=== PATIENT | male | born 1940 | race Caucasian/White ===

== ENCOUNTER 2016-08-16 05:39 | Inpatient (IN) | payer OTHER ==
[2016-07-31 08:28] VITALS: BMI 31.0
--- NOTE | 2016-07-31 09:12 | PAT Medication Instructions ---
Service Date Jul 31, 2016. Current Home Medication List Albuterol Hfa (Ventolin Hfa), 2-4 PUFFS INH Q6H Amoxicillin (Amoxil), 2,000 MG PO DIRECTED Aspirin (Aspirin Ec), 81 MG PO QPM Cholecalciferol (Vitamin D 1000 Unit), 1,000 INTER.UNIT PO BID Colchicine (Colchicine), 0.6 MG PO PRN Cyanocobalamin (Vitamin B12 500MCG), 500 MCG PO QAM Dutasteride (Avodart), 0.5 MG PO QAM Iron-Vitamin C (Vitron-C), 1 TAB PO BID Metoprolol Succ (Toprol Xl) (Toprol-Xl), 12.5 MG PO QAM Pantoprazole (Protonix), 40 MG PO QAM Tadalafil (Cialis), 20 MG PO UD Tamsulosin Hcl (Flomax), 0.4 MG PO BID Medication Instructions For Your Scheduled Surgery Amoxicillin (Amoxil), 2,000 MG PO DIRECTED (only takes prior to dental procedures) Colchicine (Colchicine), 0.6 MG PO PRN (not taking currently) - Hold the following medications 24 hours prior to surgery: Tadalafil (Cialis), 20 MG PO UD - Hold the following medications the morning of surgery: Iron-Vitamin C (Vitron-C), 1 TAB PO BID Cyanocobalamin (Vitamin B12 500MCG), 500 MCG PO QAM Cholecalciferol (Vitamin D 1000 Unit), 1,000 INTER.UNIT PO BID - Take the following medications the morning of surgery with a sip of water: Tamsulosin Hcl (Flomax), 0.4 MG PO BID Pantoprazole (Protonix), 40 MG PO QAM Metoprolol Succ (Toprol Xl) (Toprol-Xl), 12.5 MG PO QAM Dutasteride (Avodart), 0.5 MG PO QAM Albuterol Hfa (Ventolin Hfa), 2-4 PUFFS INH Q6H (bring with you to hospital on day of surgery) - Take the following medications as scheduled the night before surgery: Tamsulosin Hcl (Flomax), 0.4 MG PO BID Cholecalciferol (Vitamin D 1000 Unit), 1,000 INTER.UNIT PO BID Aspirin (Aspirin Ec), 81 MG PO QPM Albuterol Hfa (Ventolin Hfa), 2-4 PUFFS INH Q6H If you have any questions please call us at [phone] or [phone] ( [place]) or [phone]
[2016-07-31 09:38] LABS: BASO % 0.5 %; BASO ABS # 0.04 K/uL (0-0.2); COMPLETE YES; EOS % 2.6 %; IG% 0.5 %; LYMPH % 21.6 %; LYMPH ABS # 1.63 K/uL (1.2-3.4); MEAN CELL VOLUME 87.4 fL (80-100); MEAN CORPUSCULAR HEMOGLOBIN 29.3 pg (25-34); MEAN CORPUSCULAR HGB CONC 33.5 g/dl (32-36); MEAN PLATELET VOLUME 8.9 fL (7.4-10.4); MONO % 8.3 %; NEUT % 66.5 %; PLATELET COUNT 178 K/uL (130-400); RED BLOOD COUNT 4.92 M/uL (4.7-6.1); WHITE BLOOD COUNT 7.56 K/uL (4.8-10.8)
[2016-07-31 09:43] LABS: URINE APPEARANCE CLEAR (CLEAR); URINE BILIRUBIN NEG (NEG); URINE COLOR YELLOW; URINE NITRITE NEG (NEG); URINE SPECIFIC GRAVITY 1.024 (1.000-1.030); UROBILINOGEN NEG (NEG)
--- NOTE | 2016-07-31 09:52 | DIAGNOSTIC IMAGING REPORT ---
CHEST PREADMISSION(PA/LAT) CLINICAL HISTORY: PAT preoperative evaluation COMPARISON STUDY: 11/10/2013 FINDINGS: Fixed lateral hernia. Lungs are clear. Diaphragms are smooth. IMPRESSION: No acute process. Electronically signed by: Danial Noble M.D. 07/31/2016 9:51 AM Dictated Date/Time: 07/31/2016 9:49 AM
[2016-07-31 09:55] LABS: MANUAL MICROSCOPIC REQUIRED? NO; REVIEW REQ? NO
[2016-07-31 10:06] LABS: BUN/CREATININE RATIO 18.9 (10-20); CALCIUM 8.7 mg/dl (8.5-10.1); POTASSIUM 4.2 mmol/L (3.5-5.1)
--- NOTE | 2016-08-15 12:46 | HISTORY & PHYSICAL EXAMINATION ---
DATE OF ADMISSION: 08/16/2016 HISTORY OF PRESENT ILLNESS: The patient presents to our office with a complaint of balance discrepancy as well as upper extremity numbness and paresthesias. He also admits to bilateral leg pain. He reports buckling of his left leg. He denies bowel or bladder changes. PAST MEDICAL HISTORY: Significant for arthritis, BPH. PAST SURGICAL HISTORY: Significant for hip replacement bilaterally and hernia repair. ALLERGIES: None listed. MEDICATIONS: Include: 1. Celebrex 200 mg twice a day. 2. Simvastatin 20 mg a day. 3. Flomax 0.4 mg daily. SOCIAL HISTORY: He is , has 4 children. Denies alcohol. Denies tobacco use. FAMILY HISTORY: Significant for cancer, cardiovascular disease and arthritis. REVIEW OF SYSTEMS: Significant for hearing loss, ringing in ears, muscle weakness. PHYSICAL EXAMINATION: VITAL SIGNS: 6 feet 2 inches, 220 pounds. HEENT: Speech appropriate. CARDIOPULMONARY: No gross abnormalities. ABDOMEN: Soft, nondistended. GENITOURINARY: Deferred. NEUROLOGIC: Cranial nerves II-XII grossly intact. MUSCULOSKELETAL: He ambulates with an independent steady gait. Strength is intact bilaterally. ASSESSMENT: Severe spinal stenosis at C3-C4 with intrinsic cord changes, bilateral neural foraminal stenosis C3-C4. PLAN: At this point in time, we have reviewed surgical intervention which would require anterior cervical discectomy and fusion at C3-4. Risks, benefits, pros, cons, and alternatives were outlined in detail. The patient would like to proceed with the above-mentioned surgical planning.
[~2016-08-16] VITALS: Ht 188 cm; Wt 111.4 kg
[2016-08-16] VITALS (15 sets, daily range): BP systolic 131–171; BP diastolic 74–98; PULSE 52–88; TEMP 34.7–36.5; O2SAT 94–98; Ht 188 cm; Wt 111.4 kg
[~2016-08-16 05:39] MED LIST: AMOX500C3 PO; ASPI81TA28 PO; CHOL100027 PO; COLC0.6T54 PO; CYAN500T13 PO; DUTA0.5C PO; FERRTAB18 PO; METO25TA3 PO; PANT40TA PO; TADA10TA PO; TAMS0.4C38 PO; VNTHFA/IN INH
[2016-08-16] MEDS ORDERED: LACTATED RINGER'S 1000ML 1,000 ML IV SCH (06:00)
[2016-08-16] MEDS ORDERED: CEFAZOLIN 2000 MG/60 ML D5W IV SCH (06:00)
[2016-08-16] MEDS ORDERED: FENTANYL CITRATE INJ 50 MCG/1 ML 2 ML VIAL ONE ×3 (06:33→09:05)
[2016-08-16] MEDS ORDERED: MIDAZOLAM HCL 1 MG/ML 2ML VIAL ONE (06:33)
[2016-08-16] MEDS ORDERED: SODIUM CHLORIDE 0.9% PF 50 ML VIAL ONE (07:10)
[2016-08-16] MEDS ORDERED: BACITRACIN 50000 UNIT VIAL ONE (07:10)
--- NOTE | 2016-08-16 07:34 | History & Physical Bridge Note ---
H&P Re-Evaluation Bridge Note: I have examined the patient, reviewed the History & Physical and in the interval since the performance of the History & Physical I have noted the following changes of clinical significance: No changes noted
[2016-08-16] MEDS ORDERED: HYDROmorphone INJ 2 MG/ML SYR/VIAL ONE ×2 (08:06→09:10)
[2016-08-16] MEDS ORDERED: MEPERIDINE HCL 25 MG/ML CARP IV PRN (08:45)
[2016-08-16] MEDS ORDERED: ATROPINE SULFATE 0.1 MG/ML 5ML SYR IV PRN (08:45)
[2016-08-16] MEDS ORDERED: LABETALOL HCL IV 5 MG/ML 20ML IV PRN (08:45)
[2016-08-16] MEDS ORDERED: HYDROmorphone INJ 1 MG/ML SYR IV PRN ×2 (08:45→09:45)
[2016-08-16] MEDS ORDERED: EpHEDrine SULFATE INJ 50 MG/ML AMP IV PRN (08:45)
[2016-08-16] MEDS ORDERED: ONDANSETRON INJ 2 MG/ML 2 ML VIAL IV PRN ×2 (08:45→09:15)
[2016-08-16] MEDS ORDERED: FLOSEAL HEMOSTATIC MATRIX 5ML TOP ONE (09:10)
--- NOTE | 2016-08-16 09:11 | [facility] Post Operative Brief Note ---
Immediate Operative Summary Operative Date Aug 16, 2016. Pre-Operative Diagnosis Severe Spinal Stenosis C3-C4, Intrinsic Cord Change, Bilateral Neural Foraminal Stenosis C3-C4 Post-Operative Diagnosis Severe Spinal Stenosis C3-C4, Intrinsic Cord Change, Bilateral Neural Foraminal Stenosis C3-C4 Procedure(s) Performed C3-C4 Anterior Cervical Discectomy and Fusion; Removal of Intervertebral Disc/Decompression; Placement of Prosthetic Spacer; Anterior Plate and Screw Fixation Surgeon Dr. Ortiz Artist Agent Surgeon(s) none Estimated Blood Loss 20 cc Findings stenosis Specimens none per surgeon
[2016-08-16] MEDS ORDERED: MAGNESIUM HYDROXIDE SUSP 30 ML UDC PO PRN (09:15)
[2016-08-16] MEDS ORDERED: DO NOT ADMINISTER FLU VACCINE PRN ×3 (09:15)
[2016-08-16] MEDS ORDERED: HYDROmorphone INJ 0.5 MG/0.5 ML SYR IV PRN (09:15)
[2016-08-16] MEDS ORDERED: RACEPINEPHRINE 2.25% NEBU SOLN 0.5 ML VIAL INH PRN (09:15)
[2016-08-16] MEDS ORDERED: ACETAMINOPHEN IV 100 ML IV PRN (09:15)
[2016-08-16] MEDS ORDERED: DO NOT ADMINISTER PNEUMOCOCCAL VACCINE PRN ×2 (09:15)
[2016-08-16] MEDS ORDERED: NALOXONE HCL 0.4 MG/1 ML VIAL/CARP IV PRN (09:15)
[2016-08-16] MEDS ORDERED: LORAZEPAM 0.5 MG TAB PO PRN (09:15)
[2016-08-16] MEDS ORDERED: DiphenhydrAMINE HCL 50 MG/ML VIAL IV PRN (09:15)
[2016-08-16] MEDS ORDERED: DEXAMETHASONE INJ 8 MG in SYRINGE 0 ML IV PRN (09:15)
[2016-08-16] MEDS ORDERED: LORAZEPAM INJ 0.5 MG in SYRINGE 0.75 ML IV PRN (09:15)
[2016-08-16] MEDS ORDERED: LIDOCAINE HCL 2% 2 ML VIAL (20MG/ML) ONE (09:27)
[2016-08-16] MEDS ORDERED: NEOSTIGMINE METHYLSULFATE 1 MG/ML 10ML VIAL ONE (09:27)
[2016-08-16] MEDS ORDERED: EpHEDrine SULFATE 50MG/5ML SYR ONE (09:27)
[2016-08-16] MEDS ORDERED: ROCURONIUM BROMIDE 10 MG/ML 5 ML VIAL ONE (09:27)
[2016-08-16] MEDS ORDERED: GLYCOPYRROLATE INJ 0.2 MG/ML VIAL ONE (09:27)
[2016-08-16] MEDS ORDERED: PROPOFOL IV EMULSION 10 MG/ML 20 ML VIAL IV ONE (09:27)
[2016-08-16] MEDS ORDERED: ONDANSETRON INJ 2 MG/ML 2 ML VIAL ONE (09:27)
[2016-08-16] MEDS ORDERED: DEXAMETHASONE SOD INJ 4 MG/ML VIAL ONE (09:27)
[2016-08-16] MEDS ORDERED: PHENYLEPHRINE 100MCG/ML 5ML SYR ONE (09:27)
--- NOTE | 2016-08-16 09:32 | OPERATIVE REPORT ---
DATE OF OPERATION: 08/16/2016 PREOPERATIVE DIAGNOSIS: Cervical spinal stenosis with myeloradiculopathy. POSTOPERATIVE DIAGNOSIS: Same. PROCEDURE PERFORMED: 1. Anterior cervical discectomy, bilateral foraminotomy C3-C4. 2. Anterior cervical arthrodesis C3-C4. 3. Placement of cortical autograft 8 mm in height filled with DBM, C3-C4. 4. Application of Jimenez plate and screws across C3-C4. SURGEON: Dr. Darin Ortiz. ANESTHESIA: General. DISPOSITION: The patient awakened and taken to PACU in stable condition. HISTORY OF PATIENT'S PROBLEMS: This is a 76-year-old male who presents with above-mentioned diagnosis. After failing an extensive course of nonoperative care, elected to undergo the above-mentioned procedure. Risks, benefits, pros, cons, and alternatives were outlined in detail preoperatively. DESCRIPTION OF PROCEDURE: The patient was met with preoperatively, the case discussed and all questions were addressed. At that point, the patient was taken back to operative suite, and after undergoing successful general intubation via department of anesthesia, was placed in a supine position with the head in Islas pm head cook. All bony prominences were well padded and the eyes were inspected to ensure there was no external pressure placed upon them. At this point, the anterior cervical spine was prepped and draped in normal sterile fashion. With the assistance of fluoroscopy, we identified the C3-C4 disc space and transverse incision was placed along the right anterior aspect of the cervical spine overlying this region. Sharp dissection with the assistance of bipolar electrocautery performed down to and exposing the anterior cervical spine from C3-C4. A self-retaining retractor was placed. We verified our position with fluoroscopy. A complete discectomy was then performed out to the uncovertebral joints bilaterally. Nikolski distracting pins were utilized to assist us in our visualization. We did remove all posterior annular fibers, longitudinal ligament and all spurs. The endplates were then burred to subcortical bleeding bone and 8 mm cortical autograft filled with DBM tapped in position. Distracting apparatus was removed. All anterior osteophytes burred to a smooth cortical surface and Jimenez plate and screws applied with the assistance of fluoroscopy. The incision was then copiously irrigated, explored to ensure there was no damage to surrounding structures or remaining bleeding, and a 10 round MELITA drain inserted, then closed with 2-0 Vicryl in the fascia, 4-0 Monocryl for final skin closure. Steri-Strips and sterile dressing placed. The patient was awakened and taken to PACU in stable condition. I attest to the content of the Intraoperative Record and any orders documented therein. Any exceptio ns are noted below.
[2016-08-16] MEDS: FENTANYL CITRATE INJ 50 MCG/1 ML 2 ML VIAL IV PRN ×3 (09:53→10:08)
--- NOTE | 2016-08-16 09:56 | DIAGNOSTIC IMAGING REPORT ---
INTRAOPERATIVE RADIOGRAPHS CLINICAL HISTORY: C3-C4 spinal fusion. Fluoroscopy time: 7 seconds. FINDINGS: 2 spot fluoroscopic views of the cervical spine are presented. There is evidence of discectomy at C3-C4 with anterior fusion at this level. The orthopedic hardware appears intact. An endotracheal tube is noted. IMPRESSION: Intraoperative images from anterior fusion at C3-C4 as above. Electronically signed by: Dutch Avila M.D. 08/16/2016 9:55 AM Dictated Date/Time: 08/16/2016 9:54 AM
--- NOTE | 2016-08-16 10:24 | Anesthesiology Progress Note ---
Anesthesia Post Op Note Date & Time Aug 16, 2016 at 10:24 Vital Signs Pain Intensity: 4 Vital Signs Past 12 Hours Date Time Temp Pulse Resp B/P Pulse Ox O2 Delivery O2 Flow Rate FiO2 08/16/16 10:15 71 16 134/82 97 Nasal Cannula 5 08/16/16 10:05 78 16 147/79 99 Nasal Cannula 5 08/16/16 09:55 79 16 163/94 94 Mask 10 08/16/16 09:45 79 14 143/86 97 Mask 10 08/16/16 09:35 68 14 154/83 98 Mask 10 08/16/16 09:25 36.0 74 14 148/86 99 Mask 10 08/16/16 06:07 36.5 67 18 152/74 97 Room Air Notes Mental Status: alert / awake / arousable, participated in evaluation Pt Amnestic to Procedure: Yes Nausea / Vomiting: adequately controlled Pain: adequately controlled Airway Patency, RR, SpO2: stable & adequate BP & HR: stable & adequate Hydration State: stable & adequate Anesthetic Complications: no major complications apparent
[2016-08-16] MEDS: SODIUM CHLORIDE 0.9% 1000ML 1,000 ML IV SCH ×2 (11:29→22:18)
[2016-08-16] MEDS ORDERED: SCOPOLAMINE 1.5 MG TDSY TD SCH (12:00)
[2016-08-16] MEDS: ALBUTEROL HFA 8 GM INHALER INH SCH ×3 (12:14→23:26)
[2016-08-16] MEDS: HYDROCODONE/ACETAMOPHEN 5/325MG TAB PO PRN (14:37)
[2016-08-16] MEDS: CHECK SCOPOLAMINE PATCH PLACEMENT SCH ×2 (15:28→23:27)
[2016-08-16] MEDS: DEXAMETHASONE INJ 6 MG in SYRINGE 0 ML IV SCH ×2 (15:28→23:27)
[2016-08-16] MEDS: AVODART-ORDER AWAITING ACTION SCH ×2 (15:29→23:28)
[2016-08-16] MEDS: CEFAZOLIN IV 2,000 MG in DEXTROSE 5% 50ML 50 ML IV SCH ×2 (15:35→23:27)
[2016-08-16] MEDS: DOCUSATE SODIUM 100 MG CAP PO SCH (20:36)
[2016-08-16] MEDS: TAMSULOSIN HCL 0.4 MG CAP PO SCH (20:36)
[2016-08-16] MEDS ORDERED: COUGH DROP (SUGAR FREE) LOZ 24 LOZ/1 BOX ONE (22:11)
[2016-08-16] MEDS ORDERED: NURSING VERBAL MED ORDER ONE (22:15)
[2016-08-16] MEDS ORDERED: COUGH DROP (SUGAR FREE) LOZ 24 LOZ/1 BOX PO PRN (22:30)
[2016-08-17] VITALS (9 sets, daily range): BP systolic 138–164; BP diastolic 70–86; PULSE 59–79; TEMP 36.3–36.8; O2SAT 93–98
[2016-08-17] MEDS: HYDROCODONE/ACETAMOPHEN 5/325MG TAB PO PRN (01:47)
[2016-08-17] MEDS: ALBUTEROL HFA 8 GM INHALER INH SCH (05:48)
[2016-08-17] MEDS ORDERED: HYDR-5688 PO (07:37)
--- NOTE | 2016-08-17 07:37 | Discharge Instructions ---
Discharge Instructions Date of Service Aug 17, 2016. Admission Reason for Admission: Cervical Spinal Stenosis Discharge Discharge Diagnosis / Problem: stenosis Discharge Goals Goal(s): Improve function Activity Recommendations Activity Limitations: per Instructions/Follow-up section . Instructions / Follow-Up Instructions / Follow-Up ACTIVITY RECOMMENDATIONS: SELF CARE INSTRUCTIONS AFTER CERVICAL FUSIONS 1. No smoking. Smoking drastically decreases the chance of a solid fusion. 2. No bending, lifting more than 5 pounds, or twisting (roll like a log when turning in bed). 3. You may shower 3 days after surgery. Thoroughly dry wound. Do not soak in the tub. 4. Cervical collar: Must be worn at all times including sleeping. You may remove the brace only to bath, eat and if you are sitting in a recliner. 5. Please walk as much as you can for exercise. Gradually increase the distance that you walk as your endurance increases. SPECIAL CARE INSTRUCTIONS: VERY IMPORTANT TO READ AND REVIEW A. Do not take any anti-inflammatory medications (i.e. Indocin, Advil, Aspirin, Naprosyn, Aleve, Motrin, etc.) as these may inhibit the chance of a solid fusion. Tylenol is okay to take. B. Your surgical incision has been closed with a cosmetic suture under the skin that will dissolve in about 6 weeks. In 14 days, you can use a pair of clean scissors and cut the suture that is left outside of the skin at the ends of your incision. C. Complications are uncommon, but please contact us if you have any signs or symptoms of: 1. wound infection (fever higher than 102.5 degrees F, redness, separation of wound, drainage, or increasing pain from the incision) 2. blood clots in legs (pain, swelling, redness and warmth in legs) 3. urinary tract infection (fever higher than 102.5 degrees, burning upon urination or increased frequency of urination) 4. nerve problems (inability to walk on your toes or heels, numbness, loss of bowel or bladder control) 5. any other symptoms that concern you. D. Please call the office at if you have any concerns or questions about your operation or recovery. MANAGING PAIN AFTER SPINAL SURGERY 1. Narcotic medication is intended for short-term use and will be provided for surgical pain. Surgical pain usually lasts for a period of 4-6 weeks. Narcotic medication includes Percocet, Vicodin, Darvocet, Tylenol #3 or Lortab. 2. Longer-term pain is more appropriately treated with non-narcotic medication such as Tylenol ES. 3. Muscle spasm is not appropriately treated with narcotics. Muscle relaxers such as Soma, Flexeril or Skelaxin can be used along with Tylenol ES. 4. Remember that we all live with some "aches and pains". This is not unusual or uncommon after an injury or as we get older. 5. We will provide appropriate medication within the normal guidelines of their prescribed use. We will also be very cautious and aware of potential abuse and extended duration of patients' medication needs. 6. Please allow 2-3 days to process refills. Prescriptions will not be mailed but must be picked up at the office. FOLLOW UP VISIT: Keep your scheduled follow-up appointment. Any questions, please call the office at . Current Hospital Diet Patient's current hospital diet: Clear Liquid Diet Discharge Diet Recommended Diet: Regular Diet Procedures Procedures Performed: C3-C4 Anterior Cervical Discectomy and Fusion; Removal of Intervertebral Disc/Decompression; Placement of Prosthetic Spacer; Anterior Plate and Screw Fixation Pending Studies Studies pending at discharge: no Medical Emergencies . Who to Call and When: Medical Emergencies: If at any time you feel your situation is an emergency, please call 911 immediately. . Non-Emergent Contact Non-Emergency issues call your: Primary Care Provider . "Provider Documentation" section prepared by Darin Ortiz. VTE Core Measure Inpt VTE Proph given/why not?: Maxwell Hay, SCD's
[2016-08-17] MEDS: AVODART-ORDER AWAITING ACTION SCH (08:00)
[2016-08-17] MEDS: CEFAZOLIN IV 2,000 MG in DEXTROSE 5% 50ML 50 ML IV SCH (08:11)
[2016-08-17] MEDS: DEXAMETHASONE INJ 6 MG in SYRINGE 0 ML IV SCH (08:11)
[2016-08-17] MEDS: CHECK SCOPOLAMINE PATCH PLACEMENT SCH (08:12)
[2016-08-17] MEDS ORDERED: METOPROLOL SUCC 25MG EXT REL TAB PO SCH (09:00)
[2016-08-17] MEDS ORDERED: PANTOprazole SOD 40 MG TAB PO SCH (09:00)
[2016-08-17] MEDS: DOCUSATE SODIUM 100 MG CAP PO SCH (10:09)
[2016-08-17] MEDS: TAMSULOSIN HCL 0.4 MG CAP PO SCH (10:09)
[2016-08-17] MEDS: SODIUM CHLORIDE 0.9% 1000ML 1,000 ML IV SCH (10:11)
--- NOTE | 2016-08-17 10:41 | Anesthesiology Progress Note ---
Anesthesia Post Op Note Date & Time Aug 17, 2016 at 10:40 Vital Signs Pain Intensity: 2.0 Vital Signs Past 12 Hours Date Time Temp Pulse Resp B/P Pulse Ox O2 Delivery O2 Flow Rate FiO2 08/17/16 10:26 36.8 79 16 98 Room Air 08/17/16 09:00 98 Nasal Cannula 2.0 08/17/16 08:00 Nasal Cannula 2.0 08/17/16 08:00 36.8 79 16 164/78 98 Humidified Oxygen 2.0 08/17/16 07:52 71 16 98 Nasal Cannula 3.0 08/17/16 05:45 36.5 68 16 138/81 95 Nasal Cannula 3.0 Humidified Air 08/17/16 04:06 65 16 96 Nasal Cannula 3.0 08/17/16 04:00 36.8 67 14 138/75 95 Nasal Cannula 3.0 Humidified Air 08/17/16 01:41 36.5 67 14 142/86 93 Nasal Cannula 3.0 Humidified Air 08/16/16 23:35 36.5 80 16 136/74 96 Nasal Cannula 2.0 Humidified Air 08/16/16 23:19 68 16 98 Nasal Cannula 3.0 08/16/16 23:15 Nasal Cannula 3.0 Humidified Air Notes Mental Status: alert / awake / arousable, participated in evaluation Pt Amnestic to Procedure: Yes Nausea / Vomiting: adequately controlled Pain: adequately controlled Airway Patency, RR, SpO2: stable & adequate BP & HR: stable & adequate Hydration State: stable & adequate Anesthetic Complications: no major complications apparent
--- NOTE | 2016-08-17 13:24 | DISCHARGE SUMMARY ---
PRINCIPLE DIAGNOSIS: Cervical stenosis. HOSPITAL COURSE FOLLOWS: On August 16, the patient underwent anterior cervical discectomy and fusion, tolerated this well and taken to the orthopedic floor postoperatively. Postop day #1, he swallowing has markedly improved. MELITA drain decreased appropriately. Arm symptoms doing well. Subsequently discharged home. Discharge orders and instructions found on the chart for further review.
[2016-08-18] MEDS ORDERED: BISACODYL 5 MG TABEC PO PRN (06:00)
[2016-08-18] MEDS ORDERED: BISACODYL 10 MG SUPP PR PRN (06:00)
[2016-08-18] MEDS ORDERED: POLYETHYLENE (MIRALAX) 17 GM PACK PO SCH (09:00)
[2016-11-01] MEDS ORDERED: PSYL58.636 (13:38)
== END 2016-08-17 13:36 | disposition home or self-care (01) | DRG 473 ==
LOC: ENRESERVDT → ENRESERVTM → C.ACU 05:39 → C.3E 07:20
PROVIDERS: ADMIT Orthopaedic Surgery Orthopaedic Surgery of the Spine; ATTEND Orthopaedic Surgery Orthopaedic Surgery of the Spine
PROC: 0RG1070 Fusion of Cervical Vertebral Joint with Autologous Tissue Substitute, Anterior Approach, Anterior Column, Open Approach (ICD-10-PCS; principal; 2016-08-16 07:45)
PROC: 0RT30ZZ Resection of Cervical Vertebral Disc, Open Approach (ICD-10-PCS; principal; 2016-08-16 07:45)
DX: M48.02 Spinal stenosis, cervical region (principal); M54.12 Radiculopathy, cervical region; M19.90 Unspecified osteoarthritis, unspecified site; N40.0 Benign prostatic hyperplasia without lower urinary tract symptoms; Z96.643 Presence of artificial hip joint, bilateral; Z79.82 Long term (current) use of aspirin; Z79.899 Other long term (current) drug therapy; Z82.61 Family history of arthritis; Z82.49 Family history of ischemic heart disease and other diseases of the circulatory system

== ENCOUNTER 2016-08-20 11:05 | Observation (INO) | payer OTHER ==
[~2016-08-20] VITALS: Ht 188 cm; Wt 113.2 kg
[~2016-08-20 11:05] MED LIST changes: +HYDR-5688 PO
[2016-08-20 11:09] VITALS: Ht 188 cm; Wt 113.2 kg
[2016-08-20] MEDS ORDERED: OPTIRAY 320 IV PRN (11:45)
--- NOTE | 2016-08-20 12:05 | EMERGENCY ROOM VISIT NOTE ---
ED Visit Note First contact with patient: 11:22 I have seen and examined this patient with Karri Mendoza and generally agree with the treatment plan as discussed. Problem List Medical Problems: (1) Arthritis Status: Chronic (2) Hernia Status: Chronic (3) Iron deficiency anemia Status: Chronic Surgical Problems: (1) History of total hip replacement Status: Chronic Current/Historical Medications Scheduled Albuterol Hfa (Ventolin Hfa), 2-4 PUFFS INH Q6H Amoxicillin (Amoxil), 2,000 MG PO DIRECTED Aspirin (Aspirin Ec), 81 MG PO QPM Cholecalciferol (Vitamin D 1000 Unit), 1,000 INTER.UNIT PO BID Colchicine (Colchicine), 0.6 MG PO PRN Cyanocobalamin (Vitamin B12 500MCG), 500 MCG PO QAM Dutasteride (Avodart), 0.5 MG PO QAM Iron-Vitamin C (Vitron-C), 1 TAB PO BID Metoprolol Succ (Toprol Xl) (Toprol-Xl), 12.5 MG PO QAM Pantoprazole (Protonix), 40 MG PO QAM Tadalafil (Cialis), 20 MG PO UD Tamsulosin Hcl (Flomax), 0.4 MG PO BID Scheduled PRN Hydrocodone/Acetaminophen 5MG/325MG ([place] 5MG/325MG), 1-2 TAB PO Q4H PRN for moderate-severe pain Allergies Coded Allergies: No Known Allergies (Verified , 08/20/16) Vital Signs Date Time Temp Pulse Resp B/P Pulse Ox O2 Delivery O2 Flow Rate FiO2 08/20/16 11:09 99 Room Air 08/20/16 11:09 36.6 99 18 185/116 99 Room Air Laboratory Results Test 08/20/16 11:45 Departure Information Referrals Star Cabrera M.D. (PCP) Patient Instructions My [facility]
[2016-08-20 12:07] LABS: BASO % 0.7 %; BASO ABS # 0.03 K/uL (0-0.2); COMPLETE YES; EOS % 4.5 %; HEMATOCRIT 41.8 % (42-52); IG% 0.2 %; LYMPH % 22.9 %; LYMPH ABS # 0.97 K/uL (1.2-3.4); MEAN CELL VOLUME 89.3 fL (80-100); MEAN CORPUSCULAR HEMOGLOBIN 29.7 pg (25-34); MEAN CORPUSCULAR HGB CONC 33.3 g/dl (32-36); MEAN PLATELET VOLUME 8.8 fL (7.4-10.4); MONO % 9.7 %; PLATELET COUNT 208 K/uL (130-400); RED BLOOD COUNT 4.68 M/uL (4.7-6.1); WHITE BLOOD COUNT 4.24 K/uL (4.8-10.8)
[2016-08-20 12:27] LABS: BUN/CREATININE RATIO 16.3 (10-20); CALCIUM 8.9 mg/dl (8.5-10.1); CREATININE 0.95 mg/dl (0.60-1.40); POTASSIUM 3.9 mmol/L (3.5-5.1)
[2016-08-20] MEDS ORDERED: LORAZEPAM 2 MG/ML 1 ML VIAL IV ONE (13:45)
--- NOTE | 2016-08-20 14:43 | DIAGNOSTIC IMAGING REPORT ---
CT OF THE NECK WITH CONTRAST CT DOSE: 544.82 mGy.cm CLINICAL HISTORY: Swallowing difficulty status post cervical fusion on 08/16/16. TECHNIQUE: Axial images of the neck were obtained following intravenous injection of 92 cc of Optiray 320 IV. COMPARISON STUDY: MRI of the cervical spine December 28, 2015. FINDINGS: Visualized portions of the intracranial contents are unremarkable. A small amount of fluid is noted within the bilateral mastoid air cells. Major vasculature of the neck is patent. There are post surgical findings consistent a C3-C4 fusion via a right anterior approach. There is a small amount of low-attenuation fluid within the operative bed. There is no large hematoma. Exam is optimized by streak artifact from the hardware. The airway and esophagus are suboptimally assessed on this exam. There is mild fluid and infiltration adjacent to the cervical esophagus as expected in the early postoperative setting. There is suspected mild airway narrowing although this could be artifactual. Sensitivity for detection of mucosal lesions is diminished on the exam. A few small thyroid nodules measure up to 9 mm. Lung apices are clear. IMPRESSION: Postsurgical findings consistent with a C3-C4 fusion via a right anterior approach. Small amount of low-attenuation fluid within the operative bed is nonspecific but likely within normal limits in the early postoperative period. No large hematoma. Mild infiltration and fluid adjacent to the cervical esophagus which is not unexpected in the early postoperative setting. Suboptimal evaluation of the airway. Apparent mild airway narrowing could be artifactual and could be correlated with respiratory symptoms. Electronically signed by: Fortunato Gallo M.D. 08/20/2016 2:42 PM Dictated Date/Time: 08/20/2016 2:31 PM
[2016-08-20] MEDS ORDERED: NURSING VERBAL MED ORDER SCH (15:30)
[2016-08-20] MEDS ORDERED: IV FLUIDS COMPLETED PRN (16:15)
[2016-08-20 16:22] VITALS: BP 193/100; PULSE 77; TEMP 36.5; O2SAT 98
[2016-08-20] MEDS ORDERED: HYDROmorphone INJ 1 MG/ML SYR IV PRN (17:30)
[2016-08-20] MEDS ORDERED: ONDANSETRON INJ 2 MG/ML 2 ML VIAL IV PRN (17:30)
[2016-08-20] MEDS ORDERED: ACETAMINOPHEN 1000 MG/100 ML IV IV PRN (17:30)
[2016-08-20 17:31] VITALS: BP 169/101; PULSE 75; O2SAT 96
[2016-08-20] MEDS: SODIUM CHLORIDE 0.9% 1000ML 1,000 ML IV SCH (17:34)
[2016-08-20] MEDS: DEXAMETHASONE INJ 10 MG in SYRINGE 0 ML IV SCH (18:13)
[2016-08-20 19:33] VITALS: BP 175/94; PULSE 64; TEMP 36.8; O2SAT 93
--- NOTE | 2016-08-20 20:43 | EMERGENCY ROOM VISIT NOTE ---
History First contact with patient: : Chief Complaint: THROAT PAIN/INJURY Stated Complaint: SURGERY 08/16,CANNOT SWALLOW WATER/FOOD History of Present Illness The patient is a 76 year old white male who presents to the Emergency Room with complaints of inability to swallow. Patient states he had an ACDF on Sunday by Dr. Ortiz. He has been having difficulty swallowing since immediately after the procedure. He reportedly had a MELITA drain in place but there was minimal output. The drain was pulled. He has had continued difficulty swallowing liquids and solids. He is able to swallow most of his saliva but occasionally has to spit it out. He notes this is more frequent when trying to sleep. He has difficulty with swallowing water. No fevers or chills. His daughter accompanies him today. No increase in pain. He states the choking sensation with reclining and this does cause him to become anxious. [facility], and states he was instructed to come to the ED for further evaluation. Pain is 8/10. Review of Systems REVIEW OF SYSTEM: HEENT: No dizziness, visual problems, hearing loss, or tinnitus. There is difficulty swallowing. LYMPH: No adenopathy. PULMONARY: No cough, shortness of breath, sputum production or hemoptysis. CARDIOVASCULAR: No chest pain, palpitations, shortness of breath or peripheral edema. GASTROINTESTINAL: No diarrhea, constipation, nausea, vomiting, or abdominal pain. GENITOURINARY: No dysuria, frequency, urgency or nocturia. NEUROLOGIC: No weakness, muscle tenderness, epilepsy or history of neurological problems. MUSCULOSKELETAL: No history of joint tenderness/swelling. Positive history of arthritis and arthralgias. SKIN: No rashes or lesions. PSYCHIATRIC: No history of depression or mental illness. ENDOCRINE: No history of diabetes, thyroid disorders, or abnormal hair growth. Past Medical/Surgical History Medical Problems: (1) Arthritis (2) Cervical stenosis of spinal canal (3) Hernia (4) Iron deficiency anemia Surgical Problems: (1) History of total hip replacement GERD. ACDF 08/16/2016 Family History Cancer Heart disease Hypertension Social History Smoking Status: Never Smoker Smokeless Tobacco Use: No Alcohol Use: occasionally Drug Use: none Marital Status: Housing Status: lives with family Occupation Status: retired Current/Historical Medications Scheduled Albuterol Hfa (Ventolin Hfa), 2-4 PUFFS INH Q6H Amoxicillin (Amoxil), 2,000 MG PO DIRECTED Aspirin (Aspirin Ec), 81 MG PO QPM Cholecalciferol (Vitamin D 1000 Unit), 1,000 INTER.UNIT PO BID Colchicine (Colchicine), 0.6 MG PO PRN Cyanocobalamin (Vitamin B12 500MCG), 500 MCG PO QAM Dutasteride (Avodart), 0.5 MG PO QAM Iron-Vitamin C (Vitron-C), 1 TAB PO BID Metoprolol Succ (Toprol Xl) (Toprol-Xl), 12.5 MG PO QAM Pantoprazole (Protonix), 40 MG PO QAM Tadalafil (Cialis), 20 MG PO UD Tamsulosin Hcl (Flomax), 0.4 MG PO BID Scheduled PRN Hydrocodone/Acetaminophen 5MG/325MG ([place] 5MG/325MG), 1-2 TAB PO Q4H PRN for moderate-severe pain Allergies Coded Allergies: No Known Allergies (Verified , 08/20/16) Physical Exam Vital Signs Date Time Temp Pulse Resp B/P Pulse Ox O2 Delivery O2 Flow Rate FiO2 08/20/16 15:10 68 20 160/94 95 Room Air 08/20/16 13:10 80 20 164/109 94 Room Air 08/20/16 11:09 99 Room Air 08/20/16 11:09 36.6 99 18 185/116 99 Room Air Physical Exam Gen.: Well-developed, well-nourished, elderly white male, in no obvious discomfort. No acute distress. Mildly anxious. Skin:Warm and dry with good turgor. No rashes or lesions. No ecchymosis or erythema. The patient is not diaphoretic. No abrasions. He does have a bandage present on the anterior neck. HEENT: Normocephalic atraumatic. Eyes PERRLA, EOMI. No conjunctiva or scleral injection. Ears TMs intact bilaterally with good light reflexes. No erythema or bulging. No hemotympanum. Canals are patent. Nares patent bilaterally without turbinate enlargement. No significant drainage. No epistaxis. Oropharynx without erythema or exudate. Uvula midline, oral mucosa moist. No lesions present. He is swallowing his own saliva currently. No trismus. Neck: He is currently in a Experifun type brace. No pain with palpation around the neck. No appreciable swelling. Heart: Heart RRR. No MGR. Peripheral pulses are 2+. Lungs: Lungs are clear to auscultation. No crackles rhonchi or wheezing. Good air movement. The patient is able to take a deep breath. Musculoskeletal: Gross motor function of the upper and lower extremities is intact and unremarkable. Medical Decision & Procedures ER Provider Diagnostic Interpretation: CT scan imaging of the soft tissue of the neck with IV contrast was obtained today. This was read by radiology as: Postsurgical findings consistent with a C3-C4 fusion via a right anterior approach. Small amount of low-attenuation fluid within the operative bed is nonspecific but likely within normal limits in the early postoperative period. No large hematoma. Mild infiltration and fluid adjacent to the cervical esophagus which is not unexpected in the early postoperative setting. Suboptimal evaluation of the airway. Apparent mild airway narrowing could be artifactual and could be correlated with respiratory symptoms. Laboratory Results 08/20/16 11:45 Red Blood Count 4.68, Mean Corpuscular Volume 89.3, Mean Corpuscular Hemoglobin 29.7, Mean Corpuscular Hemoglobin Concent 33.3, Mean Platelet Volume 8.8, Neutrophils (%) (Auto) 62.0, Lymphocytes (%) (Auto) 22.9, Monocytes (%) (Auto) 9.7, Eosinophils (%) (Auto) 4.5, Basophils (%) (Auto) 0.7, Neutrophils # (Auto) 2.63, Lymphocytes # (Auto) 0.97, Monocytes # (Auto) 0.41, Eosinophils # (Auto) 0.19, Basophils # (Auto) 0.03 08/20/16 11:45 Test 08/20/16 11:45 White Blood Count 4.24 K/uL (4.8-10.8) Red Blood Count 4.68 M/uL (4.7-6.1) Hemoglobin 13.9 g/dL (14.0-18.0) Hematocrit 41.8 % (42-52) Mean Corpuscular Volume 89.3 fL (80-100) Mean Corpuscular Hemoglobin 29.7 pg (25-34) Mean Corpuscular Hemoglobin Concent 33.3 g/dl (32-36) Platelet Count 208 K/uL (130-400) Mean Platelet Volume 8.8 fL (7.4-10.4) Neutrophils (%) (Auto) 62.0 % Lymphocytes (%) (Auto) 22.9 % Monocytes (%) (Auto) 9.7 % Eosinophils (%) (Auto) 4.5 % Basophils (%) (Auto) 0.7 % Neutrophils # (Auto) 2.63 K/uL (1.4-6.5) Lymphocytes # (Auto) 0.97 K/uL (1.2-3.4) Monocytes # (Auto) 0.41 K/uL (0.11-0.59) Eosinophils # (Auto) 0.19 K/uL (0-0.5) Basophils # (Auto) 0.03 K/uL (0-0.2) RDW Standard Deviation 54.9 fL (36.4-46.3) RDW Coefficient of Variation 16.6 % (11.5-14.5) Immature Granulocyte % (Auto) 0.2 % Immature Granulocyte # (Auto) 0.01 K/uL (0.00-0.02) Anion Gap 5.0 mmol/L (3-11) Est Creatinine Clear Calc Drug Dose 91.3 ml/min Estimated GFR () 91.0 Estimated GFR (Non- 78.5 BUN/Creatinine Ratio 16.3 (10-20) Calcium Level 8.9 mg/dl (8.5-10.1) CBC and PRP were obtained today. Mild anemia. Otherwise unremarkable. Medications Administered Medications (Trade) Dose Ordered Sig/[place] Route Start Time Stop Time Status Last Admin Dose Admin Lorazepam (Ativan Inj) 0.5 mg NOW ONCE IV 08/20/16 13:45 08/20/16 13:46 DC 08/20/16 14:08 0.5 MG Ativan 0.5 mg IV ED Course Patient and his daughter were educated regarding today's findings. Conservative care measures were discussed. IV was established. Labs were obtained. CT scan imaging of the soft tissue of his neck with IV contrast was ordered. Patient was unable to tolerate lying flat CT scan. He was brought back to the department given Ativan 0.5 mg IV. Anxiety improved and he was able to complete the CT scan imaging. He remained stable while in the ED. I did observe spitting his saliva. CT imaging showed narrowing of his airway and that 2 separate spots significant narrowing. I did speak with Dr. Ortiz from [facility]. He recommended observation of the patient overnight. He did provide orders. Please see his dictation for final management. Patient was seen in conjunction with Dr. Lugo, who also evaluated the patient and concurred with today's diagnosis and treatment plan. Medical Decision Possibility of hematoma, esophageal edema, abscess, and postsurgical edema were considered, among others. Impression Primary Impression: Postoperative edema Additional Impression: Swallowing difficulty Departure Information Referrals Star Cabrera M.D. (PCP) Patient Instructions My [facility] Problem Qualifiers Additional Impression: Swallowing difficulty Dysphagia type: pharyngoesophageal phase Qualified Codes: R13.14 - Dysphagia , pharyngoesophageal phase
[2016-08-20] MEDS: LORAZEPAM INJ 1 MG in SYRINGE 0.5 ML IV PRN (22:46)
[2016-08-20 22:58] VITALS: BP 181/98; PULSE 74; TEMP 36.9; O2SAT 95
[2016-08-20 23:05] VITALS: BP 150/89; PULSE 70
[2016-08-21] MEDS: DEXAMETHASONE INJ 10 MG in SYRINGE 0 ML IV SCH ×3 (02:00→18:18)
[2016-08-21] MEDS: SODIUM CHLORIDE 0.9% 1000ML 1,000 ML IV SCH ×3 (03:06→23:31)
[2016-08-21 03:08] VITALS: BP 151/90; PULSE 77; TEMP 36.4; O2SAT 94
[2016-08-21 07:15] VITALS: BP 165/106; PULSE 80; TEMP 36.6; O2SAT 93
[2016-08-21 08:13] VITALS: BP 164/101; PULSE 77
[2016-08-21] MEDS: PANTOprazole SOD 40 MG TAB PO SCH (08:15)
[2016-08-21] MEDS: TAMSULOSIN HCL 0.4 MG CAP PO SCH ×2 (08:15→21:41)
[2016-08-21] MEDS: METOPROLOL SUCC 25MG EXT REL TAB PO SCH (08:15)
[2016-08-21 14:00] VITALS: BP 163/98; PULSE 98
[2016-08-21 15:40] VITALS: BP 162/105; PULSE 88; TEMP 36.4; O2SAT 92
--- NOTE | 2016-08-21 15:56 | HISTORY & PHYSICAL EXAMINATION ---
DATE OF ADMISSION: 08/20/2016 CHIEF COMPLAINT: Difficulty swallowing. HISTORY OF PRESENT ILLNESS: This is a 76-year-old male, well known to me, status post anterior discectomy and fusion C3-C4 earlier in the week. Postoperatively, he did have some swallowing issues but was able to handle fluid without difficulty and was subsequently discharged home. He returned to the ER Sunday evening, again marked worsening of his swallowing. He had difficulty controlling his oral secretions. He was oxygenating without difficulty. Denied any shortness of breath, neck pain or upper extremity symptoms. Of note, he is status post EGD 2 weeks ago and was describing significant hoarseness after this procedure. PAST MEDICAL HISTORY: Significant for arthritis and BPH. PAST SURGICAL HISTORY: Includes hip surgery, the above-mentioned cervical spine procedure. MEDICATIONS: Include simvastatin and Flomax. SOCIAL HISTORY: He is retired. PHYSICAL EXAMINATION: GENERAL: He is in chair at this time, he is quite comfortable. He does not appear to be in acute distress. NECK: Feels supple. The dressing is in place without any evidence of drainage. EXTREMITIES: He has excellent strength to testing in upper extremities. ASSESSMENT: Status post anterior cervical diskectomy and fusion, C3-C4. PLAN: At this time, will have initiated a course of IV Decadron q. 8 hours. We will maintain this for the next 48 hours and assess his progress, hopefully discharge home in the next day or so.
[2016-08-21] MEDS ORDERED: ASPIRIN 81 MG ECTAB PO SCH (21:00)
[2016-08-21 23:03] VITALS: BP 164/102; PULSE 78; TEMP 36.8; O2SAT 95
[2016-08-22] MEDS: LORAZEPAM INJ 1 MG in SYRINGE 0.5 ML IV PRN (00:37)
[2016-08-22] MEDS: DEXAMETHASONE INJ 10 MG in SYRINGE 0 ML IV SCH ×2 (02:14→09:55)
[2016-08-22 07:38] VITALS: BP 173/93; PULSE 71; TEMP 36.4; O2SAT 96
[2016-08-22 09:02] VITALS: BP 154/81; PULSE 89
[2016-08-22] MEDS: METOPROLOL SUCC 25MG EXT REL TAB PO SCH (09:03)
[2016-08-22] MEDS: TAMSULOSIN HCL 0.4 MG CAP PO SCH (09:03)
[2016-08-22] MEDS: PANTOprazole SOD 40 MG TAB PO SCH (09:03)
[2016-08-22] MEDS: SODIUM CHLORIDE 0.9% 1000ML 1,000 ML IV SCH (09:06)
--- NOTE | 2016-08-22 12:11 | Discharge Instructions ---
Discharge Instructions Date of Service Aug 22, 2016. Admission Reason for Admission: Difficulty Swallowing Discharge Discharge Diagnosis / Problem: cervical stenosis Discharge Goals Goal(s): Improve function Activity Recommendations Activity Limitations: per Instructions/Follow-up section . Instructions / Follow-Up Instructions / Follow-Up ACTIVITY RECOMMENDATIONS: SELF CARE INSTRUCTIONS AFTER CERVICAL FUSIONS 1. No smoking. Smoking drastically decreases the chance of a solid fusion. 2. No bending, lifting more than 5 pounds, or twisting (roll like a log when turning in bed). 3. You may shower 3 days after surgery. Thoroughly dry wound. Do not soak in the tub. 4. Cervical collar: Must be worn at all times including sleeping. You may remove the brace only to bath, eat and if you are sitting in a recliner. 5. Please walk as much as you can for exercise. Gradually increase the distance that you walk as your endurance increases. SPECIAL CARE INSTRUCTIONS: VERY IMPORTANT TO READ AND REVIEW A. Do not take any anti-inflammatory medications (i.e. Indocin, Advil, Aspirin, Naprosyn, Aleve, Motrin, etc.) as these may inhibit the chance of a solid fusion. Tylenol is okay to take. B. Your surgical incision has been closed with a cosmetic suture under the skin that will dissolve in about 6 weeks. In 14 days, you can use a pair of clean scissors and cut the suture that is left outside of the skin at the ends of your incision. C. Complications are uncommon, but please contact us if you have any signs or symptoms of: 1. wound infection (fever higher than 102.5 degrees F, redness, separation of wound, drainage, or increasing pain from the incision) 2. blood clots in legs (pain, swelling, redness and warmth in legs) 3. urinary tract infection (fever higher than 102.5 degrees, burning upon urination or increased frequency of urination) 4. nerve problems (inability to walk on your toes or heels, numbness, loss of bowel or bladder control) 5. any other symptoms that concern you. D. Please call the office at if you have any concerns or questions about your operation or recovery. MANAGING PAIN AFTER SPINAL SURGERY 1. Narcotic medication is intended for short-term use and will be provided for surgical pain. Surgical pain usually lasts for a period of 4-6 weeks. Narcotic medication includes Percocet, Vicodin, Darvocet, Tylenol #3 or Lortab. 2. Longer-term pain is more appropriately treated with non-narcotic medication such as Tylenol ES. 3. Muscle spasm is not appropriately treated with narcotics. Muscle relaxers such as Soma, Flexeril or Skelaxin can be used along with Tylenol ES. 4. Remember that we all live with some "aches and pains". This is not unusual or uncommon after an injury or as we get older. 5. We will provide appropriate medication within the normal guidelines of their prescribed use. We will also be very cautious and aware of potential abuse and extended duration of patients' medication needs. 6. Please allow 2-3 days to process refills. Prescriptions will not be mailed but must be picked up at the office. FOLLOW UP VISIT: Keep your scheduled follow-up appointment. Any questions, please call the office at . Current Hospital Diet Patient's current hospital diet: Clear Liquid Diet Discharge Diet Recommended Diet: Regular Diet Pending Studies Studies pending at discharge: no Medical Emergencies . Who to Call and When: Medical Emergencies: If at any time you feel your situation is an emergency, please call 911 immediately. . Non-Emergent Contact Non-Emergency issues call your: Primary Care Provider . "Provider Documentation" section prepared by Darin Ortiz. VTE Core Measure Inpt VTE Proph given/why not?: Maxwell Hay, SCD's
[2016-08-22 12:52] VITALS: BP 154/81; PULSE 89; TEMP 36.4; O2SAT 96
--- NOTE | 2016-08-22 20:16 | DISCHARGE SUMMARY ---
PRINCIPAL DIAGNOSIS: Status post cervical discectomy with postop swallowing difficulty. HOSPITAL COURSE FOLLOWS: On August 20, the patient was admitted, began IV Decadron. He progressed very nicely over the course of the next 2 days, swallowing markedly improved, subsequently discharged on 08/22 with oral steroids.
[2016-11-01] MEDS ORDERED: PSYL58.636 (13:38)
== END 2016-08-22 14:00 | disposition home or self-care (01) ==
LOC: ENRESERVTM → ENRESERVDT → C.EDB 11:06 → C.3E 15:28
PROVIDERS: ADMIT Orthopaedic Surgery Orthopaedic Surgery of the Spine; ATTEND Orthopaedic Surgery Orthopaedic Surgery of the Spine
DX: R13.10 Dysphagia, unspecified (principal); Z98.1 Arthrodesis status; N40.0 Benign prostatic hyperplasia without lower urinary tract symptoms; K21.9 Gastro-esophageal reflux disease without esophagitis; D50.9 Iron deficiency anemia, unspecified; M19.90 Unspecified osteoarthritis, unspecified site; Z96.649 Presence of unspecified artificial hip joint

== ENCOUNTER → 2016-10-26 | Outpatient (CLI) | payer OTHER ==
[~2016-10-26] MED LIST changes: +PSYL58.636; +RXC5 PO
--- NOTE | 2016-10-26 11:57 | DIAGNOSTIC IMAGING REPORT ---
VIDEO SWALLOW HISTORY: DIFFICULTY SWALLOWING TECHNIQUE: Video fluoroscopic evaluation of swallowing was performed in the AP and lateral projections by the speech pathology staff. The patient is fed nectar-thick and thin liquid barium, a barium coated wafer, and barium pudding. FLUOROSCOPY TIME: 1.7 minutes. COMPARISON STUDY: None. FINDINGS: There is normal hyoid excursion and epiglottic deflection. No significant penetration or aspiration identified. Swallowing function is within normal limits. IMPRESSION: 1. No aspiration identified. 2. Please see the speech pathologist report for detailed findings and recommendations. Electronically signed by: Kvng Mcdaniels M.D. 10/26/2016 11:56 AM Dictated Date/Time: 10/26/2016 11:54 AM
--- NOTE | 2016-10-26 16:17 | SWALLOWING EVALUATION ---
REFERRING SPEECH PATHOLOGIST: n/a HISTORY: This 76 year-old male was referred for a VFSS at [facility] in order to address c/o persistent dysphagia s/p cervical fusion of C3-4 on 08/20/16. This study was recommended during the patient's inpatient hospitalization for the surgery, but was not ordered by the physician for completion during that admission. The patient has other PMH significant for GERD, arthritis, BPH and lumbar stenosis. In addition, the patient stated he has been intubated "at least 10-12 times in my life" and reports having had laryngitis after his C-spine fusion in July. Currently the patient's diet level is regular. His primary complaints are feeling as though cold liquids regurgitate into his throat after being swallowed (especially if he bends over after drinking something), having some globus sensation with solid foods like soft breads and meats, and having production of clear, ropy saliva. He reports being so anxious about feeling that there are liquids pooled in his throat that he requires the use of Ativan at night to sleep. PROCEDURE: The patient was seen in the Radiology Department of [facility] for the VFSS. Cursory examination of the oral cavity revealed adequate dentition. Movement of the articulators was WNL. The patient was seated on a stool and was viewed in both the Anterior-Posterior (A-P) and Lateral planes. Volitional phonation exercises completed in the A-P plane revealed bilateral vocal fold movement and vocal intensity within functional limits. In the lateral plane, the patient was given the following boluses: 1 tsp. thin liquid barium x 2, single swallow thin liquid barium self-presented from a cup, sequential swallows of thin liquid barium self-presented from a cup, 1 tsp. nectar-thick liquid barium, single swallow nectar-thick liquid barium self-presented from a cup, 1 tsp. barium pudding, and 1 club cracker with barium pudding. The patient was then repositioned into the A-P plane and given 1 tsp. barium pudding. RESULTS: Oral Stage: Labial seal, oral bolus hold, bolus preparation, and bolus transport were all complete and WFL. There was bolus material lining the surfaces of the mouth diffusely after the initial swallow, but these cleared immediately with a second, independently-produced, swallow. Pharyngeal swallow initiation was timely and occurred when the bolus head was in the valleculae. The oral stage of the swallow was WFL. Pharyngeal Stage: Velar elevation, laryngeal elevation, anterior hyoid excursion, epiglottic inversion, laryngeal vestibular closure, pharyngeal stripping wave, pharyngeal contraction, duration and distention of PES opening were complete. There was trace column of contrast between the tongue base and pharyngeal wall and a small collection of contrast in the valleculae after the swallow. This cleared with a second, independently-produced swallow. There was no penetration or aspiration during this study. The pharyngeal stage of the swallow was considered normal. Esophageal Stage: Complete clearance of a pudding bolus as it transited the esophagus. No evidence of esophageal bolus retention. SUMMARY/RECOMMENDATIONS: This patient presents with normal oral-pharyngeal swallowing function. In addition, the patient presents with no overt s/s esophageal dysfunction; HOWEVER, his c/o globus sensation, regurgitation after the swallow and ropy saliva are suspicious for being the result of esophageal dysmotility of some kind. The following is recommended: 1. Continue diet as tolerated. Eat slowly and avoid large amounts of foods and liquids at one time. 2. Consideration of Barium Swallow Study to more definitively assess esophageal function. 3. Consideration of professional intervention for anxiety management. A summary of the results and recommendations was discussed with the patient and his immediately following the study. They are anticipating f/u with the referring physician. Thank you for referral of this patient. Please contact me at if any additional information is needed.
== END | disposition home or self-care (01) ==
LOC: C.RAD 10:52
PROVIDERS: ATTEND Orthopaedic Surgery Orthopaedic Surgery of the Spine
DX: T81.9XXA Unspecified complication of procedure, initial encounter (principal); R13.10 Dysphagia, unspecified; X58.XXXA Exposure to other specified factors, initial encounter

== ENCOUNTER 2016-12-01 08:01 | Inpatient (IN) | payer OTHER ==
[2016-11-01 13:35] LABS: BASO % 1.2 %; BASO ABS # 0.04 K/uL (0-0.2); COMPLETE YES; EOS % 2.6 %; HEMATOCRIT 44.2 % (42-52); LYMPH % 24.8 %; LYMPH ABS # 0.85 K/uL (1.2-3.4); MEAN CELL VOLUME 93.8 fL (80-100); MEAN CORPUSCULAR HEMOGLOBIN 30.4 pg (25-34); MEAN CORPUSCULAR HGB CONC 32.4 g/dl (32-36); MEAN PLATELET VOLUME 9.1 fL (7.4-10.4); MONO % 11.1 %; NEUT % 60.3 %; PLATELET COUNT 198 K/uL (130-400); RED BLOOD COUNT 4.71 M/uL (4.7-6.1); WHITE BLOOD COUNT 3.43 K/uL (4.8-10.8)
[2016-11-01 13:39] VITALS: BMI 31.0
--- NOTE | 2016-11-01 14:29 | PAT Medication Instructions ---
Service Date Nov 01, 2016. Current Home Medication List Amoxicillin (Amoxil), 2,000 MG PO DIRECTED Aspirin (Aspirin Ec), 81 MG PO QPM Cholecalciferol (Vitamin D 1000 Unit), 1,000 INTER.UNIT PO BID Colchicine (Colchicine), 0.6 MG PO PRN Cyanocobalamin (Vitamin B12 500MCG), 500 MCG PO QAM Iron-Vitamin C (Vitron-C), 1 TAB PO BID Metoprolol Succ (Toprol Xl) (Toprol-Xl), 12.5 MG PO QAM Pantoprazole (Protonix), 40 MG PO QAM Psyllium (Metamucil Fiber), for Constipation Tadalafil (Cialis), 20 MG PO UD Tamsulosin Hcl (Flomax), 0.4 MG PO BID Medication Instructions For Your Scheduled Surgery Colchicine (Colchicine), 0.6 MG PO PRN (not taking currently) - Hold the following medications 24 hours prior to surgery: Tadalafil (Cialis), 20 MG PO UD - Hold the following medications the morning of surgery: Psyllium (Metamucil Fiber), for Constipation Iron-Vitamin C (Vitron-C), 1 TAB PO BID Cyanocobalamin (Vitamin B12 500MCG), 500 MCG PO QAM Cholecalciferol (Vitamin D 1000 Unit), 1,000 INTER.UNIT PO BID Amoxicillin (Amoxil), 2,000 MG PO DIRECTED - Take the following medications the morning of surgery with a sip of water: Tamsulosin Hcl (Flomax), 0.4 MG PO BID Pantoprazole (Protonix), 40 MG PO QAM Metoprolol Succ (Toprol Xl) (Toprol-Xl), 12.5 MG PO QAM - Take the following medications as scheduled the night before surgery: Tamsulosin Hcl (Flomax), 0.4 MG PO BID Iron-Vitamin C (Vitron-C), 1 TAB PO BID Cholecalciferol (Vitamin D 1000 Unit), 1,000 INTER.UNIT PO BID Aspirin (Aspirin Ec), 81 MG PO QPM If you have any questions please call us at [phone] or [phone] ( Anjana) or [phone]
[2016-11-01 14:30] LABS: BUN/CREATININE RATIO 11.1 (10-20); CALCIUM 8.4 mg/dl (8.5-10.1); POTASSIUM 5.1 mmol/L (3.5-5.1)
[2016-11-01 15:08] LABS: URINE APPEARANCE CLEAR (CLEAR); URINE BILIRUBIN NEG (NEG); URINE COLOR YELLOW; URINE NITRITE NEG (NEG); URINE SPECIFIC GRAVITY 1.022 (1.000-1.030); UROBILINOGEN NEG (NEG)
[2016-11-01 15:11] LABS: MANUAL MICROSCOPIC REQUIRED? NO; REVIEW REQ? NO
[2016-12-01] VITALS (7 sets, daily range): BP systolic 114–143; BP diastolic 64–85; PULSE 73–100; TEMP 36.4–36.8; O2SAT 94–99; Ht 188 cm; Wt 110.4 kg
[~2016-12-01] VITALS: Ht 188 cm; Wt 110.4 kg
[~2016-12-01 08:01] MED LIST changes: +CEFAZOLIN 2000 MG/60 ML D5W 60 ML IV SCH; -DUTA0.5C PO; -HYDR-5688 PO; +LACTATED RINGER'S 1000ML 1,000 ML IV SCH; -RXC5 PO; -VNTHFA/IN INH
[2016-12-01] MEDS ORDERED: ONDANSETRON INJ 2 MG/ML 2 ML VIAL IV PRN (08:15)
[2016-12-01] MEDS ORDERED: ATROPINE SULFATE 0.1 MG/ML 5ML SYR IV PRN (08:15)
[2016-12-01] MEDS ORDERED: HYDROmorphone INJ 1 MG/ML SYR IV PRN (08:15)
[2016-12-01] MEDS ORDERED: FENTANYL CITRATE INJ 50 MCG/1 ML 2 ML VIAL IV PRN (08:15)
[2016-12-01] MEDS ORDERED: EpHEDrine SULFATE INJ 50 MG/ML AMP IV PRN (08:15)
[2016-12-01] MEDS ORDERED: FENTANYL CITRATE INJ 50 MCG/1 ML 2 ML VIAL ONE ×4 (09:59→13:49)
[2016-12-01] MEDS ORDERED: MIDAZOLAM HCL 1 MG/ML 2ML VIAL ONE ×2 (09:59→11:08)
--- NOTE | 2016-12-01 10:04 | History and Physical ---
History & Physical Date Dec 01, 2016. Chief Complaint back and leg pain History of Present Illness The patient is a 76 year old male with complaints of Past Medical/Surgical History Medical Problems: (1) Arthritis (2) Cervical stenosis of spinal canal (3) Hernia (4) Iron deficiency anemia Surgical Problems: (1) History of total hip replacement Additional History Hepatic Disease: No Endocrine Disorder: No Kidney Disease: No Hypertension: No Heart Disease: No Bleeding Tendencies: No Infectious Diseases: No Allergies Coded Allergies: No Known Allergies (Verified , 12/01/16) Home Medications Scheduled Amoxicillin (Amoxil), 2,000 MG PO DIRECTED Aspirin (Aspirin Ec), 81 MG PO QPM Cholecalciferol (Vitamin D 1000 Unit), 1,000 INTER.UNIT PO BID Colchicine (Colchicine), 0.6 MG PO PRN Cyanocobalamin (Vitamin B12 500MCG), 500 MCG PO QAM Iron-Vitamin C (Vitron-C), 1 TAB PO BID Metoprolol Succ (Toprol Xl) (Toprol-Xl), 12.5 MG PO QAM Pantoprazole (Protonix), 40 MG PO QAM Tadalafil (Cialis), 20 MG PO UD Tamsulosin Hcl (Flomax), 0.4 MG PO BID Scheduled PRN Psyllium (Metamucil Fiber), for Constipation Physical Examination Skin: warm/dry, no rash Eyes: normal inspection, EOMI, sclerae normal ENT: normal ENT inspection, pharynx normal Head: normocephalic, atraumatic Neck: supple, no adenopathy, trachea midline Respiratory/Chest: lungs clear, normal breath sounds, no respiratory distress Cardiovascular: regular rate, rhythm, no edema, no murmur Abdomen / GI: normal bowel sounds, non tender Back: normal inspection Extremities: normal inspection, normal range of motion Neurologic/Psych: no motor/sensory deficits, alert, normal reflexes, oriented x 3 Diagnosis lumbar stenosis Plan of Treatment decompression and fusion L4-5 L5-S1
[2016-12-01] MEDS ORDERED: BACITRACIN 50000 UNIT VIAL ONE (10:28)
[2016-12-01] MEDS ORDERED: SODIUM CHLORIDE 0.9% PF 50 ML VIAL ONE (10:28)
[2016-12-01] MEDS ORDERED: BUPIVACAINE/EPINEPHRINE 0.25% 1:200,000 30 ML VIAL ONE (10:28)
[2016-12-01] MEDS ORDERED: HYDROmorphone INJ 2 MG/ML SYR/VIAL ONE ×3 (11:09→13:57)
[2016-12-01] MEDS ORDERED: ONDANSETRON INJ 2 MG/ML 2 ML VIAL ONE ×2 (12:37→13:58)
[2016-12-01] MEDS ORDERED: LIDOCAINE HCL 2% 2 ML VIAL (20MG/ML) ONE (12:37)
[2016-12-01] MEDS ORDERED: PROPOFOL IV EMULSION 10 MG/ML 20 ML VIAL IV ONE (12:37)
[2016-12-01] MEDS ORDERED: ROCURONIUM BROMIDE 10 MG/ML 5 ML VIAL ONE (12:37)
[2016-12-01] MEDS ORDERED: DEXAMETHASONE SOD INJ 4 MG/ML VIAL ONE (12:37)
[2016-12-01] MEDS ORDERED: EpHEDrine SULFATE 50MG/5ML SYR ONE (12:54)
[2016-12-01] MEDS ORDERED: PHENYLEPHRINE 100MCG/ML 5ML SYR ONE (12:54)
[2016-12-01] MEDS ORDERED: ALBUMIN HUMAN 5% 12.5 GM/250 ML VIAL IV ONE (13:42)
[2016-12-01] MEDS ORDERED: FLOSEAL HEMOSTATIC MATRIX 10ML TOP ONE (13:49)
[2016-12-01] MEDS ORDERED: SODIUM CHLORIDE 0.9% 1000ML 1,000 ML IV SCH (13:51)
[2016-12-01] MEDS ORDERED: NEOSTIGMINE METHYLSULFATE 1 MG/ML 10ML VIAL ONE (13:58)
[2016-12-01] MEDS ORDERED: KETOROLAC TROMETHAMINE 30 MG/ML VIAL ONE (13:58)
[2016-12-01] MEDS ORDERED: GLYCOPYRROLATE INJ 0.2 MG/ML VIAL ONE (13:58)
--- NOTE | 2016-12-01 13:59 | [facility] Operative Report ---
Operative Report Operative Date Dec 01, 2016. Pre-Operative Diagnosis Lumbar stenosis Post-Operative Diagnosis Lumbar stenosis Procedure(s) Performed #1 lumbar decompression medial facetectomy foraminotomies L3 4 L4 5 and L5-S1. 2 posterior spinal fusion L4 5 L5-S1. #3 placement of posterior segmental instrumentation L4 5 L5-S1. 4 interbody fusion L4 5 L5-S1. 5 placement peek cage 15 x 26 mm at L4 5 and 14 x 26 mm at L5-S1. #6 placement of local harvested morcellized autograft sugars. #7 physician if he is going to sponge and Master graft in the posterior lateral gutters internally graft in the interbody space. Surgeon Dr. Darin Ortiz Civil Process Server Surgeon(s) Moreno Mas PA-C Estimated Blood Loss 800mL Findings Severe spinal stenosis Specimens None Description of Procedure Patient was met with preoperatively case discussed AND were dressed. Patient was then taken to the operative suite after undergoing intubation was placed in a prone position on the Calin table on top of the Vladimir frame. Lumbar spine was prepped and draped in the normal sterile fashion. Sharp dissection with the assistance of Bovie cautery performed down to and exposing the lamina and transverse processes of L4 5 and the sacral alar. From a caudal to cephalad fashion complete laminectomy of L5 for partial laminectomy of L3 was performed and dressing severe lateral recess and foraminal stenosis. Did require multilevel facetectomies. Pedicle screws are then placed in L4 5 S1 levels bilaterally with the assistance of fluoroscopy in the appropriate size sandi placed. The transforaminal port and left complete discectomy of L5-S1 was performed and plate created subcortical bleeding bone and a 14 x 26 mm peek cage filled with Doreen bone grafting Position. We then proceeded L4 5 and again through a transforaminal approach on the left complete discectomy performed and perched could subcortical bone and a 15 x 26 motor peek cage filled turning bone grafting Position. Brought in and compressed and final position bilaterally. The transverse processes L4 5 sugar November 2 subcortical bleeding bone. Infuse sponges and master graft morselized autograft placed in the posterior lateral gutters. 15 round MELITA drain inserted. Incision closed 1 Vicryl the fascia tubercle subcutaneous C4 5 closure Steri- Strip sterile dressing placed patient with continued condition. Please note Moreno Caal my PA was present throughout the entire procedure in involved in patient positioning surgical dissection through the technical components of the procedure as well as final skin closure. I attest to the content of the Intraoperative Record and any orders documented therein. Any exceptions are noted below.
[2016-12-01] MEDS ORDERED: ALUMINUM/MAGNESIUM SUSP 30 ML UDC PO PRN (14:00)
[2016-12-01] MEDS ORDERED: LORAZEPAM INJ 0.5 MG in SYRINGE 0.75 ML IV PRN (14:00)
[2016-12-01] MEDS ORDERED: DO NOT ADMINISTER FLU VACCINE PRN ×3 (14:00)
[2016-12-01] MEDS ORDERED: DO NOT ADMINISTER PNEUMOCOCCAL VACCINE PRN ×2 (14:00)
[2016-12-01] MEDS ORDERED: BISACODYL 10 MG SUPP PR PRN (14:00)
[2016-12-01] MEDS ORDERED: PROMETHAZINE HCL INJ 12.5 MG in SODIUM CHLORIDE 0.9% 50ML 50 ML IV PRN (14:00)
[2016-12-01] MEDS ORDERED: ACETAMINOPHEN IV 100 ML IV PRN (14:00)
[2016-12-01] MEDS ORDERED: SOD PHOSPHATE/SOD BIPHOSPHATE ENEMA 132 ML BTL PR PRN (14:00)
[2016-12-01] MEDS ORDERED: ACETAMINOPHEN 500 MG TAB PO PRN (14:00)
[2016-12-01] MEDS ORDERED: MAGNESIUM HYDROXIDE SUSP 30 ML UDC PO PRN (14:00)
[2016-12-01] MEDS ORDERED: hydrOXYzine HCL 25 MG TAB PO PRN (14:00)
[2016-12-01] MEDS ORDERED: NALOXONE HCL 0.4 MG/1 ML VIAL/CARP IV PRN ×2 (14:00)
[2016-12-01] MEDS ORDERED: METOCLOPRAMIDE HCL INJ 5 MG/ML 2 ML VIAL IV PRN (14:00)
[2016-12-01] MEDS ORDERED: FAMOTIDINE 20 MG TAB PO PRN (14:00)
--- NOTE | 2016-12-01 14:05 | DIAGNOSTIC IMAGING REPORT ---
LUMBAR SPINE 2 OR 3 VIEW CLINICAL HISTORY: L4-S1 DECOMPRESSION/FUSION/INTERBODY TECHNIQUE: Image intensifier COMPARISON STUDY: None FINDINGS: Findings consistent with a posterior laminectomy and fusion at L4-L5 and S1. Disc spaces are present. Alignment is anatomic. IMPRESSION: Image intensifier usage for low lumbar laminectomy and fusion. Electronically signed by: Danial Noble M.D. 12/01/2016 2:04 PM Dictated Date/Time: 12/01/2016 2:03 PM
[2016-12-01] MEDS: HYDROmorphone HCL 0.5MG/ML 50 ML CASSETTE IV PRN ×3 (14:27→19:18)
--- NOTE | 2016-12-01 14:48 | Anesthesiology Progress Note ---
Anesthesia Post Op Note Date & Time Dec 01, 2016 at 14:47 Vital Signs Pain Intensity: 0 Vital Signs Past 12 Hours Date Time Temp Pulse Resp B/P (MAP) Pulse Ox O2 Delivery O2 Flow Rate FiO2 12/01/16 14:31 84 13 133/77 98 12/01/16 14:31 84 13 12/01/16 14:27 150/77 12/01/16 14:26 83 16 12/01/16 14:26 83 16 93 12/01/16 14:21 83 19 12/01/16 14:21 83 19 139/75 95 12/01/16 14:16 75 15 126/70 95 12/01/16 14:16 75 15 12/01/16 14:12 129/90 12/01/16 14:11 36.1 81 14 129/90 96 Mask 10 12/01/16 14:11 77 12/01/16 14:11 77 95 12/01/16 08:31 36.8 76 18 141/82 99 Room Air Notes Mental Status: alert / awake / arousable, participated in evaluation Pt Amnestic to Procedure: Yes Nausea / Vomiting: adequately controlled Pain: adequately controlled Airway Patency, RR, SpO2: stable & adequate BP & HR: stable & adequate Hydration State: stable & adequate Anesthetic Complications: no major complications apparent Patient conversant, denied voice changes, difficulty swallowing, sorethroat, shortness of breath. VSS. No complications.
[2016-12-01] MEDS: ONDANSETRON INJ 2 MG/ML 2 ML VIAL IV PRN (14:49)
[2016-12-01] MEDS ORDERED: PROMETHAZINE HCL INJ 6.25 MG in SODIUM CHLORIDE 0.9% 50ML 50 ML IV STA (15:38)
[2016-12-01] MEDS ORDERED: NURSING VERBAL MED ORDER ONE (15:45)
[2016-12-01] MEDS: SODIUM CHLORIDE 0.9% 1000ML 1,000 ML IV SCH ×2 (18:44→19:28)
[2016-12-01] MEDS: CEFAZOLIN IV 2,000 MG in DEXTROSE 5% 50ML 50 ML IV SCH (18:44)
[2016-12-01] MEDS: DEXAMETHASONE INJ 6 MG in SYRINGE 0 ML IV SCH (19:27)
[2016-12-01] MEDS: ASPIRIN 81 MG ECTAB PO SCH (21:35)
[2016-12-01] MEDS: DOCUSATE SODIUM/SENNA 50/8.6MG TAB PO SCH (21:35)
[2016-12-01] MEDS: TAMSULOSIN HCL 0.4 MG CAP PO SCH (21:36)
[2016-12-02] MEDS: LORAZEPAM 0.5 MG TAB PO PRN ×3 (00:33→22:11)
[2016-12-02] MEDS: CEFAZOLIN IV 2,000 MG in DEXTROSE 5% 50ML 50 ML IV SCH (01:37)
[2016-12-02] MEDS: SODIUM CHLORIDE 0.9% 1000ML 1,000 ML IV SCH (01:41)
[2016-12-02 03:06] VITALS: BP 154/84; PULSE 69; TEMP 36.5; O2SAT 99
[2016-12-02] MEDS: DEXAMETHASONE INJ 6 MG in SYRINGE 0 ML IV SCH ×2 (04:02→17:11)
[2016-12-02 05:54] LABS: BASO % 0.2 %; BASO ABS # 0.01 K/uL (0-0.2); COMPLETE YES; HEMATOCRIT 33.7 % (42-52); IG% 0.2 %; LYMPH % 6.5 %; LYMPH ABS # 0.42 K/uL (1.2-3.4); MEAN CELL VOLUME 92.3 fL (80-100); MEAN CORPUSCULAR HEMOGLOBIN 30.1 pg (25-34); MEAN CORPUSCULAR HGB CONC 32.6 g/dl (32-36); MEAN PLATELET VOLUME 9.2 fL (7.4-10.4); MONO % 5.8 %; NEUT % 87.3 %; PLATELET COUNT 166 K/uL (130-400); RED BLOOD COUNT 3.65 M/uL (4.7-6.1); WHITE BLOOD COUNT 6.42 K/uL (4.8-10.8)
[2016-12-02] MEDS ORDERED: NURSING DECISION MEDICATION ORDER SCH (06:00)
[2016-12-02] MEDS ORDERED: DC PCA SCH (06:00)
[2016-12-02] MEDS ORDERED: HYDROmorphone INJ 1 MG/ML SYR IV PRN (06:00)
[2016-12-02] MEDS ORDERED: HYDROmorphone INJ 0.5 MG/0.5 ML SYR IV PRN (06:00)
[2016-12-02 06:29] LABS: BUN/CREATININE RATIO 14.7 (10-20); CALCIUM 7.9 mg/dl (8.5-10.1); CREATININE 0.88 mg/dl (0.60-1.40); POTASSIUM 4.5 mmol/L (3.5-5.1)
[2016-12-02 07:25] VITALS: BP 128/78; PULSE 64; TEMP 36.4; O2SAT 95
[2016-12-02] MEDS: PANTOprazole SOD 40 MG TAB PO SCH (09:38)
[2016-12-02] MEDS: TAMSULOSIN HCL 0.4 MG CAP PO SCH ×2 (09:38→20:55)
[2016-12-02] MEDS: METOPROLOL SUCC 25MG EXT REL TAB PO SCH (09:39)
[2016-12-02] MEDS ORDERED: RXC5 PO (09:54)
--- NOTE | 2016-12-02 09:55 | Discharge Instructions ---
Discharge Instructions Date of Service Dec 02, 2016. Admission Reason for Admission: Lumbar Spinal Stenosis Discharge Discharge Diagnosis / Problem: stenosis Discharge Goals Goal(s): Improve function Activity Recommendations Activity Limitations: per Instructions/Follow-up section . Instructions / Follow-Up Instructions / Follow-Up ACTIVITY RECOMMENDATIONS: SELF CARE INSTRUCTIONS AFTER THORACIC/LUMBAR FUSIONS 1. You may walk to your tolerance. It is good exercise for your legs and back. Expect some back and intermittent leg aches and pains. 2. You may perform "counter-top" level activities (make a sandwich, todd with a project, etc.). 3. No bending or lifting of more than 10 pounds or back twisting of any nature (roll like a log when turning in bed). 4. You may ride in a car for 20-30 minutes at a time. No driving until after your first visit with your doctor. 5. Frequent changes of position and restricting sitting to 30 minutes at a time will help limit the amount of back spasms and stiffness you may experience. 6. You may discontinue the use of ambulatory aids (cane, crutches, etc.) once your strength and confidence allow. 7. You may space engineer the shower and let water strike your incision when you arrive home at least once daily. Do not take a tub bath, sit in a hot tub or go into a swimming pool until after your first recheck in the office. SPECIAL CARE INSTRUCTIONS: VERY IMPORTANT TO READ AND REVIEW A. Your surgical incision has been closed with a cosmetic suture under the skin that will dissolve in about 6 weeks. In 14 days, you can use a pair of clean scissors and cut the suture that is left outside of the skin at the ends of your incision. 1. The small skin tapes can be removed 7 days after surgery if they have not fallen off by that point. 2. You may keep the wound open to air as much as possible to promote healing after post-op day number 5 unless told otherwise by your doctor. 3. If you think the wound looks like it is becoming infected (redness or worsening drainage) and/or you are experiencing fever, chill or worsening back pain and muscle spasms, contact the office so that we may evaluate you as soon as possible. B. Complications are uncommon, but please contact us if you have any signs or symptoms of: 1. wound infection (fever higher than 102.5 degrees F, redness, separation of wound, drainage, or increasing pain from the incision) 2. blood clots in legs (pain, swelling, redness and warmth in legs) 3. urinary tract infection (fever higher than 102.5 degrees F, burning upon urination or increased frequency of urination) 4. nerve problems (inability to walk on your toes or heels, numbness, loss of bowel or bladder control) 5. any other symptoms that concern you C. Please call the office at if you have any concerns or questions about your operation or recovery. D. No smoking! Smoking drastically decreases the chance of a solid fusion. E. Do not take any anti-inflammatory medications (Indocin, Advil, Motrin, Aspirin, Naprosyn, etc.) as these may inhibit the chance of a solid fusion. Tylenol is okay to take for pain. MANAGING PAIN AFTER SPINAL SURGERY 1. Narcotic medication is intended for short-term use and will be provided for surgical pain. Surgical pain usually lasts for a period of 4-6 weeks. Narcotic medication includes Percocet, Vicodin, Darvocet, Tylenol #3 or Lortab. 2. Longer-term pain is more appropriately treated with non-narcotic medication such as Tylenol ES. 3. Muscle spasm is not appropriately treated with narcotics. Muscle relaxers such as Soma, Flexeril or Skelaxin can be used along with Tylenol ES. 4. Remember that we all live with some "aches and pains". This is not unusual or uncommon after an injury or as we get older. a. Back pain is expected and may include muscle spasms for 4 to 6 weeks after surgery. The pain should gradually improve. If the pain worsens for no apparent reason, please contact the office. b. Intermittent leg pain may also be experienced and should not be concerned about unless it worsens for no apparent reason. If so, please contact the office. 5. We will provide appropriate medication within the normal guidelines of their prescribed use. We will also be very cautious and aware of potential abuse and extended duration of patients' medication needs. a. Pain medications are for your comfort and to assist with sleep and rest so that the tissue can heal. They are not provided in order to return to normal activity and should not be used through the day. To do so or worsening pain at night can result from ongoing tissue damage and development of tolerance to the prescribed medicine. 6. Please allow 2-3 days to process refills. Prescriptions will not be mailed but must be picked up at the office. FOLLOW UP VISIT: Keep your scheduled follow-up appointment. Any questions, please call the office at . Current Hospital Diet Patient's current hospital diet: Regular Diet Discharge Diet Recommended Diet: Regular Diet Procedures Procedures Performed: #1 lumbar decompression medial facetectomy foraminotomies L3 4 L4 5 and L5-S1. 2 posterior spinal fusion L4 5 L5-S1. #3 placement of posterior segmental instrumentation L4 5 L5-S1. 4 interbody fusion L4 5 L5-S1. 5 placement peek cage 15 x 26 mm at L4 5 and 14 x 26 mm at L5-S1. #6 placement of local harvested morcellized autograft sugars. #7 physician if he is going to sponge and Master graft in the posterior lateral gutters internally graft in the interbody space. Pending Studies Studies pending at discharge: no Medical Emergencies . Who to Call and When: Medical Emergencies: If at any time you feel your situation is an emergency, please call 911 immediately. . Non-Emergent Contact Non-Emergency issues call your: Primary Care Provider . "Provider Documentation" section prepared by Darin Ortiz. . VTE Core Measure Inpt VTE Proph given/why not?: Maxwell Hay, SCD's
--- NOTE | 2016-12-02 10:04 | Progress Note ---
Progress Note Date of Service Dec 02, 2016. Progress Note Patient is postop day 1. Leg pain is markedly improved. Back pain well controlled. Vital signs are stable MELITA drain decreasing appropriately. On exam he is in chair at bedside has excellent strength testing appears very comfortable. Assessment status post lumbar decompression fusion. Pat this time will continue physical therapy advance bowel regimen anticipated discharge home Sunday.
[2016-12-02 14:51] VITALS: BP 143/77; PULSE 68; TEMP 36.5; O2SAT 95
[2016-12-02] MEDS: OXYCODONE HCL IR 5 MG TAB (IMMEDIATE RELEASE) PO PRN ×2 (17:10→22:40)
[2016-12-02] MEDS: ONDANSETRON INJ 2 MG/ML 2 ML VIAL IV PRN (17:10)
[2016-12-02] MEDS: DOCUSATE SODIUM/SENNA 50/8.6MG TAB PO SCH (20:55)
[2016-12-02] MEDS: ASPIRIN 81 MG ECTAB PO SCH (20:55)
[2016-12-02 23:15] VITALS: BP 122/77; PULSE 69; TEMP 36.7; O2SAT 97
[2016-12-03] MEDS: POLYETHYLENE (MIRALAX) 17 GM PACK PO SCH ×4 (05:34→23:43)
[2016-12-03] MEDS: OXYCODONE HCL IR 5 MG TAB (IMMEDIATE RELEASE) PO PRN ×4 (05:34→19:39)
[2016-12-03 06:14] VITALS: BP 134/78; PULSE 62; TEMP 36.5; O2SAT 97
[2016-12-03 07:20] VITALS: O2SAT 97
--- NOTE | 2016-12-03 07:59 | Orthopedic Progress Note ---
Orthopedic Progress Note Date of Service Dec 03, 2016. Subjective Post OP Day: 2 Reports: feeling well Additional Notes: Patient overall is quite pleased. He states his bowel and plantar have improved postoperatively. He is up and ambulatory. MELITA drain output is 100 mL last shift. History and physical therapy stimulating 300 feet. Positive flatus , no bowel movement. Leg pain greatly improved. Numbness has also resolved. Objective calves soft nontender, N/V intact, dressing C/D/I, toes mobile Date Time Temp Pulse Resp B/P (MAP) Pulse Ox O2 Delivery O2 Flow Rate FiO2 12/03/16 06:14 36.5 62 16 134/78 (96) 97 Room Air 12/02/16 23:15 36.7 69 16 122/77 (92) 97 Room Air 12/02/16 20:45 Room Air 12/02/16 14:51 36.5 68 18 143/77 (99) 95 Room Air 12/02/16 08:08 Room Air Assessment & Plan Assessment: Postoperative day 2 lumbar decompression fusion doing well Inhouse Planning DVT Prophylaxis: AMILCAR Billss Additional Notes: Anticipate discharge home tomorrow. We'll continue with physical therapy and pain control today. Discharge Planning Discharge Planning: home
[2016-12-03] MEDS: TAMSULOSIN HCL 0.4 MG CAP PO SCH ×2 (09:05→20:23)
[2016-12-03] MEDS: METOPROLOL SUCC 25MG EXT REL TAB PO SCH (09:06)
[2016-12-03] MEDS: PANTOprazole SOD 40 MG TAB PO SCH (09:06)
[2016-12-03 14:52] VITALS: BP 119/63; PULSE 75; TEMP 36.5; O2SAT 96
[2016-12-03] MEDS: ONDANSETRON INJ 2 MG/ML 2 ML VIAL IV PRN (16:54)
[2016-12-03] MEDS: DOCUSATE SODIUM/SENNA 50/8.6MG TAB PO SCH (20:23)
[2016-12-03] MEDS: ASPIRIN 81 MG ECTAB PO SCH (20:23)
[2016-12-03] MEDS: LORAZEPAM 0.5 MG TAB PO PRN (21:48)
[2016-12-03 23:35] VITALS: BP 119/68; PULSE 82; TEMP 37.1; O2SAT 95
[2016-12-04] MEDS: POLYETHYLENE (MIRALAX) 17 GM PACK PO SCH (05:37)
[2016-12-04] MEDS: OXYCODONE HCL IR 5 MG TAB (IMMEDIATE RELEASE) PO PRN ×2 (06:09→11:10)
[2016-12-04 06:34] VITALS: BP 137/72; PULSE 5; PULSE 85; TEMP 37; O2SAT 96
[2016-12-04] MEDS ORDERED: NURSING VERBAL MED ORDER ONE (07:15)
[2016-12-04] MEDS: TAMSULOSIN HCL 0.4 MG CAP PO SCH (07:29)
[2016-12-04] MEDS: METOPROLOL SUCC 25MG EXT REL TAB PO SCH (07:29)
[2016-12-04] MEDS: PANTOprazole SOD 40 MG TAB PO SCH (07:29)
--- NOTE | 2016-12-04 08:09 | Anesthesiology Progress Note ---
Anesthesia Post Op Note Date & Time Dec 04, 2016 at 08:08 Vital Signs Pain Intensity: 0.0 Vital Signs Past 12 Hours Date Time Temp Pulse Resp B/P (MAP) Pulse Ox O2 Delivery O2 Flow Rate FiO2 12/04/16 07:10 Room Air 12/04/16 06:34 37.0 85 18 137/72 (93) 96 Room Air 12/03/16 23:40 Room Air 12/03/16 23:35 37.1 82 18 119/68 (85) 95 Room Air Notes Mental Status: alert / awake / arousable, participated in evaluation Pt Amnestic to Procedure: Yes Nausea / Vomiting: adequately controlled Pain: adequately controlled Airway Patency, RR, SpO2: stable & adequate BP & HR: stable & adequate Hydration State: stable & adequate Anesthetic Complications: no major complications apparent
[2016-12-04 09:57] VITALS: BP 137/72; PULSE 85; TEMP 37; O2SAT 96
--- NOTE | 2016-12-04 11:08 | Discharge Summary ---
Orthopedic Discharge Summary Admission Date/Reason Dec 01, 2016 at 10:00 Lumbar Spinal Stenosis. Discharge Date/Disposition Dec 04, 2016 Home Diagnosis Principal Diagnosis: Lumbar stenosis Admission Physical Exam As per Admitting History & Physical. Hospital Course Patient underwent lumbar decompression and fusion on Sunday. Patient tolerated this well. Postoperatively he was up in inventory turning physical therapy well. His MELITA drain decreased appropriately. Subsequently he was discharged home discharge orders and instructions found on the chart for further review. Discharge Instructions Please refer to the electronic Patient Visit Report (Discharge Instructions) for additional information.
== END 2016-12-04 13:33 | disposition home or self-care (01) | DRG 460 ==
LOC: C.ACU 08:01 → C.3E 10:00 → ENRESERV 14:57
PROVIDERS: ADMIT Orthopaedic Surgery Orthopaedic Surgery of the Spine; ATTEND Orthopaedic Surgery Orthopaedic Surgery of the Spine
PROC: 0SG0071 Fusion of Lumbar Vertebral Joint with Autologous Tissue Substitute, Posterior Approach, Posterior Column, Open Approach (ICD-10-PCS; principal; 2016-12-01 10:15)
PROC: 0ST40ZZ Resection of Lumbosacral Disc, Open Approach (ICD-10-PCS; principal; 2016-12-01 10:15)
PROC: 0SG30AJ Fusion of Lumbosacral Joint with Interbody Fusion Device, Posterior Approach, Anterior Column, Open Approach (ICD-10-PCS; principal; 2016-12-01 10:15)
PROC: 0ST20ZZ Resection of Lumbar Vertebral Disc, Open Approach (ICD-10-PCS; principal; 2016-12-01 10:15)
PROC: 0SG00AJ Fusion of Lumbar Vertebral Joint with Interbody Fusion Device, Posterior Approach, Anterior Column, Open Approach (ICD-10-PCS; principal; 2016-12-01 10:15)
PROC: 0SG3071 Fusion of Lumbosacral Joint with Autologous Tissue Substitute, Posterior Approach, Posterior Column, Open Approach (ICD-10-PCS; principal; 2016-12-01 10:15)
DX: M48.06 Spinal stenosis, lumbar region (principal); Z79.82 Long term (current) use of aspirin; D50.9 Iron deficiency anemia, unspecified

== ENCOUNTER 2017-05-09 22:16 | Emergency (ER) | payer OTHER ==
[~2017-05-09] VITALS: Ht 188 cm; Wt 111.2 kg
[~2017-05-09 22:16] MED LIST changes: -CEFAZOLIN 2000 MG/60 ML D5W 60 ML IV SCH; -LACTATED RINGER'S 1000ML 1,000 ML IV SCH; +RXC5 PO
[2017-05-09 22:20] VITALS: TEMP 36.5; Ht 188 cm; Wt 111.2 kg
--- NOTE | 2017-05-09 22:48 | EMERGENCY ROOM VISIT NOTE ---
History Report prepared by Leon: Herlinda Medeiros Under the Supervision of: Dr. Josh Robles M.D. 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 He notes his left arm pain worsened with movement. He notes the pain radiated to his left shoulder. He currently rates his pain an 8/10 in severity. He states that the pain has dissipated, though his left shoulder is numb. He notes that he recently fell one week ago. He notes that he ran and fell into a tree. He notes this was a bad fall for him, as he has a history of falls and balance issues in the last year. He was diagnosed with "stenosis of the spine." He notes neck pain from his fall. He notes baseline bilateral leg weakness. He notes shortness of breath when he lies down. He notes leg swelling and upper back pain. He denies any chest pain, abdominal pain, or leg pain. He notes a history of an aortic aneurysm. Source of History: patient Onset: 4.5 hours Position: arm (left) Symptom Intensity: 8/10 Quality: other (left arm pain) Timing: other (persistent) Modifying Factors (Worsening): movement Associated Symptoms: + neck pain, + SOB, + back pain (upper), + weakness ( baseline bilateral leg weakness), + numbness (left arm), No chest pain, No abdominal pain Note: He notes left arm pain and left shoulder pain. He notes leg swelling. He denies leg pain. Review of Systems See HPI for pertinent positives & negatives. A total of 10 systems reviewed and were otherwise negative. Past Medical & Surgical Medical Problems: (1) Arthritis (2) Cervical stenosis of spinal canal (3) Hernia (4) Iron deficiency anemia (5) Lumbar stenosis with neurogenic claudication Surgical Problems: (1) History of total hip replacement Old medical records were reviewed. Nurse's notes were reviewed and I agree with. Family History Cancer Heart disease Social History Smoking Status: Former Smoker Alcohol Use: occasionally Drug Use: none Marital Status: Housing Status: lives with family Occupation Status: retired Current/Historical Medications Scheduled Amoxicillin (Amoxil), 2,000 MG PO DIRECTED Aspirin (Aspirin Ec), 81 MG PO QPM Cholecalciferol (Vitamin D 1000 Unit), 1,000 INTER.UNIT PO BID Colchicine (Colchicine), 0.6 MG PO PRN Cyanocobalamin (Vitamin B12 500MCG), 500 MCG PO QAM Iron-Vitamin C (Vitron-C), 1 TAB PO BID Metoprolol Succ (Toprol Xl) (Toprol-Xl), 12.5 MG PO QAM Pantoprazole (Protonix), 40 MG PO QAM Tadalafil (Cialis), 20 MG PO UD Tamsulosin Hcl (Flomax), 0.4 MG PO BID Scheduled PRN Psyllium (Metamucil Fiber), for Constipation Allergies Coded Allergies: No Known Allergies (Verified , 05/09/17) Physical Exam Vital Signs Date Time Temp Pulse Resp B/P (MAP) Pulse Ox O2 Delivery O2 Flow Rate FiO2 05/09/17 22:54 66 20 145/64 97 Room Air 05/09/17 22:20 36.5 60 18 186/78 97 Room Air Physical Exam General: Non-ill appearing older male in no acute distress. HEENT: Normal cephalic atraumatic. Pupils are equal round and reactive to light. Right conjunctiva injected with subconjunctival hematoma. Extraocular movements are intact. Oropharynx is pink with moist mucous membranes. No swelling of the mouth lips or tongue. Neck: Supple with a midline trachea. No meningeal signs or stiffness, no JVD or bruits. No Stridor. Chest: Clear to auscultation bilaterally. No wheezes or rhonchi. No increased work of breathing. Heart: regular rate and rhythm. Abdomen: Soft nontender, nondistended without rebound guarding or rigidity. Extremities: No cyanosis clubbing or edema. No calf tenderness or assymetry. Bruise on left shoulder. FROM of LUE. Normal motor and sensation of LUE with normal pulse exam. Trace pedal edema bilaterally. Spine/Back. Non tender to palpation. No CVA tenderness Skin: Good turgor without rashes. Neurologic exam: Cranial nerves two through 12 are intact. Motor and sensation are intact and symmetrical throughout. Medical Decision & Procedures ER Provider Diagnostic Interpretation: Radiology results as stated below per my review and interpretation: Chest X-ray; One portable view: Cardiomegaly; no acute findings on his chest. No pneumothorax. Shoulder X-ray; Two views: No fracture or dislocation; possible widening of AC joint in one view. Laboratory Results 05/09/17 22:50 Red Blood Count 4.35, Mean Corpuscular Volume 91.0, Mean Corpuscular Hemoglobin 30.1, Mean Corpuscular Hemoglobin Concent 33.1, Mean Platelet Volume 9.2, Neutrophils (%) (Auto) 50.0, Lymphocytes (%) (Auto) 36.4, Monocytes (%) (Auto) 8.9, Eosinophils (%) (Auto) 3.3, Basophils (%) (Auto) 1.4, Neutrophils # (Auto) 2.09, Lymphocytes # (Auto) 1.52, Monocytes # (Auto) 0.37, Eosinophils # (Auto) 0.14, Basophils # (Auto) 0.06 05/09/17 22:50 Test 05/09/17 22:50 05/09/17 22:53 White Blood Count 4.18 K/uL (4.8-10.8) Red Blood Count 4.35 M/uL (4.7-6.1) Hemoglobin 13.1 g/dL (14.0-18.0) Hematocrit 39.6 % (42-52) Mean Corpuscular Volume 91.0 fL (80-100) Mean Corpuscular Hemoglobin 30.1 pg (25-34) Mean Corpuscular Hemoglobin Concent 33.1 g/dl (32-36) Platelet Count 178 K/uL (130-400) Mean Platelet Volume 9.2 fL (7.4-10.4) Neutrophils (%) (Auto) 50.0 % Lymphocytes (%) (Auto) 36.4 % Monocytes (%) (Auto) 8.9 % Eosinophils (%) (Auto) 3.3 % Basophils (%) (Auto) 1.4 % Neutrophils # (Auto) 2.09 K/uL (1.4-6.5) Lymphocytes # (Auto) 1.52 K/uL (1.2-3.4) Monocytes # (Auto) 0.37 K/uL (0.11-0.59) Eosinophils # (Auto) 0.14 K/uL (0-0.5) Basophils # (Auto) 0.06 K/uL (0-0.2) RDW Standard Deviation 50.4 fL (36.4-46.3) RDW Coefficient of Variation 15.2 % (11.5-14.5) Immature Granulocyte % (Auto) 0.0 % Immature Granulocyte # (Auto) 0.00 K/uL (0.00-0.02) Prothrombin Time 10.1 SECONDS (9.0-12.0) Prothromb Time International Ratio 1.0 (0.9-1.1) Activated Partial Thromboplast Time 25.9 SECONDS (21.0-31.0) Partial Thromboplastin Ratio 1.0 Anion Gap 8.0 mmol/L (3-11) Est Creatinine Clear Calc Drug Dose 98.9 ml/min Estimated GFR () 98.5 Estimated GFR (Non- 85.0 BUN/Creatinine Ratio 19.2 (10-20) Calcium Level 8.5 mg/dl (8.5-10.1) Total Bilirubin 0.3 mg/dl (0.2-1) Direct Bilirubin < 0.1 mg/dl (0-0.2) Aspartate Amino Transf (AST/SGOT) 37 U/L (15-37) Alanine Aminotransferase (ALT/SGPT) 51 U/L (12-78) Alkaline Phosphatase 97 U/L (45-117) Total Creatine Kinase 466 U/L (39-308) Creatine Kinase MB 7.4 ng/ml (0.5-3.6) Creatine Kinase MB Ratio 1.6 (0-3.0) Total Protein 6.6 gm/dl (6.4-8.2) Albumin 3.4 gm/dl (3.4-5.0) Lipase 132 U/L (73-393) Bedside Troponin I < 0.030 ng/ml (0-0.045) Laboratory studies as stated above per my review. ECG Indication: other (left arm pain) Rate (beats per minute): 63 Rhythm: normal sinus Findings: PAC, no acute ischemic change Change: PACs are now present when compared to 11/01/2016. ED Course 2224: Past medical records reviewed. The patient was evaluated in room A10, and a complete history and physical examination were performed. 2323: I reassessed the patient at this time. He is feeling better and resting comfortably. Medical Decision Differentials include, but are not limited to; musculoskeletal etiology, cardiac disease, PNX, aneurysm, and infection. This patient comes in as described above. He was placed in room A 10. He has left shoulder pain. He did fall about a week ago and hit a tree he says he falls frequently for the last couple years. He says is not sure why. He did not pass out . He said this evening he started having pain in his left arm that was severe one time but now he feels better. He also has some numbness behind his scapula. No chest pain or shortness of breath. At present he looks great. He has normal motor ,vascular, sensation and pulse exam. EKG was obtained shows no acute ischemic changes or ectopy. Multiple blood testing was obtained. His troponin is not elevated and CK-MB is mildly elevated but may be more muscular. He tells me tests run elevated and I confirm this looking through the chart . He has no acute electrolyte or metabolic abnormalities. Chest x-ray shows cardiomegaly otherwise unremarkable. He shoulder x-ray shows no fracture or dislocation before meals joint on one view may appear little wide however he has no pain on this location on exam. 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 I think this is unlikely causing his symptoms but certainly needs to be looked at. I will also do a CAT scan of his head and neck primarily because he's been falling also with the fall it's possibly could've injured his neck and this could be neuropathic pain from a nerve root. He is resting comfortably. The patient was signed out to Dr. Aguilar at shift change to will follow-up on the CAT scans and we will also do a second troponin. Medication Reconcilliation Current Medication List: was personally reviewed by me Blood Pressure Screening Patient's blood pressure: Elevated blood pressure needs follow up Impression Primary Impression: Left shoulder pain Additional Impression: Left-sided back pain Scribe Attestation The scribe's documentation has been prepared under my direction and personally reviewed by me in its entirety. I confirm that the note above accurately reflects all work, treatment, procedures, and medical decision making performed by me. Departure Information Referrals Star Cabrera M.D. (PCP) Patient Instructions My [facility] Problem Qualifiers
--- NOTE | 2017-05-09 23:05 | DIAGNOSTIC IMAGING REPORT ---
CHEST ONE VIEW PORTABLE HISTORY: 76 years-old Male CHEST PAIN acute atypical chest pain COMPARISON: Chest radiograph 07/31/2016 TECHNIQUE: Portable upright AP view of the chest FINDINGS: Cardiac silhouette is mildly enlarged. Lungs are hypoinflated with bronchovascular crowding. No pneumothorax or pleural effusion. Bibasilar opacities are noted suggesting atelectasis. Bones of the chest are grossly intact. Soft tissue calcifications project over the left breast, unchanged. There are degenerative changes of the shoulders and spine. IMPRESSION: Hypoinflation with bronchovascular crowding and probable bibasilar atelectasis. The above report was generated using voice recognition software. It may contain grammatical, syntax or spelling errors. Electronically signed by: Jayme Russell M.D. 05/09/2017 11:04 PM Dictated Date/Time: 05/09/2017 11:02 PM
[2017-05-09 23:08] LABS: BASO % 1.4 %; BASO ABS # 0.06 K/uL (0-0.2); COMPLETE YES; EOS % 3.3 %; HEMATOCRIT 39.6 % (42-52); LYMPH % 36.4 %; LYMPH ABS # 1.52 K/uL (1.2-3.4); MEAN CORPUSCULAR HEMOGLOBIN 30.1 pg (25-34); MEAN CORPUSCULAR HGB CONC 33.1 g/dl (32-36); MEAN PLATELET VOLUME 9.2 fL (7.4-10.4); MONO % 8.9 %; PLATELET COUNT 178 K/uL (130-400); RED BLOOD COUNT 4.35 M/uL (4.7-6.1); WHITE BLOOD COUNT 4.18 K/uL (4.8-10.8)
[2017-05-09 23:19] LABS: PROTHROMBIN TIME (PATIENT) 10.1 SECONDS (9.0-12.0)
[2017-05-09 23:28] LABS: ALT/SGPT 51 U/L (12-78); AST/SGOT 37 U/L (15-37); BLOOD UREA NITROGEN 17 mg/dl (7-18); BUN/CREATININE RATIO 19.2 (10-20); CALCIUM 8.5 mg/dl (8.5-10.1); CARBON DIOXIDE 25 mmol/L (21-32); CHLORIDE 105 mmol/L (98-107); CREATININE 0.87 mg/dl (0.60-1.40); GLUCOSE 94 mg/dl (70-99); SODIUM 138 mmol/L (136-145)
[2017-05-09 23:33] LABS: ALKALINE PHOSPHATASE 97 U/L (45-117); CKMB/CK RATIO 1.6 (0-3.0)
[2017-05-09] MEDS ORDERED: OPTIRAY 320 IV PRN (23:45)
--- NOTE | 2017-05-10 01:47 | EMERGENCY ROOM VISIT NOTE ---
ED Visit Note First contact with patient: 23:43 Patient's signed out to me by Dr. Robles awaiting CAT scan results and repeat troponin. CT head: No acute intracranial hemorrhage, skull fracture, or other acute intracranial abnormality. Radiologist: Montserrat Pina M.D. CT C-spine: Comparison: CT neck dated 08/20/2016. No acute fracture or traumatic subluxation of the cervical spine. Stable postsurgical changes of anterior spinal fusion at C3-4 with increased fusion at the C3-4 disc space compared to prior CT. Degenerative changes of the cervical spine. Prominence of bilateral parotid glands, stable. Radiologist: Montserrat Jones M.D. CTA chest: No thoracic aortic dissection. Scattered atherosclerotic vascular disease with mildly ectatic ascending thoracic aorta measuring 4.2 cm. No focal consolidation, pulmonary edema, pleural effusion or pneumothorax. Normal cardiac size. No pericardial effusion. Moderate to large hiatal hernia. Radiologist: Montserrat Jones M.D. Patient updated in all results at bedside. No change in condition. Vital signs stable. Second trop negative. Patient agreeable with plan for discharge and follow-up. Patient offered additional pain medications here and declined, stating he prefers to take Tylenol as needed. Patient well-appearing at time of discharge.
[2017-05-10 02:20] VITALS: BP 134/72; PULSE 64; O2SAT 98
--- NOTE | 2017-05-10 06:53 | DIAGNOSTIC IMAGING REPORT ---
CERVICAL SPINE W/O CT DOSE: 1187.95 mGy.cm HISTORY: Trauma eval for cervical trauma TECHNIQUE: Multiaxial CT images of the cervical spine were performed and reformatted in the sagittal and coronal plane without the use of contrast. A dose lowering technique was utilized adhering to the principles of ALARA. COMPARISON: 08/20/2016 FINDINGS: Operative changes consistent with an anterior fusion C3-C4. No acute compression deformity. Degenerative disc change throughout. Posterior arch is intact. IMPRESSION: Degenerative and postoperative change. No acute process. The above report was generated using voice recognition software. It may contain grammatical, syntax or spelling errors. Electronically signed by: Danial Noble M.D. 05/10/2017 6:52 AM Dictated Date/Time: 05/10/2017 6:51 AM
--- NOTE | 2017-05-10 06:56 | DIAGNOSTIC IMAGING REPORT ---
L SHOULDER MIN 2 VIEWS ROUTINE CLINICAL HISTORY: 76 years-old Male presenting with eval for shoulder pain/trauma. TECHNIQUE: Internal rotation, external rotation, Grashey, and transscapular Y views of the left shoulder were obtained. COMPARISON: Chest x-ray from 07/31/2016 and 11/10/2013. FINDINGS: The left acromioclavicular joint is widened measuring 11 mm, previously 11 mm in 2013. This implies chronic a.c. separation and ligamentous injury. No acute fracture or acute malalignment. No subluxation of the humeral head. No advanced degenerative change. Visualized portion of the left hemithorax within normal limits. The acromion demonstrates a flat to concave undersurface without significant evidence of bony spurring to suggest acromiohumeral interval impingement. IMPRESSION: Chronic acromioclavicular joint separation. No acute osseous injury. Electronically signed by: Janes Michaels M.D. 05/10/2017 6:55 AM Dictated Date/Time: 05/10/2017 6:52 AM
--- NOTE | 2017-05-10 07:10 | DIAGNOSTIC IMAGING REPORT ---
HEAD WITHOUT CONTRAST (CT) CLINICAL HISTORY: 76 years-old Male presenting with eval for frequent falls, dizziness. TECHNIQUE: Multidetector CT imaging of the head was performed without the use of intravenous contrast. IV contrast: None. A dose lowering technique was used consistent with the principles of ALARA (as low as reasonably achievable). COMPARISON: None. CT DOSE (mGy.cm): The estimated cumulative dose is 1187.[address] cervical spine. FINDINGS: Registered Nursing Professor topogram: Anterior cervical fusion hardware. Ventricles and sulci normal in size. Brain parenchyma normal in appearance with preserved warren-white differentiation. No mass effect or midline shift. No hemorrhage or acute territorial infarct. No extra-axial fluid collection. Trace fluid in the left mastoid air cells. Calvarium intact. IMPRESSION: 1. No acute intracranial abnormality. Electronically signed by: Janes Michaels M.D. 05/10/2017 7:09 AM Dictated Date/Time: 05/10/2017 7:06 AM
--- NOTE | 2017-05-10 07:44 | DIAGNOSTIC IMAGING REPORT ---
CT ANGIOGRAM OF THE CHEST COMBO CLINICAL HISTORY: Falls. Dizziness. Atypical chest pain. COMPARISON STUDY: Chest x-ray dated 07/31/2016. Chest CT dated 11/10/2013. TECHNIQUE: Before and following the IV administration of 94 cc of Optiray 320, CT angiogram of the chest was performed from the thoracic inlet to the upper abdomen utilizing the dissection protocol. Images are reviewed in the axial, sagittal, and coronal planes. 3-D MIPS images are created and assessed. IV contrast was administered without complication. A dose lowering technique was utilized adhering to the principles of ALARA. CT DOSE: 2265.12 mGy.cm FINDINGS: Thyroid: Imaged portions of the thyroid gland are normal in size and attenuation. Thoracic aorta: No intramural hematoma is seen on the unenhanced series. The thoracic aorta is normal in caliber and demonstrates bovine variant arch anatomy. No dissection is seen. The arch vessels are widely patent. Pulmonary vasculature: The pulmonary trunk is normal in caliber. The pulmonary vessels are not well opacified. Heart: The heart is mildly enlarged and without pericardial effusion. There are coronary artery calcifications. Lungs and pleural spaces: The lungs and pleural spaces are clear. Mediastinum: There are scattered subcentimeter mediastinal lymph nodes. These are not pathologically enlarged by size criteria. Anna: Clear. Axillae: There is no axillary lymphadenopathy. Calcifications are seen in the left axillary region. Upper abdomen: There is a large hiatal hernia. A 1.3 cm left adrenal nodule meets CT criteria for a fat-containing adenoma. Skeletal structures: The skeletal structures are osteopenic. Degenerative change is seen throughout the thoracic spine and in the shoulders. No lytic or blastic bony lesions are seen. IMPRESSION: 1. There is no aneurysm or dissection seen involving the thoracic aorta. 2. The lungs are clear. 3. Mild cardiac enlargement. 4. Additional findings as above. Electronically signed by: Dutch Avila M.D. 05/10/2017 7:43 AM Dictated Date/Time: 05/10/2017 7:38 AM
== END 2017-05-10 02:21 | disposition home or self-care (01) ==
LOC: C.EDB 22:17 → C.EDA 05-10 02:21
DX: M25.512 Pain in left shoulder (principal); M54.9 Dorsalgia, unspecified; Z91.81 History of falling; M19.90 Unspecified osteoarthritis, unspecified site; M48.02 Spinal stenosis, cervical region; D50.9 Iron deficiency anemia, unspecified; Z96.649 Presence of unspecified artificial hip joint; Z80.9 Family history of malignant neoplasm, unspecified; Z87.891 Personal history of nicotine dependence; Z79.82 Long term (current) use of aspirin; Z79.899 Other long term (current) drug therapy

== ENCOUNTER → 2017-08-28 | Outpatient (CLI) | payer OTHER ==
[~2017-08-28] MED LIST changes: -RXC5 PO
--- NOTE | 2017-08-28 11:11 | DIAGNOSTIC IMAGING REPORT ---
RIGHT LOWER QUADRANT/INGUINAL ULTRASOUND. CLINICAL HISTORY: Right lower quadrant pain. Possible hernia. COMPARISON STUDY: CT scan dated 02/09/2016 FINDINGS: There is a suspected small inguinal hernia, not well demonstrated on this study. A echogenic structure located superior to the canal, likely represents an incidental lymph node. IMPRESSION: There is a suspected but not definite small fat-containing right inguinal hernia. Electronically signed by: Kvng Mcdaniels M.D. 08/28/2017 11:10 AM Dictated Date/Time: 08/28/2017 11:06 AM
--- NOTE | 2017-08-28 11:42 | DIAGNOSTIC IMAGING REPORT ---
KUB CLINICAL HISTORY: 77 years-old Male presenting with RIGHT LOWER QUAD pain, constipation. TECHNIQUE: Single supine view of the abdomen was obtained. COMPARISON: CT of abdomen pelvis from 02/09/2016. FINDINGS: No significant stool burden. Nonobstructive bowel gas pattern. No gross pneumoperitoneum. Multiple surgical clips project over the left hemipelvis. Allowing for bowel gas and stool, no calcifications to suggest nephrolithiasis. Total hip arthroplasties with significant radiolucency surrounding the acetabular components. No malalignment or other hardware complication is apparent. Bilateral posterior transpedicular screw and sandi fixation of L4-S1 with interbody spacers at L4-5 and L5-S1. Lung bases clear. IMPRESSION: 1. No significant stool burden suggest constipation. No bowel obstruction. 2. Radiolucency along the acetabular components of the bilateral total hip arthroplasties could suggest particle disease. No other hardware complication. Electronically signed by: Janes Michaels M.D. 08/28/2017 11:41 AM Dictated Date/Time: 08/28/2017 11:39 AM
== END ==
LOC: C.ULTR 10:03
PROVIDERS: ATTEND Nurse Practitioner
DX: R10.31 Right lower quadrant pain (principal)

== ENCOUNTER → 2017-10-11 | Outpatient (CLI) | payer OTHER ==
--- NOTE | 2017-10-11 14:38 | DIAGNOSTIC IMAGING REPORT ---
MRI LUMBAR SPINE W/O CONTRAST CLINICAL HISTORY: Low back pain with left leg radiculopathy. TECHNIQUE: Sagittal and axial T1, T2 and STIR images were obtained. COMPARISON STUDY: December 02, 2015 OBSERVATIONS: There are no suspicious areas of marrow replacement. There are postsurgical changes of discectomies and interbody fusion at the L4-5 and L5-S1 levels. There is posterior pedicle screw fixation. L1-2: There is a minor circumferential disc bulge. There is no spinal or foraminal stenosis L2-3: No disc protrusions or extrusions. No evidence of spinal canal or neural foraminal compromise. L3-4: There is a circumferential disc bulge. There is facet joint hypertrophy. There is moderate spinal stenosis. L4-5: Postsurgical changes are present this level. There is a posterior laminectomy. There is no significant spinal or foraminal stenosis L5-S1: There are postsurgical changes of posterior laminectomy. There is no recurrent disc herniation. There is no significant spinal or foraminal stenosis. The conus medullaris and cauda equina appear normal. There is right psoas atrophy. IMPRESSION: 1. Postsurgical changes at the L4-5 and L5-S1 levels 2. Disc bulge and facet joint arthropathy at the L3-4 level. There is moderate spinal stenosis which is progressive when compared with the preceding study Electronically signed by: Kvng Mcdaniels M.D. 10/11/2017 2:37 PM Dictated Date/Time: 10/11/2017 2:32 PM
== END | disposition home or self-care (01) ==
LOC: C.MRIBC 13:32
PROVIDERS: ATTEND Orthopaedic Surgery Orthopaedic Surgery of the Spine
DX: M48.062 Spinal stenosis, lumbar region with neurogenic claudication (principal)

== ENCOUNTER 2018-12-24 18:38 | Inpatient (IN) ==
[2018-12-24] MEDS ORDERED: ALBUT/IPRATROP 3MG/0.5MG NEB 3 ML VIAL ONE (19:24)
[2018-12-24] MEDS ORDERED: ALBUT/IPRATROP 3MG/0.5MG NEB 3 ML VIAL NEB STA ×2 (19:31→19:45)
[2018-12-24] MEDS ORDERED: FAMOTIDINE 20MG/5ML IV PUSH IV STA (19:32)
[2018-12-24] MEDS: SODIUM CHLORIDE 0.9% 500 ML IV SCH (19:47)
[2018-12-24 19:51] LABS: Basophils # (auto) 0.08 K/uL (0-0.2); Basophils % (auto) 1.6 %; Eosinophils # (auto) 0.44 K/uL (0-0.5); Hematocrit (blood only) 40.7 % (42-52); Hemoglobin 13.7 g/dL (14.0-18.0); Lymphocytes # (auto) 0.96 K/uL (1.2-3.4); Lymphocytes % (auto) 19.6 %; Mean Corpuscular Hgb Conc 33.7 g/dL (32-36); Mean Corpuscular Volume 93.8 fL (80-100); Mean Platelet Volume 9.1 fL (7.4-10.4); Monocytes # (auto) 0.44 K/uL (0.11-0.59); Neutrophils # (auto) 2.99 K/uL (1.4-6.5); Neutrophils % (auto) 60.8 %; Platelet Count 172 K/uL (130-400); RDW Coefficient of Variation 13.5 % (11.5-14.5); RDW Standard Deviation 46.6 fL (36.4-46.3); Red Blood Count 4.34 M/uL (4.7-6.1); White Blood Count 4.91 K/uL (4.8-10.8)
--- NOTE | 2018-12-24 19:55 | XRay Report ---
XR chest 1V portable CLINICAL HISTORY: sob dyspnea COMPARISON STUDY: 11/07/2018 FINDINGS: Mild stable cardiomegaly. The lungs are clear. Fixed hiatal hernia. No change from the prio r exam. IMPRESSION: No acute process. Fixed hiatal hernia. Mild stable cardiomegaly. The above report was generated using voice recognition software. It may contain grammatical, syntax or spelling errors. Electronically signed by: Danial Noble M.D. 12/24/2018 7:54 PM
[2018-12-24 20:11] LABS: NT Pro B Type Natriuretic Pept 35 pg/ml (0-1800); Troponin I < 0.015 ng/ml (0-0.045)
[2018-12-24 20:12] LABS: D Dimer 910 ug/L FEU (0-500)
[2018-12-24] MEDS ORDERED: BENZONATATE 100 MG CAPSULE PO ONE (20:30)
[2018-12-24] MEDS ORDERED: ACETAMINOPHEN 1,000 MG/100 ML VIAL IV STA (20:47)
[2018-12-24 20:58] LABS: Appearance Urine Clear (Clear); Blood Urine Negative (Negative); Color Urine Dark Yellow; Glucose Urine UA Negative (Negative); Ketones Urine 1+ (Negative); Leukocyte Esterase Urine Negative (Negative); Nitrite Urine Negative (Negative); Protein Urine Negative (Negative); Specific Gravity Urine 1.028 (1.000-1.030); Urobilinogen Urine Negative (Negative)
[2018-12-24 21:02] LABS: Bilirubin Urine Negative (Negative); Ictotest Urine Negative (Negative)
[2018-12-24 21:28] LABS: Albumin Level 3.8 gm/dl (3.4-5.0); BUN Creatinine Ratio 14.4 (10-20); Calcium 8.9 mg/dl (8.5-10.1); Creatinine Clr Calc Pharmacy 84.8 ml/min; Est GFR (African American) 86.5; Est GFR (Non-African American) 74.6; Magnesium 2.1 mg/dl (1.8-2.4); Potassium 4.1 mmol/L (3.5-5.1)
[2018-12-24 21:31] LABS: Albumin Globulin Ratio 1.4 (0.9-2); Bilirubin,Total 0.6 mg/dl (0.2-1); Globulin 2.7 gm/dl (2.5-4.0); Total Protein 6.5 gm/dl (6.4-8.2)
[2018-12-24] MEDS ORDERED: OPTIRAY 320 125ml IV PRN (22:04)
--- NOTE | 2018-12-24 22:19 | CT Scan Report ---
CT angio chest PE protocol CT DOSE: HISTORY: Chest pain. Dyspnea. PE TECHNIQUE: Multiaxial CT images of the chest were performed following the intravenous administration of contrast to evaluate the pulmonary arteries. Maximal intensity projection images were also obtaine d. A dose lowering technique was utilized adhering to the principles of ALARA. COMPARISON STUDY: None. FINDINGS: The thoracic aorta shows minimal atherosclerotic change. No evidence for aneurysm or dissec tion. The pulmonary vasculature enhances appropriately. Fixed hiatal hernia. The lungs are considered clear. No focal infiltrate. Minimal peribronchial thick ening. IMPRESSION: 1. No evidence for pulmonary embolus. 2. Lungs are clear. 3. Minimal peribronchial thickening. 4. Fixed hiatal hernia. The above report was generated using voice recognition software. It may contain grammatical, syntax or spelling errors. Electronically signed by: Danial Noble M.D. 12/24/2018 10:17 PM
[2018-12-24] MEDS ORDERED: MAGNESIUM SULFATE / D5W 1 GM/100 ML BAG IV ONE (23:23)
[2018-12-24] MEDS ORDERED: GUAIFENESIN/DEXTROM SYRUP 200MG/20MG 10ML UDC PO STA (23:23)
[2018-12-25] MEDS ORDERED: NITROGLYCERIN SL 0.4 MG/TAB TAB SL PRN (03:11)
[2018-12-25] MEDS ORDERED: DOCUSATE SODIUM/SENNA 50/8.6MG TAB PO PRN (03:11)
[2018-12-25] MEDS ORDERED: ACETAMINOPHEN 500 MG TAB PO PRN (03:11)
[2018-12-25] MEDS: SODIUM CHLORIDE 0.9% 500 ML IV SCH (03:22)
[2018-12-25] MEDS ORDERED: ALBUTEROL HFA 8 GM INHALER INH PRN (04:03)
[2018-12-25] MEDS: methylPREDNISolone 40 MG in SYRINGE 0 ML IV SCH ×3 (04:58→20:40)
[2018-12-25 05:35] LABS: Hematocrit (blood only) 41.3 % (42-52); Hemoglobin 13.9 g/dL (14.0-18.0); Mean Corpuscular Hgb Conc 33.7 g/dL (32-36); Mean Corpuscular Volume 95.6 fL (80-100); Mean Platelet Volume 8.9 fL (7.4-10.4); Platelet Count 181 K/uL (130-400); RDW Coefficient of Variation 13.4 % (11.5-14.5); RDW Standard Deviation 46.7 fL (36.4-46.3); Red Blood Count 4.32 M/uL (4.7-6.1); White Blood Count 4.44 K/uL (4.8-10.8)
[2018-12-25 05:45] LABS: Prothrombin Time 10.5 Seconds (9.0-12.0)
[2018-12-25 05:51] LABS: BUN Creatinine Ratio 13.4 (10-20); Calcium 8.5 mg/dl (8.5-10.1); Creatinine Clr Calc Pharmacy 94.4 ml/min; Est GFR (African American) 96.7; Est GFR (Non-African American) 83.4; Potassium 4.1 mmol/L (3.5-5.1)
[2018-12-25] MEDS: HEPARIN SOD 5,000 UNIT/0.5 ML VIAL SQ SCH ×3 (06:00→20:43)
[2018-12-25] MEDS: ALBUT/IPRATROP 3MG/0.5MG NEB 3 ML VIAL NEB SCH ×4 (07:15→18:59)
[2018-12-25] MEDS: ASPIRIN 81 MG ECTAB PO SCH (07:30)
[2018-12-25] MEDS: CHOLECALCIFEROL 1,000 UNITS TAB PO SCH (07:31)
[2018-12-25] MEDS: BENZONATATE 100 MG CAPSULE PO SCH ×3 (07:32→20:41)
[2018-12-25] MEDS: METOPROLOL SUCC 25MG EXT REL TAB PO SCH (07:32)
[2018-12-25] MEDS: LOSARTAN POTASSIUM 25 MG TAB PO SCH (07:33)
[2018-12-25] MEDS: ROSUVASTATIN CALCIUM 20 MG TAB PO SCH (07:33)
[2018-12-25] MEDS: MULTIVITAMIN TAB PO SCH (07:34)
[2018-12-25] MEDS: TAMSULOSIN HCL 0.4 MG CAP PO SCH (07:34)
[2018-12-25] MEDS: CLOPIDOGREL BISULFATE 75 MG TAB PO SCH (07:34)
[2018-12-25] MEDS: CYANOCOBALAMIN 500 MCG TABLET (VITAMIN B-12) PO SCH (07:34)
[2018-12-25] MEDS: PANTOprazole 40 MG TAB PO SCH ×2 (07:35→20:42)
[2018-12-25] MEDS: RANITIDINE HCL SYRUP 150 MG/10 ML UDC PO SCH ×2 (07:36→20:42)
[2018-12-25] MEDS ORDERED: Nursing to Pharmacy Communication ONE (07:59)
[2018-12-25] MEDS ORDERED: AZITHROMYCIN 250 MG TAB PO ONE (08:00)
--- NOTE | 2018-12-25 08:25 | History and Physical Report ---
DATE OF ADMISSION: 12/25/2018 CHIEF COMPLAINT: Ongoing cough. HISTORY OF PRESENT ILLNESS: This is a 78-year-old male with past medical history significant for hyperlipidemia, benign neoplasm of adrenal gland, mild aortic root enlargement, proximal ascending thoracic aorta moderate enlargement, venous insufficiency, CAD status post stent, hypertension, history of nonsustained paroxysmal supraventricular tachycardia, GERD, congenital obstruction of the ureteropelvic junction, BPH, arthritis of hip, degeneration of cervical intervertebral disc status post surgery, lumbar degenerative disc disease status post lumbar laminectomy, history of tobacco abuse, large hiatal hernia with Oscar erosions, felt to be likely source of his iron deficiency anemia, idiopathic peripheral neuropathy, anxiety, presents with ongoing cough. The patient was in the ER on 11/07/2018 with cough and treated for bronchitis with steroids and started on doxycycline. After going home, advised to follow with PCP, he followed with the PCP, then again he was not getting better and he went to PCP's office and he was prescribed another course of antibiotics and prednisone, but as it was not getting better, he was still having a lot of cough and called the PCP's office and no one was in the town, so he went to [facility] and there he was treated for pneumonia with an antibiotic, but still he was not getting better, he went to see Dr. Brown yesterday and he was prescribed Omnicef and doxycycline, but is still having a lot of cough. Any eating, taking deep breath, talking brings his cough on and is bringing whitish phlegm. He says couple of times he had blood streaks in it and at one time also bring some meatball out. He has a history of large hiatal hernia. Denies any chest pain, has some shortness of breath with exertion. [place], he walks without any help, but on climbing steps or when he goes outside, he uses a cane. He lives with his . Denies any fever, chills. He has some occasional headaches. Denies any blurred vision. He has runny nose since he had a neck surgery. Denies any sore throat or difficulty swallowing. Appetite is okay, he eats a regular diet. No nausea, no vomiting, no abdominal pain. Normal bowel and bladder movements. Has swelling in the legs, but that has been getting little worse lately. Recently, he was seen by cardiology on 12/11/2018, increased his Lasix dose to every other day. He says when he sleeps, he cannot lie down flat. He sleeps mostly sitting. Currently, his hemodynamics are stable. When he came to ER, he was having wheezing, so he was given neb treatments which improved his wheezing. He is saturating okay on the room air. ALLERGIES: No known drug allergies. PAST MEDICAL HISTORY: As mentioned above. PAST SURGICAL HISTORY: Cardiac catheterization, status post stent placement, cervical laminectomy, decompression surgery, colonoscopy with removal of tubular adenoma, EGDs, lumbar spine injection, excision of the abdominal tumor, status post back surgery, status post meniscus repair, tonsillectomy, adenoidectomy, laparoscopic left inguinal hernia repair, left hip surgery, right hip replacement, umbilical hernia repair. MEDICATIONS: The patient is currently on Omnicef 300 mg p.o. b.i.d., docusate 100 mg p.o. b.i.d., Zantac 300 mg p.o. at bedtime, Lasix 20 mg every other day, Protonix 40 mg p.o. b.i.d., potassium chloride 10 mEq every other day, Crestor 20 mg p.o. daily, albuterol nebulization every 4 hours p.r.n., albuterol 2 puffs every 4 hours p.r.n., Robitussin-AC 5 mL q. 4 hours p.r.n., Toprol-XL 12.5 mg p.o. daily, amoxicillin 2000 mg 1 hour prior to procedure, Flomax 0.4 mg p.o. b.i.d., losartan 25 mg p.o. daily, Plavix 75 mg p.o. daily, nitroglycerin 0.3 mg sublingual p.r.n., Senokot-S 1 tablet daily, multivitamins 1 tablet daily, Vitron-C 1 tablet daily, vitamin B12 500 mcg daily, vitamin D 2000 units daily, aspirin 81 mg p.o. daily. FAMILY HISTORY: Significant for: Brother has arthritis, leukemia, gastrointestinal disorder and neuropathy. Mother has dementia, cervical cancer. Father has arthritis. SOCIAL HISTORY: , lives with his . Former smoker, quit in 1969. Alcohol rarely. No drug use. REVIEW OF SYMPTOMS: As per HPI. Rest of review of systems is negative. PHYSICAL EXAMINATION: GENERAL: The patient is of moderate build, not in acute distress. VITAL SIGNS: Temperature 36.4, pulse 74, respiratory rate 18, blood pressure 159/91, oxygen 94% room air. HEENT: No pallor, no icterus. Pupils equal, round, and reactive to light. NECK: No JVD, no neck masses, no carotid bruits. CARDIOVASCULAR: S1, S2 heard, regular rate and rhythm, no murmur, no gallop. RESPIRATORY SYSTEM: Normal AP diameter. No accessory muscle use. Bilateral occasional wheezing, no crackles. ABDOMEN: Soft, bowel sounds present, nontender. No distention. CENTRAL NERVOUS SYSTEM: Cranial nerves II-XII grossly intact. Nonfocal. EXTREMITIES: Lower extremity, +2 edema present, no erythema seen. LABORATORIES: WBC 4.9, hemoglobin 13.7, hematocrit 40.7, platelets 172. D-dimer 19. Sodium 142, potassium 4.1, chloride 108, bicarbonate 28, BUN 14, creatinine 0.9, serum glucose 83, calcium 8.9, magnesium 2.1, total bilirubin 0.6, AST 50, ALT 57, alkaline phosphatase 86, troponin I less than 0.015. BNP 35. Urinalysis negative. CT of the chest, no evidence of pulmonary embolus. Lungs are clear. Minimal peribronchial thickening, fixed hiatal hernia. Chest x-ray, no acute process, fixed hiatal hernia, mildly stable cardiomegaly. EKG: Normal sinus rhythm with rate of 85, right bundle-branch block, T-wave inversion more evident in anterior leads. ASSESSMENT AND PLAN: This is a 78-year-old male who presents with ongoing cough. 1. Cough, possibly complicated bronchitis. The patient had a cough since 11/07/2018, has 4 courses of antibiotics and steroids. Fourth course was just started. The patient first time in the ER was discharged on doxycycline and yesterday his PCP prescribed Omnicef and doxycycline again. We do not know about other 2 antibiotic courses. We will get sputum cultures. We will also get a Bordetella pertussis study. When he came to the ER, his wheezing was improved with nebs. We will continue DuoNebs around the clock and p.r.n., IV Solu-Medrol [address] him on azithromycin and consult pulmonary for further recommendations. He had TDAP vaccine in 2015.Monitor in med/surg tele. His hemodynamics are stable currently and also may give him Tessalon Perles around the clock and Robitussin-AC syrup p.r.n. 2. History of coronary artery disease, status post stent. Continue his home aspirin, Plavix, Toprol-XL and Crestor, losartan. Currently asymptomatic. 3. History of diastolic congestive heart failure, recently Lasix dose was increased to 20 mg every other day with potassium supplements which he will continue. As he says his swelling is slightly worse than before, we will also repeat echocardiogram. 4. Gastroesophageal reflux disease. Continue Protonix and Zantac. 5. History of benign prostatic hypertrophy. Continue Flomax. 6. History of hypertension. Continue Cozaar, Toprol-XL. We will monitor the blood pressure. 7. Ascending aortic enlargement and dilated aortic root. Needs followup. 8. History of paroxysmal supraventricular tachycardia, on Toprol-XL. We will monitor. 9. Hyperlipidemia, on statin. 10. History of large hiatal hernia with Oscar erosions. Continue Protonix and Zantac. 11. Deep venous thrombosis prophylaxis. Heparin subcutaneously. 12. Disposition: Admit to med/surg tele. Level 1 full code. PT and OT prior to discharge. Social Service to help with discharge planning. TARIQ
[2018-12-25] MEDS ORDERED: POTASSIUM CHLORIDE 10 MEQ TABCR PO SCH (09:00)
[2018-12-25] MEDS ORDERED: FUROSEMIDE 20 MG TAB PO SCH (09:00)
[2018-12-25] MEDS ORDERED: NON-FORMULARY MEDICATION (Iron,Carbonyl-Vitamin C [Vitron-C] 1 TAB) PO SCH (09:00)
[2018-12-25] MEDS ORDERED: AZITHROMYCIN 250 MG TAB PO SCH (09:00)
[2018-12-25] MEDS ORDERED: POLYETHYLENE (MIRALAX) 17 GM PACK PO ONE (17:27)
[2018-12-25] MEDS: GUAIFENESIN/CODEINE 100MG/10MG 5ML UDC PO PRN (18:16)
[2018-12-25] MEDS: POLYETHYLENE (MIRALAX) 17 GM PACK PO SCH (20:41)
--- NOTE | 2018-12-25 20:55 | Hospitalist Progress Note ---
Date of Service December 25, 2018 Assessment & Plan (1) Cough: Persistent severe cough with associated dyspnea despite multiple courses of outpatient antibiotics and steroids. CTA of chest negative for pulmonary embolism. Pulmonary Medicine consulted. Not on KAMILLA inhibitor. ? infectious etiology. Consider aspiration second GERD as underlying etiology. Continue azithromycin, intravenous methylprednisolone, nebulizer treatments. (2) CAD (coronary artery disease): No anginal symptoms. Continue usual meds. (3) Hypertension: Continue metoprolol and losartan. (4) GERD (gastroesophageal reflux disease): Recent barium esophagram demonstrated high hernia and severe GERD. May be underlying etiology of cough. Continue PPI. (5) DVT prophylaxis: SQ heparin. Ambulate. (6) Discharge planning issues: Anticipated discharge to home. Family Medicine follow-up with Dr. Cabrera. Subjective Recheck for multiple problems. Patient seen in their room around 16:50. Persistent severe productive cough. No SOB at rest. No fever. No chest pain. Review of Systems: Constitutional- no fever. Cardiac- no anginal symptoms; chronic dependent edema. Pulmonary- as noted above. GI- no nausea, vomiting, diarrhea, melena, hematochezia. - no urinary symptoms. Otherwise, as noted above. Physical Exam Constitutional: no acute distress Respiratory: no respiratory distress Auscultation: + rhonchi (scattered) and + wheezes (diffuse) Cardiovascular: Rate/Rhythm: regular rate and regular rhythm Heart Sounds: no gallop, no murmur and no cardiac rub Vessels: no JVD Extremities: + edema (1+ pretibial); no calf tenderness Gastrointestinal (Abdomen): normal bowel sounds, soft, nontender, no hepatosplenomegaly Musculoskeletal: Extremities: no cyanosis Skin: no rashes, warm and dry Psychiatric: Orientation: alert and oriented x 3 Results & Data Vital Signs (Past 12 Hours) Vital Signs Temp Pulse Pulse Resp BP Pulse Ox 12/25/18 19:51 36.8 C 106 H 17 131/77 91 12/25/18 19:00 99 H 18 96 12/25/18 15:56 81 16 93 12/25/18 15:09 87 12/25/18 15:08 36.8 C 71 18 131/77 91 12/25/18 11:18 91 H 18 91 12/25/18 11:16 36.6 C 73 18 159/82 H 94 12/25/18 09:51 96 Laboratory Results Laboratory Results - last 24 hr 12/25/18 12/25/18 12/25/18 05:21 05:21 05:21 WBC 4.44 L RBC 4.32 L Hgb 13.9 L Hct 41.3 L MCV 95.6 MCH 32.2 MCHC 33.7 RDW Std Deviation 46.7 H RDW Coeff of [place] 13.4 Plt Count 181 MPV 8.9 PT 10.5 INR 1.0 Sodium 139 Potassium 4.1 Chloride 107 Carbon Dioxide 24 Anion Gap 8.0 BUN 12 Creatinine 0.88 Est Cr Clr Drug Dosing 94.4 Est GFR ( Amer) 96.7 Est GFR (Non-Af Amer) 83.4 BUN/Creatinine Ratio 13.4 Glucose 88 Calcium 8.5 Magnesium Bordetella pertussis Spec Source B. pertussis DNA (PCR) B.parapertussis DNA PCR 12/25/18 12/25/18 05:21 14:53 WBC RBC Hgb Hct MCV MCH MCHC RDW Std Deviation RDW Coeff of [place] Plt Count MPV PT INR Sodium Potassium Chloride Carbon Dioxide Anion Gap BUN Creatinine Est Cr Clr Drug Dosing Est GFR ( Amer) Est GFR (Non-Af Amer) BUN/Creatinine Ratio Glucose Calcium Magnesium 2.3 Bordetella pertussis Spec Source Pending B. pertussis DNA (PCR) Pending B.parapertussis DNA PCR Pending
--- NOTE | 2018-12-25 21:33 | Consultation Report ---
DATE OF CONSULTATION: 12/25/2018 REASON FOR CONSULTATION: Chronic cough. HISTORY OF PRESENT ILLNESS: A 78-year-old white male with past medical history consisting of dyslipidemia, benign adrenal adenoma, mild aortic root enlargement, venous insufficiency, coronary artery disease status post stenting and history of hypertension and nonsustained paroxysmal supraventricular tachycardia along with GERD, was admitted with a 4-week history of chronic cough and dyspnea by Dr. Hood. The patient also has a history of congenital obstruction of the ureteropelvic junction, BPH, degenerative arthritis in the hip as well as cervical neck, status post cervical neck fusion and lumbar laminectomy as well as a large hiatal hernia with Oscar erosions. He has had a cough for 4 weeks. Prior to that he had undergone stenting for significant LAD lesion according to his history and had symptoms of severe dyspnea associated with even modest exertion climbing 4 steps without discrete anginal symptoms. The patient was seen in the Emergency Room on 11/24/2018 with cough treated with steroids and doxycycline and has been on apparently 3 different antibiotics in the interim without efficacy. Prednisone has been used the second time and he was seen by primary care physicians of [facility] Dr. Brown the day of admission and was placed on Omnicef and doxycycline. He states trying to eat, talk, laugh, or lie flat caused severe paroxysms of coughing with clear to yellow phlegm and occasional blood streaking hemoptysis. He denies a history of aspiration to his knowledge. He has had some postnasal drainage and reflux symptoms, although the latter has been treated with b.i.d. medication. He cannot lie flat without coughing and was bronchospastic in the ER and then a decision was made to admit him for further evaluation and therapy. PAST MEDICAL HISTORY: For details of past medical history including the use of a nebulizer with albuterol solution, I refer you to Dr. Hood's notation. He lives at home with his . He quit smoking after only a 2-year history of smoking in the [employer] and was stationed at [place]. PHYSICAL EXAMINATION: GENERAL: Reveals a well-developed, friendly, moderately obese white male, coughing almost continually when he tries to talk or take a deep breath. CURRENT VITAL SIGNS: Temperature 36.6, blood pressure 159/82, pulse 91 and regular, respiratory rate 18, O2 sat 91% on room air. SKIN: Without lesion. HEENT: Atraumatic, normocephalic, PERRLA, EOMI. Conjunctivae pink. Sclerae nonicteric. Fundi grade 1 changes. NECK: Neck veins are not distended at 45 degrees. No obvious adenopathy in the supra or infraclavicular areas. LUNGS: Coarse wheezes mostly large airway rhonchi with bibasilar bronchospasm, cannot make a full inspiratory effort without triggering severe paroxysms of coughing. CARDIAC: Regular rate and rhythm. No murmurs or gallops. Single vessel coronary artery disease, 90% mid LAD, status post successful drug-eluting stent implantation for class 3 angina pectoris. The LAD stenting was performed by Dr. Duane Johnson on 03/19/2018. ABDOMEN: Soft, protuberant. EXTREMITIES: No pedal edema, clubbing or cyanosis. NEUROLOGIC: Intact. No lateralizing signs. LABORATORY DATA: White count 4900 on admission, H and H 13.7 and 40.7 without a significant left shift, but 9% eosinophilia noted and 7.2% eosinophilia on 11/07/2018. Bordetella pertussis antibodies pending. Chem profile unremarkable. AST slightly elevated at 50. D-dimer on admission 910. CTA done yesterday, no evidence of pulmonary thromboembolic disease to lung. There is some minimal peribronchial thickening and a fixed hiatal hernia noted. Barium swallow on 12/17/2018, moderate to large hiatal hernia with extensive GE reflux. Sputum culture pending. Echo pending. OVERALL ASSESSMENT: A 78-year-old with 4-week history of severe cough, bronchospasm, refractory to outpatient therapy with multiple courses of antibiotic and steroid taper, now admitted with fairly dyspneic with modest exertion bronchospastic and with virtual difficulty speaking or maneuvering without triggering severe paroxysms of coughing. I have to wonder whether the patient is silently aspirating food or other material, although there is no sign of that or indirect signs of that on CT scan; that remains a concern. Severe reflux is noted as well. We will review current medication and treatment and consider bronchoscopic intervention on Sunday. Further attention to severe reflux may need be considered perhaps even a fundoplication at a later date.Video swallow could be helpful. We will discuss further with primary hospitalist service. ATRIQ
[2018-12-26] MEDS: GUAIFENESIN/CODEINE 100MG/10MG 5ML UDC PO PRN ×2 (03:28→12:43)
[2018-12-26] MEDS: methylPREDNISolone 40 MG in SYRINGE 0 ML IV SCH ×3 (03:29→20:01)
[2018-12-26] MEDS: HEPARIN SOD 5,000 UNIT/0.5 ML VIAL SQ SCH ×2 (06:35→14:15)
[2018-12-26] MEDS ORDERED: XOPENEX/ATROVENT 1.25mg/0.5MG NEB COMBO NEB SCH (06:40)
[2018-12-26] MEDS: BENZONATATE 100 MG CAPSULE PO SCH ×3 (06:40→20:02)
[2018-12-26] MEDS ORDERED: IPRATROPIUM BROMIDE NEB SOLN 0.02% 2.5 ML VIAL INH SCH (06:45)
[2018-12-26] MEDS ORDERED: LEVALBUTEROL 1.25MG/0.5ML NEB INH SCH (06:45)
[2018-12-26] MEDS ORDERED: ALBUT/IPRATROP 3MG/0.5MG NEB 3 ML VIAL NEB PRN (06:48)
[2018-12-26] MEDS: ALBUT/IPRATROP 3MG/0.5MG NEB 3 ML VIAL NEB SCH ×4 (07:03→19:38)
[2018-12-26] MEDS: ASPIRIN 81 MG ECTAB PO SCH (08:03)
[2018-12-26] MEDS: AZITHROMYCIN 250 MG/6.25 ML UDP PO SCH (08:04)
[2018-12-26] MEDS: METOPROLOL SUCC 25MG EXT REL TAB PO SCH (08:04)
[2018-12-26] MEDS: TAMSULOSIN HCL 0.4 MG CAP PO SCH (08:04)
[2018-12-26] MEDS: RANITIDINE HCL SYRUP 150 MG/10 ML UDC PO SCH ×2 (08:04→20:01)
[2018-12-26] MEDS: ROSUVASTATIN CALCIUM 20 MG TAB PO SCH (08:05)
[2018-12-26] MEDS: LOSARTAN POTASSIUM 25 MG TAB PO SCH (08:05)
[2018-12-26] MEDS: CLOPIDOGREL BISULFATE 75 MG TAB PO SCH (08:06)
[2018-12-26] MEDS: CHOLECALCIFEROL 1,000 UNITS TAB PO SCH (08:06)
[2018-12-26] MEDS: CYANOCOBALAMIN 500 MCG TABLET (VITAMIN B-12) PO SCH (08:06)
[2018-12-26] MEDS: MULTIVITAMIN TAB PO SCH (08:06)
[2018-12-26] MEDS: POLYETHYLENE (MIRALAX) 17 GM PACK PO SCH (08:06)
[2018-12-26] MEDS: PANTOprazole 40 MG TAB PO SCH ×2 (08:06→20:03)
[2018-12-26] MEDS: SUCRALFATE 1 GM TAB PO SCH ×4 (11:08→20:01)
--- NOTE | 2018-12-26 14:00 | Progress Note ---
DATE: 12/26/2018 PULMONARY MEDICINE PROGRESS NOTE ASSESSMENT: Spoke with Dr. Barry and gastroenterology income tax consultant, Dr. Núñez about patient's clinical status. They felt that the addition of Carafate could be problematic given his potential for aspiration and Dr. Núñez would consider upper endoscopy tomorrow, although for sure the patient has severe reflux and no doubt concomitant esophagitis. There remains a question of how well the patient would tolerate even moderate conscious sedation for bronchoscopy with BAL and we were going to attempt to do the procedure tomorrow with him at a 45-degree angle, but certainly the procedures would go more smoothly in the OR for both the EGD and bronchoscopy with control of the patient's airway and Dr. Núñez was going to discuss this with anesthesia about both was doing our respective procedures in the OR tomorrow. Pt is scheduled for tomorrow in OR for initially EGD then Bronchoscopic evaluation.Appreciate Dr Núñez's assistance. TARIQ
--- NOTE | 2018-12-26 14:07 | Gastrointestinal Consultation ---
Date of Consultation December 26, 2018 Assessment & Plan (1) Cough: 78 yo male with known hiatal hernia and long history of GERD admitted with over 4 weeks of persistent cough despite several courses of antibiotics and steroids. Evidence of active reflux on recent barium swallow. - Agree with the use of BID PPI as well as H2RA. - Discussed postural recommendations in the setting of hiatal hernia an reflux. - Carafate not likely to provide any therapeutic benefit. - EGD and bronchoscopy coordinated for the OR tomorrow at 1:30. Please make patient NPO after MN. (2) GERD (gastroesophageal reflux disease): (3) Hiatal hernia: History of Present Illness Reason for Consultation: reflux, chronic cough, ?aspiration, hiatal hernia Requesting Physician: Dr. 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 He has apparently had a persistent cough for the last 4 weeks. He has failed outpatient mgt with several course of antibiotics and steroids and was admitted for further care. He is being followed by Dr. Gonzalez of pulmonary. He had a barium swallow recently which showed a med/large hiatal hernia as well as evidence of reflux. There is discussion about possible hiatal hernia surgery as this is felt to be contributing to his current respiratory situation. We are asked to see his for an EGD to further evaluate for esophagitis, HH size, etc. He tells me that at home he has been on BID PPI. Unsure if he has been on H2RA. He still gets some intermittent breakthrough symptoms. Recently, he has felt like his pills don't go down easily. Feels like food sometimes "gets hung up" in his mid chest. Allergies Allergy/AdvReac Type Severity Reaction Status Date / Time No Known Allergies Allergy Verified 12/24/18 19:44 Home Medications Home Medications Medication Instructions Recorded Confirmed Type Vitron-C 1 tab PO DAILY 03/19/18 12/24/18 History acetaminophen 500 mg PO Q6H PRN 03/19/18 12/24/18 History amoxicillin 2,000 mg PO DIRECTED PRN 03/19/18 12/24/18 History aspirin 81 mg PO DAILY 03/19/18 12/24/18 History cholecalciferol (vitamin D3) 2,000 unit PO DAILY 03/19/18 12/24/18 History [Vitamin D3] cyanocobalamin (vitamin B-12) 500 mcg PO DAILY 03/19/18 12/24/18 History multivitamin 1 tab PO DAILY 03/19/18 12/24/18 History nitroglycerin [Nitrostat] 1 tab SUBLINGUAL DIRECTED PRN 03/19/18 12/24/18 History pantoprazole 40 mg PO BID 03/19/18 12/25/18 History sennosides-docusate sodium 1 tab PO HS PRN 03/19/18 12/24/18 History [Senokot-S] tamsulosin 0.4 mg PO DAILY 03/19/18 12/24/18 History clopidogrel 75 mg PO QAM #30 tab 03/20/18 12/24/18 Rx furosemide [Lasix] 20 mg PO MOWEFR 11/07/18 12/25/18 History losartan 25 mg PO DAILY 11/07/18 12/24/18 History potassium chloride 10 meq PO MOWEFR 11/07/18 12/25/18 History rosuvastatin [Crestor] 20 mg PO DAILY 11/07/18 12/24/18 History tadalafil 20 mg PO DAILY PRN 11/07/18 12/24/18 History cefdinir 300 mg PO BID 12/24/18 12/24/18 History doxycycline hyclate 100 mg PO BID 12/24/18 12/24/18 History metoprolol succinate 12.5 mg PO DAILY 12/24/18 12/24/18 History albuterol sulfate 2 puff INHALATION Q4H PRN 12/25/18 12/25/18 History albuterol sulfate 2.5 mg INHALATION Q4H PRN 12/25/18 12/25/18 History Patient History Medical History Abdominal lipoma (Resolved) 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 on echo 12/2017 CAD (coronary artery disease) (Chronic) 03/19/18-cardiac cath showing 90% mid LAD stenosis, S/P 1 VIRGEN to LAD BPH (benign prostatic hyperplasia) (Chronic) Hypertension (Chronic) Dyslipidemia (Chronic) Benign neoplasm of adrenal gland (Resolved) GERD (gastroesophageal reflux disease) (Chronic) Iron deficiency anemia (Chronic) Arthritis (Chronic) Surgical History History of back surgery (Chronic) H/O cervical spine surgery (Chronic) H/O umbilical hernia repair (Chronic) 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 (Chronic) H/O left inguinal hernia repair (Chronic) S/P tonsillectomy and adenoidectomy (Chronic) Family History Father Coronary heart disease Social History Preferred Language: Kiswahili Communication Ability: Effective Tube Sizer Operator Required: No Beliefs That Will Affect Care: None Current Living Situation: Spouse current occupation: Retired Other Information That Helps Us Care for You: No Feels Safe at Home: Yes Safety Concerns: Feels Safe At This Time Smoking Status: Never smoker Second Hand Exposure: No Hx Alcohol Use: Yes Alcohol type: beer Hx Substance Use: No Review of Systems Review of Systems: + cough, + SOB; 12 systems reviewed and negative except as noted Physical Exam Constitutional: WD/WN, vitals as above Eyes: PERRL, conjunctivae normal, anicteric sclerae Neck: trachea midline, no thyromegaly Respiratory: Auscultation: + diminished lung sounds exp wheezes Cardiovascular: RRR, no murmur, no edema Gastrointestinal (Abdomen): normal bowel sounds, soft, nontender, no hepatosplenomegaly Musculoskeletal: no cyanosis or clubbing, extremities motor strength 5/5 Neurologic: CN's II-XI intact bilaterally Results & Data Vital Signs (Past 12 Hours) Vital Signs Temp Pulse Pulse Resp BP BP Pulse Ox 12/26/18 11:31 75 18 95 12/26/18 11:17 36.6 C 74 18 146/72 H 93 12/26/18 07:22 78 12/26/18 07:04 84 18 93 12/26/18 06:55 36.7 C 90 22 112/71 90 12/26/18 03:05 36.8 C 88 18 150/80 H 90
[2018-12-26] MEDS ORDERED: Nursing to Pharmacy Communication ONE (15:59)
[2018-12-26] MEDS ORDERED: BISACODYL 5 MG TABEC PO ONE (18:53)
--- NOTE | 2018-12-26 21:39 | Emergency Department Note ---
Entered by Vanna Lowe acting as a scribe for Holli Aguilar DO History of Present Illness General Chief complaint: Shortness of Breath/Dyspnea Stated complaint: SOB COUGH TIRED Time Seen by Provider: 12/24/18 19:25 Source: patient and family (daughter) Limitations: no limitations History of Present Illness Onset (ago): hour(s) (this evening) Location: chest Pain Consistency: + constant Maximum Pain Intensity: 2 Quality: + other (SOB) Associated symptoms: + denies other symptoms (diarrhea and abdominal pain), + fever/chills (complains of chills, denies fever), + headaches, + nausea/vomiting (complains of nausea, denies vomiting) and + other (difficulty having BMs) The patient is a 78 year old male with a hx of HTN, CAD, GERD, Hiatal Hernia who presents to the Emergency Room with complaints of constant SOB that began this evening. His daughter, at beside, notes that he has had cold symptoms for the past month, and he's been on four different antibiotics and several rounds of steroids for the symptoms. He reports that these treatments have provided no relief. The patient states that he used a nebulizer at home. The patient complains of a headache, chills, nausea, and difficulty having BMs. The patient complains of hemoptysis and vomiting up one blood clot. He denies any "night sweats," recent weight loss, vomiting, fevers, diarrhea, and abdominal pain. His daughter states that the patient is on Lasix. The patient's daughter notes that the patient smoked cigars about 30 years ago, but he no longer does. No travel or known sick contacts prior to onset of symptoms. Pt states coughing fits make him sore Cough is minimally productive. No prior pulmonary hx of any kind. Home Medications Home Medications Medication Instructions Recorded Confirmed Type Vitron-C 1 tab PO DAILY 03/19/18 12/24/18 History acetaminophen 500 mg PO Q6H PRN 03/19/18 12/24/18 History amoxicillin 2,000 mg PO DIRECTED PRN 03/19/18 12/24/18 History aspirin 81 mg PO DAILY 03/19/18 12/24/18 History cholecalciferol (vitamin D3) 2,000 unit PO DAILY 03/19/18 12/24/18 History [Vitamin D3] cyanocobalamin (vitamin B-12) 500 mcg PO DAILY 03/19/18 12/24/18 History multivitamin 1 tab PO DAILY 03/19/18 12/24/18 History nitroglycerin [Nitrostat] 1 tab SUBLINGUAL DIRECTED PRN 03/19/18 12/24/18 History pantoprazole 40 mg PO BID 03/19/18 12/25/18 History sennosides-docusate sodium 1 tab PO HS PRN 03/19/18 12/24/18 History [Senokot-S] tamsulosin 0.4 mg PO DAILY 03/19/18 12/24/18 History clopidogrel 75 mg PO QAM #30 tab 03/20/18 12/24/18 Rx furosemide [Lasix] 20 mg PO MOWEFR 11/07/18 12/25/18 History losartan 25 mg PO DAILY 11/07/18 12/24/18 History potassium chloride 10 meq PO MOWEFR 11/07/18 12/25/18 History rosuvastatin [Crestor] 20 mg PO DAILY 11/07/18 12/24/18 History tadalafil 20 mg PO DAILY PRN 11/07/18 12/24/18 History cefdinir 300 mg PO BID 12/24/18 12/24/18 History doxycycline hyclate 100 mg PO BID 12/24/18 12/24/18 History metoprolol succinate 12.5 mg PO DAILY 12/24/18 12/24/18 History albuterol sulfate 2 puff INHALATION Q4H PRN 12/25/18 12/25/18 History albuterol sulfate 2.5 mg INHALATION Q4H PRN 12/25/18 12/25/18 History Allergies Allergy/AdvReac Type Severity Reaction Status Date / Time No Known Allergies Allergy Verified 12/24/18 19:44 Past Med/Surg History Medical History Abdominal lipoma (Resolved) 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 on echo 12/2017 CAD (coronary artery disease) (Chronic) 03/19/18-cardiac cath showing 90% mid LAD stenosis, S/P 1 VIRGEN to LAD BPH (benign prostatic hyperplasia) (Chronic) Hypertension (Chronic) Dyslipidemia (Chronic) Benign neoplasm of adrenal gland (Resolved) GERD (gastroesophageal reflux disease) (Chronic) Iron deficiency anemia (Chronic) Arthritis (Chronic) Surgical History History of back surgery (Chronic) H/O cervical spine surgery (Chronic) H/O umbilical hernia repair (Chronic) 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 (Chronic) H/O left inguinal hernia repair (Chronic) S/P tonsillectomy and adenoidectomy (Chronic) Family History Father Coronary heart disease Social History Preferred Language: Slovak Communication Ability: Effective 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 and A total of 10 systems reviewed and were otherwise negative Physical Exam Vital Signs Vital Signs - 24 hr 12/25/18 22:38 12/26/18 00:00 12/26/18 00:05 Temperature 36.6 C Temperature Source Oral Pulse Rate 82 Pulse Rate [Finger] 92 H Respiratory Rate 18 Respiratory Effort / Characteristics Non-Labored Spontaneous Respiratory Depth Respiratory Pattern Regular Blood Pressure [Left Arm] Blood Pressure [Right Arm] 157/80 H Blood Pressure Mean [Left Arm] Blood Pressure Mean [Right Arm] 105 Blood Pressure Position [Left Arm] Blood Pressure Position [Right Arm] Right Lateral Pulse Oximetry 94 Oxygen Delivery Method Room Air Room Air 12/26/18 03:05 12/26/18 06:55 12/26/18 07:04 Temperature 36.8 C 36.7 C Temperature Source Oral Oral Pulse Rate Pulse Rate [Finger] 88 90 84 Respiratory Rate 18 22 18 Respiratory Effort / Characteristics Non-Labored Spontaneous Respiratory Depth Respiratory Pattern Blood Pressure [Left Arm] Blood Pressure [Right Arm] 150/80 H 112/71 Blood Pressure Mean [Left Arm] Blood Pressure Mean [Right Arm] 103 84 Blood Pressure Position [Left Arm] Blood Pressure Position [Right Arm] Lying Pulse Oximetry 90 90 93 Oxygen Delivery Method Room Air Room Air 12/26/18 07:22 12/26/18 09:09 12/26/18 11:17 Temperature 36.6 C Temperature Source Oral Pulse Rate 78 Pulse Rate [Finger] 74 Respiratory Rate 18 Respiratory Effort / Characteristics Non-Labored Respiratory Depth Normal Respiratory Pattern Regular Blood Pressure [Left Arm] 146/72 H Blood Pressure [Right Arm] Blood Pressure Mean [Left Arm] 96 Blood Pressure Mean [Right Arm] Blood Pressure Position [Left Arm] Sitting Blood Pressure Position [Right Arm] Pulse Oximetry 93 Oxygen Delivery Method Room Air Room Air 12/26/18 11:31 Temperature Temperature Source Pulse Rate Pulse Rate [Finger] 75 Respiratory Rate 18 Respiratory Effort / Characteristics Non-Labored Spontaneous Respiratory Depth Respiratory Pattern Blood Pressure [Left Arm] Blood Pressure [Right Arm] Blood Pressure Mean [Left Arm] Blood Pressure Mean [Right Arm] Blood Pressure Position [Left Arm] Blood Pressure Position [Right Arm] Pulse Oximetry 95 Oxygen Delivery Method Room Air GENERAL: alert, well appearing, well nourished, mild distress, non-toxic EYE EXAM: normal conjunctiva, PERRL and EOM's grossly intact OROPHARYNX: no exudate, no erythema, lips, buccal mucosa, and tongue normal and mucous membranes are moist NECK: supple, no nuchal rigidity, no adenopathy, non-tender LUNGS: Diffuse wheezing bilaterally. Increased WOB, tachypnea. HEART: no murmurs, S1 normal and S2 normal ABDOMEN: abdomen soft, non-tender, normo-active bowel sounds, no masses, no rebound or guarding. BACK: Back is symmetrical on inspection and there is no deformity, no midline tenderness, no CVA tenderness. SKIN: no rashes and no bruising UPPER EXTREMITIES: upper extremities are grossly normal. FROM, nml pulses b/l. LOWER EXTREMITIES: No pitting edema. FROM, nml pulses b/l. NEURO EXAM: Normal sensorium, cranial nerves II-XII grossly intact, normal speech, no gross weakness of arms, no gross weakness of legs. Course 1924: The patient was evaluated in room C01B. A complete history and physical exam was performed. 1939: I reevaluated the patient, and he stated that he felt improved after the nebulizer treatment. 2029: The patient was markedly improved on lung reexamination. No wheezing. I updated him on the results. 2045: Case management was able to obtain the outpatient CT chest. I reviewed the results. 2356: I reevaluated the patient. He had a faint expiratory wheeze in the right upper lobe posteriorly. 0012: I reevaluated the patient. He is markedly dyspneic with any exertion and he starts to wheeze again. Neb ordered. 0033: I spoke with Dr. Hood, [facility] hospitalist, about the patients case. He will further evaluate the patient. Consultations Consultation #1: I spoke with Dr. Hood, [facility] hospitalist, about the patients case. He will further evaluate the patient. Time: 00:33 Administered Medications Albuterol (Duoneb) 3 ml NEB QIDR [facility] Stop: 01/24/19 07:59 Last Admin: 12/26/18 19:38 Dose: 3 ml Documented by: [id number] Admin: 12/26/18 15:20 Dose: 3 ml Documented by: [id number] Admin: 12/26/18 11:27 Dose: 3 ml Documented by: [id number] Admin: 12/26/18 07:03 Dose: 3 ml Documented by: [id number] Admin: 12/25/18 18:59 Dose: 3 ml Documented by: [id number] Admin: 12/25/18 15:56 Dose: 3 ml Documented by: [id number] Admin: 12/25/18 11:16 Dose: 3 ml Documented by: [id number] Admin: 12/25/18 07:15 Dose: 3 ml Documented by: [id number] Aspirin (Ecotrin Ectab) 81 mg PO DAILY [facility] Stop: 01/24/19 08:59 Last Admin: 12/26/18 08:03 Dose: 81 mg Documented by: [id number] Admin: 12/25/18 07:30 Dose: 81 mg Documented by: [id number] Azithromycin (Zithromax) 250 mg PO QAM [facility] Stop: 01/02/19 08:59 Last Admin: 12/26/18 08:04 Dose: 250 mg Documented by: [id number] Benzonatate (Tessalon Perle) 100 mg PO TID [facility] Stop: 01/24/19 08:59 Last Admin: 12/26/18 20:02 Dose: 100 mg Documented by: [id number] Admin: 12/26/18 14:15 Dose: 100 mg Documented by: [id number] Admin: 12/26/18 06:40 Dose: 100 mg Documented by: [id number] Admin: 12/25/18 20:41 Dose: 100 mg Documented by: [id number] Admin: 12/25/18 14:25 Dose: Not Given Documented by: [id number] Admin: 12/25/18 07:32 Dose: 100 mg Documented by: [id number] Clopidogrel Bisulfate (Plavix) 75 mg PO QAM [facility] Stop: 01/24/19 08:59 Last Admin: 12/26/18 08:06 Dose: 75 mg Documented by: [id number] Admin: 12/25/18 07:34 Dose: 75 mg Documented by: [id number] Cyanocobalamin (Vitamin B-12) 500 mcg PO DAILY [facility] Stop: 01/24/19 08:59 Last Admin: 12/26/18 08:06 Dose: 500 mcg Documented by: [id number] Admin: 12/25/18 07:34 Dose: 500 mcg Documented by: [id number] Furosemide (Lasix) 20 mg PO MoWeFr@0900 [facility] Stop: 01/24/19 08:59 Last Admin: 12/25/18 10:35 Dose: 20 mg Documented by: [id number] Guaifenesin/Codeine Phosphate (Robitussin-Ac Sugar Free) 5 ml PO Q6H PRN PRN Reason: Cough Stop: 01/24/19 03:11 Last Admin: 12/26/18 12:43 Dose: 5 ml Documented by: [id number] Admin: 12/26/18 03:28 Dose: 5 ml Documented by: [id number] Admin: 12/25/18 18:16 Dose: 5 ml Documented by: [id number] Heparin Sodium (Porcine) (Heparin Sodium (Porcine)) 5,000 units SQ Q8 [facility] Stop: 01/24/19 05:59 Last Admin: 12/26/18 14:15 Dose: 5,000 units Documented by: [id number] Cosigned by: [id number] Admin: 12/26/18 06:35 Dose: 5,000 units Documented by: [id number] Cosigned by: [id number] Admin: 12/25/18 20:43 Dose: 5,000 units Documented by: [id number] Cosigned by: [id number] Admin: 12/25/18 14:25 Dose: Not Given Documented by: [id number] Admin: 12/25/18 06:00 Dose: Not Given Documented by: [id number] Methylprednisolone 40 mg/ (Syringe) 0.64 mls @ 1.5 mls/min IV Q8H [facility] Stop: 01/24/19 03:59 Last Admin: 12/26/18 20:01 Dose: 1.5 mls/min Documented by: [id number] Admin: 12/26/18 12:13 Dose: 1.5 mls/min Documented by: [id number] Admin: 12/26/18 03:29 Dose: 1.5 mls/min Documented by: [id number] Admin: 12/25/18 20:40 Dose: 1.5 mls/min Documented by: [id number] Admin: 12/25/18 11:10 Dose: 1.5 mls/min Documented by: [id number] Admin: 12/25/18 04:58 Dose: 1.5 mls/min Documented by: [id number] Ioversol (Optiray 320 125ml) 118 ml IV ONCE PRN PRN Reason: Interaction Checking Stop: 12/28/18 22:03 Last Admin: 12/24/18 22:04 Dose: 118 ml Documented by: [id number] Losartan Potassium (Cozaar) 25 mg PO DAILY [facility] Stop: 01/24/19 08:59 Last Admin: 12/26/18 08:05 Dose: 25 mg Documented by: [id number] Admin: 12/25/18 07:33 Dose: 25 mg Documented by: [id number] Metoprolol Succinate (Toprol Xl) 12.5 mg PO DAILY [facility] Stop: 01/24/19 08:59 Last Admin: 12/26/18 08:04 Dose: 12.5 mg Documented by: [id number] Admin: 12/25/18 07:32 Dose: 12.5 mg Documented by: [id number] Multivitamins (Multivitamin Tab) 1 tab PO DAILY [facility] Stop: 01/24/19 08:59 Last Admin: 12/26/18 08:06 Dose: 1 tab Documented by: [id number] Admin: 12/25/18 07:34 Dose: 1 tab Documented by: [id number] Pantoprazole Sodium (Protonix) 40 mg PO BID [facility] Stop: 01/24/19 08:59 Last Admin: 12/26/18 20:03 Dose: 40 mg Documented by: [id number] Admin: 12/26/18 08:06 Dose: 40 mg Documented by: [id number] Admin: 12/25/18 20:42 Dose: 40 mg Documented by: [id number] Admin: 12/25/18 07:35 Dose: 40 mg Documented by: [id number] Potassium Chloride (Klor-Con M10) 10 meq PO MoWeFr@0900 [facility] Stop: 01/24/19 08:59 Last Admin: 12/25/18 10:35 Dose: 10 meq Documented by: [id number] Ranitidine HCl (Zantac) 150 mg PO BID [facility] Stop: 01/24/19 08:59 Last Admin: 12/26/18 20:01 Dose: 150 mg Documented by: [id number] Admin: 12/26/18 08:04 Dose: 150 mg Documented by: [id number] Admin: 12/25/18 20:42 Dose: 150 mg Documented by: [id number] Admin: 12/25/18 07:36 Dose: 150 mg Documented by: [id number] Rosuvastatin Calcium (Crestor) 20 mg PO DAILY [facility] Stop: 01/24/19 08:59 Last Admin: 12/26/18 08:05 Dose: 20 mg Documented by: [id number] Admin: 12/25/18 07:33 Dose: 20 mg Documented by: [id number] Sucralfate (Carafate Tab) 1 gm PO QID [facility] Stop: 01/25/19 08:59 Last Admin: 12/26/18 20:01 Dose: 1 gm Documented by: [id number] Admin: 12/26/18 16:03 Dose: 1 gm Documented by: [id number] Admin: 12/26/18 12:22 Dose: 1 gm Documented by: [id number] Admin: 12/26/18 11:08 Dose: Not Given Documented by: [id number] Tamsulosin HCl (Flomax) 0.4 mg PO DAILY [facility] Stop: 01/24/19 08:59 Last Admin: 12/26/18 08:04 Dose: 0.4 mg Documented by: [id number] Admin: 12/25/18 07:34 Dose: 0.4 mg Documented by: [id number] Vitamin D (Vitamin D3) 2,000 units PO DAILY [facility] Stop: 01/24/19 08:59 Last Admin: 12/26/18 08:06 Dose: 2,000 units Documented by: [id number] Admin: 12/25/18 07:31 Dose: 2,000 units Documented by: [id number] Discontinued Medications Albuterol (Duoneb) Confirm Administered Dose 3 ml .ROUTE .STK-MED ONE Stop: 12/24/18 19:25 Last Admin: 12/24/18 19:30 Dose: 3 ml Documented by: [id number] Albuterol (Duoneb) 3 ml NEB NOW STA Stop: 12/24/18 19:32 Last Admin: 12/24/18 19:44 Dose: Not Given Documented by: [id number] Albuterol (Duoneb) 3 ml NEB NOW STA Stop: 12/24/18 19:46 Last Admin: 12/24/18 19:54 Dose: 3 ml Documented by: [id number] Azithromycin (Zithromax) 500 mg PO NOW ONE Stop: 12/25/18 08:01 Last Admin: 12/25/18 07:34 Dose: 500 mg Documented by: [id number] Benzonatate (Tessalon Perle) 100 mg PO NOW ONE Stop: 12/24/18 20:31 Last Admin: 12/24/18 20:51 Dose: 100 mg Documented by: [id number] Bisacodyl (Dulcolax) 5 mg PO NOW ONE Stop: 12/26/18 18:54 Last Admin: 12/26/18 20:00 Dose: 5 mg Documented by: [id number] Famotidine (Pepcid 20mg Iv Push) 20 mg IV ONE STA Stop: 12/24/18 19:33 Last Admin: 12/24/18 19:48 Dose: 20 mg Documented by: [id number] Guaifenesin/Dextromethorphan (Robitussin Cough-Chest Dm) 10 ml PO NOW STA Stop: 12/24/18 23:24 Last Admin: 12/24/18 23:35 Dose: 10 ml Documented by: [id number] Sodium Chloride (Nss) 500 mls @ 125 mls/hr IV .Q4H [facility] Stop: 01/23/19 19:44 Last Admin: 12/25/18 03:22 Dose: Not Given Documented by: [id number] Infusion: 12/24/18 23:51 Dose: 0 mls/hr Documented by: [id number] Admin: 12/24/18 19:47 Dose: 125 mls/hr Documented by: [id number] Acetaminophen (Ofirmev) 1,000 mg in 100 mls @ 400 mls/hr IV NOW STA Stop: 12/24/18 21:01 Last Infusion: 12/24/18 21:09 Dose: 0 mls/hr Documented by: [id number] Admin: 12/24/18 20:50 Dose: 400 mls/hr Documented by: [id number] Magnesium Sulfate/Dextrose (Magnesium Sulfate / D5w) 1 gm in 100 mls @ 100 mls/hr IV ONE ONE Stop: 12/25/18 00:22 Last Infusion: 12/25/18 00:42 Dose: 0 mls/hr Documented by: [id number] Admin: 12/24/18 23:31 Dose: 100 mls/hr Documented by: [id number] Miscellaneous (Levalbuterol/Ipratropium 1.25mg) 1 ea NEB Q6R [facility] Stop: 01/25/19 06:39 Last Admin: 12/26/18 07:36 Dose: Not Given Documented by: [id number] Polyethylene Glycol (Miralax Powder Packet) 17 gm PO NOW ONE Stop: 12/25/18 17:28 Last Admin: 12/25/18 18:37 Dose: 17 gm Documented by: [id number] Polyethylene Glycol (Miralax Powder Packet) 17 gm PO BID [facility] Stop: 01/24/19 20:59 Last Admin: 12/26/18 08:06 Dose: 17 gm Documented by: [id number] Admin: 12/25/18 20:41 Dose: Not Given Documented by: [id number] Medical Decision Making Differential Diagnosis Etiologies such as infections, reactive airway disease, COPD, pneumonia, pleural effusion, pulmonary edema, ARDS, pneumothorax, CHF, cardiac ischemia, cardiac tamponade, dysrhythmia, anemia, pulmonary embolism, musculoskeletal, gastrointestinal process, as well as others were entertained. Medical Records Attestation: I reviewed the patient's medical records. Home Medications Current Medication List: was personally reviewed by me Laboratory Data Attestation: I reviewed the patient's lab results. Result diagrams: 12/25/18 05:21 12/25/18 05:21 Lab Results 12/24/18 12/24/18 12/24/18 Range/Units 19:38 19:38 19:38 WBC 4.91 (4.8-10.8) K/uL RBC 4.34 L (4.7-6.1) M/uL Hgb 13.7 L (14.0-18.0) g/dL Hct 40.7 L (42-52) % MCV 93.8 (80-100) fL MCH 31.6 (25-34) pg MCHC 33.7 (32-36) g/dL RDW Std Deviation 46.6 H (36.4-46.3) fL RDW Coeff of [place] 13.5 (11.5-14.5) % Plt Count 172 (130-400) K/uL MPV 9.1 (7.4-10.4) fL Immature Gran % (Auto) 0.0 % Neut % (Auto) 60.8 % Lymph % (Auto) 19.6 % [place] % (Auto) 9.0 % Eos % (Auto) 9.0 % Baso % (Auto) 1.6 % Immature Gran # (Auto) 0.00 (0.00-0.02) K/uL Neut # (Auto) 2.99 (1.4-6.5) K/uL Lymph # (Auto) 0.96 L (1.2-3.4) K/uL [place] # (Auto) 0.44 (0.11-0.59) K/uL Eos # (Auto) 0.44 (0-0.5) K/uL Baso # (Auto) 0.08 (0-0.2) K/uL PT (9.0-12.0) Seconds INR (0.9-1.1) D-Dimer 910 H* (0-500) ug/L FEU Sodium 142 (136-145) mmol/L Potassium 4.1 (3.5-5.1) mmol/L Chloride 108 H (98-107) mmol/L Carbon Dioxide 28 (21-32) mmol/L Anion Gap 6.0 (3-11) BUN 14 (7-18) mg/dl Creatinine 0.98 (0.6-1.4) mg/dl Est Cr Clr Drug Dosing 84.8 ml/min Est GFR ( Amer) 86.5 Est GFR (Non-Af Amer) 74.6 BUN/Creatinine Ratio 14.4 (10-20) Glucose 83 (70-99) mg/dl Calcium 8.9 (8.5-10.1) mg/dl Magnesium 2.1 (1.8-2.4) mg/dl Total Bilirubin 0.6 (0.2-1) mg/dl AST 50 H (15-37) U/L ALT 57 (12-78) U/L Alkaline Phosphatase 86 (45-117) U/L Troponin I (0-0.045) ng/ml NT-Pro-B Natriuret Pep (0-1800) pg/ml Total Protein 6.5 (6.4-8.2) gm/dl Albumin 3.8 (3.4-5.0) gm/dl Globulin 2.7 (2.5-4.0) gm/dl Albumin/Globulin Ratio 1.4 (0.9-2) Urine Color Urine Appearance (Clear) Urine pH (4.5-7.5) Ur Specific [place] (1.000-1.030) Urine Protein (Negative) Urine Glucose (UA) (Negative) Urine Ketones (Negative) Urine Blood (Negative) Urine Nitrite (Negative) Urine Bilirubin (Negative) Urine Urobilinogen (Negative) Ur Leukocyte Esterase (Negative) 12/24/18 12/24/18 12/25/18 Range/Units 19:38 20:52 05:21 WBC (4.8-10.8) K/uL RBC (4.7-6.1) M/uL Hgb (14.0-18.0) g/dL Hct (42-52) % MCV (80-100) fL MCH (25-34) pg MCHC (32-36) g/dL RDW Std Deviation (36.4-46.3) fL RDW Coeff of [place] (11.5-14.5) % Plt Count (130-400) K/uL MPV (7.4-10.4) fL Immature Gran % (Auto) % Neut % (Auto) % Lymph % (Auto) % [place] % (Auto) % Eos % (Auto) % Baso % (Auto) % Immature Gran # (Auto) (0.00-0.02) K/uL Neut # (Auto) (1.4-6.5) K/uL Lymph # (Auto) (1.2-3.4) K/uL [place] # (Auto) (0.11-0.59) K/uL Eos # (Auto) (0-0.5) K/uL Baso # (Auto) (0-0.2) K/uL PT 10.5 (9.0-12.0) Seconds INR 1.0 (0.9-1.1) D-Dimer (0-500) ug/L FEU Sodium (136-145) mmol/L Potassium (3.5-5.1) mmol/L Chloride (98-107) mmol/L Carbon Dioxide (21-32) mmol/L Anion Gap (3-11) BUN (7-18) mg/dl Creatinine (0.6-1.4) mg/dl Est Cr Clr Drug Dosing ml/min Est GFR ( Amer) Est GFR (Non-Af Amer) BUN/Creatinine Ratio (10-20) Glucose (70-99) mg/dl Calcium (8.5-10.1) mg/dl Magnesium (1.8-2.4) mg/dl Total Bilirubin (0.2-1) mg/dl AST (15-37) U/L ALT (12-78) U/L Alkaline Phosphatase (45-117) U/L Troponin I < 0.015 (0-0.045) ng/ml NT-Pro-B Natriuret Pep 35 (0-1800) pg/ml Total Protein (6.4-8.2) gm/dl Albumin (3.4-5.0) gm/dl Globulin (2.5-4.0) gm/dl Albumin/Globulin Ratio (0.9-2) Urine Color Dark Yellow Urine Appearance Clear (Clear) Urine pH 5.0 (4.5-7.5) Ur Specific [place] 1.028 (1.000-1.030) Urine Protein Negative (Negative) Urine Glucose (UA) Negative (Negative) Urine Ketones 1+ H (Negative) Urine Blood Negative (Negative) Urine Nitrite Negative (Negative) Urine Bilirubin Negative (Negative) Urine Urobilinogen Negative (Negative) Ur Leukocyte Esterase Negative (Negative) 12/25/18 12/25/18 12/25/18 Range/Units 05:21 05:21 05:21 WBC 4.44 L (4.8-10.8) K/uL RBC 4.32 L (4.7-6.1) M/uL Hgb 13.9 L (14.0-18.0) g/dL Hct 41.3 L (42-52) % MCV 95.6 (80-100) fL MCH 32.2 (25-34) pg MCHC 33.7 (32-36) g/dL RDW Std Deviation 46.7 H (36.4-46.3) fL RDW Coeff of [place] 13.4 (11.5-14.5) % Plt Count 181 (130-400) K/uL MPV 8.9 (7.4-10.4) fL Immature Gran % (Auto) % Neut % (Auto) % Lymph % (Auto) % [place] % (Auto) % Eos % (Auto) % Baso % (Auto) % Immature Gran # (Auto) (0.00-0.02) K/uL Neut # (Auto) (1.4-6.5) K/uL Lymph # (Auto) (1.2-3.4) K/uL [place] # (Auto) (0.11-0.59) K/uL Eos # (Auto) (0-0.5) K/uL Baso # (Auto) (0-0.2) K/uL PT (9.0-12.0) Seconds INR (0.9-1.1) D-Dimer (0-500) ug/L FEU Sodium 139 (136-145) mmol/L Potassium 4.1 (3.5-5.1) mmol/L Chloride 107 (98-107) mmol/L Carbon Dioxide 24 (21-32) mmol/L Anion Gap 8.0 (3-11) BUN 12 (7-18) mg/dl Creatinine 0.88 (0.6-1.4) mg/dl Est Cr Clr Drug Dosing 94.4 ml/min Est GFR ( Amer) 96.7 Est GFR (Non-Af Amer) 83.4 BUN/Creatinine Ratio 13.4 (10-20) Glucose 88 (70-99) mg/dl Calcium 8.5 (8.5-10.1) mg/dl Magnesium 2.3 (1.8-2.4) mg/dl Total Bilirubin (0.2-1) mg/dl AST (15-37) U/L ALT (12-78) U/L Alkaline Phosphatase (45-117) U/L Troponin I (0-0.045) ng/ml NT-Pro-B Natriuret Pep (0-1800) pg/ml Total Protein (6.4-8.2) gm/dl Albumin (3.4-5.0) gm/dl Globulin (2.5-4.0) gm/dl Albumin/Globulin Ratio (0.9-2) Urine Color Urine Appearance (Clear) Urine pH (4.5-7.5) Ur Specific [place] (1.000-1.030) Urine Protein (Negative) Urine Glucose (UA) (Negative) Urine Ketones (Negative) Urine Blood (Negative) Urine Nitrite (Negative) Urine Bilirubin (Negative) Urine Urobilinogen (Negative) Ur Leukocyte Esterase (Negative) Imaging Data Radiologist's Impression: Radiology results as stated below per my review and the radiologist's interpretation: XR chest 1V portable CLINICAL HISTORY: sob dyspnea COMPARISON STUDY: 11/07/2018 FINDINGS: Mild stable cardiomegaly. The lungs are clear. Fixed hiatal hernia. No change from the prior exam. IMPRESSION: No acute process. Fixed hiatal hernia. Mild stable cardiomegaly. The above report was generated using voice recognition software. It may contain grammatical, syntax or spelling errors. Electronically signed by: Danial Noble M.D. 12/24/2018 7:[address] angio chest PE protocol CT DOSE: HISTORY: Chest pain. Dyspnea. PE TECHNIQUE: Multiaxial CT images of the chest were performed following the intravenous administration of contrast to evaluate the pulmonary arteries. Maximal intensity projection images were also obtained. A dose lowering technique was utilized adhering to the principles of ALARA. COMPARISON STUDY: None. FINDINGS: The thoracic aorta shows minimal atherosclerotic change. No evidence for aneurysm or dissection. The pulmonary vasculature enhances appropriately. Fixed hiatal hernia. The lungs are considered clear. No focal infiltrate. Minimal peribronchial thickening. IMPRESSION: 1. No evidence for pulmonary embolus. 2. Lungs are clear. 3. Minimal peribronchial thickening. 4. Fixed hiatal hernia. The above report was generated using voice recognition software. It may contain grammatical, syntax or spelling errors. Electronically signed by: Danial Noble M.D. 12/24/2018 10:17 PM ECG Data Attestation: I personally reviewed and interpreted this ECG as follows: Indication: SOB/dyspnea Rate (beats per minute): 85 Rhythm: sinus rhythm Findings: + other (left axis) and + RBBB; no ST elevation and no ectopy Comparison ECG Date: from (11/07/18) Change: no significant change Blood Pressure Blood Pressure Findings: Elevated blood pressure Blood Pressure Disposition: further management by hospitalist MDM Narrative Pt here with unclear etiology of persistent cough. Labs reassuring. CTA chest without any other acute abnormality. No evidence of CHF, FB, pneumonia, or effusion. Concern given mild hypoxia noted to 89% and pt with significant JACKSON and return for wheezing with exertion. Wheezing does improve with nebs. Pt has already had 4 courses of antibiotics and steroids. Pt and daughter aware of all results. Frequency of cough able to be slowerd slightly with additional meds. Case discussed with hospitalist for additional evaluation and mgmt. VS otw stable while in the ER. Discussed gerd and hiatal hernia could be adding to bronchospasm and cough. Impression & Plan JACKSON (dyspnea on exertion), Cough, Failure of outpatient treatment Discharge Plan Visit Data *Final* Discharge Date/Time: 12/25/18 02:58 Chief Complaint: Shortness of Breath/Dyspnea Stated Complaint: SOB COUGH TIRED ED Provider: Holli Aguilar Discharge Problem: JACKSON (dyspnea on exertion), Cough, Failure of outpatient treatment Patient Disposition: Admitted As Inpatient The scribe's documentation has been prepared under my direction and personally reviewed by me in its entirety. I confirm that the note above accurately reflects all work, treatment, procedures, and medical decision making performed by me.
--- NOTE | 2018-12-26 22:54 | Hospitalist Progress Note ---
Date of Service December 26, 2018 Assessment & Plan (1) Cough: Persistent severe cough with associated dyspnea despite multiple courses of outpatient antibiotics and steroids. CTA of chest negative for pulmonary embolism. Pulmonary Medicine consulted. Not on KAMILLA inhibitor. ? infectious etiology. Consider asthmatic bronchitis due to aspiration related to GERD. Continue azithromycin, intravenous methylprednisolone, nebulizer treatments. Bronchoscopy anticpated tomorrow. (2) CAD (coronary artery disease): No anginal symptoms. Continue usual meds. (3) Hypertension: Continue metoprolol and losartan. (4) GERD (gastroesophageal reflux disease): Recent barium esophagram demonstrated high hernia and severe GERD. May be underlying etiology of cough. Continue PPI and H2 gretchen. Symptoms may warrant surgical intervention if nonsurgical management not effective. Case discussed with Thoracic Surgery; GI consult for EGD suggested. (5) DVT prophylaxis: SQ heparin- hold for procedures. Ambulate. (6) Discharge planning issues: Hospitalization status changed from observation to inpatient due to severe ongoing respiratory symptoms, failure of several attempts of outpatient management, need for continued IV meds, and need for further evaluation. Anticipated discharge to home. Family Medicine follow-up with Dr. Cabrera. Subjective Recheck for multiple problems. Patient seen in their room in early afternoon and again around 16:30. Persistent severe productive cough. Unable to lie down without severe paroxysms of coughing- had to sleep in chair last night. No SOB at rest. No fever. No chest pain. Review of Systems: Constitutional- no fever. Cardiac- no anginal symptoms; chronic dependent edema. Pulmonary- as noted above. GI- no nausea, vomiting, diarrhea, melena, hematochezia. - no urinary symptoms. Otherwise, as noted above. Physical Exam Constitutional: no acute distress Respiratory: no respiratory distress Auscultation: + rhonchi (scattered) and + wheezes (diffuse) Cardiovascular: Rate/Rhythm: regular rate and regular rhythm Heart Sounds: no gallop, no murmur and no cardiac rub Vessels: no JVD Extremities: + edema (1+ pretibial); no calf tenderness Gastrointestinal (Abdomen): normal bowel sounds, soft, nontender, no hepatosplenomegaly Musculoskeletal: Extremities: no cyanosis Skin: no rashes, warm and dry Psychiatric: Orientation: alert and oriented x 3 Results & Data Vital Signs (Past 12 Hours) Vital Signs Temp Pulse Pulse Resp BP Pulse Ox 12/26/18 19:38 85 18 98 12/26/18 18:59 36.6 C 72 20 144/79 H 94 12/26/18 16:16 75 12/26/18 15:20 70 18 93 12/26/18 15:05 36.7 C 69 18 164/71 H 92 12/26/18 11:31 75 18 95 12/26/18 11:17 36.6 C 74 18 146/72 H 93
[2018-12-27] MEDS: GUAIFENESIN/CODEINE 100MG/10MG 5ML UDC PO PRN (00:16)
[2018-12-27] MEDS: methylPREDNISolone 40 MG in SYRINGE 0 ML IV SCH ×3 (03:52→20:58)
[2018-12-27] MEDS: ALBUT/IPRATROP 3MG/0.5MG NEB 3 ML VIAL NEB SCH ×5 (07:17→19:14)
[2018-12-27 08:21] LABS: Calcium 9.2 mg/dl (8.5-10.1); Creatinine Clr Calc Pharmacy 75.6 ml/min; Est GFR (Non-African American) 65.6; Potassium 4.6 mmol/L (3.5-5.1)
--- NOTE | 2018-12-27 08:28 | Gastroenterology Progress Note ---
Date of Service December 27, 2018 Assessment & Plan (1) Cough: 78 yo male with known hiatal hernia and long history of GERD admitted with over 4 weeks of persistent cough despite several courses of antibiotics and steroids. Evidence of active reflux on recent barium swallow. - Agree with the use of BID PPI as well as H2RA. - Carafate not likely to provide any therapeutic benefit. - EGD and bronchoscopy coordinated for the OR today at 1:30. Please keep patient NPO (2) GERD (gastroesophageal reflux disease): (3) Hiatal hernia: Supervising Physician Co-Signing Physician Notes I have seen and examined the patient with Jenny Chaudhry PA-C whose note reflects our findings and plan. EGD in the OR today. Subjective Patient NPO for EGD today. Feeling well. Afebrile. Reports mild LUQ abdominal pain - feels it is his hiatal hernia, pushing on a muscle. Denies n/v or significant heartburn this morning. No issues with dysphagia last evening with his supper tray. Persistent non-productive cough. Review of Systems Constitutional: no fever, no chills, no fatigue and no weight loss Eyes: no eye pain and no worsening vision Ear, Nose, Mouth, Throat: no ear pain, no hearing loss, no nasal congestion and no sore throat Respiratory: + cough and + dyspnea on exertion Cardiovascular: no chest pain Gastrointestinal: as per Subjective / HPI Musculoskeletal: no joint pain Integumentary: no rash and no pruritus Neurologic: no tingling, no numbness and no dizziness Psychiatric: no suicidal ideation and no confusion Endocrine: no cold intolerance and no heat intolerance Hematologic / Lymphatic: no easy bleeding and no easy bruising Allergy / Immunological: no problem reported Physical Exam Constitutional: WD/WN, vitals as above healthy appearing; no acute distress Eyes: + anicteric sclerae ENMT: external ear and nose normal, oropharynx normal Neck: normal visual inspection Respiratory: + cough Auscultation: + wheezes Cardiovascular: Rate/Rhythm: regular rate and regular rhythm Heart Sounds: no murmur Gastrointestinal (Abdomen): Inspection/Auscultation: + hypoactive bowel sounds Percussion/Palpation: + abdomen tender (LUQ) and abdomen soft Musculoskeletal: Head/Neck/Chest: normocephalic and head atraumatic Skin: no rashes, warm and dry Neurologic: moves all extremities; no focal motor deficits Psychiatric: Orientation: alert and oriented x 3 Results & Data Vital Signs (Past 12 Hours) Vital Signs Temp Pulse Pulse Pulse Resp BP Pulse Ox 12/27/18 07:18 75 16 93 12/27/18 07:15 36.8 C 72 16 164/80 H 91 12/27/18 03:41 36.7 C 84 20 168/80 H 94 12/27/18 00:09 78 20 98 12/27/18 00:00 71 12/26/18 23:18 36.7 C 84 20 168/80 H 94 Laboratory Results - last 24 hr 12/27/18 07:29 Sodium 139 Potassium 4.6 Chloride 105 Carbon Dioxide 28 Anion Gap 6.0 BUN 23 H Creatinine 1.09 Est Cr Clr Drug Dosing 75.6 Est GFR ( Amer) 76.0 Est GFR (Non-Af Amer) 65.6 BUN/Creatinine Ratio 21.0 H Glucose 124 H Calcium 9.2
[2018-12-27] MEDS: BENZONATATE 100 MG CAPSULE PO SCH ×3 (08:41→20:00)
[2018-12-27] MEDS: METOPROLOL SUCC 25MG EXT REL TAB PO SCH (08:42)
[2018-12-27] MEDS: CLOPIDOGREL BISULFATE 75 MG TAB PO SCH (08:42)
[2018-12-27] MEDS: ROSUVASTATIN CALCIUM 20 MG TAB PO SCH (08:42)
[2018-12-27] MEDS: ASPIRIN 81 MG ECTAB PO SCH (08:42)
[2018-12-27] MEDS: TAMSULOSIN HCL 0.4 MG CAP PO SCH (08:42)
[2018-12-27] MEDS: LOSARTAN POTASSIUM 25 MG TAB PO SCH (08:42)
[2018-12-27] MEDS: RANITIDINE HCL SYRUP 150 MG/10 ML UDC PO SCH ×2 (08:43→20:00)
[2018-12-27] MEDS: PANTOprazole 40 MG TAB PO SCH ×2 (08:43→20:00)
[2018-12-27] MEDS: SUCRALFATE 1 GM TAB PO SCH ×2 (08:43→12:59)
[2018-12-27] MEDS ORDERED: POTASSIUM CHLORIDE 10 MEQ TABCR PO SCH (09:00)
[2018-12-27] MEDS: AZITHROMYCIN 250 MG/6.25 ML UDP PO SCH (09:00)
[2018-12-27] MEDS ORDERED: FUROSEMIDE 20 MG TAB PO SCH (09:00)
--- NOTE | 2018-12-27 11:59 | Anesthesiology Consultation ---
Date of Service December 27, 2018 Assessment & Plan (1) Encounter for pre-operative examination: Chart Review Chart Review: Acceptable Risk for Surgery and Patient NOT seen in Pre Admission Testing Consults Requested none History Surgery Operation Date: 12/27/18 13:15 Proposed Procedures p Esophagogastroduodenoscopy; - Elizabeth barrera Bronchoscopy - Ed Gonzalez MD Height/Weight Height: 6 ft 2 in Weight: 108.4 kg Allergies Allergy/AdvReac Type Severity Reaction Status Date / Time No Known Allergies Allergy Verified 12/24/18 19:44 Medications Home Medications Medication Instructions Recorded Confirmed Last Taken Vitron-C 1 tab PO DAILY 03/19/18 12/24/18 12/24/18 acetaminophen 500 mg PO Q6H PRN 03/19/18 12/24/18 Unknown amoxicillin 2,000 mg PO DIRECTED PRN 03/19/18 12/24/18 Unknown aspirin 81 mg PO DAILY 03/19/18 12/24/18 12/24/18 cholecalciferol (vitamin D3) 2,000 unit PO DAILY 03/19/18 12/24/18 12/24/18 [Vitamin D3] cyanocobalamin (vitamin B-12) 500 mcg PO DAILY 03/19/18 12/24/18 12/24/18 multivitamin 1 tab PO DAILY 03/19/18 12/24/18 12/24/18 nitroglycerin [Nitrostat] 1 tab SUBLINGUAL DIRECTED PRN 03/19/18 12/24/18 Unknown pantoprazole 40 mg PO BID 03/19/18 12/25/18 Unknown sennosides-docusate sodium 1 tab PO HS PRN 03/19/18 12/24/18 Unknown [Senokot-S] tamsulosin 0.4 mg PO DAILY 03/19/18 12/24/18 12/24/18 clopidogrel 75 mg PO QAM #30 tab 03/20/18 12/24/18 12/24/18 furosemide [Lasix] 20 mg PO MOWEFR 11/07/18 12/25/18 Unknown losartan 25 mg PO DAILY 11/07/18 12/24/18 12/24/18 potassium chloride 10 meq PO MOWEFR 11/07/18 12/25/18 Unknown rosuvastatin [Crestor] 20 mg PO DAILY 11/07/18 12/24/1819 tadalafil 20 mg PO DAILY PRN 11/07/18 12/24/18 Unknown cefdinir 300 mg PO BID 12/24/18 12/24/18 12/24/18 doxycycline hyclate 100 mg PO BID 12/24/18 12/24/18 12/24/18 metoprolol succinate 12.5 mg PO DAILY 12/24/18 12/24/18 12/24/18 albuterol sulfate 2 puff INHALATION Q4H PRN 12/25/18 12/25/18 Unknown albuterol sulfate 2.5 mg INHALATION Q4H PRN 12/25/18 12/25/18 Unknown Active Medications Generic Name Dose Route Start Last Admin Trade Name Freq PRN Reason Stop Dose Admin Albuterol 3 ml 12/25/18 08:00 12/27/18 11:28 Duoneb [facility] 01/24/19 07:59 3 ml QIDR GUADALUPE Administration Albuterol 3 ml 12/26/18 06:48 12/27/18 00:09 Duoneb [facility] 01/25/19 06:47 3 ml Q2H PRN Administration Wheezing Aspirin 81 mg 12/25/18 09:00 12/27/18 08:42 Ecotrin Ectab PO 01/24/19 08:59 81 mg DAILY GUADALUPE Administration Azithromycin 250 mg 12/26/18 09:00 12/27/18 09:00 Zithromax PO 01/02/19 08:59 250 mg QAM GUADALUPE Administration Benzonatate 100 mg 12/25/18 09:00 12/27/18 08:41 Tessalon Perle PO 01/24/19 08:59 100 mg TID GUADALUPE Administration Clopidogrel Bisulfate 75 mg 12/25/18 09:00 12/27/18 08:42 Plavix PO 01/24/19 08:59 75 mg QAM GUADALUPE Administration Cyanocobalamin 500 mcg 12/25/18 09:00 12/26/18 08:06 Vitamin B-12 PO 01/24/19 08:59 500 mcg DAILY GUADALUPE Administration Furosemide 20 mg 12/25/18 09:00 12/25/18 10:35 Lasix PO 01/24/19 08:59 20 mg [id number]@0900 GUADALUPE Administration Guaifenesin/Codeine Phosphate 5 ml 12/25/18 03:12 12/27/18 00:16 Robitussin-Ac Sugar Free PO 01/24/19 03:11 5 ml Q6H PRN Administration Cough Heparin Sodium (Porcine) 5,000 units 12/25/18 06:00 12/26/18 14:15 Heparin Sodium (Porcine) SQ 01/24/19 05:59 5,000 units Q8 GUADALUPE Administration Methylprednisolone 40 mg/ 0.64 mls @ 1.5 mls/min 12/25/18 04:00 12/27/18 03:52 Syringe IV 01/24/19 03:59 1.5 mls/min Q8H GUADALUPE Administration Ioversol 118 ml 12/24/18 22:04 12/24/18 22:04 Optiray 320 125ml IV 12/28/18 22:03 118 ml ONCE PRN Administration Interaction Checking Losartan Potassium 25 mg 12/25/18 09:00 12/27/18 08:42 Cozaar PO 01/24/19 08:59 25 mg DAILY GUADALUPE Administration Metoprolol Succinate 12.5 mg 12/25/18 09:00 12/27/18 08:42 Toprol Xl PO 01/24/19 08:59 12.5 mg DAILY GUADALUPE Administration Multivitamins 1 tab 12/25/18 09:00 12/26/18 08:06 Multivitamin Tab PO 01/24/19 08:59 1 tab DAILY GUADALUPE Administration Pantoprazole Sodium 40 mg 12/25/18 09:00 12/27/18 08:43 Protonix PO 01/24/19 08:59 40 mg BID GUADALUPE Administration Potassium Chloride 10 meq 12/25/18 09:00 12/25/18 10:35 Klor-Con M10 PO 01/24/19 08:59 10 meq [id number]@0900 GUADALUPE Administration Ranitidine HCl 150 mg 12/25/18 09:00 12/27/18 08:43 Zantac PO 01/24/19 08:59 150 mg BID GUADALUPE Administration Rosuvastatin Calcium 20 mg 12/25/18 09:00 12/27/18 08:42 Crestor PO 01/24/19 08:59 20 mg DAILY GUADALUPE Administration Sucralfate 1 gm 12/26/18 09:00 12/27/18 08:43 Carafate Tab PO 01/25/19 08:59 1 gm QID GUADALUPE Administration Tamsulosin HCl 0.4 mg 12/25/18 09:00 12/27/18 08:42 Flomax PO 01/24/19 08:59 0.4 mg DAILY GUADALUPE Administration Vitamin D 2,000 units 12/25/18 09:00 12/26/18 08:06 Vitamin D3 PO 01/24/19 08:59 2,000 units DAILY GUADALUPE Administration NPO Date Last Intake of Fluids: 12/26/18 Time Last Intake of Fluids: 00:10 Last Intake of Fluids Comment: Sips of water with medication Date Last Intake of Solids: 12/26/18 Time Last Intake of Solids: 20:00 Past Medical History Medical History Abdominal lipoma (Resolved) 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 on echo 12/2017 CAD (coronary artery disease) (Chronic) 03/19/18-cardiac cath showing 90% mid LAD stenosis, S/P 1 VIRGEN to LAD BPH (benign prostatic hyperplasia) (Chronic) Hypertension (Chronic) Dyslipidemia (Chronic) Benign neoplasm of adrenal gland (Resolved) GERD (gastroesophageal reflux disease) (Chronic) Iron deficiency anemia (Chronic) Arthritis (Chronic) Past Family History Family History Father Coronary heart disease Past Surgical History Surgical History History of back surgery (Chronic) H/O cervical spine surgery (Chronic) H/O umbilical hernia repair (Chronic) 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 (Chronic) H/O left inguinal hernia repair (Chronic) S/P tonsillectomy and adenoidectomy (Chronic) Social History Smoking Status: Never smoker Hx Alcohol Use: Yes Alcohol type: beer alcohol intake frequency: holidays/special occasions only Hx Substance Use: No substance use type: does not use Physical Exam Vital Signs Last Vital Signs Temp 36.9 C 12/27/18 11:50 Pulse 85 12/27/18 11:50 Resp 18 12/27/18 11:50 BP 137/77 12/27/18 11:50 Pulse Ox 91 12/27/18 11:50 Testing Laboratory Results 12/25/18 05:21 12/27/18 07:29 PT 10.5 Seconds (9.0-12.0) 12/25/18 05:21 INR 1.0 (0.9-1.1) 12/25/18 05:21 Urine Color Dark Yellow 12/24/18 20:52 Urine Appearance Clear (Clear) 12/24/18 20:52 Urine pH 5.0 (4.5-7.5) 12/24/18 20:52 Ur Specific [place] 1.028 (1.000-1.030) 12/24/18 20:52 Urine Protein Negative (Negative) 12/24/18 20:52 Urine Glucose (UA) Negative (Negative) 12/24/18 20:52 Urine Ketones 1+ (Negative) H 12/24/18 20:52 Urine Nitrite Negative (Negative) 12/24/18 20:52 Ur Leukocyte Esterase Negative (Negative) 12/24/18 20:52 12/25/18 10:41 Gram Stain - Final Sputum, Expectorated Sputum Culture - Final Electrocardiogram Date: 12/24/18 Findings: + NSR @ (85), + RBBB and + T wave inversion (anterior) Chest X-Ray Date: 12/24/18 chest 1V portable CLINICAL HISTORY: sob dyspnea COMPARISON STUDY: 11/07/2018 FINDINGS: Mild stable cardiomegaly. The lungs are clear. Fixed hiatal hernia. No change from the prior exam. IMPRESSION: No acute process. Fixed hiatal hernia. Mild stable cardiomegaly. The above report was generated using voice recognition software. It may contain grammatical, syntax or spelling errors. Electronically signed by: Danial Noble M.D. 12/24/2018 7:54 PM Echocardiogram Date: 12/25/18 EF: 60-65 LV Function: normal Other Findings: + LVH (moderate) and + diastolic dysfunction (Grade 2) Valvular Disease: + no significant valvular disease moderate aortic root dilation Other Testing CT angio chest PE protocol CT DOSE: HISTORY: Chest pain. Dyspnea. PE TECHNIQUE: Multiaxial CT images of the chest were performed following the intravenous administration of contrast to evaluate the pulmonary arteries. Maximal intensity projection images were also obtained. A dose lowering technique was utilized adhering to the principles of ALARA. COMPARISON STUDY: None. FINDINGS: The thoracic aorta shows minimal atherosclerotic change. No evidence for aneurysm or dissection. The pulmonary vasculature enhances appropriately. Fixed hiatal hernia. The lungs are considered clear. No focal infiltrate. Minimal peribronchial thickening. IMPRESSION: 1. No evidence for pulmonary embolus. 2. Lungs are clear. 3. Minimal peribronchial thickening. 4. Fixed hiatal hernia. The above report was generated using voice recognition software. It may contain grammatical, syntax or spelling errors. Electronically signed by: Danial Noble M.D. 12/24/2018 10:17 PM Dictated: 12/24/18 221 Transcribed: 12/24/18 221
--- NOTE | 2018-12-27 13:18 | History & Physical Bridge Note ---
Date of Service December 27, 2018 History & Physical Bridge Note I have examined the patient, reviewed the History & Physical and in the interval since the performance of the History & Physical I have noted the following changes of clinical significance: no changes noted Supervising Physician Co-Signing Physician Notes I have seen and examined the patient with Jenny Chaudhry PA-C whose note reflects our findings and plan. EGD in the OR today.
--- NOTE | 2018-12-27 13:19 | Pre Anesthesia Assessment ---
Date of Service December 27, 2018 Pre Sedation Assessment Vital Signs Temp Pulse Pulse Pulse Resp BP Pulse Ox 12/27/18 11:50 36.9 C 85 18 137/77 91 12/27/18 11:29 73 16 92 12/27/18 08:30 89 12/27/18 07:18 75 16 93 12/27/18 07:15 36.8 C 72 16 164/80 H 91 12/27/18 03:41 36.7 C 84 20 168/80 H 94 12/27/18 00:09 78 20 98 12/27/18 00:00 71 12/26/18 23:18 36.7 C 84 20 168/80 H 94 12/26/18 19:38 85 18 98 12/26/18 18:59 36.6 C 72 20 144/79 H 94 12/26/18 16:16 75 12/26/18 15:20 70 18 93 12/26/18 15:05 36.7 C 69 18 164/71 H 92 Cardiovascular RRR, no murmur, no edema + peripheral pulses normal Respiratory + respiratory effort normal and + audible wheezes Pre-Sedation Airway Assessment Smoking Status: Never smoker Hx Sleep Apnea: No Hx Difficult Intubation: No Short, Thick Neck: No Thyromental Distance: > or= 3.5 Finger Breadths Oral Cavity: + WNL Mallampati Class: II ASA: ASA3 Notes The planned sedation has been discussed with the patient. Informed Consent was obtained. I have identified the patient, determined the appropriateness of sedation and have assessed the patient immediately prior to the procedure. All medicine(s) and interventions are by my order. Supervising Physician Co-Signing Physician Notes I have seen and examined the patient with Jenny Chaudhry PA-C whose note reflects our findings and plan. EGD in the OR today.
[2018-12-27] MEDS ORDERED: ePHEDrine sulfate 50 MG/ML AMP IV PRN (13:21)
[2018-12-27] MEDS ORDERED: MEPERIDINE HCL 25 MG/ML CARP IV PRN (13:21)
[2018-12-27] MEDS ORDERED: ATROPINE SULFATE 0.1 MG/ML 10ML SYR IV PRN (13:21)
[2018-12-27] MEDS ORDERED: fentaNYL citrate 100 MCG/2 ML VIAL IV PRN (13:21)
[2018-12-27] MEDS ORDERED: LABETALOL HCL IV 5 MG/ML 20ML IV PRN (13:21)
[2018-12-27] MEDS ORDERED: PHENYLEPHRINE 100MCG/ML 5ML SYR IV PRN (13:21)
[2018-12-27] MEDS ORDERED: ONDANSETRON INJ 2 MG/ML 2 ML VIAL IV PRN (13:21)
--- NOTE | 2018-12-27 13:33 | Progress Note ---
DATE: 12/27/2018 PULMONARY MEDICINE PROGRESS NOTE Chart reviewed, the patient examined. SUBJECTIVE: The patient felt better today. Cough is less problematic, although still when lying or reclining, the cough becomes more exacerbated. He got a good night sleep last night. OBJECTIVE: VITAL SIGNS: Current blood pressure 137/77, pulse 85 and regular, respiratory rate 18, temperature 36.9, O2 sat 91% on room air. SKIN: Without lesion. HEENT: Atraumatic, normocephalic, PERRLA, EOMI. Conjunctivae pink. Sclerae nonicteric. Fundi poorly visualized. NECK: Neck veins are not distended at 45 degrees. No evidence of adenopathy in the supra or infraclavicular areas. LUNGS: Scattered wheeze persist, especially left base. CARDIAC: Regular rate and rhythm. No murmurs or gallops. ABDOMEN: Soft, scaphoid. EXTREMITIES: No pedal edema, clubbing, cyanosis. NEUROLOGICAL: Intact. OVERALL ASSESSMENT: A 78-year-old with a significant hiatal hernia, longstanding gastroesophageal reflux disease with persistent cough and bronchospasm and possible aspiration. PLAN: EGD and bronchoscopy scheduled for the OR today at 1330. The patient is kept n.p.o.
[2018-12-27] MEDS ORDERED: KETAMINE HCL INJ 50 MG/ML 10 ML VIAL ONE (13:38)
[2018-12-27] MEDS ORDERED: PROPOFOL IV EMULSION 10 MG/ML 20 ML VIAL IV ONE (13:38)
[2018-12-27] MEDS ORDERED: fentaNYL citrate 100 MCG/2 ML VIAL ONE (14:05)
--- NOTE | 2018-12-27 14:19 | GI REPORT ---
Patient Name: Walter Gilbert Procedure Date: 12/27/2018 1:47 PM Date of : 1940 Admit Type: Inpatient Age: 78 Gender: Male Attending MD: Elizabeth Núñez DO Procedure: Upper GI endoscopy Providers: Elizabeth Núñez DO Referring MD: Anthony Garrison Indications: Heartburn, Chronic cough Medicines: General Anesthesia Complications: No immediate complications. Estimated blood loss: None. Estimated Blood Loss: Estimated blood loss: none. Procedure: Pre-Anesthesia Assessment: - Prior to the procedure, a History and Physical was performed, and patient medications, allergies and sensitivities were reviewed. The patient's tolerance of previous anesthesia was reviewed. - The risks and benefits of the procedure and the sedation options and risks were discussed with the patient. All questions were answered and informed consent was obtained. - Patient identification and proposed procedure were verified prior to the procedure by the physician and the nurse. The procedure was verified in the pre-procedure area in the procedure room. - Mental Status Examination: alert and oriented. Airway Examination: normal oropharyngeal airway and neck mobility. Respiratory Examination: clear to auscultation. CV Examination: normal. Abdominal Examination: bowel sounds present, abdomen soft and non-tender, no masses or organomegaly noted. - ASA Grade Assessment: III - A patient with severe systemic disease. After obtaining informed consent, the endoscope was passed under direct vision. Throughout the procedure, the patient's blood pressure, pulse, and oxygen saturations were monitored continuously. The Endoscope was introduced through the mouth, and advanced to the second part of duodenum. The upper GI endoscopy was accomplished without difficulty. The patient tolerated the procedure well. Findings: Non-severe esophagitis with no bleeding was found at the gastroesophageal junction. A large hiatal hernia was present. Impression: - Non-severe reflux esophagitis. - Large hiatal hernia. - No specimens collected. Recommendation: - Follow an antireflux regimen. - Continue present medications. - Consider surgical repair of hiatal hernia Yonny Moraes DO 12/27/2018 2:19:34 PM This report has been signed electronically. Note Initiated On: 12/27/2018 1:47 PM Number of Addenda: 0 I attest to the content of the Intraoperative Record and orders documented therein, exceptions below {[id number]}
[2018-12-27] MEDS ORDERED: SUGAMMADEX SODIUM 200 MG/2 ML VIAL IV ONE (14:45)
[2018-12-27] MEDS: HEPARIN SOD 5,000 UNIT/0.5 ML VIAL SQ SCH ×2 (14:54→21:00)
--- NOTE | 2018-12-27 14:54 | Post Operative Brief Note ---
PG Immediate Post Op with CF Date of Surgery December 27, 2018 Pre & Post Diagnosis Operation Date: 12/27/18 13:15 Pre-Op Diagnosis: COMPLICATED BRONCHITIS Post-Op Diagnosis: HIATAL HERNIA, MUCOID IMPACTION/Aspiration Procedure Operation Date: 12/27/18 13:15 Actual Procedures p Esophagogastroduodenoscopy; - Elizabeth barrera Bronchoscopy - Ed Gonzalez MD Surgeon Ed Gonzalez MD Biology Laboratory Assistant none Estimated Blood Loss 0 Findings Consistent with Post-Op Diagnosis Hiatal hernia/Severe mucoid impaction/reflux/aspiration Specimens Specimen Description: All specimens handled by respiratory Disposition Accompanied Patient To Recovery: No Overlapping Procedure I was present for: the critical portions of procedure. I was immediately available: during the entire case. Back up surgeon: was not required during procedure.
[2018-12-27] MEDS ORDERED: ROCURONIUM BROMIDE 10 MG/ML 5 ML VIAL ONE (15:19)
[2018-12-27] MEDS ORDERED: LIDOCAINE HCL 2% 2 ML VIAL/AMP(20MG/ML) INFIL ONE (15:19)
[2018-12-27] MEDS ORDERED: ONDANSETRON INJ 2 MG/ML 2 ML VIAL ONE (15:19)
[2018-12-27] MEDS ORDERED: NON-FORMULARY MEDICATION (Amoxicillin 2,000 MG) PO PRN (15:41)
[2018-12-27] MEDS ORDERED: ALBUTEROL 0.083% NEBU SOLN 3 ML VIAL INH PRN (15:41)
[2018-12-27] MEDS ORDERED: TADALAFIL 20 MG PO PRN (15:41)
--- NOTE | 2018-12-27 16:35 | Anesthesiology Progress Note ---
Date of Service December 27, 2018 Anesthesia Post Procedure Vital Signs Vital Signs: Temp Pulse Pulse Pulse Resp BP BP 12/27/18 16:23 36.5 C 100 H 18 135/73 12/27/18 15:55 36.2 C L 108 H 20 149/72 H 12/27/18 15:45 104 H 20 137/78 12/27/18 15:35 105 H 20 157/88 H 12/27/18 15:25 98 H 20 159/82 H 12/27/18 15:20 74 20 12/27/18 15:15 100 H 20 162/81 H 12/27/18 15:05 36.0 C L 86 18 165/85 H 12/27/18 13:27 36.5 C 74 20 145/85 H 12/27/18 11:50 36.9 C 85 18 137/77 12/27/18 11:29 73 16 12/27/18 08:30 89 12/27/18 07:18 75 16 12/27/18 07:15 36.8 C 72 16 164/80 H 12/27/18 03:41 36.7 C 84 20 168/80 H 12/27/18 00:09 78 20 12/27/18 00:00 71 12/26/18 23:18 36.7 C 84 20 168/80 H 12/26/18 19:38 85 18 12/26/18 18:59 36.6 C 72 20 144/79 H Pulse Ox 12/27/18 16:23 91 12/27/18 15:55 93 12/27/18 15:45 92 12/27/18 15:35 94 12/27/18 15:25 94 12/27/18 15:20 93 12/27/18 15:15 98 12/27/18 15:05 95 12/27/18 13:27 93 12/27/18 11:50 91 12/27/18 11:29 92 12/27/18 08:30 12/27/18 07:18 93 12/27/18 07:15 91 12/27/18 03:41 94 12/27/18 00:09 98 12/27/18 00:00 12/26/18 23:18 94 12/26/18 19:38 98 12/26/18 18:59 94 Pain Intensity Head: Pain Intensity: 5 Transfer of Care Handoff Completed per policy Notes Mental Status: alert / awake / arousable Patient Amnestic to Procedure: Yes Nausea / Vomiting: adequately controlled Pain: adequately controlled Airway Patency, RR, SpO2: stable & adequate BP & HR: stable & adequate Hydration State: stable & adequate Anesthetic Complications: no major complications apparent
[2018-12-27] MEDS: ACETYLCYSTEINE 20% INHAL SOLN ***DISPENSED BY RESP. INH SCH (19:14)
[2018-12-27] MEDS: SODIUM CHLOR 7% 4 ML NEB INH SCH (19:15)
--- NOTE | 2018-12-27 19:21 | Hospitalist Progress Note ---
Date of Service December 27, 2018 Assessment & Plan (1) Cough: Persistent severe cough with associated dyspnea despite multiple courses of outpatient antibiotics and steroids. CTA of chest negative for pulmonary embolism. Pulmonary Medicine consulted. Not on KAMILLA inhibitor. ? infectious etiology. Consider asthmatic bronchitis due to aspiration related to GERD. Bronchoscopy demonstrated signs of aspiration mucoid impaction. Micro / cytology studies pending. Continue azithromycin, intravenous methylprednisolone, nebulizer treatments. (2) GERD (gastroesophageal reflux disease): Recent barium esophagram demonstrated high hernia and severe GERD. Suspected underlying etiology of cough. Case discussed with Thoracic Surgery; GI consult for EGD suggested. EGD demonstrated hiatal hernia, reflux, esophagitis. Continue PPI + H2 gretchen. Symptoms may warrant surgical intervention if nonsurgical management not effective. (3) CAD (coronary artery disease): No anginal symptoms. Continue usual meds. (4) Hypertension: Continue metoprolol and losartan. (5) DVT prophylaxis: SQ heparin- held for procedures. Ambulate. (6) Discharge planning issues: Hospitalization status changed from observation to inpatient due to severe ongoing respiratory symptoms, failure of several attempts of outpatient management, need for continued IV meds, and need for further evaluation. Anticipated discharge to home. Family Medicine follow-up with Dr. Cabrera. Subjective Recheck for multiple problems. Patient seen in their room in early afternoon and again around 16:25. Underwent bronchoscopy and EGD; findings as discussed in A/P. Congested cough. No chest pain. Review of Systems: Constitutional- no fever. Cardiac- no anginal symptoms; chronic dependent edema. Pulmonary- as noted above. GI- no nausea, vomiting, diarrhea, melena, hematochezia. - no urinary symptoms. Otherwise, as noted above. Physical Exam Constitutional: no acute distress Respiratory: no respiratory distress Auscultation: + rhonchi (scattered) and + wheezes (diffuse) Cardiovascular: Rate/Rhythm: regular rate and regular rhythm Heart Sounds: no gallop, no murmur and no cardiac rub Vessels: no JVD Extremities: + edema (1+ pretibial); no calf tenderness Gastrointestinal (Abdomen): normal bowel sounds, soft, nontender, no hepatosplenomegaly Musculoskeletal: Extremities: no cyanosis Skin: no rashes, warm and dry Psychiatric: Orientation: alert and oriented x 3 Results & Data Vital Signs (Past 12 Hours) Vital Signs Temp Pulse Pulse Pulse Resp BP BP 08/02/19 17:57 98 H 18 12/27/18 17:13 36.6 C 20 126/79 12/27/18 17:12 101 H 12/27/18 16:51 36.5 C 103 H 20 121/72 12/27/18 16:23 36.5 C 100 H 18 135/73 12/27/18 15:55 36.2 C L 108 H 20 149/72 H 12/27/18 15:45 104 H 20 137/78 12/27/18 15:35 105 H 20 157/88 H 12/27/18 15:25 98 H 20 159/82 H 12/27/18 15:20 74 20 12/27/18 15:15 100 H 20 162/81 H 12/27/18 15:05 36.0 C L 86 18 165/85 H 12/27/18 13:27 36.5 C 74 20 145/85 H 12/27/18 11:50 36.9 C 85 18 137/77 12/27/18 11:29 73 16 12/27/18 08:30 89 12/27/18 07:18 75 16 Pulse Ox 12/27/18 17:57 96 12/27/18 17:13 92 12/27/18 17:12 12/27/18 16:51 91 12/27/18 16:23 91 12/27/18 15:55 93 12/27/18 15:45 92 12/27/18 15:35 94 12/27/18 15:25 94 12/27/18 15:20 93 12/27/18 15:15 98 12/27/18 15:05 95 12/27/18 13:27 93 12/27/18 11:50 91 12/27/18 11:29 92 12/27/18 08:30 12/27/18 07:18 93 Laboratory Results Laboratory Results - last 24 hr 12/27/18 12/27/18 12/27/18 07:29 14:45 14:45 Sodium 139 Potassium 4.6 Chloride 105 Carbon Dioxide 28 Anion Gap 6.0 BUN 23 H Creatinine 1.09 Est Cr Clr Drug Dosing 75.6 Est GFR ( Amer) 76.0 Est GFR (Non-Af Amer) 65.6 BUN/Creatinine Ratio 21.0 H Glucose 124 H Calcium 9.2 Fluid Polynuclear WBCs Not Reportable Fld Polynuclear WBCs % 96.0 Fluid Mononuclear WBCs Not Reportable Fld Mononuclear WBCs % 4.0 BAL A.galactomannan Ag Pending BAL A.galactomann Index Pending
[2018-12-27] MEDS: DOXYCYCLINE HYCLATE 100 MG CAP PO SCH (20:00)
[2018-12-27] MEDS: CEFDINIR 300 MG CAP PO SCH (20:00)
--- NOTE | 2018-12-27 23:37 | Operative Report ---
DATE OF OPERATION: 12/27/2018 DATE OF PROCEDURE: 12/27/2018 TIME: 1430 ANESTHESIA PREOPERATIVELY: None. DESCRIPTION OF PROCEDURE: The patient was intubated with a #8 endotracheal tube in the OR and had just undergone an upper GI endoscopy with Dr. Núñez. Mild esophageal gastritis was found with no bleeding and a large hiatal hernia was present. Following that procedure, fiberoptic bronchoscopy was carried out. While the patient was receiving mechanical ventilation and under general anesthesia, fiberoptic bronchoscope was inserted through a special adapter into the #8 endotracheal tube. The scope was passed to the level of the zuri. The right main stem bronchus was explored initially and no obvious endobronchial lesions were seen. The right upper lobe, the apical posterior, anterior segments, bronchus intermedius, right middle lobe, medial lateral segments and all basilar segments of right lower lobe were patent, although a moderate amount of mucoviscous secretion was lavaged until clear from the right lower lobe basilar segments. The scope was then withdrawn to the zuri and inserted into the left main stem bronchus. Immediately visible was complete obstruction of the left upper lobe and left lower lobe bronchi as well as partial obstruction of the left main stem bronchi. Thick mucoviscous and mucopurulent secretion was seen. The left upper lobe, lingula subdivision and left lower lobe were copiously lavaged with normosol, but I was unable to aspirate the material and secretions seen. A total of 30 mL of 20% Mucomyst with saline was instilled into these lobar segments. Manual compression was applied to the suction port and at least 6 lengthy mucous plugs were removed with removal of the scope from the endotracheal tube and scope lavaged until clear. Eventually, the left upper lobe with the apical-posterior and anterior segments, lingular subdivision with the superior and inferior segments and all basilar segments of the left lower lobe were found to be patent free of endobronchial lesions, but with a mild to moderate degree of global inflammatory mucosal change was seen. Each lobar and segmental bronchus was then copiously lavaged with normosol and the aspirate was sent for appropriate studies. No brushings or biopsies were attempted and the procedure was then terminated. The patient was to be extubated and sent over to PACU for additional observation and recovery. The bronchial washings have been sent for appropriate studies. The patient will be given a nebulizer treatment with Xopenex 1.25 mg prior to transfer to PACU. I attest to the content of the Intraoperative Record and any orders documented therein. Any exception s are noted below.
[2018-12-28] MEDS: methylPREDNISolone 40 MG in SYRINGE 0 ML IV SCH ×3 (04:47→21:05)
[2018-12-28] MEDS: HEPARIN SOD 5,000 UNIT/0.5 ML VIAL SQ SCH ×3 (04:48→21:08)
[2018-12-28 05:42] LABS: Hematocrit (blood only) 41.5 % (42-52); Hemoglobin 13.9 g/dL (14.0-18.0); Mean Corpuscular Hgb Conc 33.5 g/dL (32-36); Mean Platelet Volume 9.6 fL (7.4-10.4); Platelet Count 216 K/uL (130-400); RDW Coefficient of Variation 13.8 % (11.5-14.5); RDW Standard Deviation 47.7 fL (36.4-46.3); Red Blood Count 4.37 M/uL (4.7-6.1); White Blood Count 9.65 K/uL (4.8-10.8)
[2018-12-28 06:12] LABS: BUN Creatinine Ratio 21.7 (10-20); Calcium 8.6 mg/dl (8.5-10.1); Creatinine Clr Calc Pharmacy 80.6 ml/min; Est GFR (African American) 82.4; Est GFR (Non-African American) 71.1; Potassium 4.5 mmol/L (3.5-5.1)
[2018-12-28] MEDS: ACETYLCYSTEINE 20% INHAL SOLN ***DISPENSED BY RESP. INH SCH ×2 (07:07→18:57)
[2018-12-28] MEDS: ALBUT/IPRATROP 3MG/0.5MG NEB 3 ML VIAL NEB SCH ×4 (07:07→18:57)
[2018-12-28] MEDS: SODIUM CHLOR 7% 4 ML NEB INH SCH ×2 (07:07→18:57)
[2018-12-28] MEDS: CEFDINIR 300 MG CAP PO SCH ×2 (08:07→21:07)
[2018-12-28] MEDS: ASPIRIN 81 MG ECTAB PO SCH (08:07)
[2018-12-28] MEDS: DOXYCYCLINE HYCLATE 100 MG CAP PO SCH ×2 (08:07→21:08)
[2018-12-28] MEDS: AZITHROMYCIN 250 MG/6.25 ML UDP PO SCH (08:07)
[2018-12-28] MEDS: RANITIDINE HCL SYRUP 150 MG/10 ML UDC PO SCH ×2 (08:08→22:11)
[2018-12-28] MEDS: TAMSULOSIN HCL 0.4 MG CAP PO SCH (08:08)
[2018-12-28] MEDS: BENZONATATE 100 MG CAPSULE PO SCH ×3 (08:08→21:07)
[2018-12-28] MEDS: ROSUVASTATIN CALCIUM 20 MG TAB PO SCH (08:08)
[2018-12-28] MEDS: METOPROLOL SUCC 25MG EXT REL TAB PO SCH (08:09)
[2018-12-28] MEDS: CHOLECALCIFEROL 1,000 UNITS TAB PO SCH (08:09)
[2018-12-28] MEDS: CLOPIDOGREL BISULFATE 75 MG TAB PO SCH (08:09)
[2018-12-28] MEDS: CYANOCOBALAMIN 500 MCG TABLET (VITAMIN B-12) PO SCH (08:09)
[2018-12-28] MEDS: LOSARTAN POTASSIUM 25 MG TAB PO SCH (08:09)
[2018-12-28] MEDS: MULTIVITAMIN TAB PO SCH (08:09)
[2018-12-28] MEDS: PANTOprazole 40 MG TAB PO SCH ×2 (08:13→21:08)
--- NOTE | 2018-12-28 10:52 | Progress Note ---
DATE: 12/28/2018 Assessment, plan, chart reviewed. Patient examined. SUBJECTIVE: Much improved. Still with mild residual cough, getting comprehensive pulmonary regimen that includes aerosolized bronchodilator, nebulizer with Mucomyst therapy and 7% normal saline. (See bronchoscopy report) The patient had significant mucoid impaction involving virtually entire left tracheobronchial tree. Cultures are pending, but suspect with antibiotics on board we will not have an organism. The patient had mild reflux esophagitis, but with a significant Hiatal hernia noted, both radiographically and endoscopically. I did speak with Dr. Núñez following the procedure and she felt that at some point in time addressing the patient surgically with a fundoplication would make the most sense. I agree and I spoke with Dr. Barry. As for the current admission, I think the patient could be discharged within the next 24 hours, perhaps 48 hours with followup in the clinic and arrangement for appointment with Dr. Price as well. [employer]
[2018-12-28] MEDS ORDERED: POLYETHYLENE (MIRALAX) 17 GM PACK PO ONE (11:04)
--- NOTE | 2018-12-28 15:21 | Hospitalist Progress Note ---
Date of Service December 28, 2018 Assessment & Plan (1) Cough: Persistent severe cough with associated dyspnea despite multiple courses of outpatient antibiotics and steroids. CTA of chest negative for pulmonary embolism. Pulmonary Medicine consulted. Not on KAMILLA inhibitor. ? infectious etiology. Suspected asthmatic bronchitis due to aspiration related to GERD. Bronchoscopy demonstrated signs of aspiration and mucoid impaction, lavage peformed. Micro / cytology studies pending. Continue azithromycin, intravenous methylprednisolone, nebulizer treatments. (2) GERD (gastroesophageal reflux disease): Recent barium esophagram demonstrated high hernia and severe GERD. Suspected underlying etiology of cough. Case discussed with Thoracic Surgery; GI consult for EGD suggested. EGD demonstrated hiatal hernia, reflux, esophagitis. Continue PPI + H2 gretchen. Symptoms may warrant surgical intervention if nonsurgical management not effective. (3) Aspiration into airway: Apparent aspiration secondary to severe GERD as discussed above. Consult MIXER MACHINE FEEDER. (4) CAD (coronary artery disease): No anginal symptoms. Continue usual meds. PCI performed Feb 2018. Cardiology will need to offer advice regarding anti-platelet therapy if surgical intervention is recommended. (5) Hypertension: Continue metoprolol and losartan. (6) DVT prophylaxis: SQ heparin- held for procedures. Ambulate. (7) Discharge planning issues: Anticipated discharge to home. Family Medicine follow-up with Dr. Cabrera. Pulmonary Medicine follow-up with Dr. Gonzalez. Subjective Recheck for multiple problems. Patient seen in their room in early afternoon and again around 11:10. Persistent chest congestion and cough, but improving. No fever. No chest pain. Review of Systems: Constitutional- no fever. Cardiac- no anginal symptoms; chronic dependent edema. Pulmonary- as noted above. GI- no nausea, vomiting, diarrhea, melena, hematochezia. - no urinary symptoms. Otherwise, as noted above. Physical Exam Constitutional: no acute distress Respiratory: no respiratory distress Auscultation: + rhonchi (scattered) and + wheezes (diffuse) Cardiovascular: Rate/Rhythm: regular rate and regular rhythm Heart Sounds: no gallop, no murmur and no cardiac rub Vessels: no JVD Extremities: + edema (1+ pretibial); no calf tenderness Gastrointestinal (Abdomen): normal bowel sounds, soft, nontender, no hepatosplenomegaly Musculoskeletal: Extremities: no cyanosis Skin: no rashes, warm and dry Psychiatric: Orientation: alert and oriented x 3 Results & Data Vital Signs (Past 12 Hours) Vital Signs Temp Pulse Pulse Resp BP Pulse Ox 12/28/18 14:40 89 18 91 12/28/18 11:57 36.3 C L 66 16 145/87 H 94 12/28/18 11:05 81 18 95 12/28/18 09:44 76 12/28/18 07:09 69 18 92 12/28/18 07:07 37 C 63 20 148/77 H 92 12/28/18 04:00 36.5 C 62 20 136/79 93 Laboratory Results Laboratory Results - last 24 hr 12/27/18 12/28/18 12/28/18 14:45 04:58 04:58 WBC 9.65 RBC 4.37 L Hgb 13.9 L Hct 41.5 L MCV 95.0 MCH 31.8 MCHC 33.5 RDW Std Deviation 47.7 H RDW Coeff of [place] 13.8 Plt Count 216 MPV 9.6 Sodium 139 Potassium 4.5 Chloride 105 Carbon Dioxide 29 Anion Gap 5.0 BUN 22 H Creatinine 1.02 Est Cr Clr Drug Dosing 80.6 Est GFR ( Amer) 82.4 Est GFR (Non-Af Amer) 71.1 BUN/Creatinine Ratio 21.7 H Glucose 116 H Calcium 8.6 Fluid Polynuclear WBCs Not Reportable Fld Polynuclear WBCs % 96.0 Fluid Mononuclear WBCs Not Reportable Fld Mononuclear WBCs % 4.0 Microbiology 12/27/18 14:45 Bronch Wash,Left Lower Lobe Acid Fast Bacilli Smear - Final 12/27/18 14:45 Bronch Wash,Left Lower Lobe Gram Stain - Final 12/27/18 14:45 Bronch Wash,Left Lower Lobe Bronchoalveolar Lavage Culture - Preliminary Scant normal fabiana present; Final report to follow. 12/27/18 14:45 Bronch Wash,Left Lower Lobe Fungal Smear - Final 12/25/18 10:41 Sputum, Expectorated Gram Stain - Final 12/25/18 10:41 Sputum, Expectorated Sputum Culture - Final
[2018-12-28] MEDS: POLYETHYLENE (MIRALAX) 17 GM PACK PO SCH (21:06)
[2018-12-29] MEDS: HEPARIN SOD 5,000 UNIT/0.5 ML VIAL SQ SCH ×2 (05:36→08:01)
[2018-12-29] MEDS: methylPREDNISolone 40 MG in SYRINGE 0 ML IV SCH ×2 (05:36→11:50)
[2018-12-29] MEDS: ALBUT/IPRATROP 3MG/0.5MG NEB 3 ML VIAL NEB SCH ×2 (06:59→11:18)
[2018-12-29] MEDS: ACETYLCYSTEINE 20% INHAL SOLN ***DISPENSED BY RESP. INH SCH (06:59)
[2018-12-29] MEDS: SODIUM CHLOR 7% 4 ML NEB INH SCH (06:59)
[2018-12-29] MEDS: BENZONATATE 100 MG CAPSULE PO SCH ×2 (09:06→11:50)
[2018-12-29] MEDS: LOSARTAN POTASSIUM 25 MG TAB PO SCH (09:06)
[2018-12-29] MEDS: DOXYCYCLINE HYCLATE 100 MG CAP PO SCH (09:06)
[2018-12-29] MEDS: PANTOprazole 40 MG TAB PO SCH (09:07)
[2018-12-29] MEDS: CHOLECALCIFEROL 1,000 UNITS TAB PO SCH (09:07)
[2018-12-29] MEDS: METOPROLOL SUCC 25MG EXT REL TAB PO SCH (09:07)
[2018-12-29] MEDS: TAMSULOSIN HCL 0.4 MG CAP PO SCH (09:07)
[2018-12-29] MEDS: MULTIVITAMIN TAB PO SCH (09:07)
[2018-12-29] MEDS: CLOPIDOGREL BISULFATE 75 MG TAB PO SCH (09:07)
[2018-12-29] MEDS: CEFDINIR 300 MG CAP PO SCH (09:07)
[2018-12-29] MEDS: ASPIRIN 81 MG ECTAB PO SCH (09:07)
[2018-12-29] MEDS: ROSUVASTATIN CALCIUM 20 MG TAB PO SCH (09:07)
[2018-12-29] MEDS: CYANOCOBALAMIN 500 MCG TABLET (VITAMIN B-12) PO SCH (09:07)
[2018-12-29] MEDS: AZITHROMYCIN 250 MG/6.25 ML UDP PO SCH (09:08)
[2018-12-29] MEDS: RANITIDINE HCL SYRUP 150 MG/10 ML UDC PO SCH (09:08)
[2018-12-29] MEDS: POLYETHYLENE (MIRALAX) 17 GM PACK PO SCH (09:14)
--- NOTE | 2018-12-29 11:59 | Progress Note ---
DATE: 12/29/2018 Chart reviewed, patient examined, assessment and plan. SUBJECTIVE: The patient feeling "like a million bucks." Denies any symptoms of cough, tolerating treatment including neb treatments with Mucomyst with production of thick but clear sputum. Apparently had a run earlier this morning of PAT, rate in the 140s-150s, although he was asymptomatic. He is on low dose beta blockade. PHYSICAL EXAMINATION: VITAL SIGNS: Blood pressure 149/84, pulse 61 and regular, respiratory rate 20, temperature 36.4, O2 sat 95% on room air. SKIN: Without lesion. HEENT: Atraumatic, normocephalic. PERRLA. LUNGS: Distant P and A. No audible wheezes. CARDIAC: Regular rate and rhythm. I do not appreciate a gallop. ABDOMEN: Soft, protuberant. EXTREMITIES: No pedal edema, clubbing or cyanosis. NEUROLOGIC: Intact. No lateralizing signs. LABORATORY DATA: Bronchial cultures have grown out normal fabiana. Normal white count, H and H 13.9 and 41.5. OVERALL ASSESSMENT: A 78-year-old white male with severe hiatal hernia, reflux, probable aspiration, mucoid impaction, a degree of asthma, but with a short run of PAT this morning. I reviewed the strips with Dr. Barry. He would like to keep the patient here an additional 24-hour for evaluation. I would recommend increasing beta gretchen. (if able to tolerate) The patient is on a nominal dose currently and I would discontinue all antibiotics. I would place the patient on an 8 day prednisone taper till off. Continue nebulizer treatments, which include Xopenex perhaps that will be less arrhythmogenic than DuoNeb solution and use Mucomyst b.i.d. at 20% 3 mL. The patient can be evaluated by Dr. Price for a laparoscopic Rocio fundoplication at a later date. [facility]ITALCresencio
[2018-12-29] MEDS ORDERED: ACETYLCYSTEINE 10% INHAL SOLN **DISPENSED FROM RESP. INH SCH ×2 (14:15→21:00)
[2018-12-29 14:56] VITALS: BP 149/84; PULSE 86; TEMP 97.5; O2SAT 96
[2018-12-29] MEDS ORDERED: LEVALBUTEROL HCL 1.25 MG/3 ML NEB NEB SCH (21:00)
--- NOTE | 2018-12-29 21:10 | Hospitalist Progress Note ---
Date of Service December 29, 2018 Assessment & Plan (1) Cough: Persistent severe cough with associated dyspnea despite multiple courses of outpatient antibiotics and steroids. CTA of chest negative for pulmonary embolism. Pulmonary Medicine consulted. Not on KAMILLA inhibitor. ? infectious etiology. Suspected asthmatic bronchitis due to aspiration related to GERD. Bronchoscopy demonstrated signs of aspiration and mucoid impaction, lavage performed. Micro / cytology studies pending. Cultures are negative so far, so will DC antibiotics. Discharge on prednisone taper, bronchodilator nebs (switching to levalbuterol because of PAT), Mucomyst nebs BID. Management of underlying aspiration issues as discussed below. (2) GERD (gastroesophageal reflux disease): Recent barium esophagram demonstrated high hernia and severe GERD. Suspected underlying etiology of cough. Case discussed with Thoracic Surgery; GI consult for EGD suggested. EGD demonstrated hiatal hernia, reflux, esophagitis. Continue PPI + H2 gretchen. Symptoms may warrant surgical intervention if nonsurgical management not effective. Arrangements to be made for outpatient consultation with Thoracic Surgery. (3) Aspiration into airway: Apparent aspiration secondary to severe GERD as discussed above. MOLD CUTTING MACHINE OPERATOR consulted. Bedside swallowing evaluation performed and patient given info on safe swallowing technique. Outpatient video fluoroscopic swallowing evaluation advised. (4) CAD (coronary artery disease): No anginal symptoms. Continue usual meds. PCI performed Feb 2018. May need fundoplication of hiatal hernia as discussed above. Discussed case with covering service desk analyst. Perioperative cessation of clopidogrel with continuation of aspirin recommended. (5) Hypertension: Continue metoprolol and losartan. (6) Paroxysmal atrial tachycardia: Run of PAT 140 / min while receiving DuoNeb. Minimally symptomatic. K and Mg normal. Patient indicates that he was taking very deep breaths with neb treatment to get maximum benefit. Arrhythmia reviewed with Cardiology. They recommended increasing dose of metoprolol, but patient preferred not to because of side effects in past. Ongoing cardiac monitoring recommend, but patient preferred to be discharged. Change nebs to levalbuterol to minimize risk of arrhythmias. (7) DVT prophylaxis: Receiving SQ heparin- held for procedures. Ambulating (50 laps around nursing unit last evening). (8) Discharge planning issues: Anticipated discharge to home. Family Medicine follow-up with Dr. Cabrera. Pulmonary Medicine follow-up with Dr. Gonzalez. Outpatient Thoracic Surgery consultation with Dr. Price. Subjective Recheck for multiple problems. Patient seen in their room around 11:00. Feels much better since bronchoscopy. Cough much better, less productive. Feels that nebs are helping. No fever. No chest pain. Had run of PAT 140 / min this morning while receiving DuoNeb. Review of Systems: Constitutional- no fever. Cardiac- no anginal symptoms; chronic dependent edema. Pulmonary- as noted above. GI- constipation resolved; no nausea, vomiting, diarrhea, melena, hematochezia. - no urinary symptoms. Otherwise, as noted above. Physical Exam Constitutional: no acute distress Respiratory: no respiratory distress exam much improved, mild wheezing, no rhonchi Cardiovascular: Rate/Rhythm: regular rate and regular rhythm Heart Sounds: no gallop, no murmur and no cardiac rub Vessels: no JVD Extremities: + edema (1+ pretibial); no calf tenderness Gastrointestinal (Abdomen): normal bowel sounds, soft, nontender, no hepatosplenomegaly Musculoskeletal: Extremities: no cyanosis Skin: no rashes, warm and dry Psychiatric: Orientation: alert and oriented x 3 Results & Data Vital Signs (Past 12 Hours) Vital Signs Temp Pulse Pulse Resp BP BP Pulse Ox 12/29/18 14:25 36.4 C L 108 H 86 16 154/88 H 149/84 H 96 12/29/18 11:18 86 16 96
[2018-12-29 23:50] LABS: Bordetella parapertussis DNA Not Detected (Not Detected)
[2018-12-30] MEDS ORDERED: predniSONE 10 MG TABLET PO SCH (09:00)
--- NOTE | 2018-12-30 10:34 | Discharge Summary ---
Date of Service Date of Admission: 12/25/18 Date of Discharge: 12/29/18 Admission HPI Per Admitting Provider This is a 78-year-old male with past medical history significant for hyperlipidemia, benign neoplasm of adrenal gland, mild aortic root enlargement, proximal ascending thoracic aorta moderate enlargement, venous insufficiency, CAD status post stent, hypertension, history of nonsustained paroxysmal supraventricular tachycardia, GERD, congenital obstruction of the ureteropelvic junction, BPH, arthritis of hip, degeneration of cervical intervertebral disc status post surgery, lumbar degenerative disc disease status post lumbar laminectomy, history of tobacco abuse, large hiatal hernia with Oscar erosions, felt to be likely source of his iron deficiency anemia, idiopathic peripheral neuropathy, anxiety, presents with ongoing cough. The patient was in the ER on 11/07/2018 with cough and treated for bronchitis with steroids and started on doxycycline. After going home, advised to follow with PCP, he followed with the PCP, then again he was not getting better and he went to PCP's office and he was prescribed another course of antibiotics and prednisone, but as it was not getting better, he was still having a lot of cough and called the PCP's office and no one was in the town, so he went to [facility] and there he was treated for pneumonia with an antibiotic, but still he was not getting better, he went to see Dr. Brown yesterday and he was prescribed Omnicef and doxycycline, but is still having a lot of cough. Any eating, taking deep breath, talking brings his cough on and is bringing whitish phlegm. He says couple of times he had blood streaks in it and at one time also bring some meatball out. He has a history of large hiatal hernia. Denies any chest pain, has some shortness of breath with exertion. [place], he walks without any help, but on climbing steps or when he goes outside, he uses a cane. He lives with his . Denies any fever, chills. He has some occasional headaches. Denies any blurred vision. He has runny nose since he had a neck surgery. Denies any sore throat or difficulty swallowing. Appetite is okay, he eats a regular diet. No nausea, no vomiting, no abdominal pain. Normal bowel and bladder movements. Has swelling in the legs, but that has been getting little worse lately. Recently, he was seen by cardiology on 12/11/2018, increased his Lasix dose to every other day. He says when he sleeps, he cannot lie down flat. He sleeps mostly sitting. Currently, his hemodynamics are stable. When he came to ER, he was having wheezing, so he was given neb treatments which improved his wheezing. He is saturating okay on the room air. Principal Diagnosis severe asthmatic bronchitis probably secondary to aspiration OTHER NEW / ACUTE DIAGNOSES: hiatal hernia severe GE reflux probable aspiration into airway paroxysmal atrial tachycardia Discharge Data Allergies Allergy/AdvReac Type Severity Reaction Status Date / Time No Known Allergies Allergy Verified 12/27/18 13:39 Consultations 12/25/18 00:41 ED Decision to Admit Stat 12/25/18 03:57 Consult Pulmonology Routine 12/26/18 13:16 Consult Gastroenterology Routine Procedures Performed Operation Date: 12/27/18 13:15 Actual Procedures p Esophagogastroduodenoscopy; - Elizabeth Núñez s Bronchoscopy - Ed Gonzalez MD Ordered Studies 12/24/18 20:52 CT angio chest PE protocol Stat Hospital Course (1) Cough: Persistent severe cough with associated dyspnea despite multiple courses of outpatient antibiotics and steroids. CTA of chest negative for pulmonary embolism. Pulmonary Medicine consulted. Not on KAMILLA inhibitor. ? infectious etiology. Suspected asthmatic bronchitis due to aspiration related to GERD. Bronchoscopy demonstrated signs of aspiration and mucoid impaction, lavage p erformed. Micro / cytology studies pending. Cultures are negative so far, so will DC antibiotics. Discharge on prednisone taper, bronchodilator nebs (switching to levalbuterol because of PAT), Mucomyst nebs BID. Management of underlying aspiration issues as discussed below. (2) GERD (gastroesophageal reflux disease): Recent barium esophagram demonstrated high hernia and severe GERD. Suspected underlying etiology of cough. Case discussed with Thoracic Surgery; GI consult for EGD suggested. EGD demonstrated hiatal hernia, reflux, esophagitis. Continue PPI + H2 gretchen. Symptoms may warrant surgical intervention if nonsurgical management not effective. Arrangements to be made for outpatient consultation with Thoracic Surgery. (3) Aspiration into airway: Apparent aspiration secondary to severe GERD as discussed above. [employer] consulted. Bedside swallowing evaluation performed and patient given info on safe swallowing technique. Outpatient video fluoroscopic swallowing evaluation advised. (4) CAD (coronary artery disease): No anginal symptoms. Continue usual meds. PCI performed Feb 2018. May need fundoplication of hiatal hernia as discussed above. Discussed case with covering catalog specialist. Perioperative cessation of clopidogrel with continuation of aspirin recommended. (5) Hypertension: Continue metoprolol and losartan. (6) Paroxysmal atrial tachycardia: Run of PAT 140 / min while receiving DuoNeb day of discharge. Minimally symptomatic. K and Mg normal. Arrhythmia reviewed with Cardiology. They recommended increasing dose of metoprolol, but patient preferred not to because of side effects in past. Ongoing cardiac monitoring recommend, but patient preferred to be discharged. Change nebs to levalbuterol to minimize risk of arrhythmias. (7) DVT prophylaxis: Receiving SQ heparin- held for procedures. Ambulating. (8) Discharge planning issues: Anticipated discharge to home. Family Medicine follow-up with Dr. Cabrera. Pulmonary Medicine follow-up with Dr. Gonzalez. Outpatient Thoracic Surgery consultation with Dr. Price. Total Time Total Time Spent Total Time Spent (In Minutes): 60 Discharge Plan Discharge Items Patient Disposition: Home - Self-Care Reason For Visit: cough Discharge Diagnosis: severe bronchitis hiatal hernia, acid reflux aspiration into bronchial tree Condition: Good Discharge Goals: Decrease discomfort and Improve disease control Activity: Resume your previous activity Non-emergency contact: Primary Care Provider, Hospitalist, Surgeon, Field Liability Generalist and Laundry Technician Call non-emergency contact if: you have any medication questions, your symptoms worsen and your temperature is above 101 Follow-up/Referrals: Ed Gonzalez MD [Physician] - (Please call office to confirm appointment on Sun01/01/19.) Aureliano Price MD, FACS [Surgeon] - (Office will contact you with appointment.) Star Cabrera MD [Primary Care Provider] - Diet: Heart Healthy Addtl Provider Instructions: MEDICATION CHANGES: NEW NEBULIZER TREATMENTS: levalbuterol (Xopenex) 1.25 mg / 3 ml twice a day acetylcysteine (Mucomyst) 10% / 3 ml twice a day, 20 minutes after levalbuterol (Xopenex) prednisone taper, 10 mg pills: 4 pills twice a day for 2 days 3 pills twice a day for 2 days 2 pills twice a day for 2 days 1 pill twice a day for 2 days then stop Continue pantoprazole (Protonix) twice a day for acid reflux. Start ranitidine (Zantac) 150 mg twice a day for better control of stomach acid. STOP: albuterol (Ventolin or Proventil) nebulizer treatments - more likely to make your heart race SUMMARY OF TEST RESULTS: Bronchoscopy showed a lot of thick secretions in bronchial tree. EGD showed large hiatal hernia. PENDING TEST RESULTS: Cultures and cytology from bronchoscopy. Dr. Gonzalez will review results with you. RECOMMENDATIONS FOR FOLLOW-UP: Dr. Price is the surgeon who repairs hiatal hernias. His office will contact you with appointment. Clopidogrel (Plavix) can cause severe bleeding when people have surgery. You will need to hold it for several days before hiatal hernia repair. Dr. Price will give you specific instructions. Keep your head elevated at all times so that you are less likely to aspirate. Follow swallowing instructions given to you by Speech Therapy. Speech Therapy recommends outpatient swallowing study- to be scheduled. [facility] did not have your nebulizer medicine in stock. They are ordering it and should be able to have it by tomorrow afternoon. Please call them before you go to pick it up. OTHER INSTRUCTIONS: Seek medical attention if you have: * temperature above 101 * chest pain or trouble breathing * abdominal pain, nausea, vomiting * diarrhea, dark stools or bloody stools * any unanswered questions or concerns Call 911 if symptoms are severe. Please take good care of yourself. Call if you have any questions or problems. You can reach a [facility] hospitalist on duty at [facility] 24 hours a day by calling [phone]. My cell # is [phone]. Prescriptions: New levalbuterol HCl 1.25 mg/3 mL solution for nebulization 1.25 mg INH BID Qty: 75 RF: 1 acetylcysteine 100 mg/mL (10 %) solution 3 ml INH BID Qty: 75 RF: 1 prednisone 10 mg tablet See Rx Instructions .ROUTE .COMPLEX Qty: 20 RF: 0 ranitidine HCl 150 mg capsule 150 mg PO BID Qty: 60 RF: 1 Continued metoprolol succinate 25 mg Tablet Extended Release 24 Hr 12.5 mg PO DAILY RF: 0 albuterol sulfate 90 mcg/actuation HFA aerosol inhaler 2 puff inhalation Q4H PRN (Reason: Shortness Of Breath Or Wheezing) RF: 0 multivitamin Tablet 1 tab PO DAILY RF: 0 nitroglycerin [Nitrostat] 0.3 mg Tablet, Sublingual 1 tab Sublingual DIRECTED PRN (Reason: Chest Pain) RF: 0 sennosides-docusate sodium [Senokot-S] 8.6-50 mg Tablet 1 tab PO HS PRN (Reason: Constipation) RF: 0 acetaminophen 500 mg Tablet 500 mg PO Q6H PRN (Reason: Pain) RF: 0 aspirin 81 mg Tablet,Delayed Release (Dr/Ec) 81 mg PO DAILY RF: 0 cyanocobalamin (vitamin B-12) 500 mcg Tablet 500 mcg PO DAILY RF: 0 tamsulosin 0.4 mg Capsule 0.4 mg PO DAILY RF: 0 pantoprazole 40 mg Tablet,Delayed Release (Dr/Ec) 40 mg PO BID RF: 0 cholecalciferol (vitamin D3) [Vitamin D3] 1,000 unit Capsule 2,000 unit PO DAILY RF: 0 Vitron-C 65 mg iron- 125 mg Tablet,Delayed Release (Dr/Ec) 1 tab PO DAILY RF: 0 clopidogrel 75 mg Tablet 75 mg PO QAM Qty: 30 RF: 3 rosuvastatin [Crestor] 20 mg Tablet 20 mg PO DAILY RF: 0 furosemide [Lasix] 20 mg Tablet 20 mg PO MOWEFR RF: 0 potassium chloride 10 mEq Tablet Extended Release 10 meq PO MOWEFR RF: 0 losartan 25 mg Tablet 25 mg PO DAILY RF: 0 tadalafil 20 mg Tablet 20 mg PO DAILY PRN (Reason: Erectile Dysfunction) RF: 0 Discontinued doxycycline hyclate 100 mg Capsule 100 mg PO BID RF: 0 cefdinir 300 mg Capsule 300 mg PO BID RF: 0 albuterol sulfate 2.5 mg /3 mL (0.083 %) solution for nebulization 2.5 mg inhalation Q4H PRN (Reason: Shortness Of Breath Or Wheezing) RF: 0 amoxicillin 500 mg Tablet 2,000 mg PO DIRECTED PRN (Reason: PRIOR TO PROCEDURES) RF: 0 Stand-Alone Forms: [facility] Discharge Orders: Discharge Order (Routine); Ordered 12/29/18 Ordered By: Anthony Barry Admission Data Admit Date/Time: 12/26/18 14:15 Attending Provider: Anthony Barry Admit Provider: Ottoniel Hood Primary Care Provider: Star Cabrera Other Providers: Ottoniel Hood ; Ed Gonzalez ; Elizabeth Núñez Service: Telemetry Medical Other Interventions: Discharge Summary Assessment (RN) Last Done: 12/29/18 14:25 DC Date/Time DO NOT enter until pt leaves facility: 12/29/18 16:45
== END 2018-12-29 16:45 | disposition home or self-care (01) | DRG 164 ==
LOC: ED 18:38 → 2N 18:38 → 2W 12-25 05:08

== ENCOUNTER 2019-02-17 12:19 | Inpatient (IN) ==
[2019-02-17 13:21] LABS: Basophils # (auto) 0.02 K/uL (0-0.2); Basophils % (auto) 0.4 %; Eosinophils # (auto) 0.04 K/uL (0-0.5); Eosinophils % (auto) 0.7 %; Hematocrit (blood only) 37.1 % (42-52); Hemoglobin 12.2 g/dL (14.0-18.0); Immature Granulocytes # (auto) 0.01 K/uL (0.00-0.02); Immature Granulocytes % (auto) 0.2 %; Lymphocytes % (auto) 5.3 %; Mean Corpuscular Hemoglobin 30.7 pg (25-34); Mean Corpuscular Hgb Conc 32.9 g/dL (32-36); Mean Corpuscular Volume 93.2 fL (80-100); Mean Platelet Volume 9.3 fL (7.4-10.4); Monocytes # (auto) 0.26 K/uL (0.11-0.59); Monocytes % (auto) 4.6 %; Neutrophils # (auto) 4.99 K/uL (1.4-6.5); Neutrophils % (auto) 88.8 %; Platelet Count 168 K/uL (130-400); RDW Coefficient of Variation 13.2 % (11.5-14.5); RDW Standard Deviation 45.1 fL (36.4-46.3); Red Blood Count 3.98 M/uL (4.7-6.1); White Blood Count 5.62 K/uL (4.8-10.8)
[2019-02-17 13:36] LABS: Albumin Level 2.9 gm/dl (3.4-5.0); BUN Creatinine Ratio 12.1 (10-20); Calcium 8.5 mg/dl (8.5-10.1); Creatinine Clr Calc Pharmacy 86.3 ml/min; Est GFR (African American) 92.1; Est GFR (Non-African American) 79.5; Magnesium 1.8 mg/dl (1.8-2.4); Potassium 4.1 mmol/L (3.5-5.1)
[2019-02-17 13:40] LABS: Albumin Globulin Ratio 0.8 (0.9-2); Bilirubin,Total 0.9 mg/dl (0.2-1); Globulin 3.6 gm/dl (2.5-4.0); Total Protein 6.5 gm/dl (6.4-8.2)
[2019-02-17] MEDS ORDERED: POTASSIUM PHOS 3 MMOL/1 ML INFUSION IV STA (13:49)
[2019-02-17] MEDS ORDERED: HEPARIN SOD 5,000 UNIT/0.5 ML VIAL SQ SCH (14:00)
--- NOTE | 2019-02-17 14:01 | CT Scan Report ---
CT chest wo con CT DOSE: 1285.13 mGy.cm HISTORY: s/p reyna; nausea. Vomiting. TECHNIQUE: Multiaxial CT images of the chest were performed without contrast. A dose lowering techni que was utilized adhering to the principles of ALARA. COMPARISON: Chest CTA 12/24/2018. FINDINGS: The central airways are patent. No pneumothorax. No pleural effusions. No pneumomediastinum . The lungs are clear. No suspicious lytic are blastic osseous lesions. Trace anterior pericardial ef fusion. The heart is normal in size. Mild aneurysmal dilatation of the ascending thoracic aorta measu ring up to 4.3 cm in diameter. This remains unchanged. Mild calcified plaque within the thoracic aort a. No mediastinal or hilar lymphadenopathy. Interval reduction of the large hiatus hernia. Small amou nt of edema/hemorrhage surrounding the distal esophagus which could represent resolving postoperative change. No loculated fluid collections to suggest an abscess. No extraluminal gas to suggest a leak/ perforation. Mild thickening of the distal esophagus which may be reactive from the recent postoperat darline change. IMPRESSION: 1. Interval reduction of the large hiatus hernia with a small amount of edema/hemorrhage surrounding the distal esophagus. This is nonspecific but favors resolving postoperative change. No extraluminal gas to suggest a leak/perforation. 2. Mild thickening of the distal esophagus which is also likely postoperative. 3. No change in the 4.3 cm ascending thoracic aneurysm. 4. Trace pericardial effusion. Electronically signed by: Gilberto Mora M.D. 02/17/2019 2:00 PM
--- NOTE | 2019-02-17 14:08 | CT Scan Report ---
CT SCAN OF THE ABDOMEN WITHOUT IV CONTRAST CLINICAL HISTORY: Nausea and vomiting, status post Rocio fundoplication. COMPARISON STUDY: Abdominal CT dated 02/09/2016. TECHNIQUE: CT scan of the abdomen is performed from the lung bases to the pelvic inlet. Images are re viewed in the axial, sagittal, and coronal planes. IV contrast was not administered for this examinat ion. A dose lowering technique was utilized adhering to the principles of ALARA. FINDINGS: Lung bases: The heart is normal in size noting trace pericardial effusion. The coronary arteries are densely calcified. The lung bases are clear. Liver: The unenhanced liver is normal in size, contour, and attenuation. There is no intrahepatic amee iary ductal dilatation. Gallbladder: The gallbladder is distended. There is mild gallbladder wall thickening and pericholecys tic stranding. Spleen: Normal in size and attenuation. Pancreas: The unenhanced pancreas is moderately atrophic. There are least 2 ovoid cystic lesion in th e pancreatic tail measuring up to 11 mm. 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 Adrenal glands: Nodularity of the left adrenal gland is unchanged dating back to 2016 and of doubtful significance. The right adrenal gland is normal in appearance. Kidneys: The unenhanced kidneys demonstrate cortical atrophy and are without hydronephrosis. There ar e no renal calculi identified. There are numerous bilateral parapelvic cysts. A 2.4 cm exophytic cyst arises from the interpolar left kidney. Abdominal vasculature: There is advanced atherosclerotic calcification and mild ectasia of the abdomi nal aorta. Stomach and bowel: The configuration of the stomach is consistent with a history of Rocio fundoplica tion. No significant residual hiatal hernia is identified. Stranding and trace hemorrhage/fluid is se en around the stomach, likely related to recent surgery. There is also mild wall thickening suggested involving the distal esophagus. There is no bowel obstruction. Peritoneum: There is no intraperitoneal free air or abdominal ascites. Mild induration within the sharri tral abdominal wall likely corresponds to a laparoscopy port. Lymphadenopathy: None. Skeletal structures: The skeletal structures are osteopenic. Lumbosacral spondylosis is observed. Morales inectomy and spinal fusion is noted in the lower lumbar region. No lytic or blastic lesions are seen. IMPRESSION: 1. The gallbladder is distended. The gallbladder wall appears mildly thickened and there is perichole cystic inflammation. Findings are suspicious for acute cholecystitis. Consider right upper quadrant u ltrasound for further assessment. 2. There is postoperative change consistent with a recent Rocio fundoplication. No significant resid ual hiatal hernia is identified. 3. Stranding and trace hemorrhage/fluid around the stomach as well as mild wall thickening of the dis mali esophagus are nonspecific and likely related to recent surgery. 4. Additional findings as above. Electronically signed by: Dutch Avila M.D. 02/17/2019 2:06 PM
[2019-02-17] MEDS ORDERED: POTASSIUM PHOSPHATE 6 MMOL in 0.9 % SODIUM CHLORIDE 100 ML IV SCH (14:15)
[2019-02-17] MEDS ORDERED: PIPERACILL/TAZOBAC CONSULT ACTIVE PRN (14:24)
[2019-02-17] MEDS: SODIUM CHLORIDE 0.9% 1000ML 1,000 ML IV SCH (14:26)
[2019-02-17] MEDS: ACETAMINOPHEN SOL 650 MG/20.3 ML UDC PO PRN (14:26)
[2019-02-17] MEDS ORDERED: PIPERACILLIN/TAZOBACTAM 4.5 GM in DEXTROSE 5% 100 ML IV STA (15:02)
--- NOTE | 2019-02-17 16:08 | History & Physical Report ---
Date of Service February 17, 2019 Assessment & Plan (1) Nausea: (2) Elevated LFTs: -Referred for direct admission for evaluation of nausea and failure to thrive -S/P paraesophageal hernia repair and fundoplication on 01/20; has been doing poorly since surgery -On arrival, patient febrile at 38.8; however does not appear septic, WBC 5.6, lactic acid 1.2, stable vitals -CT chest/ABD/pelvis demonstrates findings of possible acute cholecystitis -will start IV Zosyn -Blood cultures -General surgery consult (notified by Dr. Price) (3) Status post Rocio fundoplication: (4) S/P repair of paraesophageal hernia: -Surgery performed on 01/20 -Thoracic surgery consulted to follow along (5) CAD (coronary artery disease): -appears stable, no reports of chest pain -02/2018 -S/P VIRGEN to LAD -For now, continue aspirin and Plavix however may need to be placed on hold if patient requires surgery -Continue statin and beta-gretchen (6) Diastolic dysfunction: -Appears euvolemic -will hold furosemide secondary to poor p.o. intake and while giving IVF -Echo 12/2017-EF 55 to 59%, grade 1 diastolic dysfunction (7) Hypertension: -BP stable, continue metoprolol and losartan (8) BPH (benign prostatic hyperplasia): -Continue tamsulosin (9) GERD (gastroesophageal reflux disease): -Continue PPI and H2 gretchen (10) DVT prophylaxis: -SCDs in the event patient needs invasive procedure History of Present Illness Chief Complaint: Nausea, poor appetite Primary Care Provider: Star Cabrera MD 78-year-old male who was referred for direct admission for evaluation of nausea and poor appetite. Patient was admitted to [facility] 12/25 through 12/29 for severe bronchitis secondary to aspiration. Patient was found to have a very large hiatal hernia that was felt to be contributing to patient's symptoms. He was evaluated by thoracic surgery and patient underwent paraesophageal hernia repair and fundoplication on 01/20. Since surgery, patient reports he has been doing poorly. He reports a very poor appetite and has had almost persistent nausea. He has lost about 25 pounds since his surgery. He has not had any vomiting. He reports some intermittent lower abdominal pain. He describes this discomfort as a fullness and feels as though he has undigested food. He has been on a full liquid diet. He denies chest pain or shortness of breath. No lightheadedness, dizziness, diaphoresis, syncopal events. Denies fevers and chills. No urinary symptoms. Patient was evaluated by his PCP as well as Dr. Price today who referred the patient for direct admission. At the time my exam, patient is resting in bed no acute distress. Allergies Allergy/AdvReac Type Severity Reaction Status Date / Time No Known Allergies Allergy Verified 02/17/19 11:22 Home Medications Home Medications Medication Instructions Recorded Confirmed Type Vitron-C 1 tab PO Q2D 03/19/18 02/17/19 History acetaminophen 1,000 mg PO Q6H PRN 03/19/18 02/17/19 History aspirin 81 mg PO QPM 03/19/18 02/17/19 History cholecalciferol (vitamin D3) 2,000 unit PO QAM 03/19/18 02/17/19 History [Vitamin D3] cyanocobalamin (vitamin B-12) 500 mcg PO QAM 03/19/18 02/17/19 History multivitamin 1 tab PO QAM 03/19/18 02/17/19 History nitroglycerin [Nitrostat] 1 tab SUBLINGUAL DIRECTED PRN 03/19/18 02/17/19 History pantoprazole 40 mg PO BID 03/19/18 02/17/19 History sennosides-docusate sodium 1 tab PO HS 03/19/18 02/17/19 History [Senokot-S] tamsulosin 0.4 mg PO BID 03/19/18 02/17/19 History clopidogrel 75 mg PO QAM #30 tab 03/20/18 02/17/19 Rx furosemide [Lasix] 20 mg PO QAM 11/07/18 02/17/19 History losartan 25 mg PO QAM 11/07/18 02/17/19 History potassium chloride 10 meq PO QAM 11/07/18 02/17/19 History rosuvastatin [Crestor] 20 mg PO QAM 11/07/18 02/17/19 History tadalafil 20 mg PO DAILY PRN 11/07/18 02/17/19 History metoprolol succinate 12.5 mg PO QAM 12/24/18 02/17/19 History albuterol sulfate 2 puff INHALATION Q4H PRN 12/25/18 02/17/19 History ranitidine HCl 150 mg PO BID #60 cap 12/29/18 02/17/19 Rx levalbuterol 1.25 mg/3 mL solution 1.25 mg INH BID #75 ml 01/08/19 02/17/19 Rx for nebulization tramadol [Ultram] 50 mg PO QID PRN #14 tab 01/21/19 02/17/19 Rx ondansetron 8 mg PO Q8H PRN 02/17/19 02/17/19 History Past Med/Surg History Medical History History of airway aspiration (Chronic) Hospitalized @ [facility] 12/25 - 12/29/18 for severe asthmatic bronchitis exacerbation felt to be 2/2 aspiration related to severe GERD. Diastolic dysfunction (Chronic) Iron deficiency anemia (Chronic) Hypertension (Chronic) GERD (gastroesophageal reflux disease) (Chronic) Dyslipidemia (Chronic) Benign neoplasm of adrenal gland (Chronic) LEFT SIDE-REMOVAL [facility] [place] 2017 BPH (benign prostatic hyperplasia) (Chronic) CAD (coronary artery disease) (Chronic) 02/2018 Seen by cardiology OP for unstable angina symptoms-cardiac cath 03/19/18 = 90% mid LAD stenosis, S/P PCI with VIRGEN to LAD. 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 on echo 12/2017 Arthritis (Chronic) Hiatal hernia (Chronic) With Oscar erosions felt to be source of Fe def anemia. Surgical History S/P repair of paraesophageal hernia (Chronic) Status post Rocio fundoplication (Chronic) Robot-assisted laparoscopic reduction of paraesophageal hernia and diaphragmatic repair 2. Reinforcement repair with [employer]vi[employer] bioabsorbable mesh 3. Floppy Rocio fundoplication Dr. 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) History of back surgery (Chronic) LOWER BACK-STENOSIS H/O umbilical hernia repair (Chronic) H/O left inguinal hernia repair (Chronic) H/O cervical spine surgery (Chronic) History of abdominal surgery Removal of lipoma from mesentery Family History Father Coronary heart disease Hypertension Mother Cancer Social History Preferred Language: [place] Communication Ability: Effective Skein Winder Required: No Beliefs That Will Affect Care: None marital status: Current Living Situation: Spouse current occupational status: retired current occupation: Retired Other Information That Helps Us Care for You: No Feels Safe at Home: Yes Safety Concerns: Feels Safe At This Time Smoking Status: Former smoker Second Hand Exposure: No ; Hx Alcohol Use: Yes Alcohol type: beer Alcohol Intake Frequency Comment: very seldome Hx Substance Use: No Review of Systems Review of Systems: ROS per HPI, all other systems reviewed and negative Physical Exam Constitutional: well developed, well nourished and + ill appearing; no acute distress Vitals as noted Eyes: PERRL, conjunctivae normal, anicteric sclerae ENMT: Ears: no external ear abnormality Nose: no external nose abnormality Mouth: + dry oral mucous membranes Respiratory: normal respiratory effort; no respiratory distress Auscultation: + diminished lung sounds Cardiovascular: Rate/Rhythm: regular rate and regular rhythm Vessels: normal peripheral pulses Extremities: no edema Gastrointestinal (Abdomen): Inspection/Auscultation: + abdomen distended; + abnormal bowel sounds (Hyperactive) Percussion/Palpation: + abdomen tender (Mild, diffuse) and abdomen soft Musculoskeletal: no cyanosis or clubbing, extremities motor strength 5/5 Skin: no rashes, warm and dry Neurologic: PERRL, EOMI, accommodation nl, no face palsy, no dysarthria Psychiatric: A+Ox3, euthymic affect Results & Data Vital Signs (Past 12 Hours) Vital Signs Temp Pulse Resp BP Pulse Ox 02/17/19 13:45 38.8 C H 02/17/19 12:51 37.8 C H 87 20 150/78 H 95 Laboratory Results Short CBC 02/17/19 Range/Units 12:58 WBC 5.62 (4.8-10.8) K/uL Hgb 12.2 L (14.0-18.0) g/dL Hct 37.1 L (42-52) % Plt Count 168 (130-400) K/uL BMP 02/17/19 12:58 Sodium 135 L Potassium 4.1 Chloride 102 Carbon Dioxide 25 BUN 11 Creatinine 0.93 Glucose 100 H Calcium 8.5 Liver Function 02/17/19 Range/Units 12:58 Total Bilirubin 0.9 (0.2-1) mg/dl AST 149 H (15-37) U/L ALT 222 H (12-78) U/L Alkaline Phosphatase 210 H (45-117) U/L Albumin 2.9 L (3.4-5.0) gm/dl Diagnostic Findings CT CHEST/ABD/PELVIS IMPRESSION: 1. The gallbladder is distended. The gallbladder wall appears mildly thickened and there is pericholecystic inflammation. Findings are suspicious for acute cholecystitis. Consider right upper quadrant ultrasound for further assessment. 2. There is postoperative change consistent with a recent Rocio fundoplication. No significant residual hiatal hernia is identified. 3. Stranding and trace hemorrhage/fluid around the stomach as well as mild wall thickening of the distal esophagus are nonspecific and likely related to recent surgery. 4. Additional findings as above. Code Status & VTE Plan Code Status Patient is a full code as per my discussion with him. VTE Prophylaxis Plan VTE Prophylaxis will be ordered: Yes Supervising Physician Co-Signing Physician Notes HISTORY: Record reviewed. Patient interviewed and examined in his room. Care coordinated with MARIA DEL ROSARIO Franco. Please refer to her documentation for patient's history. Briefly, 78-year-old male with history of ischemic heart disease and other problems. Underwent laparoscopic repair of a large hiatal hernia on 01/20/2019. Subsequent problems with anorexia, nausea, weight loss. Referred for admission because of progressive weakness. EXAM: General- no distress Lungs-minimal wheezing, otherwise clear to auscultation; no respiratory distress Cardiovascular- RRR; no JVD; no pretibial edema Abdomen- + bowel sounds, soft, nontender; well-healed incisions from laparoscopic surgery Extremities- no cyanosis; no calf tenderness Neuro- alert, oriented Skin- warm & dry DATA: Hemoglobin 12.2, white count 5620, platelet count 160,000. Sodium 135, potassium 4.1, chloride 102, CO2 25, BUN 11, creatinine 0.93, random glucose 100, total bilirubin 0.9, AST 149, ALT 222, alkaline phosphatase 210, lipase 60. UA negative except for 1+ ketones. Other lab studies as noted. CT chest showed postsurgical changes from hiatal hernia repair, stable 4.3 cm ascending thoracic aneurysm. CT of abdomen pelvis showed postsurgical changes from hernia repair, distended gallbladder with thickening of the gallbladder wall and pericholecystic inflammation consistent with cholecystitis. ASSESSMENT AND PLAN: Anorexia, nausea, weight loss after laparoscopic hiatal hernia repair. LFTs elevated. CT suggests possible cholecystitis. General Surgery consultation requested. Patient has had a persistent cough. No infiltrates on chest x-ray. He has been followed by Dr. Gonzalez and requests that Dr. Gonzalez follows him during his hospital stay. Please refer to YASMEEN Turpin's documentation for discussion of other issues.
--- NOTE | 2019-02-17 16:53 | Ultrasound Report ---
US abdomen limited HISTORY: 78 years-old Male gallbladder distention pericholecystic stranding acute right upper quadra nt abdominal pain with gallbladder distention and pericholecystic edema described on CT abdomen of . COMPARISON: CT abdomen 02/17/2019 TECHNIQUE: Multiple real time sonographic images of the abdominal right upper quadrant were obtained assessing grayscale appearance and color flow FINDINGS: Pancreas is mostly obscured by bowel gas. The study is mildly limited secondary to patient body habit us. Liver is unremarkable. Distended gallbladder measures up to 12.6 cm in length. Layering gallbladd er sludge is noted with gallbladder wall measuring in the upper limits of normal at 3 mm. No perichol ecystic fluid or shadowing cholelithiasis identified. Common bile duct measures 9 mm. No obstructing biliary calculus or lesion identified. Sonographic Mtz sign was not reported. Renal sinus cysts noted about the right kidney. IMPRESSION: 1. Distended gallbladder with layering sludge is noted with the gallbladder wall measuring within the upper limits of normal. No pericholecystic edema or cholelithiasis identified. If there is clinical concern for acute acalculus cholecystitis, nuclear medicine hepatobiliary scan may be considered. 2. Mildly distended common bile duct, 9 mm. The above report was generated using voice recognition software. It may contain grammatical, syntax o r spelling errors. Electronically signed by: Jayme Russell M.D. 02/17/2019 4:52 PM
--- NOTE | 2019-02-17 17:42 | Surgery Consultation ---
Date of Consultation February 17, 2019 Assessment & Plan (1) Nausea: Etiology of his nausea is unclear. There was some fluid around the stomach and distal esophagus with thickening of the distal esophagus. With the nausea be related to gas bloat syndrome. He had a CT showing possible lee cholecystic inflammatory change however that was not confirmed by ultrasound. He does not have stones but does have some sludge. Going to order a hepatobiliary scan to delineate the presence or absence of cystic duct obstruction. We will keep him n.p.o. for now until that is completed. History of Present Illness Reason for Consultation: Nausea and decreased appetite Requesting Physician: Aureliano Price MD Attending Physician: Anthony Barry MD History of Present Illness I been asked by Dr. Price to see this 78-year-old male who presented to the emergency room with complaint of 3 days of severe nausea and decreased appetite. He states that he had been unable to eat or drink anything for 3 days due to the severe nausea. He denied abdominal pain however. His bowels have not moved in 7 days. He has not had melena or hematochezia. He underwent a reduction of a paraesophageal hernia with Rocio fundoplication 4 weeks ago. His recovery was uneventful until now. He has not had any fever. He has had no chills. He underwent a CT scan of the abdomen and pelvis that indicated gallbladder wall thickening with distention and. Cholecystic stranding however a subsequent ultrasound did demonstrate sludge but there was no gallbladder wall thickening and then it was a top normal in size and there was no pericholecystic change. His AST was elevated at 149, ALT 222 and alkaline phosphatase 210. At present the nausea seems to have resolved. There is no new abdominal pain. The patient began to pass flatus today. He describes a large amount. He has not had a bowel movement. He did start to feel better when passing flatus began. Allergies Allergy/AdvReac Type Severity Reaction Status Date / Time No Known Allergies Allergy Verified 02/17/19 11:22 Home Medications Home Medications Medication Instructions Recorded Confirmed Type Vitron-C 1 tab PO Q2D 03/19/18 02/17/19 History acetaminophen 1,000 mg PO Q6H PRN 03/19/18 02/17/19 History aspirin 81 mg PO QPM 03/19/18 02/17/19 History cholecalciferol (vitamin D3) 2,000 unit PO QAM 03/19/18 02/17/19 History [Vitamin D3] cyanocobalamin (vitamin B-12) 500 mcg PO QAM 03/19/18 02/17/19 History multivitamin 1 tab PO QAM 03/19/18 02/17/19 History nitroglycerin [Nitrostat] 1 tab SUBLINGUAL DIRECTED PRN 03/19/18 02/17/19 History pantoprazole 40 mg PO BID 03/19/18 02/17/19 History sennosides-docusate sodium 1 tab PO HS 03/19/18 02/17/19 History [Senokot-S] tamsulosin 0.4 mg PO BID 03/19/18 02/17/19 History clopidogrel 75 mg PO QAM #30 tab 03/20/18 02/17/19 Rx furosemide [Lasix] 20 mg PO QAM 11/07/18 02/17/19 History losartan 25 mg PO QAM 11/07/18 02/17/19 History potassium chloride 10 meq PO QAM 11/07/18 02/17/19 History rosuvastatin [Crestor] 20 mg PO QAM 11/07/18 02/17/19 History tadalafil 20 mg PO DAILY PRN 11/07/18 02/17/19 History metoprolol succinate 12.5 mg PO QAM 12/24/18 02/17/19 History albuterol sulfate 2 puff INHALATION Q4H PRN 12/25/18 02/17/19 History ranitidine HCl 150 mg PO BID #60 cap 12/29/18 02/17/19 Rx levalbuterol 1.25 mg/3 mL solution 1.25 mg INH BID #75 ml 01/08/19 02/17/19 Rx for nebulization tramadol [Ultram] 50 mg PO QID PRN #14 tab 01/21/19 02/17/19 Rx ondansetron 8 mg PO Q8H PRN 02/17/19 02/17/19 History Patient History Medical History History of airway aspiration (Chronic) Hospitalized @ [facility] 12/25 - 12/29/18 for severe asthmatic bronchitis exacerbation felt to be 2/2 aspiration related to severe GERD. Diastolic dysfunction (Chronic) Iron deficiency anemia (Chronic) Hypertension (Chronic) GERD (gastroesophageal reflux disease) (Chronic) Dyslipidemia (Chronic) Benign neoplasm of adrenal gland (Chronic) LEFT SIDE-REMOVAL [facility] 2017 BPH (benign prostatic hyperplasia) (Chronic) CAD (coronary artery disease) (Chronic) 02/2018 Seen by cardiology OP for unstable angina symptoms-cardiac cath 03/19/18 = 90% mid LAD stenosis, S/P PCI with VIRGEN to LAD. 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 on echo 12/2017 Arthritis (Chronic) Hiatal hernia (Chronic) With Oscar erosions felt to be source of Fe def anemia. Surgical History S/P repair of paraesophageal hernia (Chronic) Status post Rocio fundoplication (Chronic) Robot-assisted laparoscopic reduction of paraesophageal hernia and diaphragmatic repair 2. Reinforcement repair with OviTex bioabsorbable mesh 3. Floppy Rocio fundoplication Dr. 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) History of back surgery (Chronic) LOWER BACK-STENOSIS H/O umbilical hernia repair (Chronic) H/O left inguinal hernia repair (Chronic) H/O cervical spine surgery (Chronic) History of abdominal surgery Removal of lipoma from mesentery Family History Father Coronary heart disease Hypertension Mother Cancer Social History Preferred Language: Persian Communication Ability: Effective Insect Control Inspector Required: No Beliefs That Will Affect Care: None marital status: Current Living Situation: Spouse current occupational status: retired current occupation: Retired Other Information That Helps Us Care for You: No Feels Safe at Home: Yes Safety Concerns: Feels Safe At This Time Smoking Status: Former smoker Second Hand Exposure: No ; Hx Alcohol Use: Yes Alcohol type: beer Alcohol Intake Frequency Comment: very seldome Hx Substance Use: No Physical Exam Constitutional: no acute distress Respiratory: normal respiratory effort, lungs clear to auscultation Cardiovascular: Rate/Rhythm: regular rate and regular rhythm Gastrointestinal (Abdomen): Inspection/Auscultation: normal bowel sounds; a bdomen not distended Percussion/Palpation: abdomen soft; abdomen nontender Skin: no rashes, warm and dry Lymphatic: no cervical lymphadenopathy Results & Data Vital Signs (Past 12 Hours) Vital Signs Temp Pulse Pulse Resp BP Pulse Ox 02/17/19 16:14 37.5 C 73 18 139/74 96 02/17/19 13:45 38.8 C H 02/17/19 12:51 37.8 C H 87 20 150/78 H 95 Laboratory Results 02/17/19 02/17/19 02/17/19 Range/Units 14:08 12:58 12:58 WBC 5.62 (4.8-10.8) K/uL RBC 3.98 L (4.7-6.1) M/uL Hgb 12.2 L (14.0-18.0) g/dL Hct 37.1 L (42-52) % MCV 93.2 (80-100) fL MCH 30.7 (25-34) pg MCHC 32.9 (32-36) g/dL RDW Std Deviation 45.1 (36.4-46.3) fL RDW Coeff of [place] 13.2 (11.5-14.5) % Plt Count 168 (130-400) K/uL MPV 9.3 (7.4-10.4) fL Immature Gran % (Auto) 0.2 % Neut % (Auto) 88.8 % Lymph % (Auto) 5.3 % [place] % (Auto) 4.6 % Eos % (Auto) 0.7 % Baso % (Auto) 0.4 % Immature Gran # (Auto) 0.01 (0.00-0.02) K/uL Neut # (Auto) 4.99 (1.4-6.5) K/uL Lymph # (Auto) 0.30 L (1.2-3.4) K/uL [place] # (Auto) 0.26 (0.11-0.59) K/uL Eos # (Auto) 0.04 (0-0.5) K/uL Baso # (Auto) 0.02 (0-0.2) K/uL Sodium 135 L (136-145) mmol/L Potassium 4.1 (3.5-5.1) mmol/L Chloride 102 (98-107) mmol/L Carbon Dioxide 25 (21-32) mmol/L Anion Gap 8.0 (3-11) BUN 11 (7-18) mg/dl Creatinine 0.93 (0.6-1.4) mg/dl Est Cr Clr Drug Dosing 86.3 ml/min Est GFR ( Amer) 92.1 Est GFR (Non-Af Amer) 79.5 BUN/Creatinine Ratio 12.1 (10-20) Glucose 100 H (70-99) mg/dl Lactate 1.2 (0.4-2.0) mmol/L Calcium 8.5 (8.5-10.1) mg/dl Phosphorus 2.0 L (2.5-4.9) mg/dl Magnesium 1.8 (1.8-2.4) mg/dl Total Bilirubin 0.9 (0.2-1) mg/dl AST 149 H (15-37) U/L ALT 222 H (12-78) U/L Alkaline Phosphatase 210 H (45-117) U/L Total Protein 6.5 (6.4-8.2) gm/dl Albumin 2.9 L (3.4-5.0) gm/dl Globulin 3.6 (2.5-4.0) gm/dl Albumin/Globulin Ratio 0.8 L (0.9-2) Lipase 60 L (73-393) U/L Diagnostic Findings CT SCAN OF THE ABDOMEN WITHOUT IV CONTRAST CLINICAL HISTORY: Nausea and vomiting, status post Rocio fundoplication. COMPARISON STUDY: Abdominal CT dated 02/09/2016. TECHNIQUE: CT scan of the abdomen is performed from the lung bases to the pelvic inlet. Images are reviewed in the axial, sagittal, and coronal planes. IV contrast was not administered for this examination. A dose lowering technique was utilized adhering to the principles of ALARA. FINDINGS: Lung bases: The heart is normal in size noting trace pericardial effusion. The coronary arteries are densely calcified. The lung bases are clear. Liver: The unenhanced liver is normal in size, contour, and attenuation. There is no intrahepatic biliary ductal dilatation. Gallbladder: The gallbladder is distended. There is mild gallbladder wall thickening and pericholecystic stranding. Spleen: Normal in size and attenuation. Pancreas: The unenhanced pancreas is moderately atrophic. There are least 2 ovoid cystic lesion in the pancreatic tail measuring up to 11 mm. 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 Adrenal glands: Nodularity of the left adrenal gland is unchanged dating back to 2016 and of doubtful significance. The right adrenal gland is normal in appearance. Kidneys: The unenhanced kidneys demonstrate cortical atrophy and are without hydronephrosis. There are no renal calculi identified. There are numerous bilateral parapelvic cysts. A 2.4 cm exophytic cyst arises from the interpolar left kidney. Abdominal vasculature: There is advanced atherosclerotic calcification and mild ectasia of the abdominal aorta. Stomach and bowel: The configuration of the stomach is consistent with a history of Rocio fundoplication. No significant residual hiatal hernia is identified. Stranding and trace hemorrhage/fluid is seen around the stomach, likely related to recent surgery. There is also mild wall thickening suggested involving the distal esophagus. There is no bowel obstruction. Peritoneum: There is no intraperitoneal free air or abdominal ascites. Mild induration within the ventral abdominal wall likely corresponds to a laparoscopy port. Lymphadenopathy: None. Skeletal structures: The skeletal structures are osteopenic. Lumbosacral spondylosis is observed. Laminectomy and spinal fusion is noted in the lower lumbar region. No lytic or blastic lesions are seen. IMPRESSION: 1. The gallbladder is distended. The gallbladder wall appears mildly thickened and there is pericholecystic inflammation. Findings are suspicious for acute cholecystitis. Consider right upper quadrant ultrasound for further assessment. 2. There is postoperative change consistent with a recent Rocio fundoplication. No significant residual hiatal hernia is identified. 3. Stranding and trace hemorrhage/fluid around the stomach as well as mild wall thickening of the distal esophagus are nonspecific and likely related to recent surgery. 4. Additional findings as above. US abdomen limited HISTORY: 78 years-old Male gallbladder distention pericholecystic stranding acute right upper quadrant abdominal pain with gallbladder distention and pericholecystic edema described on CT abdomen of same day. COMPARISON: CT abdomen 02/17/2019 TECHNIQUE: Multiple real time sonographic images of the abdominal right upper quadrant were obtained assessing grayscale appearance and color flow FINDINGS: Pancreas is mostly obscured by bowel gas. The study is mildly limited secondary to patient body habitus. Liver is unremarkable. Distended gallbladder measures up to 12.6 cm in length. Layering gallbladder sludge is noted with gallbladder wall measuring in the upper limits of normal at 3 mm. No pericholecystic fluid or shadowing cholelithiasis identified. Common bile duct measures 9 mm. No obstructing biliary calculus or lesion identified. Sonographic Mtz sign was not reported. Renal sinus cysts noted about the right kidney. IMPRESSION: 1. Distended gallbladder with layering sludge is noted with the gallbladder wall measuring within the upper limits of normal. No pericholecystic edema or cholelithiasis identified. If there is clinical concern for acute acalculus cholecystitis, nuclear medicine hepatobiliary scan may be considered. 2. Mildly distended common bile duct, 9 mm.
[2019-02-17 18:24] LABS: Appearance Urine Clear (Clear); Bilirubin Urine Negative (Negative); Blood Urine Negative (Negative); Color Urine Yellow; Glucose Urine UA Negative (Negative); Ketones Urine 1+ (Negative); Leukocyte Esterase Urine Negative (Negative); Nitrite Urine Negative (Negative); Protein Urine Negative (Negative); Specific Gravity Urine 1.016 (1.000-1.030); Urobilinogen Urine Negative (Negative); pH Urine 5.5 (4.5-7.5)
[2019-02-17] MEDS ORDERED: ACETYLCYSTEINE 10% INHAL SOLN **DISPENSED FROM RESP. INH SCH (19:00)
[2019-02-17] MEDS: LEVALBUTEROL HCL 1.25 MG/3 ML NEB INH SCH (19:23)
[2019-02-17] MEDS: ONDANSETRON INJ 2 MG/ML 2 ML VIAL IV PRN (19:49)
[2019-02-17] MEDS ORDERED: MoRPHine SULFATE 2 MG/ML CARP IV ONE (22:15)
[2019-02-17] MEDS: ASPIRIN 81 MG ECTAB PO SCH (23:03)
[2019-02-17] MEDS: TAMSULOSIN HCL 0.4 MG CAP PO SCH (23:04)
[2019-02-17] MEDS: PANTOprazole 40 MG TAB PO SCH (23:04)
--- NOTE | 2019-02-17 23:05 | Nuclear Medicine Report ---
NM hepatobiliary CLINICAL HISTORY: 78 years-old Male with abnormal CT scan, sludge on ultrasound but no evid. Acute r ight upper quadrant abdominal pain TECHNIQUE: Sequential anterior abdominal images were obtained through 170 minutes following the intr avenous administration of 5.5 mCi of technetium-99m Choletec. Intravenous morphine also administered at 120 minutes. COMPARISON: Right upper quadrant ultrasound and CT abdomen of same day FINDINGS: There is prompt, uniform accumulation of the tracer by the liver. There is normal filling of the int rahepatic ducts, common bile duct and normal excretion of the tracer into the duodenum. No filling o f tracer into the gallbladder lumen at 60 minutes. An order was then given for IV morphine. Anterior delayed image at 110 minutes demonstrates faint uptake within the distended gallbladder lumen which i s also noted at 120 minutes.. IMPRESSION: 1. Delayed uptake of tracer within the distended gallbladder is suggestive of chronic cholecystitis. Correlate with clinical history. 2. No evidence of common bile duct obstruction. The above report was generated using voice recognition software. It may contain grammatical, syntax o r spelling errors. Electronically signed by: Jayme Russell M.D. 02/17/2019 11:04 PM
[2019-02-17] MEDS: PIPERACILLIN/TAZOBACTAM 3.375 GM in DEXTROSE 5% 100 ML IV SCH (23:08)
--- NOTE | 2019-02-18 00:08 | Consultation Report ---
DATE OF CONSULTATION: 02/17/2019 Mr. Gilbert is a 78-year-old male who underwent a robot-assisted laparoscopic reduction of a huge paraesophageal hernia with diaphragmatic repair. I reinforced this with OviTex absorbable mesh. We also did a floppy Rocio fundoplication. He did well with this, although he had some minor complaints at home. He came back in today stating he could not eat or drink anything. He was nauseated. He had trouble keeping food down. I admitted him to the hospitalist service who graciously agreed to take him. After getting into the hospital, he underwent a CT scan which suggested acute cholecystitis. His esophagus and stomach looked quite good. No evidence of perforation, no evidence of distention. I explained this fully to the patient and Dr. Danial Lozada will see him from a GI standpoint. I also discussed this case with Dr. Barry and Dr. Cabrera.
[2019-02-18] MEDS: ONDANSETRON INJ 2 MG/ML 2 ML VIAL IV PRN ×4 (01:36→22:03)
[2019-02-18] MEDS ORDERED: LORazepam 0.25 MG/0.5 ML VIAL IV ONE (02:00)
[2019-02-18] MEDS: PIPERACILLIN/TAZOBACTAM 3.375 GM in DEXTROSE 5% 100 ML IV SCH ×3 (06:10→21:48)
[2019-02-18 06:23] LABS: Hematocrit (blood only) 34.5 % (42-52); Hemoglobin 11.4 g/dL (14.0-18.0); Mean Corpuscular Hemoglobin 31.1 pg (25-34); Mean Corpuscular Volume 94.3 fL (80-100); Mean Platelet Volume 9.2 fL (7.4-10.4); Platelet Count 145 K/uL (130-400); RDW Coefficient of Variation 13.2 % (11.5-14.5); RDW Standard Deviation 45.8 fL (36.4-46.3); Red Blood Count 3.66 M/uL (4.7-6.1); White Blood Count 4.46 K/uL (4.8-10.8)
[2019-02-18 07:02] LABS: BUN Creatinine Ratio 11.7 (10-20); Calcium 8.3 mg/dl (8.5-10.1); Creatinine Clr Calc Pharmacy 81.1 ml/min; Est GFR (African American) 85.4; Est GFR (Non-African American) 73.7; Potassium 3.8 mmol/L (3.5-5.1)
[2019-02-18] MEDS: LEVALBUTEROL HCL 1.25 MG/3 ML NEB INH SCH ×2 (07:10→19:11)
[2019-02-18] MEDS: D5W AND 1/2NSS 1,000 ML IV SCH ×2 (07:25→22:58)
[2019-02-18 07:47] LABS: Albumin Level 2.5 gm/dl (3.4-5.0); Bilirubin Direct 0.3 mg/dl (0-0.2); Bilirubin,Total 0.7 mg/dl (0.2-1); Total Protein 5.9 gm/dl (6.4-8.2)
--- NOTE | 2019-02-18 08:39 | Pulmonary Consultation ---
Date of Consultation February 18, 2019 Assessment & Plan (1) S/P repair of paraesophageal hernia: (2) Elevated LFTs: Patient has marked liver enzyme elevation and certainly one has to determine if acute cholecystitis has contributed to the enzyme elevation and fever. A hepatobiliary scan was ordered to delineate whether or not there is any cystic duct obstruction. Patient is to be kept n.p.o. (3) Nausea: (4) Status post Rocio fundoplication: (5) History of airway aspiration: Patient has only mild residual cough and an excellent lung exam with no audible wheezing and improved aeration at the left lung base. I do not believe patient's current symptoms fever etc. other result of a respiratory etiology. I will continue to follow patient on a daily basis to evaluate for any signs of respiratory difficulties or a respiratory etiology of patient's current symptom complex. (6) Diastolic dysfunction: (7) Iron deficiency anemia: (8) Hypertension: (9) H/O umbilical hernia repair: (10) CAD (coronary artery disease): History of Present Illness Attending Physician: Jonn Alfaro MD 78-year-old white male who was admitted to the hospitalist service 02/17/2019 due to nausea and poor appetite. I became familiar with the patient during the 12/25/2018 to 12/29/2018 admission to [facility] because of an intractable cough and acute and chronic aspiration. Patient had a severe and sizable paraesophageal hernia and underwent a laparoscopic Rocio fundoplication with Dr. Daniela Nelson on 01/20/2019. Patient has a complex medical history of dyslipidemia, benign neoplasm of the adrenal gland, mild aortic root enlargement, proximal ascending thoracic aorta enlargement, venous insufficiency, coronary artery disease status post stenting, hypertension and history of nonsustained paroxysmal supraventricular tachycardia. 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 Also has history of tobacco abuse and once again a large left-sided hiatal hernia with Oscar erosions felt to be the source of his iron deficiency anemia. Initially he was treated in the ER on 11/24/2018 with antibiotics and steroids for the cough but did not improve. Post prandial symptoms were common place. He underwent upper endoscopy and bronchoscopy under general anesthesia with copious thick mucoid viscous secretion lavaged and aspirated from the left lower lobe segmental bronchi. Mucomyst was used and he was actually discharged on nebulizer treatments with Mucomyst along with bronchodilator. He was continued on PPI and H2 blockade Dr. Price for outpatient consultation and the surgery was performed on the above-mentioned date. Did well postoperatively but did have one run of paroxysmal atrial tachycardia which was self-limiting. Cardiac catheterization in February 2018 revealed a 90% stenosis within the LAD and he underwent successful PCI of the mid LAD lesion and a drug-eluting stent was placed. He was seen in our clinic postoperatively with resolution of this cough and feeling quite well. Patient returned with a fever and generalized nausea and abdominal distension,Dr. Danial Lozada was consulted for possible need for cholecystectomy.. He states to me he has not had a bowel movement in a week. CT scan of the chest abdomen and pelvis performed in the ER showed that the gallbladder was distended the wall appeared thickened with pericholecystic inflammation. Postoperative changes consistent with recent fundoplication were noted but no significant residual hiatal hernia was identified and there was some stranding and trace hemorrhage and fluid around the stomach as well as mild wall thickening of the distal esophagus. Dr Lozada saw patient yesterday etiology of the nausea was unclear. Liver enzymes were elevated with an AST of 149 and ALT of 222 and alkaline phosphatase of 210. Patient began to pass flatus today but has not had a bowel movement in a week as stated earlier. Denies a chronic cough with only a mild residual cough. No true pleuritic pain hemoptysis or dyspnea with exertion. He does feel distended. I was asked to see patient in consultation. Allergies Allergy/AdvReac Type Severity Reaction Status Date / Time No Known Allergies Allergy Verified 02/17/19 11:22 Home Medications Home Medications Medication Instructions Recorded Confirmed Type Vitron-C 1 tab PO Q2D 03/19/18 02/17/19 History acetaminophen 1,000 mg PO Q6H PRN 03/19/18 02/17/19 History aspirin 81 mg PO QPM 03/19/18 02/17/19 History cholecalciferol (vitamin D3) 2,000 unit PO QAM 03/19/18 02/17/19 History [Vitamin D3] cyanocobalamin (vitamin B-12) 500 mcg PO QAM 03/19/18 02/17/19 History multivitamin 1 tab PO QAM 03/19/18 02/17/19 History nitroglycerin [Nitrostat] 1 tab SUBLINGUAL DIRECTED PRN 03/19/18 02/17/19 History pantoprazole 40 mg PO BID 03/19/18 02/17/19 History sennosides-docusate sodium 1 tab PO HS 03/19/18 02/17/19 History [Senokot-S] tamsulosin 0.4 mg PO BID 03/19/18 02/17/19 History clopidogrel 75 mg PO QAM #30 tab 03/20/18 02/17/19 Rx furosemide [Lasix] 20 mg PO QAM 11/07/18 02/17/19 History losartan 25 mg PO QAM 11/07/18 02/17/19 History potassium chloride 10 meq PO QAM 11/07/18 02/17/19 History rosuvastatin [Crestor] 20 mg PO QAM 11/07/18 02/17/19 History tadalafil 20 mg PO DAILY PRN 11/07/18 02/17/19 History metoprolol succinate 12.5 mg PO QAM 12/24/18 02/17/19 History albuterol sulfate 2 puff INHALATION Q4H PRN 12/25/18 02/17/19 History ranitidine HCl 150 mg PO BID #60 cap 12/29/18 02/17/19 Rx levalbuterol 1.25 mg/3 mL solution 1.25 mg INH BID #75 ml 01/08/19 02/17/19 Rx for nebulization tramadol [Ultram] 50 mg PO QID PRN #14 tab 01/21/19 02/17/19 Rx ondansetron 8 mg PO Q8H PRN 02/17/19 02/17/19 History Patient History Medical History History of airway aspiration (Chronic) Hospitalized @ [facility] 12/25 - 12/29/18 for severe asthmatic bronchitis e xacerbation felt to be 2/2 aspiration related to severe GERD. Diastolic dysfunction (Chronic) Iron deficiency anemia (Chronic) Hypertension (Chronic) GERD (gastroesophageal reflux disease) (Chronic) Dyslipidemia (Chronic) Benign neoplasm of adrenal gland (Chronic) LEFT SIDE-REMOVAL [facility] [place] 2017 BPH (benign prostatic hyperplasia) (Chronic) CAD (coronary artery disease) (Chronic) 02/2018 Seen by cardiology OP for unstable angina symptoms-cardiac cath 03/19/18 = 90% mid LAD stenosis, S/P PCI with VIRGEN to LAD. 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 on echo 12/2017 Arthritis (Chronic) Hiatal hernia (Chronic) With Oscar erosions felt to be source of Fe def anemia. Surgical History S/P repair of paraesophageal hernia (Chronic) Status post Rocio fundoplication (Chronic) Robot-assisted laparoscopic reduction of paraesophageal hernia and diaphragmatic repair 2. Reinforcement repair with OviTex bioabsorbable mesh 3. Floppy Rocio fundoplication Dr. 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) History of back surgery (Chronic) LOWER BACK-STENOSIS H/O umbilical hernia repair (Chronic) H/O left inguinal hernia repair (Chronic) H/O cervical spine surgery (Chronic) History of abdominal surgery Removal of lipoma from mesentery Family History Father Coronary heart disease Hypertension Mother Cancer Social History Preferred Language: Filipino Communication Ability: Effective Regrader Required: No Beliefs That Will Affect Care: None marital status: Current Living Situation: Spouse current occupational status: retired current occupation: Retired Other Information That Helps Us Care for You: No Feels Safe at Home: Yes Safety Concerns: Feels Safe At This Time Smoking Status: Former smoker Second Hand Exposure: No ; Hx Alcohol Use: Yes Alcohol type: beer Alcohol Intake Frequency Comment: very seldome Hx Substance Use: No Review of Systems Constitutional: no problem reported Eyes: no problem reported Ear, Nose, Mouth, Throat: no problem reported Respiratory: no problem reported Cardiovascular: no problem reported Gastrointestinal: no problem reported Genitourinary: no problem reported Musculoskeletal: no problem reported Integumentary: no problem reported Neurologic: no problem reported Psychiatric: no problem reported Endocrine: no problem reported Hematologic / Lymphatic: no problem reported Allergy / Immunological: no problem reported Physical Exam Constitutional: well developed and well nourished; no acute distress Eyes: PERRL, conjunctivae normal, anicteric sclerae ENMT: external ear and nose normal, oropharynx normal Neck: trachea midline, no thyromegaly Respiratory: normal respiratory effort, lungs clear to auscultation normal respiratory effort Auscultation: lungs clear to auscultation bilaterally Cardiovascular: RRR, no murmur, no edema Palpation: normal PMI; no thrill Gastrointestinal (Abdomen): Inspection/Auscultation: + abdomen distended and normal bowel sounds Musculoskeletal: no cyanosis or clubbing, extremities motor strength 5/5 Gait: normal gait Skin: no rashes, warm and dry Neurologic: PERRL, EOMI, accommodation nl, no face palsy, no dysarthria Psychiatric: A+Ox3, euthymic affect Lymphatic: no cervical or axillary lymphadenopathy Results & Data Vital Signs (Past 12 Hours) Vital Signs Temp Pulse Resp BP BP Pulse Ox 02/18/19 07:39 36.7 C 75 18 132/74 95 02/18/19 07:12 67 14 97 02/17/19 23:12 36.8 C 76 20 143/74 H 93 Laboratory Results Abnormal Labs 02/17/19 02/17/19 02/17/19 12:58 12:58 18:05 WBC RBC 3.98 L Hgb 12.2 L Hct 37.1 L Lymph # (Auto) 0.30 L Sodium 135 L Glucose 100 H Calcium Phosphorus 2.0 L Direct Bilirubin AST 149 H ALT 222 H Alkaline Phosphatase 210 H Total Protein Albumin 2.9 L Albumin/Globulin Ratio 0.8 L Lipase 60 L Urine Ketones 1+ H 02/18/19 02/18/19 02/18/19 05:57 05:57 05:57 WBC 4.46 L RBC 3.66 L Hgb 11.4 L Hct 34.5 L Lymph # (Auto) Sodium Glucose Calcium 8.3 L Phosphorus Direct Bilirubin 0.3 H AST 92 H ALT 162 H Alkaline Phosphatase 230 H Total Protein 5.9 L Albumin 2.5 L Albumin/Globulin Ratio Lipase Urine Ketones Diagnostic Findings Laboratory Results WBC 4.46 K/uL (4.8-10.8) L 02/18/19 05:57 RBC 3.66 M/uL (4.7-6.1) L 02/18/19 05:57 Hgb 11.4 g/dL (14.0-18.0) L 02/18/19 05:57 Hct 34.5 % (42-52) L 02/18/19 05:57 MCV 94.3 fL (80-100) 02/18/19 05:57 MCH 31.1 pg (25-34) 02/18/19 05:57 MCHC 33.0 g/dL (32-36) 02/18/19 05:57 RDW Std Deviation 45.8 fL (36.4-46.3) 02/18/19 05:57 RDW Coeff of [place] 13.2 % (11.5-14.5) 02/18/19 05:57 Plt Count 145 K/uL (130-400) 02/18/19 05:57 MPV 9.2 fL (7.4-10.4) 02/18/19 05:57 Immature Gran % (Auto) 0.2 % 02/17/19 12:58 Neut % (Auto) 88.8 % 02/17/19 12:58 Lymph % (Auto) 5.3 % 02/17/19 12:58 [place] % (Auto) 4.6 % 02/17/19 12:58 Eos % (Auto) 0.7 % 02/17/19 12:58 Baso % (Auto) 0.4 % 02/17/19 12:58 Immature Gran # (Auto) 0.01 K/uL (0.00-0.02) 02/17/19 12:58 Neut # (Auto) 4.99 K/uL (1.4-6.5) 02/17/19 12:58 Lymph # (Auto) 0.30 K/uL (1.2-3.4) L 02/17/19 12:58 [place] # (Auto) 0.26 K/uL (0.11-0.59) 02/17/19 12:58 Eos # (Auto) 0.04 K/uL (0-0.5) 02/17/19 12:58 Baso # (Auto) 0.02 K/uL (0-0.2) 02/17/19 12:58 Sodium 138 mmol/L (136-145) 02/18/19 05:57 Potassium 3.8 mmol/L (3.5-5.1) 02/18/19 05:57 Chloride 104 mmol/L (98-107) 02/18/19 05:57 Carbon Dioxide 27 mmol/L (21-32) 02/18/19 05:57 Anion Gap 7.0 (3-11) 02/18/19 05:57 BUN 12 mg/dl (7-18) 02/18/19 05:57 Creatinine 0.99 mg/dl (0.6-1.4) 02/18/19 05:57 Est Cr Clr Drug Dosing 81.1 ml/min 02/18/19 05:57 Est GFR ( Amer) 85.4 02/18/19 05:57 Est GFR (Non-Af Amer) 73.7 02/18/19 05:57 BUN/Creatinine Ratio 11.7 (10-20) 02/18/19 05:57 Glucose 93 mg/dl (70-99) 02/18/19 05:57 Lactate 1.2 mmol/L (0.4-2.0) 02/17/19 14:08 Calcium 8.3 mg/dl (8.5-10.1) L 02/18/19 05:57 Phosphorus 3.0 mg/dl (2.5-4.9) D 02/18/19 05:57 Magnesium 2.0 mg/dl (1.8-2.4) 02/18/19 05:57 Total Bilirubin 0.7 mg/dl (0.2-1) 02/18/19 05:57 Direct Bilirubin 0.3 mg/dl (0-0.2) H 02/18/19 05:57 AST 92 U/L (15-37) H 02/18/19 05:57 ALT 162 U/L (12-78) H 02/18/19 05:57 Alkaline Phosphatase 230 U/L (45-117) H 02/18/19 05:57 Total Protein 5.9 gm/dl (6.4-8.2) L 02/18/19 05:57 Albumin 2.5 gm/dl (3.4-5.0) L 02/18/19 05:57 Globulin 3.6 gm/dl (2.5-4.0) 02/17/19 12:58 Albumin/Globulin Ratio 0.8 (0.9-2) L 02/17/19 12:58 Lipase 60 U/L (73-393) L 02/17/19 12:58 Urine Color Yellow 02/17/19 18:05 Urine Appearance Clear (Clear) 02/17/19 18:05 Urine pH 5.5 (4.5-7.5) 02/17/19 18:05 Ur Specific [place] 1.016 (1.000-1.030) 02/17/19 18:05 Urine Protein Negative (Negative) 02/17/19 18:05 Urine Glucose (UA) Negative (Negative) 02/17/19 18:05 Urine Ketones 1+ (Negative) H 02/17/19 18:05 Urine Blood Negative (Negative) 02/17/19 18:05 Urine Nitrite Negative (Negative) 02/17/19 18:05 Urine Bilirubin Negative (Negative) 02/17/19 18:05 Urine Urobilinogen Negative (Negative) 02/17/19 18:05 Ur Leukocyte Esterase Negative (Negative) 02/17/19 18:05 Medications Administered Current Inpatient Medications Acetaminophen (Tylenol) 650 mg PO Q6 PRN PRN Reason: Pain or Fever Stop: 03/19/19 13:44 Last Admin: 02/17/19 14:26 Dose: 650 mg Documented by: Aspirin (Ecotrin Ectab) 81 mg PO QPM [facility] Stop: 03/19/19 20:59 Last Admin: 02/17/19 23:03 Dose: 81 mg Documented by: Piperacillin Sod/Tazobactam (Sod 3.375 gm/ Dextrose) 115 mls @ 28.75 mls/hr IV Q8H [facility]; Protocol Stop: 02/27/19 21:59 Last Admin: 02/18/19 06:10 Dose: 28.8 mls/hr Documented by: Dextrose/Sodium Chloride (D5w And 1/2nss) 1,000 mls @ 60 mls/hr IV .[id number] [facility] Stop: 03/20/19 07:14 Last Admin: 02/18/19 07:25 Dose: 60 mls/hr Documented by: Levalbuterol HCl (Xopenex 1.25mg/3ml Neb) 1.25 mg INH BIDR [facility] Stop: 03/19/19 18:59 Last Admin: 02/18/19 07:10 Dose: 1.25 mg Documented by: Losartan Potassium (Cozaar) 25 mg PO QAM [facility] Stop: 03/20/19 08:59 Last Admin: 02/18/19 08:48 Dose: 25 mg Documented by: Metoprolol Succinate (Toprol Xl) 12.5 mg PO QAM [facility] Stop: 03/20/19 08:59 Last Admin: 02/18/19 08:46 Dose: 12.5 mg Documented by: Miscellaneous Information (Consult) 1 ea N/A UD PRN PRN Reason: Consult Stop: 03/19/19 14:23 Ondansetron HCl (Zofran) 4 mg IV Q6H PRN PRN Reason: Nausea Stop: 03/19/19 13:44 Last Admin: 02/18/19 07:33 Dose: 4 mg Documented by: Pantoprazole Sodium (Protonix) 40 mg PO BID [facility] Stop: 03/19/19 20:59 Last Admin: 02/18/19 08:49 Dose: 40 mg Documented by: Ranitidine HCl (Zantac) 150 mg PO BID [facility] Stop: 03/19/19 20:59 Last Admin: 02/18/19 08:49 Dose: 150 mg Documented by: Rosuvastatin Calcium (Crestor) 20 mg PO QAM [facility] Stop: 03/20/19 08:59 Last Admin: 02/18/19 08:50 Dose: 20 mg Documented by: Tamsulosin HCl (Flomax) 0.4 mg PO BID [facility] Stop: 03/19/19 20:59 Last Admin: 02/18/19 08:49 Dose: 0.4 mg Documented by: PG Care Time/CCT Total # of Minutes Spent Total Time Spent with Patient: Total time spent is greater than 50% in coordination of care (as documented) at patient's floor/unit and/or counseling patient:
[2019-02-18] MEDS: METOPROLOL SUCC 25MG EXT REL TAB PO SCH (08:46)
[2019-02-18] MEDS: LOSARTAN POTASSIUM 25 MG TAB PO SCH (08:48)
[2019-02-18] MEDS: PANTOprazole 40 MG TAB PO SCH ×2 (08:49→21:46)
[2019-02-18] MEDS: TAMSULOSIN HCL 0.4 MG CAP PO SCH ×2 (08:49→21:45)
[2019-02-18] MEDS: ROSUVASTATIN CALCIUM 20 MG TAB PO SCH (08:50)
[2019-02-18] MEDS ORDERED: CLOPIDOGREL BISULFATE 75 MG TAB PO SCH (09:00)
--- NOTE | 2019-02-18 09:14 | Hospitalist Progress Note ---
Date of Service February 18, 2019 Assessment & Plan (1) Nausea: (2) Elevated LFTs: Transaminitis Chronic Cholecystitis -Referred for direct admission for evaluation of nausea and failure to thrive -S/P paraesophageal hernia repair and fundoplication on 01/20/19; has been doing poorly since surgery -On arrival, patient febrile Temperature of 38.8 celsius (101.84 F) on 02/17/19 afternoon 02/17/19 CT abdomen recommended ultrasound gallbladder for further imaging Ultrasound gallbladder: Distended gallbladder with layering sludge is noted with the gallbladder wall measuring within the upper limits of normal. No pericholecystic edema or cholelithiasis identified 02/17/19 HIDA 1. Delayed uptake of tracer within the distended gallbladder is suggestive of chronic cholecystitis. Correlate with clinical history. 2. No evidence of common bile duct obstruction. -follow liver function enzymes -continue IV antibiotic of Zosyn, follow admission blood cultures -awaiting general surgery whether any gallbladder surgery needed at this time (3) Status post Rocio fundoplication: (4) S/P repair of paraesophageal hernia: -S/P paraesophageal hernia repair and fundoplication on 01/20/19 Ascending thoracic aneurysm -admission CT chest 02/17/19 1. Interval reduction of the large hiatus hernia with a small amount of edema/hemorrhage surrounding the distal esophagus. This is nonspecific but favors resolving postoperative change. No extraluminal gas to suggest a leak/perforation. 2. Mild thickening of the distal esophagus which is also likely postoperative. 3. No change in the 4.3 cm ascending thoracic aneurysm. 4. Trace pericardial effusion. -monitor ascending thoracic aneurysm sizes as outpatient CT surgery was consulted to follow the patient while under hospitalist medical service (5) CAD (coronary artery disease): -appears stable, no reports of chest pain -02/2018 -S/P VIRGEN to LAD -Continue statin and beta-gretchen -will hold aspirin and clopidogrel for now; if no imminent surgery then can resu me aspirin 81 mg qPM and clopidogrel 75 mg daily (6) Diastolic dysfunction: -Echo 12/2017-EF 55 to 59%, grade 1 diastolic dysfunction -patient has received IV fluids while NPO, resume home dose Lasix 20 mg daily -pulmonary consult was requested by admitting hospitalist team for cough, but patient does not appear to have any acute respiratory issues at this time (7) Hypertension: -continue metoprolol and losartan (8) BPH (benign prostatic hyperplasia): -Continue tamsulosin (9) GERD (gastroesophageal reflux disease): -Continue PPI and H2 gretchen (10) DVT prophylaxis: -SCDs for now Subjective Patient seen and examined at bedside. He has feeling of nausea. but no vomiting. T max of 38.8 celsius (101.84 F) on 02/17/19 afternoon. Patient has not had febrile temperature since. Patient denies chest pain or back pain. the abdomen is soft and nontender. There are surgical scars from previous abdominal procedure in the past for hernia repair. He is currently NPO and awaiting for further general surgery recommendations in regard stop gallbladder with recent HIDA imaging of chronic cholecystitis. IV Zosyn currently running Physical Exam Constitutional: WD/WN, vitals as above Eyes: PERRL, conjunctivae normal, anicteric sclerae EOM intact bilaterally ENMT: external ear and nose normal, oropharynx normal Neck: normal visual inspection Respiratory: normal respiratory effort, lungs clear to auscultation Gastrointestinal (Abdomen): the abdomen is soft and nontender. There are surgical scars from previous abdominal procedure in the past for hernia repair. Musculoskeletal: Head/Neck/Chest: normocephalic and head atraumatic Neurologic: PERRL, EOMI, accommodation nl, no face palsy, no dysarthria Psychiatric: A+Ox3, euthymic affect Results & Data Vital Signs (Past 12 Hours) Vital Signs Temp Pulse Resp BP BP Pulse Ox 02/18/19 07:39 36.7 C 75 18 132/74 95 02/18/19 07:12 67 14 97 02/17/19 23:12 36.8 C 76 20 143/74 H 93
[2019-02-18] MEDS: SODIUM CHLORIDE 0.9% 1000ML 1,000 ML IV SCH (10:51)
[2019-02-18] MEDS: FUROSEMIDE 20 MG TAB PO SCH (10:55)
[2019-02-18] MEDS ORDERED: bisacodyL 5 MG TABEC PO ONE ×2 (11:18→14:11)
--- NOTE | 2019-02-18 12:01 | Surgery Progress Note ---
Date of Service February 18, 2019 Assessment & Plan (1) Nausea: Etiology of his nausea is unclear. There was some fluid around the stomach and distal esophagus with thickening of the distal esophagus, likely post surgical changes from paraesophageal hernia repair. He had a CT showing possible pericholecystic inflammatory change however that was not confirmed by ultrasound. He does not have stones but does have some sludge. HIDA scan showing delayed uptake into gallbladder suggestive of chronic cholecystitis however no common duct obstruction as there was prompt uptake by small bowel. His liver enzymes and alk phos are elevated but his t. bili is wnl and the hida scan showing no CBD obstruction therefore little concern for choledocholithaisis or obstruction by sludge. He does have chronic constipation and had very small very hard bowel movement this morning. Prior to this he did not have a bowel movement for 1 week even with Dulcolax and suppository at home. His nausea has been chronic and was even prior to his paraesophageal hernia repair. Given his chronic nausea and chronic constipation, concern for possible GI dysmotility as etiology of his nausea. Will plan to consult GI for further evaluation. He also has history of H. pylori. May need EGD to rule out PUD or gastric emptying study to rule out gastroparesis. Dr. Lozada and I both discussed with patient HIDA scan results of chronic cholecystitis and that his chronic nausea may not be caused by his gallbadder and there is a chance that taking his gallbladder out may not resolve his symptoms. He would prefer to have further testing to rule out other etiologies of his chronic nausea. He may eventually need cholecystectomy if further work-up is negative however do not feel cholecystectomy for nausea alone is warranted without further testing. Dr. Lozada has seen and examined pt, agrees with above. Subjective continues to have nausea, "I felt just as bad last night as when I came into hospital" some right sided abdominal discomfort but not pain no vomiting present at bedside, states since surgery he has had issues with appetite, nausea and unable to do boost/ensure/smoothies. Has lost 25 pounds since surgery he states he has no appetite and has multiple episodes of nausea daily which occurred before and after his paraesophageal hernia repair Physical Exam Constitutional: WD/WN, vitals as above no acute distress Gastrointestinal (Abdomen): Inspection/Auscultation: abdomen normal to inspection and + abdominal surgical scar (laparoscopic incisions present); abdomen not distended and + abnormal bowel sounds (hypoactive) Percussion/Palpation: + abdomen tender (RUQ on deep palpation, RLQ) and abdomen soft; no guarding and abdomen not rigid Skin: no rashes, warm and dry Psychiatric: Orientation: alert and oriented x 3 Results & Data Vital Signs (Past 12 Hours) Vital Signs Temp Pulse Resp BP Pulse Ox 02/18/19 07:39 36.7 C 75 18 132/74 95 02/18/19 07:12 67 14 97 Laboratory Results 02/18/19 02/18/19 02/18/19 Range/Units 05:57 05:57 05:57 WBC 4.46 L (4.8-10.8) K/uL RBC 3.66 L (4.7-6.1) M/uL Hgb 11.4 L (14.0-18.0) g/dL Hct 34.5 L (42-52) % MCV 94.3 (80-100) fL MCH 31.1 (25-34) pg MCHC 33.0 (32-36) g/dL RDW Std Deviation 45.8 (36.4-46.3) fL RDW Coeff of [place] 13.2 (11.5-14.5) % Plt Count 145 (130-400) K/uL MPV 9.2 (7.4-10.4) fL Sodium 138 (136-145) mmol/L Potassium 3.8 (3.5-5.1) mmol/L Chloride 104 (98-107) mmol/L Carbon Dioxide 27 (21-32) mmol/L Anion Gap 7.0 (3-11) BUN 12 (7-18) mg/dl Creatinine 0.99 (0.6-1.4) mg/dl Est Cr Clr Drug Dosing 81.1 ml/min Est GFR ( Amer) 85.4 Est GFR (Non-Af Amer) 73.7 BUN/Creatinine Ratio 11.7 (10-20) Glucose 93 (70-99) mg/dl Lactate (0.4-2.0) mmol/L Calcium 8.3 L (8.5-10.1) mg/dl Phosphorus 3.0 D (2.5-4.9) mg/dl Magnesium 2.0 (1.8-2.4) mg/dl Total Bilirubin 0.7 (0.2-1) mg/dl Direct Bilirubin 0.3 H (0-0.2) mg/dl AST 92 H (15-37) U/L ALT 162 H (12-78) U/L Alkaline Phosphatase 230 H (45-117) U/L Total Protein 5.9 L (6.4-8.2) gm/dl Albumin 2.5 L (3.4-5.0) gm/dl Urine Color Urine Appearance (Clear) Urine pH (4.5-7.5) Ur Specific [place] (1.000-1.030) Urine Protein (Negative) Urine Glucose (UA) (Negative) Urine Ketones (Negative) Urine Blood (Negative) Urine Nitrite (Negative) Urine Bilirubin (Negative) Urine Urobilinogen (Negative) Ur Leukocyte Esterase (Negative) 02/17/19 02/17/19 Range/Units 18:05 14:08 WBC (4.8-10.8) K/uL RBC (4.7-6.1) M/uL Hgb (14.0-18.0) g/dL Hct (42-52) % MCV (80-100) fL MCH (25-34) pg MCHC (32-36) g/dL RDW Std Deviation (36.4-46.3) fL RDW Coeff of [place] (11.5-14.5) % Plt Count (130-400) K/uL MPV (7.4-10.4) fL Sodium (136-145) mmol/L Potassium (3.5-5.1) mmol/L Chloride (98-107) mmol/L Carbon Dioxide (21-32) mmol/L Anion Gap (3-11) BUN (7-18) mg/dl Creatinine (0.6-1.4) mg/dl Est Cr Clr Drug Dosing ml/min Est GFR ( Amer) Est GFR (Non-Af Amer) BUN/Creatinine Ratio (10-20) Glucose (70-99) mg/dl Lactate 1.2 (0.4-2.0) mmol/L Calcium (8.5-10.1) mg/dl Phosphorus (2.5-4.9) mg/dl Magnesium (1.8-2.4) mg/dl Total Bilirubin (0.2-1) mg/dl Direct Bilirubin (0-0.2) mg/dl AST (15-37) U/L ALT (12-78) U/L Alkaline Phosphatase (45-117) U/L Total Protein (6.4-8.2) gm/dl Albumin (3.4-5.0) gm/dl Urine Color Yellow Urine Appearance Clear (Clear) Urine pH 5.5 (4.5-7.5) Ur Specific [place] 1.016 (1.000-1.030) Urine Protein Negative (Negative) Urine Glucose (UA) Negative (Negative) Urine Ketones 1+ H (Negative) Urine Blood Negative (Negative) Urine Nitrite Negative (Negative) Urine Bilirubin Negative (Negative) Urine Urobilinogen Negative (Negative) Ur Leukocyte Esterase Negative (Negative) Diagnostic Findings NM hepatobiliary CLINICAL HISTORY: 78 years-old Male with abnormal CT scan, sludge on ultrasound but no evid. Acute right upper quadrant abdominal pain TECHNIQUE: Sequential anterior abdominal images were obtained through 170 minutes following the intravenous administration of 5.5 mCi of technetium-99m Choletec. Intravenous morphine also administered at 120 minutes. COMPARISON: Right upper quadrant ultrasound and CT abdomen of same day FINDINGS: There is prompt, uniform accumulation of the tracer by the liver. There is normal filling of the intrahepatic ducts, common bile duct and normal excretion of the tracer into the duodenum. No filling of tracer into the gallbladder lumen at 60 minutes. An order was then given for IV morphine. Anterior delayed image at 110 minutes demonstrates faint uptake within the distended gallbladder lumen which is also noted at 120 minutes.. IMPRESSION: 1. Delayed uptake of tracer within the distended gallbladder is suggestive of chronic cholecystitis. Correlate with clinical history. 2. No evidence of common bile duct obstruction.
[2019-02-18] MEDS: POLYETHYLENE (MIRALAX) 17 GM PACK PO SCH (12:22)
--- NOTE | 2019-02-18 13:10 | Gastrointestinal Consultation ---
Date of Consultation February 18, 2019 Assessment & Plan (1) Elevated LFTs: This is transient, improving and may be related to passage of a small amt of gallbladder sludge but imaging does not suggest choledocholithiasis. Continue to follow LFTs daily. Present on Admission?: Yes (2) Nausea: Chronic nausea may be related to possible GI ulcers, eloise, poor GI esophageal and general GI motility as he is constipated. Plan: 1. EGD tomorrow to r/o ulcer disease and candidiasis. 2. Bowel regime: Would give 2 Dulcolax and 2 Miralax today then going forward would recommend Miralax daily. Present on Admission?: Yes Supervising Physician Co-Signing Physician Notes I have seen and examined the patient with MARIA DEL ROSARIO Pepe whose note reflects our findings and plan. Patient with nausea and recent paraesophageal hernia repair. Now with elevated LFTs, AP and mildly elevated bili. Imaging showing possible GB etiology. Asked to see patient by general surgery to r/o other potential causes for the nausea. No known history of PUD. On BID PPI. has a long history of chronic constipation. EGD planned for tomorrow, but may ultimately benefit from cholecystectomy. Please make patient NPO after [facility] History of Present Illness Reason for Consultation: Elevated LFTs Requesting Physician: Dr. Lozada Attending Physician: Jonn Alfaro MD History of Present Illness Mr. Walter Gilbert is a 78 yr old male pt of Dr. Cabrera with a hx of COPD, GERD, HTN, BPH and recent aspiration bronchitis who was direct admitted from Dr. Cabrera yesterday for nausea, failure to thrive since undergoing a paraesophageal hernia repair and fundoplication on 01/20. At home, he is on ASA, Plavix and Protonix 40mg BID. On arrival at [facility]: he was febrile but w/o leukocytosis. CT suggested acute cholecystitis. HIDA with delayed uptake, with prompt uptake of the contrast to the duodenum. US suggested GB sludge and mild CBD dilation at 9mm. LFTs were elevated AST 149->92, ALT 222->162, Alk phos and Bilirubin have remained w/o significant elevation. The pt is awake, alert, walking in the halls. When asked about pain, he mentions vague discomfort but denies RUQ post prandial pain. He is clear that his main issue is nausea which he says has been present for months to even a year prior to his paraesophageal hernia repair in December. He denies jaundice, dark urine, yellow eyes or acholic stools. Allergies Allergy/AdvReac Type Severity Reaction Status Date / Time No Known Allergies Allergy Verified 02/17/19 11:22 Home Medications Home Medications Medication Instructions Recorded Confirmed Type Vitron-C 1 tab PO Q2D 03/19/18 02/17/19 History acetaminophen 1,000 mg PO Q6H PRN 03/19/18 02/17/19 History aspirin 81 mg PO QPM 03/19/18 02/17/19 History cholecalciferol (vitamin D3) 2,000 unit PO QAM 03/19/18 02/17/19 History [Vitamin D3] cyanocobalamin (vitamin B-12) 500 mcg PO QAM 03/19/18 02/17/19 History multivitamin 1 tab PO QAM 03/19/18 02/17/19 History nitroglycerin [Nitrostat] 1 tab SUBLINGUAL DIRECTED PRN 03/19/18 02/17/19 History pantoprazole 40 mg PO BID 03/19/18 02/17/19 History sennosides-docusate sodium 1 tab PO HS 03/19/18 02/17/19 History [Senokot-S] tamsulosin 0.4 mg PO BID 03/19/18 02/17/19 History clopidogrel 75 mg PO QAM #30 tab 03/20/18 02/17/19 Rx furosemide [Lasix] 20 mg PO QAM 11/07/18 02/17/19 History losartan 25 mg PO QAM 11/07/18 02/17/19 History potassium chloride 10 meq PO QAM 11/07/18 02/17/19 History rosuvastatin [Crestor] 20 mg PO QAM 11/07/18 02/17/19 History tadalafil 20 mg PO DAILY PRN 11/07/18 02/17/19 History metoprolol succinate 12.5 mg PO QAM 12/24/18 02/17/19 History albuterol sulfate 2 puff INHALATION Q4H PRN 12/25/18 02/17/19 History ranitidine HCl 150 mg PO BID #60 cap 12/29/18 02/17/19 Rx levalbuterol 1.25 mg/3 mL solution 1.25 mg INH BID #75 ml 01/08/19 02/17/19 Rx for nebulization tramadol [Ultram] 50 mg PO QID PRN #14 tab 01/21/19 02/17/19 Rx ondansetron 8 mg PO Q8H PRN 02/17/19 02/17/19 History Patient History Medical History History of airway aspiration (Chronic) Hospitalized @ [facility] 12/25 - 12/29/18 for severe asthmatic bronchitis exacerbation felt to be 2/2 aspiration related to severe GERD. 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 on echo 12/2017 Arthritis (Chronic) Hiatal hernia (Chronic) With Oscar erosions felt to be source of Fe def anemia. Surgical History S/P repair of paraesophageal hernia (Chronic) Status post Rocio fundoplication (Chronic) Robot-assisted laparoscopic reduction of paraesophageal hernia and diaphragmatic repair 2. Reinforcement repair with OviTex bioabsorbable mesh 3. Floppy Rocio fundoplication Dr. 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) History of back surgery (Chronic) LOWER BACK-STENOSIS H/O umbilical hernia repair (Chronic) H/O left inguinal hernia repair (Chronic) H/O cervical spine surgery (Chronic) History of abdominal surgery Removal of lipoma from mesentery Family History Father Coronary heart disease Hypertension Mother Cancer Social History Preferred Language: [place] Communication Ability: Effective Bartender Required: No Beliefs That Will Affect Care: None marital status: Current Living Situation: Spouse current occupational status: retired current occupation: Retired Other Information That Helps Us Care for You: No Feels Safe at Home: Yes Safety Concerns: Feels Safe At This Time Smoking Status: Former smoker Second Hand Exposure: No ; Hx Alcohol Use: Yes Alcohol type: beer Alcohol Intake Frequency Comment: very seldome Hx Substance Use: No Review of Systems Review of Systems: ROS: Gen: + weakness which he attributes to poor po intake, + weight loss. Eyes: No eye redness, or pain, no recent vision changes Resp: No SOB, no cough Cardio: No palpitations/irregular beats, no chest pain GI: No abdominal pain, +++ nausea, no vomiting : Denies pain on urination Skin: No jaundice, itching or new rashes Physical Exam Constitutional: WD/WN, vitals as above Eyes: PERRL, conjunctivae normal, anicteric sclerae ENMT: external ear and nose normal, oropharynx normal Neck: trachea midline, no thyromegaly Respiratory: normal respiratory effort, lungs clear to auscultation Cardiovascular: RRR, no murmur, no edema Gastrointestinal (Abdomen): Inspection/Auscultation: normal bowel sounds Percussion/Palpation: abdomen soft; no guarding He c/o pain on palpation of the right mid abdomen but this was not reproducible on repeat palpation. Incisions healing well. No masses. Non distended. Skin: no rashes, warm and dry Neurologic: patellar DTR's 2+ bilat, sensation intact Psychiatric: A+Ox3, euthymic affect Lymphatic: no cervical or axillary lymphadenopathy Results & Data Vital Signs (Past 12 Hours) Vital Signs Temp Pulse Resp BP Pulse Ox 02/18/19 07:39 36.7 C 75 18 132/74 95 02/18/19 07:12 67 14 97 Diagnostic Findings Non contrast Ct abd/pelvis on 02/17: 1. The gallbladder is distended. The gallbladder wall appears mildly thickened and there is pericholecystic inflammation. Findings are suspicious for acute cholecystitis. Consider right upper quadrant ultrasound for further assessment. 2. There is postoperative change consistent with a recent Rocio fundoplication. No significant residual hiatal hernia is identified. 3. Stranding and trace hemorrhage/fluid around the stomach as well as mild wall thickening of the distal esophagus are nonspecific and likely related to recent surgery. US 02/17/19: 1. Distended gallbladder with layering sludge is noted with the gallbladder wall measuring within the upper limits of normal. No pericholecystic edema or cholelithiasis identified. If there is clinical concern for acute acalculus cholecystitis, nuclear medicine hepatobiliary scan may be considered. 2. Mildly distended common bile duct, 9 mm.
[2019-02-18] MEDS ORDERED: POLYETHYLENE (MIRALAX) 17 GM PACK PO STA (14:11)
[2019-02-18] MEDS ORDERED: POLYETHYLENE (MIRALAX) 17 GM PACK PO SCH (14:14)
--- NOTE | 2019-02-18 14:16 | Progress Note ---
DATE: 02/18/2019 Mr. Gilbert was seen today. He is much better. He still had nausea, but he has responded to antiemetics. I have talked about this case with Dr. Lozada who is quite concerned the symptoms he complains of are not from his gallbladder. He looks good. He has very little in the way of tenderness. He has good bowel sounds. We are a bit concerned about his overall bowel motility. He is going to check a gastric emptying stomach, although his stomach does not appear distended on CT scan.
[2019-02-18] MEDS: ACETAMINOPHEN SOL 650 MG/20.3 ML UDC PO PRN (15:49)
--- NOTE | 2019-02-18 16:58 | Pulmonology Progress Note ---
Date of Service February 18, 2019 Assessment & Plan (1) S/P repair of paraesophageal hernia: (2) Elevated LFTs: (3) Nausea: (4) Status post Rocio fundoplication: (5) History of airway aspiration: From a respiratory standpoint I am quite pleased with his respiratory status and recovery from the Rocio fundoplication. I do not believe his lungs are the source of his fever or ongoing medical problems. GI workup planned. (6) Iron deficiency anemia: (7) Hypertension: (8) CAD (coronary artery disease): Subjective 78-year-old white male who remains mildly nauseated and still constipated at the time of this dictation. He does not look toxic and his fever has come down. He has good bowel sounds and along with Dr. Lozada her concerned that his symptoms in liver enzyme elevation are not the result of acute cholecystitis.. The stomach does not appear distended on CT scan and there is concern there may be a motility issue. Patient is scheduled apparently for any EGD tomorrow and GI consultation was obtained. The liver enzyme elevation may have been transient and result of gallbladder sludge but not suggestive of choledocholithiasis. Patient's respiratory status is excellent and I do not believe that is a source of the fever. Review of Systems Constitutional: no problem reported Eyes: no problem reported Ear, Nose, Mouth, Throat: no problem reported Respiratory: no problem reported Cardiovascular: no problem reported Gastrointestinal: no problem reported Genitourinary: no problem reported Musculoskeletal: no problem reported Integumentary: no problem reported Neurologic: no problem reported Psychiatric: no problem reported Endocrine: no problem reported Hematologic / Lymphatic: no problem reported Allergy / Immunological: no problem reported Physical Exam Constitutional: well developed and well nourished; no acute distress Eyes: PERRL, conjunctivae normal, anicteric sclerae ENMT: external ear and nose normal, oropharynx normal Neck: trachea midline, no thyromegaly Respiratory: normal respiratory effort Auscultation: lungs clear to auscultation bilaterally Cardiovascular: RRR, no murmur, no edema Palpation: normal PMI; no thrill Gastrointestinal (Abdomen): normal bowel sounds, soft, nontender, no hepatosplenomegaly Musculoskeletal: no cyanosis or clubbing, extremities motor strength 5/5 Gait: normal gait Skin: no rashes, warm and dry Neurologic: PERRL, EOMI, accommodation nl, no face palsy, no dysarthria Psychiatric: A+Ox3, euthymic affect Lymphatic: no cervical or axillary lymphadenopathy Results & Data Vital Signs (Past 12 Hours) Vital Signs Temp Pulse Resp BP Pulse Ox 02/18/19 15:51 36.9 C 68 18 163/84 H 97 02/18/19 07:39 36.7 C 75 18 132/74 95 02/18/19 07:12 67 14 97 Laboratory Results Abnormal Labs 02/17/19 02/17/19 02/17/19 12:58 12:58 18:05 WBC RBC 3.98 L Hgb 12.2 L Hct 37.1 L Lymph # (Auto) 0.30 L Sodium 135 L Glucose 100 H Calcium Phosphorus 2.0 L Direct Bilirubin AST 149 H ALT 222 H Alkaline Phosphatase 210 H Total Protein Albumin 2.9 L Albumin/Globulin Ratio 0.8 L Lipase 60 L Urine Ketones 1+ H 02/18/19 02/18/19 02/18/19 05:57 05:57 05:57 WBC 4.46 L RBC 3.66 L Hgb 11.4 L Hct 34.5 L Lymph # (Auto) Sodium Glucose Calcium 8.3 L Phosphorus Direct Bilirubin 0.3 H AST 92 H ALT 162 H Alkaline Phosphatase 230 H Total Protein 5.9 L Albumin 2.5 L Albumin/Globulin Ratio Lipase Urine Ketones Medications Administered Current Inpatient Medications Acetaminophen (Tylenol) 650 mg PO Q6 PRN PRN Reason: Pain or Fever Stop: 03/19/19 13:44 Last Admin: 02/18/19 15:49 Dose: 650 mg Documented by: Aspirin (Ecotrin Ectab) 81 mg PO QPM [facility] Stop: 03/19/19 20:59 Last Admin: 02/17/19 23:03 Dose: 81 mg Documented by: Furosemide (Lasix) 20 mg PO QAM [facility] Stop: 03/20/19 09:29 Last Admin: 02/18/19 10:55 Dose: 20 mg Documented by: Piperacillin Sod/Tazobactam (Sod 3.375 gm/ Dextrose) 115 mls @ 28.75 mls/hr IV Q8H [facility]; Protocol Stop: 02/27/19 21:59 Last Admin: 02/18/19 15:06 Dose: 28.8 mls/hr Documented by: Dextrose/Sodium Chloride (D5w And 1/2nss) 1,000 mls @ 60 mls/hr IV .[id number] [facility] Stop: 03/20/19 07:14 Last Admin: 02/18/19 07:25 Dose: 60 mls/hr Documented by: Levalbuterol HCl (Xopenex 1.25mg/3ml Neb) 1.25 mg INH BIDR [facility] Stop: 03/19/19 18:59 Last Admin: 02/18/19 07:10 Dose: 1.25 mg Documented by: Losartan Potassium (Cozaar) 25 mg PO QAM [facility] Stop: 03/20/19 08:59 Last Admin: 02/18/19 08:48 Dose: 25 mg Documented by: Metoprolol Succinate (Toprol Xl) 12.5 mg PO QAM [facility] Stop: 03/20/19 08:59 Last Admin: 02/18/19 08:46 Dose: 12.5 mg Documented by: Miscellaneous Information (Consult) 1 ea N/A UD PRN PRN Reason: Consult Stop: 03/19/19 14:23 Ondansetron HCl (Zofran) 4 mg IV Q6H PRN PRN Reason: Nausea Stop: 03/19/19 13:44 Last Admin: 02/18/19 15:06 Dose: 4 mg Documented by: Pantoprazole Sodium (Protonix) 40 mg PO BID [facility] Stop: 03/19/19 20:59 Last Admin: 02/18/19 08:49 Dose: 40 mg Documented by: Polyethylene Glycol (Miralax Powder Packet) 17 gm PO DAILY [facility] Stop: 03/20/19 11:29 Last Admin: 02/18/19 12:22 Dose: 17 gm Documented by: Ranitidine HCl (Zantac) 150 mg PO BID [facility] Stop: 03/19/19 20:59 Last Admin: 02/18/19 08:49 Dose: 150 mg Documented by: Rosuvastatin Calcium (Crestor) 20 mg PO QAM [facility] Stop: 03/20/19 08:59 Last Admin: 02/18/19 08:50 Dose: 20 mg Documented by: Tamsulosin HCl (Flomax) 0.4 mg PO BID [facility] Stop: 03/19/19 20:59 Last Admin: 02/18/19 08:49 Dose: 0.4 mg Documented by: PG Care Time/CCT Total # of Minutes Spent Total Time Spent with Patient: Total time spent is greater than 50% in coordination of care (as documented) at patient's floor/unit and/or counseling patient:
[2019-02-19] MEDS: ONDANSETRON INJ 2 MG/ML 2 ML VIAL IV PRN ×2 (06:06→15:45)
[2019-02-19] MEDS: PIPERACILLIN/TAZOBACTAM 3.375 GM in DEXTROSE 5% 100 ML IV SCH ×3 (06:15→21:36)
[2019-02-19 06:26] LABS: Basophils # (auto) 0.06 K/uL (0-0.2); Basophils % (auto) 1.3 %; Eosinophils # (auto) 0.43 K/uL (0-0.5); Eosinophils % (auto) 9.2 %; Hematocrit (blood only) 38.5 % (42-52); Hemoglobin 12.9 g/dL (14.0-18.0); Lymphocytes # (auto) 0.94 K/uL (1.2-3.4); Mean Corpuscular Hemoglobin 31.6 pg (25-34); Mean Corpuscular Hgb Conc 33.5 g/dL (32-36); Mean Corpuscular Volume 94.4 fL (80-100); Mean Platelet Volume 9.5 fL (7.4-10.4); Monocytes # (auto) 0.53 K/uL (0.11-0.59); Monocytes % (auto) 11.3 %; Neutrophils # (auto) 2.73 K/uL (1.4-6.5); Neutrophils % (auto) 58.2 %; Platelet Count 199 K/uL (130-400); RDW Coefficient of Variation 13.2 % (11.5-14.5); Red Blood Count 4.08 M/uL (4.7-6.1); White Blood Count 4.69 K/uL (4.8-10.8)
[2019-02-19 06:57] LABS: Albumin Level 2.8 gm/dl (3.4-5.0); Creatinine Clr Calc Pharmacy 81.9 ml/min; Est GFR (African American) 86.5; Est GFR (Non-African American) 74.6; Potassium 3.8 mmol/L (3.5-5.1)
[2019-02-19 06:59] LABS: Albumin Globulin Ratio 0.8 (0.9-2); Bilirubin,Total 0.4 mg/dl (0.2-1); Globulin 3.6 gm/dl (2.5-4.0); Total Protein 6.4 gm/dl (6.4-8.2)
[2019-02-19] MEDS: LEVALBUTEROL HCL 1.25 MG/3 ML NEB INH SCH ×2 (07:11→19:11)
[2019-02-19] MEDS: LOSARTAN POTASSIUM 25 MG TAB PO SCH (08:09)
[2019-02-19] MEDS: TAMSULOSIN HCL 0.4 MG CAP PO SCH ×2 (08:09→20:36)
[2019-02-19] MEDS: POLYETHYLENE (MIRALAX) 17 GM PACK PO SCH (08:09)
[2019-02-19] MEDS: PANTOprazole 40 MG TAB PO SCH ×2 (08:09→20:35)
[2019-02-19] MEDS: ROSUVASTATIN CALCIUM 20 MG TAB PO SCH (08:09)
[2019-02-19] MEDS: FUROSEMIDE 20 MG TAB PO SCH (08:09)
[2019-02-19] MEDS: METOPROLOL SUCC 25MG EXT REL TAB PO SCH (08:09)
--- NOTE | 2019-02-19 09:52 | Gastroenterology Progress Note ---
Date of Service February 19, 2019 Assessment & Plan (1) Elevated LFTs: 78 year old male S/P paraesophageal hernia repair and fundoplication on 01/20 admitted with nausea, intermittent right sided abdominal pain, decreased appetite who is NPO for EGD for evaluation of his nausea. He has had transiently elevated LFTs, equivocal GB on imaging, perhaps he is passing sludge. General surgery following NPO EGD today Trend LFTs Continue bowel regimen Thank you for allowing us to participate in the care of this patient. Please call with any acute changes, questions or concerns. Please see addendum below with additional recommendation from my supervising physician. (2) Nausea: Supervising Physician Co-Signing Physician Notes I have seen and examined the patient with MARIA DEL ROSARIO James whose note reflects our findings and plan. EGD today Subjective Pt was seen and evaluated, chart reviewed He is NPO for EGD Notes he has continued nausea Denies abd pain Moved bowel last evening, no black or bloody stools Denies any fever, chills, CP , SOB Review of Systems Constitutional: no fever and no chills Respiratory: no cough and no dyspnea Cardiovascular: no chest pain Gastrointestinal: + nausea; no abdominal pain Physical Exam Constitutional: no acute distress and not ill appearing Neck: trachea midline Respiratory: normal respiratory effort Cardiovascular: Rate/Rhythm: regular rate and regular rhythm Gastrointestinal (Abdomen): Percussion/Palpation: abdomen soft; abdomen nontender Skin: no rashes, warm and dry Results & Data Vital Signs (Past 12 Hours) Vital Signs Temp Pulse Resp BP BP Pulse Ox 02/19/19 07:29 37.0 C 69 18 137/78 94 02/19/19 07:11 79 16 97 02/19/19 00:18 36.7 C 65 19 148/84 H 95 Laboratory Results 02/19/19 02/19/19 Range/Units 05:56 05:56 WBC 4.69 L (4.8-10.8) K/uL RBC 4.08 L (4.7-6.1) M/uL Hgb 12.9 L (14.0-18.0) g/dL Hct 38.5 L (42-52) % MCV 94.4 (80-100) fL MCH 31.6 (25-34) pg MCHC 33.5 (32-36) g/dL RDW Std Deviation 46.0 (36.4-46.3) fL RDW Coeff of [place] 13.2 (11.5-14.5) % Plt Count 199 (130-400) K/uL MPV 9.5 (7.4-10.4) fL Immature Gran % (Auto) 0.0 % Neut % (Auto) 58.2 % Lymph % (Auto) 20.0 % [place] % (Auto) 11.3 % Eos % (Auto) 9.2 % Baso % (Auto) 1.3 % Immature Gran # (Auto) 0.00 (0.00-0.02) K/uL Neut # (Auto) 2.73 (1.4-6.5) K/uL Lymph # (Auto) 0.94 L (1.2-3.4) K/uL [place] # (Auto) 0.53 (0.11-0.59) K/uL Eos # (Auto) 0.43 (0-0.5) K/uL Baso # (Auto) 0.06 (0-0.2) K/uL Sodium 140 (136-145) mmol/L Potassium 3.8 (3.5-5.1) mmol/L Chloride 106 (98-107) mmol/L Carbon Dioxide 27 (21-32) mmol/L Anion Gap 7.0 (3-11) BUN 6 L D (7-18) mg/dl Creatinine 0.98 (0.6-1.4) mg/dl Est Cr Clr Drug Dosing 81.9 ml/min Est GFR ( Amer) 86.5 Est GFR (Non-Af Amer) 74.6 BUN/Creatinine Ratio 6.0 L (10-20) Glucose 108 H (70-99) mg/dl Calcium 9.0 (8.5-10.1) mg/dl Total Bilirubin 0.4 (0.2-1) mg/dl AST 86 H (15-37) U/L ALT 146 H (12-78) U/L Alkaline Phosphatase 297 H (45-117) U/L Total Protein 6.4 (6.4-8.2) gm/dl Albumin 2.8 L (3.4-5.0) gm/dl Globulin 3.6 (2.5-4.0) gm/dl Albumin/Globulin Ratio 0.8 L (0.9-2)
--- NOTE | 2019-02-19 10:23 | Surgery Progress Note ---
Date of Service February 19, 2019 Assessment & Plan (1) Nausea: Etiology of his nausea is unclear. There was some fluid around the stomach and distal esophagus with thickening of the distal esophagus, likely post surgical changes from paraesophageal hernia repair. He had a CT showing possible pericholecystic inflammatory change however that was not confirmed by ultrasound. He does not have stones but does have some sludge. HIDA scan showing delayed uptake into gallbladder suggestive of chronic cholecystitis however no common duct obstruction as there was prompt uptake by small bowel. His liver enzymes and alk phos are elevated but his t. bili is wnl and the hida scan showing no CBD obstruction therefore little concern for choledocholithaisis or obstruction by sludge. He does have chronic constipation. His nausea has been chronic and was even prior to his paraesophageal hernia repair. Given his chronic nausea and chronic constipation, concern for possible GI dysmotility as etiology of his nausea. He also has history of H. pylori. Gi consulted, planning for EGD today to further evaluate. Dr. Lozada and I both discussed with patient HIDA scan results of chronic cholecystitis and that his chronic nausea may not be caused by his gallbadder and there is a chance that taking his gallbladder out may not resolve his symptoms. He would prefer to have further testing to rule out other etiologies of his chronic nausea. He may eventually need cholecystectomy if further work- up is negative however do not feel cholecystectomy for nausea alone is warranted without further testing. Will await results of EGD today, if negative will need to discuss option of c holecystectomy possibly tomorrow afternoon (02/20/19) Continue daily Miralax for constipation Continue NPO Continue IV fluids, pain management as needed, IV zofran as needed Continue Protonix/zantac Continue IV Zosyn encourage ambulation SCDs for DVT prophylaxis Dr. Lozada has seen and examined pt, agrees with above. Subjective continued nausea, required medication last night and this morning had bowel movement last night, afterwards had RUQ abdominal pain 6/10 going for EGD today Physical Exam Constitutional: WD/WN, vitals as above no acute distress Gastrointestinal (Abdomen): Inspection/Auscultation: + abdominal surgical incision (laparoscopic incisions present); abdomen not distended Percussion/Palpation: abdomen soft; abdomen nontender, no guarding and abdomen not rigid Skin: no rashes, warm and dry Psychiatric: Orientation: alert and oriented x 3 Results & Data Vital Signs (Past 12 Hours) Vital Signs Temp Pulse Resp BP BP Pulse Ox 02/19/19 07:29 37.0 C 69 18 137/78 94 02/19/19 07:11 79 16 97 02/19/19 00:18 36.7 C 65 19 148/84 H 95 Laboratory Results 02/19/19 02/19/19 Range/Units 05:56 05:56 WBC 4.69 L (4.8-10.8) K/uL RBC 4.08 L (4.7-6.1) M/uL Hgb 12.9 L (14.0-18.0) g/dL Hct 38.5 L (42-52) % MCV 94.4 (80-100) fL MCH 31.6 (25-34) pg MCHC 33.5 (32-36) g/dL RDW Std Deviation 46.0 (36.4-46.3) fL RDW Coeff of [place] 13.2 (11.5-14.5) % Plt Count 199 (130-400) K/uL MPV 9.5 (7.4-10.4) fL Immature Gran % (Auto) 0.0 % Neut % (Auto) 58.2 % Lymph % (Auto) 20.0 % [place] % (Auto) 11.3 % Eos % (Auto) 9.2 % Baso % (Auto) 1.3 % Immature Gran # (Auto) 0.00 (0.00-0.02) K/uL Neut # (Auto) 2.73 (1.4-6.5) K/uL Lymph # (Auto) 0.94 L (1.2-3.4) K/uL [place] # (Auto) 0.53 (0.11-0.59) K/uL Eos # (Auto) 0.43 (0-0.5) K/uL Baso # (Auto) 0.06 (0-0.2) K/uL Sodium 140 (136-145) mmol/L Potassium 3.8 (3.5-5.1) mmol/L Chloride 106 (98-107) mmol/L Carbon Dioxide 27 (21-32) mmol/L Anion Gap 7.0 (3-11) BUN 6 L D (7-18) mg/dl Creatinine 0.98 (0.6-1.4) mg/dl Est Cr Clr Drug Dosing 81.9 ml/min Est GFR ( Amer) 86.5 Est GFR (Non-Af Amer) 74.6 BUN/Creatinine Ratio 6.0 L (10-20) Glucose 108 H (70-99) mg/dl Calcium 9.0 (8.5-10.1) mg/dl Total Bilirubin 0.4 (0.2-1) mg/dl AST 86 H (15-37) U/L ALT 146 H (12-78) U/L Alkaline Phosphatase 297 H (45-117) U/L Total Protein 6.4 (6.4-8.2) gm/dl Albumin 2.8 L (3.4-5.0) gm/dl Globulin 3.6 (2.5-4.0) gm/dl Albumin/Globulin Ratio 0.8 L (0.9-2)
--- NOTE | 2019-02-19 10:34 | Anesthesiology Consultation ---
Date of Service February 19, 2019 Assessment & Plan Chart Review Chart Review: Acceptable Risk for Surgery Consults Requested none History Surgery Operation Date: 02/19/19 08:30 Proposed Procedures p Esophagogastroduodenoscopy Dr Núñez - Elizabeth Núñez Operation Date: 02/20/19 14:00 Proposed Procedures p Laparoscopic Cholecystectomy - Danial Lozada MD Height/Weight Height: 6 ft 2 in Weight: 102.5 kg Allergies Allergy/AdvReac Type Severity Reaction Status Date / Time No Known Allergies Allergy Verified 02/17/19 11:22 Medications Home Medications Medication Instructions Recorded Confirmed Last Taken Vitron-C 1 tab PO Q2D 03/19/18 02/17/19 01/17/19 08:00 acetaminophen 1,000 mg PO Q6H PRN 03/19/18 02/17/19 Unknown aspirin 81 mg PO QPM 03/19/18 02/17/19 02/16/19 21:00 cholecalciferol (vitamin D3) 2,000 unit PO QAM 03/19/18 02/17/19 01/19/19 08:00 [Vitamin D3] cyanocobalamin (vitamin B-12) 500 mcg PO QAM 03/19/18 02/17/19 01/19/19 08:00 multivitamin 1 tab PO QAM 03/19/18 02/17/19 01/19/19 08:00 nitroglycerin [Nitrostat] 1 tab SUBLINGUAL DIRECTED PRN 03/19/18 02/17/19 Unknown pantoprazole 40 mg PO BID 03/19/18 02/17/19 02/17/19 09:30 sennosides-docusate sodium 1 tab PO HS 03/19/18 02/17/19 01/19/19 20:00 [Senokot-S] tamsulosin 0.4 mg PO BID 03/19/18 02/17/19 02/17/19 09:30 clopidogrel 75 mg PO QAM #30 tab 03/20/18 02/17/19 02/17/19 09:30 furosemide [Lasix] 20 mg PO QAM 11/07/18 02/17/19 01/17/19 08:00 losartan 25 mg PO QAM 11/07/18 02/17/19 02/17/19 09:30 potassium chloride 10 meq PO QAM 06/02/17/19 01/19/19 08:00 rosuvastatin [Crestor] 20 mg PO QAM 11/07/18 02/17/19 01/20/19 08:00 tadalafil 20 mg PO DAILY PRN 11/07/18 02/17/19 Unknown metoprolol succinate 12.5 mg PO QAM 12/24/18 02/17/19 02/17/19 09:30 albuterol sulfate 2 puff INHALATION Q4H PRN 12/25/18 02/17/19 02/16/19 ranitidine HCl 150 mg PO BID #60 cap 12/29/18 02/17/19 02/17/19 09:30 levalbuterol 1.25 mg/3 mL solution 1.25 mg INH BID #75 ml 01/08/19 02/17/19 02/16/19 21:00 for nebulization tramadol [Ultram] 50 mg PO QID PRN #14 tab 01/21/19 02/17/19 Unknown ondansetron 8 mg PO Q8H PRN 02/17/19 02/17/19 Unknown Active Medications Generic Name Dose Route Start Last Admin Trade Name Freq PRN Reason Stop Dose Admin Acetaminophen 650 mg 02/17/19 13:45 02/18/19 15:49 Tylenol PO 03/19/19 13:44 650 mg Q6 PRN Administration Pain or Fever Aspirin 81 mg 02/17/19 21:00 02/17/19 23:03 Ecotrin Ectab PO 03/19/19 20:59 81 mg QPM GUADALUPE Administration Furosemide 20 mg 02/18/19 09:30 02/19/19 08:09 Lasix PO 03/20/19 09:29 20 mg QAM GUADALUPE Administration Piperacillin Sod/Tazobactam 115 mls @ 28.75 mls/hr 02/17/19 22:00 02/19/19 10:15 Sod 3.375 gm/ Dextrose IV 02/27/19 21:59 Infused Q8H GUADALUPE Infusion Protocol Dextrose/Sodium Chloride 1,000 mls @ 60 mls/hr 02/18/19 07:15 02/18/19 22:58 D5w And 1/2nss IV 03/20/19 07:14 60 mls/hr .[id number] GUADALUPE Administration Levalbuterol HCl 1.25 mg 02/17/19 19:00 02/19/19 07:11 Xopenex 1.25mg/3ml Neb INH 03/19/19 18:59 1.25 mg BIDR GUADALUPE Administration Losartan Potassium 25 mg 02/18/19 09:00 02/19/19 08:09 Cozaar PO 03/20/19 08:59 25 mg QAM GUADALUPE Administration Metoprolol Succinate 12.5 mg 02/18/19 09:00 02/19/19 08:09 Toprol Xl PO 03/20/19 08:59 12.5 mg QAM GUADALUPE Administration Ondansetron HCl 4 mg 02/17/19 13:45 02/19/19 06:06 Zofran IV 03/19/19 13:44 4 mg Q6H PRN Administration Nausea Pantoprazole Sodium 40 mg 02/17/19 21:00 02/19/19 08:09 Protonix PO 03/19/19 20:59 40 mg BID GUADALUPE Administration Polyethylene Glycol 17 gm 02/18/19 11:30 02/19/19 08:09 Miralax Powder Packet PO 03/20/19 11:29 17 gm DAILY GUADALUPE Administration Ranitidine HCl 150 mg 02/17/19 21:00 02/19/19 08:09 Zantac PO 03/19/19 20:59 150 mg BID GUADALUPE Administration Rosuvastatin Calcium 20 mg 02/18/19 09:00 02/19/19 08:09 Crestor PO 03/20/19 08:59 20 mg QAM GUADALUPE Administration Tamsulosin HCl 0.4 mg 02/17/19 21:00 02/19/19 08:09 Flomax PO 03/19/19 20:59 0.4 mg BID GUADALUPE Administration Past Medical History Medical History History of airway aspiration (Chronic) Hospitalized @ [facility] 12/25 - 12/29/18 for severe asthmatic bronchitis exacerbation felt to be 2/2 aspiration related to severe GERD. 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 on echo 12/2017 Arthritis (Chronic) Hiatal hernia (Chronic) With Oscar erosions felt to be source of Fe def anemia. Past Family History Family History Father Coronary heart disease Hypertension Mother Cancer Past Surgical History Surgical History S/P repair of paraesophageal hernia (Chronic) Status post Rocio fundoplication (Chronic) Robot-assisted laparoscopic reduction of paraesophageal hernia and diaphragmatic repair 2. Reinforcement repair with [employer]viTex bioabsorbable mesh 3. Floppy Rocio fundoplication Dr. 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) History of back surgery (Chronic) LOWER BACK-STENOSIS H/O umbilical hernia repair (Chronic) H/O left inguinal hernia repair (Chronic) H/O cervical spine surgery (Chronic) History of abdominal surgery Removal of lipoma from mesentery Social History Smoking Status: Former smoker Hx Alcohol Use: Yes Alcohol type: beer alcohol intake frequency: a few times a month Hx Substance Use: No substance use type: does not use Physical Exam Vital Signs Last Vital Signs Temp 37.0 C 02/19/19 07:29 Pulse 69 02/19/19 07:29 Resp 18 02/19/19 07:29 BP 137/78 02/19/19 07:29 Pulse Ox 94 02/19/19 07:29 Testing Laboratory Results 02/19/19 05:56 02/19/19 05:56 Urine Color Yellow 02/17/19 18:05 Urine Appearance Clear (Clear) 02/17/19 18:05 Urine pH 5.5 (4.5-7.5) 02/17/19 18:05 Ur Specific [place] 1.016 (1.000-1.030) 02/17/19 18:05 Urine Protein Negative (Negative) 02/17/19 18:05 Urine Glucose (UA) Negative (Negative) 02/17/19 18:05 Urine Ketones 1+ (Negative) H 02/17/19 18:05 Urine Nitrite Negative (Negative) 02/17/19 18:05 Ur Leukocyte Esterase Negative (Negative) 02/17/19 18:05 02/17/19 14:08 Aerobic Blood Culture - Preliminary Blood No growth in Aerobic bottle after 24 hours. Anaerobic Blood Culture - Preliminary No growth in Anaerobic bottle after 24 hours. 02/17/19 14:08 Aerobic Blood Culture - Preliminary Blood No growth in Aerobic bottle after 24 hours. Anaerobic Blood Culture - Preliminary No growth in Anaerobic bottle after 24 hours.
--- NOTE | 2019-02-19 11:05 | GI REPORT ---
Patient Name: Walter Gilbert Procedure Date: 02/19/2019 10:41 AM Date of : 1940 Admit Type: Inpatient Age: 78 Gender: Male Attending MD: Elizabeth Núñez DO Procedure: Upper GI endoscopy Providers: Elizabeth Núñez DO Referring MD: Michael Gray Indications: Abdominal pain in the right upper quadrant, Nausea Medicines: Propofol per Anesthesia Complications: No immediate complications. Estimated blood loss: Minimal. Estimated Blood Loss: Estimated blood loss was minimal. Procedure: Pre-Anesthesia Assessment: - Prior to the procedure, a History and Physical was performed, and patient medications, allergies and sensitivities were reviewed. The patient's tolerance of previous anesthesia was reviewed. - The risks and benefits of the procedure and the sedation options and risks were discussed with the patient. All questions were answered and informed consent was obtained. - Patient identification and proposed procedure were verified prior to the procedure by the physician and the nurse. The procedure was verified in the pre-procedure area in the procedure room. - Mental Status Examination: alert and oriented. Airway Examination: normal oropharyngeal airway and neck mobility. Respiratory Examination: clear to auscultation. CV Examination: normal. Abdominal Examination: bowel sounds present, abdomen soft and non-tender, no masses or organomegaly noted. - ASA Grade Assessment: III - A patient with severe systemic disease. After obtaining informed consent, the endoscope was passed under direct vision. Throughout the procedure, the patient's blood pressure, pulse, and oxygen saturations were monitored continuously. The Endoscope was introduced through the mouth, and advanced to the second part of duodenum. The upper GI endoscopy was accomplished without difficulty. The patient tolerated the procedure well. Findings: The esophagus was normal. Evidence of a Rocio fundoplication was found at the gastroesophageal junction. The wrap appeared intact. This was traversed. A small amount of food (residue) was found in the gastric body. Normal mucosa was found in the entire examined stomach. Biopsies were taken with a cold forceps for Helicobacter pylori testing. Verification of patient identification for the specimen was done by the physician and nurse using the patient's name and date. Estimated blood loss was minimal. The examined duodenum was normal. Impression: - Normal esophagus. - A Rocio fundoplication was found. The wrap appears intact. - A small amount of food (residue) in the stomach. - Normal mucosa was found in the entire stomach. Biopsied. - Normal examined duodenum. Recommendation: - Await pathology results. - Return patient to [facility] for ongoing care. Elizabeth Núñez D.O. Elizabeth Núñez DO 02/19/2019 11:04:59 AM This report has been signed electronically. Note Initiated On: 02/19/2019 10:41 AM Number of Addenda: 0 I attest to the content of the Intraoperative Record and orders documented therein, exceptions below {[id number]}
[2019-02-19] MEDS ORDERED: PROPOFOL IV EMULSION 10 MG/ML 20 ML VIAL IV ONE (11:07)
[2019-02-19] MEDS ORDERED: LIDOCAINE HCL 2% 2 ML VIAL/AMP(20MG/ML) INFIL ONE ×2 (11:07→11:08)
--- NOTE | 2019-02-19 11:47 | Anesthesiology Progress Note ---
Date of Service February 19, 2019 Anesthesia Post Procedure Vital Signs Vital Signs: Temp Pulse Resp BP BP Pulse Ox 02/19/19 11:17 69 18 156/85 H 94 02/19/19 11:12 62 18 151/81 H 96 02/19/19 11:06 66 18 132/83 96 02/19/19 10:31 36.7 C 61 20 148/73 H 97 02/19/19 07:29 37.0 C 69 18 137/78 94 02/19/19 07:11 79 16 97 02/19/19 00:18 36.7 C 65 19 148/84 H 95 02/18/19 19:11 78 16 97 02/18/19 15:51 36.9 C 68 18 163/84 H 97 Transfer of Care Handoff Completed per policy Notes Mental Status: alert / awake / arousable and participated in evaluation Patient Amnestic to Procedure: Yes Nausea / Vomiting: adequately controlled Pain: adequately controlled Airway Patency, RR, SpO2: stable & adequate BP & HR: stable & adequate Hydration State: stable & adequate Anesthetic Complications: no major complications apparent
--- NOTE | 2019-02-19 12:25 | Anesthesiology Consultation ---
Date of Service February 19, 2019 Assessment & Plan (1) Encounter for pre-operative examination: Chart Review Chart Review: Acceptable Risk for Surgery and Patient NOT seen in Pre Admission Testing patient had egd 02/19/2019. record not available. Consults Requested none History Surgery Operation Date: 02/19/19 08:30 Proposed Procedures p Esophagogastroduodenoscopy Dr Núñez - Elizabeth Núñez Operation Date: 02/20/19 14:00 Proposed Procedures p Laparoscopic Cholecystectomy - Danial Lozada MD Height/Weight Height: 6 ft 2 in Weight: 102.5 kg Allergies Allergy/AdvReac Type Severity Reaction Status Date / Time No Known Allergies Allergy Verified 02/17/19 11:22 Medications Home Medications Medication Instructions Recorded Confirmed Last Taken Vitron-C 1 tab PO Q2D 03/19/18 02/17/19 01/17/19 08:00 acetaminophen 1,000 mg PO Q6H PRN 03/19/18 02/17/19 Unknown aspirin 81 mg PO QPM 03/19/18 02/17/19 02/16/19 21:00 cholecalciferol (vitamin D3) 2,000 unit PO QAM 03/19/18 02/17/19 01/19/19 08:00 [Vitamin D3] cyanocobalamin (vitamin B-12) 500 mcg PO QAM 03/19/18 02/17/19 01/19/19 08:00 multivitamin 1 tab PO QAM 03/19/18 02/17/19 01/19/19 08:00 nitroglycerin [Nitrostat] 1 tab SUBLINGUAL DIRECTED PRN 03/19/18 02/17/19 Unknown pantoprazole 40 mg PO BID 03/19/18 02/17/19 02/17/19 09:30 sennosides-docusate sodium 1 tab PO HS 03/19/18 02/17/19 01/19/19 20:00 [Senokot-S] tamsulosin 0.4 mg PO BID 03/19/18 02/17/19 02/17/19 09:30 clopidogrel 75 mg PO QAM #30 tab 03/20/18 02/17/19 02/17/19 09:30 furosemide [Lasix] 20 mg PO QAM 11/07/18 02/17/19 01/17/19 08:00 losartan 25 mg PO QAM 11/07/18 02/17/19 02/17/19 09:30 potassium chloride 10 meq PO QAM 11/07/18 02/17/19 01/19/19 08:00 rosuvastatin [Crestor] 20 mg PO QAM 11/07/18 02/17/19 01/20/19 08:00 tadalafil 20 mg PO DAILY PRN 11/07/18 02/17/19 Unknown metoprolol succinate 12.5 mg PO QAM 12/24/18 02/17/19 02/17/19 09:30 albuterol sulfate 2 puff INHALATION Q4H PRN 12/25/18 02/17/19 02/16/19 ranitidine HCl 150 mg PO BID #60 cap 12/29/18 02/17/19 02/17/19 09:30 levalbuterol 1.25 mg/3 mL solution 1.25 mg INH BID #75 ml 01/08/19 02/17/19 02/16/19 21:00 for nebulization tramadol [Ultram] 50 mg PO QID PRN #14 tab 01/21/19 02/17/19 Unknown ondansetron 8 mg PO Q8H PRN 02/17/19 02/17/19 Unknown Active Medications Generic Name Dose Route Start Last Admin Trade Name Freq PRN Reason Stop Dose Admin Acetaminophen 650 mg 02/17/19 13:45 02/18/19 15:49 Tylenol PO 03/19/19 13:44 650 mg Q6 PRN Administration Pain or Fever Aspirin 81 mg 02/17/19 21:00 02/17/19 23:03 Ecotrin Ectab PO 03/19/19 20:59 81 mg QPM [facility] Administration Furosemide 20 mg 02/18/19 09:30 02/19/19 08:09 Lasix PO 03/20/19 09:29 20 mg QAM [facility] Administration Piperacillin Sod/Tazobactam 115 mls @ 28.75 mls/hr 02/17/19 22:00 02/19/19 10:15 Sod 3.375 gm/ Dextrose IV 02/27/19 21:59 Infused Q8H [facility] Infusion Protocol Dextrose/Sodium Chloride 1,000 mls @ 60 mls/hr 02/18/19 07:15 02/18/19 22:58 D5w And 1/2nss IV 03/20/19 07:14 60 mls/hr .[id number] [facility] Administration Levalbuterol HCl 1.25 mg 02/17/19 19:00 02/19/19 07:11 Xopenex 1.25mg/3ml Neb INH 03/19/19 18:59 1.25 mg BIDR [facility] Administration Losartan Potassium 25 mg 02/18/19 09:00 02/19/19 08:09 Cozaar PO 03/20/19 08:59 25 mg QAM [facility] Administration Metoprolol Succinate 12.5 mg 02/18/19 09:00 02/19/19 08:09 Toprol Xl PO 03/20/19 08:59 12.5 mg QAM [facility] Administration Ondansetron HCl 4 mg 02/17/19 13:45 02/19/19 06:06 Zofran IV 03/19/19 13:44 4 mg Q6H PRN Administration Nausea Pantoprazole Sodium 40 mg 02/17/19 21:00 02/19/19 08:09 Protonix PO 03/19/19 20:59 40 mg BID [facility] Administration Polyethylene Glycol 17 gm 02/18/19 11:30 02/19/19 08:09 Miralax Powder Packet PO 03/20/19 11:29 17 gm DAILY [facility] Administration Ranitidine HCl 150 mg 02/17/19 21:00 02/19/19 08:09 Zantac PO 03/19/19 20:59 150 mg BID [facility] Administration Rosuvastatin Calcium 20 mg 02/18/19 09:00 02/19/19 08:09 Crestor PO 03/20/19 08:59 20 mg QAM [facility] Administration Tamsulosin HCl 0.4 mg 02/17/19 21:00 02/19/19 08:09 Flomax PO 03/19/19 20:59 0.4 mg BID [facility] Administration NPO Date Last Intake of Fluids: 02/19/19 Time Last Intake of Fluids: 00:00 Date Last Intake of Solids: 02/18/19 Time Last Intake of Solids: 17:30 Past Medical History Medical History History of airway aspiration (Chronic) Hospitalized @ [facility] 12/25 - 12/29/18 for severe asthmatic bronchitis exacerbation felt to be 2/2 aspiration related to severe GERD. 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 on echo 12/2017 Arthritis (Chronic) Hiatal hernia (Chronic) With Oscar erosions felt to be source of Fe def anemia. Past Family History Family History Father Coronary heart disease Hypertension Mother Cancer Past Surgical History Surgical History S/P repair of paraesophageal hernia (Chronic) Status post Rocio fundoplication (Chronic) Robot-assisted laparoscopic reduction of paraesophageal hernia and diaphragmatic repair 2. Reinforcement repair with OviTex bioabsorbable mesh 3. Floppy Rocio fundoplication Dr. 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) History of back surgery (Chronic) LOWER BACK-STENOSIS H/O umbilical hernia repair (Chronic) H/O left inguinal hernia repair (Chronic) H/O cervical spine surgery (Chronic) History of abdominal surgery Removal of lipoma from mesentery Social History Smoking Status: Former smoker Hx Alcohol Use: Yes Alcohol type: beer alcohol intake frequency: a few times a month Hx Substance Use: No substance use type: does not use Physical Exam Vital Signs Last Vital Signs Temp 36.5 C 02/19/19 11:51 Pulse 59 L 02/19/19 11:51 Resp 20 02/19/19 11:51 BP 136/86 02/19/19 11:51 Pulse Ox 98 02/19/19 11:51 Testing Laboratory Results 02/19/19 05:56 02/19/19 05:56 Urine Color Yellow 02/17/19 18:05 Urine Appearance Clear (Clear) 02/17/19 18:05 Urine pH 5.5 (4.5-7.5) 02/17/19 18:05 Ur Specific [place] 1.016 (1.000-1.030) 02/17/19 18:05 Urine Protein Negative (Negative) 02/17/19 18:05 Urine Glucose (UA) Negative (Negative) 02/17/19 18:05 Urine Ketones 1+ (Negative) H 02/17/19 18:05 Urine Nitrite Negative (Negative) 02/17/19 18:05 Ur Leukocyte Esterase Negative (Negative) 02/17/19 18:05 02/17/19 14:08 Aerobic Blood Culture - Preliminary Blood No growth in Aerobic bottle after 24 hours. Anaerobic Blood Culture - Preliminary No growth in Anaerobic bottle after 24 hours. 02/17/19 14:08 Aerobic Blood Culture - Preliminary Blood No growth in Aerobic bottle after 24 hours. Anaerobic Blood Culture - Preliminary No growth in Anaerobic bottle after 24 hours. Electrocardiogram Date: 01/01/19 Electrocardiogram Date: 01/01/19 Findings: + NSR @ (73bpm) Right bundle branch block. Septal infarct, age undetermined. Compared with EKG of 03/15/2018, right bundle branch block is now presen
[2019-02-19] MEDS: D5W AND 1/2NSS 1,000 ML IV SCH (13:26)
--- NOTE | 2019-02-19 14:04 | Progress Note ---
DATE: 02/19/2019 Mr. Gilbert was seen today on 02/19/2019. He underwent an upper endoscopy which reveals an intact wrap and a small amount of retained food in the stomach. He is scheduled for a laparoscopic cholecystectomy on 02/20/[address] Danial Lozada.
--- NOTE | 2019-02-19 14:13 | Pulmonology Progress Note ---
Date of Service February 19, 2019 Assessment & Plan (1) S/P repair of paraesophageal hernia: (2) Elevated LFTs: (3) Status post Rocio fundoplication: (4) History of airway aspiration: Will follow perioperatively from a respiratory standpoint. (5) Iron deficiency anemia: (6) Acute cholecystitis without calculus: Subjective EGD showed the fundoplication was intact with no other acute pathology. Patient apparently is scheduled for laparoscopic cholecystectomy tomorrow we will follow from a pulmonary standpoint perioperatively. Review of Systems Constitutional: no problem reported Eyes: no problem reported Ear, Nose, Mouth, Throat: no problem reported Respiratory: no problem reported Cardiovascular: no problem reported Gastrointestinal: no problem reported Genitourinary: no problem reported Musculoskeletal: no problem reported Integumentary: no problem reported Neurologic: no problem reported Psychiatric: no problem reported Endocrine: no problem reported Hematologic / Lymphatic: no problem reported Allergy / Immunological: no problem reported Physical Exam Constitutional: well developed and well nourished; no acute distress Eyes: PERRL, conjunctivae normal, anicteric sclerae ENMT: external ear and nose normal, oropharynx normal Neck: trachea midline, no thyromegaly Respiratory: normal respiratory effort Auscultation: lungs clear to auscultation bilaterally Cardiovascular: RRR, no murmur, no edema Palpation: normal PMI; no thrill Gastrointestinal (Abdomen): normal bowel sounds, soft, nontender, no hepatosplenomegaly Musculoskeletal: no cyanosis or clubbing, extremities motor strength 5/5 Gait: normal gait Skin: no rashes, warm and dry Neurologic: PERRL, EOMI, accommodation nl, no face palsy, no dysarthria Psychiatric: A+Ox3, euthymic affect Lymphatic: no cervical or axillary lymphadenopathy Results & Data Vital Signs (Past 12 Hours) Vital Signs Temp Pulse Resp BP BP Pulse Ox 02/19/19 11:51 36.5 C 59 L 20 136/86 98 02/19/19 11:17 69 18 156/85 H 94 02/19/19 11:12 62 18 151/81 H 96 02/19/19 11:06 66 18 132/83 96 02/19/19 10:31 36.7 C 61 20 148/73 H 97 02/19/19 07:29 37.0 C 69 18 137/78 94 02/19/19 07:11 79 16 97 PG Care Time/CCT Total # of Minutes Spent Total Time Spent with Patient: Total time spent is greater than 50% in coordination of care (as documented) at patient's floor/unit and/or counseling patient:
--- NOTE | 2019-02-19 15:21 | Hospitalist Progress Note ---
Date of Service February 19, 2019 Assessment & Plan (1) Nausea: post-operative nausea s/p Rocio fundcoplication on 01/20 which didn't begin until two weeks ago. Etiologies include but not limited to some complication of this surgery vs delayed gastric emptying vs cholecystitis. EGD ruled out any eloise infection or ulcerative disease today. Some residual food was seen in the stomach with the last meal being last night which may make delayed gastric emptying more plausible. Planned for lap marisa tomorrow. (2) Elevated LFTs: Thought secondary to cholecystitis. Plan for lap marisa in am. (3) Status post Rocio fundoplication: on 01/20. Thoracic surgery is aware of his admission and following case. Cont soft foods diet until further cleared from them. (4) S/P repair of paraesophageal hernia: (5) CAD (coronary artery disease): -appears stable, no reports of chest pain -02/2018 -S/P VIRGEN to LAD -Continue statin and beta-gretchen -cont holding aspirin and clopidogrel for now with surgery planned for am. (6) Diastolic dysfunction: -Echo 12/2017-EF 55 to 59%, grade 1 diastolic dysfunction -on a clear diet so IVF were stopped. Lasix also held at this time to avoid dehydration until PO intake increases more post operatively. (7) Hypertension: Controlled, continue metoprolol and losartan (8) BPH (benign prostatic hyperplasia): -Continue tamsulosin (9) GERD (gastroesophageal reflux disease): -Continue PPI and H2 gretchen (10) DVT prophylaxis: -SCDs Full Code Dispo-plan for lap marisa in am. Anushka Jauregui DO [facility] Hospitalist Subjective 78-year-old man presented with extreme fatigue and persistent nausea with food aversion. He is status post repair of paraesophageal hernia and Rocio fundoplication on 01/20. Work-up revealed elevated LFTs. CT scan of the abdomen pelvis indicated gallbladder wall thickening with distention and cholecystic stranding. Cholecystitis was suspected and he was placed on Zosyn. He is somewhat better today and underwent an EGD which was normal but revealed food in the stomach present from last night. Currently denies pain although reports that he did have some RUQ pain that was present prior to eating last night and lasted all night long. Rated a 4 out of 10. He denies having this in the past. He reports light colored stools that are in small amounts. Review of Systems Review of Systems: All systems reviewed & are unremarkable except as noted in HPI & below Physical Exam Physical Exam: CONSTITUTIONAL: obese, vitals as above, generally well-appearing EYES: normal conjunctivae, no scleral icterus ENT: MMM RESPIRATORY: clear to auscultation bilaterally, no crackles, rales or wheezes, normal respiratory effort CARDIOVASCULAR: regular rate and rhythm, S1 and 2 heard without murmurs, gallops or rubs, no JVD, no peripheral edema GASTROINTESTINAL: normal bowel sounds, soft, nontender, nondistended, multiple well-healed laparoscopic incision sites with scabs. MUSCULOSKELETAL: strength 5/5 throughout, head is normocephalic and atraumatic SKIN: warm and dry, incision sites as above NEUROLOGIC: CN 2-12 grossly intact, no sensory deficit, normal cognition, normal speech, no gross focal deficits. PSYCHIATRIC: alert cooperative and oriented to person, place and time. Results & Data Vital Signs (Past 12 Hours) Vital Signs Temp Pulse Resp BP BP Pulse Ox 02/19/19 11:51 36.5 C 59 L 20 136/86 98 02/19/19 11:17 69 18 156/85 H 94 02/19/19 11:12 62 18 151/81 H 96 02/19/19 11:06 66 18 132/83 96 02/19/19 10:31 36.7 C 61 20 148/73 H 97 02/19/19 07:29 37.0 C 69 18 137/78 94 02/19/19 07:11 79 16 97 Laboratory Results Short CBC 02/19/19 Range/Units 05:56 WBC 4.69 L (4.8-10.8) K/uL Hgb 12.9 L (14.0-18.0) g/dL Hct 38.5 L (42-52) % Plt Count 199 (130-400) K/uL BMP 02/19/19 05:56 Sodium 140 Potassium 3.8 Chloride 106 Carbon Dioxide 27 BUN 6 L D Creatinine 0.98 Glucose 108 H Calcium 9.0 Liver Function 02/19/19 Range/Units 05:56 Total Bilirubin 0.4 (0.2-1) mg/dl AST 86 H (15-37) U/L ALT 146 H (12-78) U/L Alkaline Phosphatase 297 H (45-117) U/L Albumin 2.8 L (3.4-5.0) gm/dl Medications Administered Current Inpatient Medications Acetaminophen (Tylenol) 650 mg PO Q6 PRN PRN Reason: Pain or Fever Stop: 03/19/19 13:44 Last Admin: 02/18/19 15:49 Dose: 650 mg Documented by: Aspirin (Ecotrin Ectab) 81 mg PO QPM [facility] Stop: 03/19/19 20:59 Last Admin: 02/17/19 23:03 Dose: 81 mg Documented by: Furosemide (Lasix) 20 mg PO QAM [facility] Stop: 03/20/19 09:29 Last Admin: 02/19/19 08:09 Dose: 20 mg Documented by: Piperacillin Sod/Tazobactam (Sod 3.375 gm/ Dextrose) 115 mls @ 28.75 mls/hr IV Q8H [facility]; Protocol Stop: 02/27/19 21:59 Last Admin: 02/19/19 13:26 Dose: 28.8 mls/hr Documented by: Dextrose/Sodium Chloride (D5w And 1/2nss) 1,000 mls @ 60 mls/hr IV .[id number] [facility] Stop: 03/20/19 07:14 Last Admin: 02/19/19 13:26 Dose: 60 mls/hr Documented by: Levalbuterol HCl (Xopenex 1.25mg/3ml Neb) 1.25 mg INH BIDR [facility] Stop: 03/19/19 18:59 Last Admin: 02/19/19 07:11 Dose: 1.25 mg Documented by: Losartan Potassium (Cozaar) 25 mg PO [facility] Stop: 03/20/19 08:59 Last Admin: 02/19/19 08:09 Dose: 25 mg Documented by: Metoprolol Succinate (Toprol Xl) 12.5 mg PO [facility] Stop: 03/20/19 08:59 Last Admin: 02/19/19 08:09 Dose: 12.5 mg Documented by: Miscellaneous Information (Consult) 1 ea N/A UD PRN PRN Reason: Consult Stop: 03/19/19 14:23 Ondansetron HCl (Zofran) 4 mg IV Q6H PRN PRN Reason: Nausea Stop: 03/19/19 13:44 Last Admin: 02/19/19 06:06 Dose: 4 mg Documented by: Pantoprazole Sodium (Protonix) 40 mg PO BID [facility] Stop: 03/19/19 20:59 Last Admin: 02/19/19 08:09 Dose: 40 mg Documented by: Polyethylene Glycol (Miralax Powder Packet) 17 gm PO DAILY [facility] Stop: 03/20/19 11:29 Last Admin: 02/19/19 08:09 Dose: 17 gm Documented by: Ranitidine HCl (Zantac) 150 mg PO BID [facility] Stop: 03/19/19 20:59 Last Admin: 02/19/19 08:09 Dose: 150 mg Documented by: Rosuvastatin Calcium (Crestor) 20 mg PO QAM [facility] Stop: 03/20/19 08:59 Last Admin: 02/19/19 08:09 Dose: 20 mg Documented by: Tamsulosin HCl (Flomax) 0.4 mg PO BID [facility] Stop: 03/19/19 20:59 Last Admin: 02/19/19 08:09 Dose: 0.4 mg Documented by:
[2019-02-20] MEDS ORDERED: LORazepam 0.5 MG TAB PO STA ×2 (00:05→23:51)
[2019-02-20] MEDS: ONDANSETRON INJ 2 MG/ML 2 ML VIAL IV PRN ×3 (00:12→22:43)
[2019-02-20] MEDS: PIPERACILLIN/TAZOBACTAM 3.375 GM in DEXTROSE 5% 100 ML IV SCH ×3 (05:22→23:48)
[2019-02-20] MEDS: LEVALBUTEROL HCL 1.25 MG/3 ML NEB INH SCH ×2 (07:07→18:59)
[2019-02-20] MEDS: PANTOprazole 40 MG TAB PO SCH ×2 (07:40→20:42)
[2019-02-20] MEDS: LOSARTAN POTASSIUM 25 MG TAB PO SCH (07:40)
[2019-02-20] MEDS: TAMSULOSIN HCL 0.4 MG CAP PO SCH ×3 (07:40→21:10)
[2019-02-20] MEDS: METOPROLOL SUCC 25MG EXT REL TAB PO SCH (07:40)
[2019-02-20] MEDS: ROSUVASTATIN CALCIUM 20 MG TAB PO SCH (07:40)
[2019-02-20] MEDS: POLYETHYLENE (MIRALAX) 17 GM PACK PO SCH (07:41)
[2019-02-20 07:47] LABS: Albumin Level 2.4 gm/dl (3.4-5.0); BUN Creatinine Ratio 3.2 (10-20); Calcium 8.8 mg/dl (8.5-10.1); Creatinine Clr Calc Pharmacy 90.2 ml/min; Est GFR (African American) 96.3; Est GFR (Non-African American) 83.1; Potassium 3.8 mmol/L (3.5-5.1)
[2019-02-20 07:50] LABS: Albumin Globulin Ratio 0.7 (0.9-2); Bilirubin,Total 0.3 mg/dl (0.2-1); Globulin 3.4 gm/dl (2.5-4.0); Total Protein 5.8 gm/dl (6.4-8.2)
[2019-02-20] MEDS: FUROSEMIDE 20 MG in SYRINGE 0 ML IV SCH (10:22)
--- NOTE | 2019-02-20 13:25 | Hospitalist Progress Note ---
Date of Service February 20, 2019 Assessment & Plan (1) Acute cholecystitis without calculus: Persistent transaminitis which is not much improved and persistent right upper quadrant pain. Plan for lap marisa today. (2) Nausea: post-operative nausea x two weeks s/p Rocio fundcoplication on 01/20. Etiologies include but not limited to some complication of this surgery vs delayed gastric emptying vs cholecystitis. EGD ruled out any eloise infection or ulcerative disease. Some residual food was seen in the stomach suggesting delayed gastric emptying. Persisting transaminitis. Plan for lap marisa cystectomy today. (3) Status post Rocio fundoplication: on 01/20. Thoracic surgery is aware of his admission and following case. Cont soft foods diet until further cleared from them. (4) S/P repair of paraesophageal hernia: (5) CAD (coronary artery disease): Stable, no reports of chest pain. The patient underwent a drug-eluting stent to the LAD on February 2018. Continue medical management with Cozaar 25 mg daily, Toprol-XL 12.5 mg p.o. every morning, Crestor 20 mg p.o. every morning. Aspirin is on hold in setting of upcoming procedure. Once cleared by surgery will add back aspirin and Plavix. (6) Diastolic dysfunction: Lasix was held on admission and there are crackles at bases bilaterally. Will administer 1 dose of Lasix 20 mg IV now as he will be lying flat on an operating table later this afternoon. Will likely resume Lasix tomorrow morning. (7) Hypertension: Controlled, continue metoprolol and losartan (8) BPH (benign prostatic hyperplasia): -Continue tamsulosin (9) GERD (gastroesophageal reflux disease): -Continue PPI and H2 gretchen (10) DVT prophylaxis: SCDs in setting of upcoming procedure Full Code Dispo-plan for laparoscopic cholecystectomy today, will likely recover throughout the weekend. Expect home at time of discharge. Anushka Jauregui DO [facility] Hospitalist Subjective Patient reports persistent right upper quadrant pain overnight. He is currently n.p.o. in preparation for cholecystectomy later today. Denies fevers or chills overnight. Denies any need for pain medications at this time. Reports some nausea when abdomen is palpated. Review of Systems Review of Systems: All systems reviewed & are unremarkable except as noted in HPI & below Physical Exam Physical Exam: CONSTITUTIONAL: obese, vitals as above, generally well- appearing EYES: normal conjunctivae, no scleral icterus ENT: MMM RESPIRATORY: clear to auscultation bilaterally, no crackles, rales or wheezes, normal respiratory effort CARDIOVASCULAR: regular rate and rhythm, S1 and 2 heard without murmurs, gallops or rubs, no JVD, no peripheral edema GASTROINTESTINAL: normal bowel sounds, soft, right upper quadrant tenderness to palpation, nondistended, multiple well-healed laparoscopic incision sites with scabs. MUSCULOSKELETAL: strength 5/5 throughout, head is normocephalic and atraumatic SKIN: warm and dry, incision sites as above NEUROLOGIC: CN 2-12 grossly intact, no sensory deficit, normal cognition, normal speech, no gross focal deficits. PSYCHIATRIC: alert cooperative and oriented to person, place and time. Results & Data Vital Signs (Past 12 Hours) Vital Signs Temp Pulse Resp BP Pulse Ox 02/20/19 12:02 36.8 C 95 H 20 117/71 98 02/20/19 07:36 79 96 02/20/19 07:21 36.9 C 81 18 143/[address] [facility] 02/20/19 07:00 Sodium 141 Potassium 3.8 Chloride 107 Carbon Dioxide 29 BUN 3 L Creatinine 0.89 Glucose 96 Calcium 8.8 Liver Function 02/20/19 Range/Units 07:00 Total Bilirubin 0.3 (0.2-1) mg/dl AST 43 H (15-37) U/L ALT 101 H (12-78) U/L Alkaline Phosphatase 248 H (45-117) U/L Albumin 2.4 L (3.4-5.0) gm/dl Medications Administered Current Inpatient Medications Acetaminophen (Tylenol) 650 mg PO Q6 PRN PRN Reason: Pain or Fever Stop: 03/19/19 13:44 Last Admin: 02/18/19 15:49 Dose: 650 mg Documented by: Aspirin (Ecotrin Ectab) 81 mg PO QPM [facility] Stop: 03/19/19 20:59 Last Admin: 02/17/19 23:03 Dose: 81 mg Documented by: Piperacillin Sod/Tazobactam (Sod 3.375 gm/ Dextrose) 115 mls @ 28.75 mls/hr IV Q8H [facility]; Protocol Stop: 02/27/19 21:59 Last Infusion: 02/20/19 09:25 Dose: Infused Documented by: Furosemide 20 mg/ Syringe 2 mls @ 4 mls/min IV TODAY@1000 [facility] Stop: 03/22/19 09:59 Last Admin: 02/20/19 10:22 Dose: 4 mls/min Documented by: Levalbuterol HCl (Xopenex 1.25mg/3ml Neb) 1.25 mg INH BIDR [facility] Stop: 03/19/19 18:59 Last Admin: 02/20/19 07:07 Dose: 1.25 mg Documented by: Losartan Potassium (Cozaar) 25 mg PO QAM [facility] Stop: 03/20/19 08:59 Last Admin: 02/20/19 07:40 Dose: 25 mg Documented by: Metoprolol Succinate (Toprol Xl) 12.5 mg PO QAM [facility] Stop: 03/20/19 08:59 Last Admin: 02/20/19 07:40 Dose: 12.5 mg Documented by: Miscellaneous Information (Consult) 1 ea N/A UD PRN PRN Reason: Consult Stop: 03/19/19 14:23 Ondansetron HCl (Zofran) 4 mg IV Q6H PRN PRN Reason: Nausea Stop: 03/19/19 13:44 Last Admin: 02/20/19 09:41 Dose: 4 mg Documented by: Pantoprazole Sodium (Protonix) 40 mg PO BID [facility] Stop: 03/19/19 20:59 Last Admin: 02/20/19 07:40 Dose: 40 mg Documented by: Polyethylene Glycol (Miralax Powder Packet) 17 gm PO DAILY [facility] Stop: 03/20/19 11:29 Last Admin: 02/20/19 07:41 Dose: Not Given Documented by: Ranitidine HCl (Zantac) 150 mg PO BID [facility] Stop: 03/19/19 20:59 Last Admin: 02/20/19 07:40 Dose: 150 mg Documented by: Rosuvastatin Calcium (Crestor) 20 mg PO QAM [facility] Stop: 03/20/19 08:59 Last Admin: 02/20/19 07:40 Dose: 20 mg Documented by: Tamsulosin HCl (Flomax) 0.4 mg PO BID [facility] Stop: 03/19/19 20:59 Last Admin: 02/20/19 07:40 Dose: 0.4 mg Documented by:
--- NOTE | 2019-02-20 13:33 | Pulmonology Progress Note ---
Date of Service February 20, 2019 Assessment & Plan (1) Acute cholecystitis without calculus: Patient scheduled in 1 hour for laparoscopic cholecystectomy and will follow perioperatively. Do not anticipate any postoperative respiratory difficulties. (2) S/P repair of paraesophageal hernia: (3) Elevated LFTs: (4) Status post Rocio fundoplication: (5) History of airway aspiration: Subjective 78-year-old white male admitted with fever hepatic enzyme elevation and right upper quadrant discomfort scheduled for laparoscopic cholecystectomy today with Dr. Lozada. Patient continued to have some right upper quadrant discomfort last night associated with nausea. EGD was unremarkable. Cardiopulmonary status is stable. Review of Systems Constitutional: no problem reported Eyes: no problem reported Ear, Nose, Mouth, Throat: no problem reported Respiratory: no problem reported Cardiovascular: no problem reported Gastrointestinal: no problem reported Genitourinary: no problem reported Musculoskeletal: no problem reported Integumentary: no problem reported Neurologic: no problem reported Psychiatric: no problem reported Endocrine: no problem reported Hematologic / Lymphatic: no problem reported Allergy / Immunological: no problem reported Physical Exam Constitutional: well developed and well nourished; no acute distress Eyes: PERRL, conjunctivae normal, anicteric sclerae ENMT: external ear and nose normal, oropharynx normal Neck: trachea midline, no thyromegaly Respiratory: normal respiratory effort Auscultation: lungs clear to auscultation bilaterally Cardiovascular: RRR, no murmur, no edema Palpation: normal PMI; no thrill Gastrointestinal (Abdomen): normal bowel sounds, soft, nontender, no hepatosplenomegaly Musculoskeletal: no cyanosis or clubbing, extremities motor strength 5/5 Gait: normal gait Skin: no rashes, warm and dry Neurologic: PERRL, EOMI, accommodation nl, no face palsy, no dysarthria Psychiatric: A+Ox3, euthymic affect Lymphatic: no cervical or axillary lymphadenopathy Results & Data Vital Signs (Past 12 Hours) Vital Signs Temp Pulse Resp BP Pulse Ox 02/20/19 12:02 36.8 C 95 H 20 117/71 98 02/20/19 07:36 79 96 02/20/19 07:21 36.9 C 81 18 143/86 H 95 PG Care Time/CCT Total # of Minutes Spent Total Time Spent with Patient: Total time spent is greater than 50% in coor dination of care (as documented) at patient's floor/unit and/or counseling patient:
[2019-02-20] MEDS ORDERED: fentaNYL citrate 100 MCG/2 ML VIAL ONE ×2 (13:44→16:12)
--- NOTE | 2019-02-20 14:05 | History & Physical Bridge Note ---
Date of Service February 20, 2019 History & Physical Bridge Note I have examined the patient, reviewed the History & Physical and in the interval since the performance of the History & Physical I have noted the following changes of clinical significance: no changes noted
[2019-02-20] MEDS ORDERED: fentaNYL citrate 100 MCG/2 ML VIAL IV PRN (14:10)
[2019-02-20] MEDS ORDERED: ONDANSETRON INJ 2 MG/ML 2 ML VIAL IV PRN (14:10)
[2019-02-20] MEDS ORDERED: ePHEDrine sulfate 50 MG/ML AMP IV PRN (14:10)
[2019-02-20] MEDS ORDERED: ATROPINE SULFATE 0.1 MG/ML 10ML SYR IV PRN (14:10)
[2019-02-20] MEDS ORDERED: BUPIVACAINE 0.5 % 5 MG/1 ML MPF 30ML VIAL ONE (14:13)
[2019-02-20] MEDS ORDERED: HEPARIN (PORCINE) 1000 UNIT/ML 10 ML (CATH LAB USE ONLY) ONE (14:13)
[2019-02-20] MEDS ORDERED: CEFAZOLIN 250 MG/ML 1 GM VIAL ONE (14:13)
[2019-02-20] MEDS ORDERED: CONRAY 60% 50 ML VIAL ONE (14:13)
[2019-02-20] MEDS ORDERED: PROPOFOL IV EMULSION 10 MG/ML 20 ML VIAL IV ONE (14:47)
[2019-02-20] MEDS ORDERED: DEXAMETHASONE SOD INJ 4 MG/ML VIAL ONE (14:47)
[2019-02-20] MEDS ORDERED: ONDANSETRON INJ 2 MG/ML 2 ML VIAL ONE (14:47)
[2019-02-20] MEDS ORDERED: LARYING-O-JET KIT (LTA) ONE (14:47)
[2019-02-20] MEDS ORDERED: NEOSTIGMINE METHYLSULFATE 5 MG/5 ML SYR ONE (14:47)
[2019-02-20] MEDS ORDERED: LIDOCAINE HCL 2% 2 ML VIAL/AMP(20MG/ML) INFIL ONE (14:47)
[2019-02-20] MEDS ORDERED: ROCURONIUM BROMIDE 10 MG/ML 5 ML VIAL ONE (14:47)
[2019-02-20] MEDS ORDERED: GLYCOPYRROLATE 0.2 MG/ML VIAL ONE (14:47)
--- NOTE | 2019-02-20 16:05 | Post Operative Brief Note ---
Immediate Post Op Note v1 Date of Surgery February 20, 2019 Pre & Post Diagnosis Operation Date: 02/19/19 08:30 Pre-Op Diagnosis: NAUSEA Post-Op Diagnosis: Food in stomach Operation Date: 02/20/19 14:00 Pre-Op Diagnosis: chronic nausea & gallbladder sludge Post-Op Diagnosis: chronic nausea & gallbladder sludge Procedure Operation Date: 02/19/19 08:30 Actual Procedures p EGD Biopsy Cytology(Not Applicable) - Elizabeth Núñez Operation Date: 02/20/19 14:00 Actual Procedures p Laparoscopic Cholecystectomy(Not Applicable) - Danial Lozada MD Surgeon Danial Lozada MD Check Totaler Abril Barry PA-C Estimated Blood Loss 7 Findings Consistent with Post-Op Diagnosis Specimens Gallbladder Anesthesia Type General Complications none
--- NOTE | 2019-02-20 16:56 | Anesthesiology Progress Note ---
Date of Service February 20, 2019 Anesthesia Post Procedure Vital Signs Vital Signs: Temp Pulse Pulse Resp BP Pulse Ox 02/20/19 16:50 70 21 128/73 92 02/20/19 16:40 63 17 116/59 L 98 02/20/19 16:30 59 L 22 121/64 97 02/20/19 16:24 36.7 C 66 16 114/65 95 02/20/19 13:31 36.9 C 73 18 120/75 96 02/20/19 12:02 36.8 C 95 H 20 117/71 98 02/20/19 07:36 79 96 02/20/19 07:21 36.9 C 81 18 143/86 H 95 02/19/19 23:30 36.6 C 70 18 132/82 96 02/19/19 19:13 67 16 95 Transfer of Care Handoff Completed per policy Notes Mental Status: alert / awake / arousable Patient Amnestic to Procedure: Yes Nausea / Vomiting: adequately controlled Pain: adequately controlled Airway Patency, RR, SpO2: stable & adequate BP & HR: stable & adequate Hydration State: stable & adequate Anesthetic Complications: no major complications apparent
[2019-02-20] MEDS ORDERED: MoRPHine SULFATE 4 MG/ML 1 ML CARP\\VIAL IV PRN (17:23)
--- NOTE | 2019-02-20 17:54 | Operative Report ---
DATE OF OPERATION: 02/20/2019 PREOPERATIVE DIAGNOSES: Gallbladder sludge and chronic nausea. POSTOPERATIVE DIAGNOSES: Gallbladder sludge and chronic nausea. PROCEDURE: Laparoscopic cholecystectomy. SURGEON: Danial Lozada MD DEMOLITION EXPERT: Abril Barry PA-C FINDINGS: The gallbladder was mild to moderately dilated. There were no stones within the lumen. The gallbladder wall was not thickened. There was no pericholecystic fluid. The cystic duct was not dilated. The liver was of normal size and contour. The visible bowel appeared normal. There were some adhesions to the anterior abdominal wall. TECHNIQUE: The patient was given a general anesthetic and the area was prepped and draped in the usual sterile fashion. Incision was made through the incision just to the left of the upper midline through which one of the trocars for his Rocio was placed. With that, I dissected down to the fascia, opened the fascia after grasping it with Martina clamps. I then worked down to the peritoneum, opened it and the introducer was placed bluntly. The abdomen was then insufflated to a pressure of 15 mmHg with carbon dioxide. The camera was passed through there. There were multiple adhesions of the omentum to the anterior abdominal wall extending from just above the umbilicus inferiorly. I chose a site lateral to the adhesions on the right side and made an incision there and placed another introducer bluntly under direct vision. Camera was then passed through that introducer. One of the previous incisions for the Rocio was able to be used for another 5 mm introducer and incision was made and was placed under direct vision. The lateral most incision on the right was made and then the introducer was brought through there. The patient was positioned in reverse Trendelenburg left side airplaned and the gallbladder was grasped; however, it was slipping out of the grasper and so I drained it using the external drainage needle which was passed through the introducer under direct vision. I was then able to grasp the gallbladder with ease. Clear yellow bile was suctioned. I was then able to elevate that. There were some adhesions to the lower body and infundibulum area of the gallbladder. These were taken down using blunt and cautery dissection where appropriate. There were very flimsy adhesions of the duodenum to the neck of the gallbladder. These were taken down bluntly. I then was able to elevate the neck of the gallbladder and opened the peritoneum on the lateral side and peeled the tissue down towards the common bile duct. The gallbladder on that lateral side was dissected away from the liver at the neck and infundibulum allowing better mobility. I then worked anteriorly and opened the triangle of Calot and dissected the infundibulum and neck away from the liver on the medial side allowing for much better mobility of the neck. I then divided some additional connective tissue. The cystic duct lymph node was identified. Its feeding vessels were isolated. They were clamped and divided. That allowed me to identify the cystic artery behind it. That then allowed me to identify the cystic duct with confidence. I skeletonized the cystic duct and was able to establish a plane behind the cystic duct. That exposed well the cystic artery which was also isolated. It created an adequate window. Two clips were placed on the proximal cystic duct, one near the gallbladder and it was divided. Two clips were placed on the proximal cystic artery, one near the gallbladder and it was divided. Gallbladder was then peeled off the liver bed and in doing so, there were 2 other tubular structures that were either large lymphatics or posterior branches of the artery that were clipped and divided. The gallbladder dissection off the liver bed was completed. The gallbladder was placed into an Endobag and brought out through the upper midline incision where I had to open the gallbladder and remove the bile in order to extract it within the bag, but that was accomplished. That introducer was replaced. The liver edge was elevated. The subhepatic space was irrigated and the irrigation was removed. The gallbladder bed of the liver was inspected and there was no bleeding. The areas of dissection around the clips were inspected and there was no bleeding. The previously placed clips were intact. Subdiaphragmatic and subhepatic spaces were further irrigated and the irrigation was removed and that was repeated until the return was clear. The gas was allowed to escape and introducers were removed. The fascia of the upper midline introducer site was closed with 0 PDS and the fascia of the incision just to the right of the umbilicus was closed with interrupted 0 Vicryl. The skin of all the midclavicular and anterior axillary on the right and the periumbilical incision with 4-0 Monocryl in either an interrupted or running subcuticular fashion. The skin of the upper midline incision was closed with 3-0 nylon interrupted sutures after putting 3-0 Vicryl subcutaneous sutures. The skin was cleansed, dried and dressings were placed after the skin was anesthetized with 0.5% Marcaine. Estimated blood loss was 7 mL. Sponge, needle and instrument counts were correct prior to closure. The patient tolerated the surgical procedure without complication and was transferred to recovery. I attest to the content of the Intraoperative Record and any orders documented therein. Any exception s are noted below.
[2019-02-20] MEDS: ASPIRIN 81 MG ECTAB PO SCH (21:04)
[2019-02-20] MEDS: OXYCODONE/ACETAMINOPHEN 5mg/325mg TAB PO PRN (22:43)
[2019-02-21] MEDS ORDERED: LORazepam 0.5 MG TAB PO STA (01:50)
[2019-02-21 07:08] LABS: Albumin Level 2.5 gm/dl (3.4-5.0); BUN Creatinine Ratio 5.5 (10-20); Basophils # (auto) 0.02 K/uL (0-0.2); Basophils % (auto) 0.4 %; Calcium 8.5 mg/dl (8.5-10.1); Creatinine Clr Calc Pharmacy 91.2 ml/min; Eosinophils # (auto) 0.14 K/uL (0-0.5); Eosinophils % (auto) 2.5 %; Est GFR (African American) 96.7; Est GFR (Non-African American) 83.4; Hematocrit (blood only) 34.7 % (42-52); Hemoglobin 11.5 g/dL (14.0-18.0); Immature Granulocytes # (auto) 0.01 K/uL (0.00-0.02); Immature Granulocytes % (auto) 0.2 %; Lymphocytes # (auto) 0.94 K/uL (1.2-3.4); Lymphocytes % (auto) 16.5 %; Mean Corpuscular Hemoglobin 31.3 pg (25-34); Mean Corpuscular Hgb Conc 33.1 g/dL (32-36); Mean Corpuscular Volume 94.3 fL (80-100); Mean Platelet Volume 9.2 fL (7.4-10.4); Monocytes % (auto) 8.8 %; Neutrophils # (auto) 4.09 K/uL (1.4-6.5); Neutrophils % (auto) 71.6 %; Platelet Count 186 K/uL (130-400); Potassium 3.9 mmol/L (3.5-5.1); RDW Coefficient of Variation 13.3 % (11.5-14.5); RDW Standard Deviation 45.9 fL (36.4-46.3); Red Blood Count 3.68 M/uL (4.7-6.1)
[2019-02-21 07:11] LABS: Albumin Globulin Ratio 0.7 (0.9-2); Bilirubin,Total 0.5 mg/dl (0.2-1); Globulin 3.4 gm/dl (2.5-4.0); Total Protein 5.9 gm/dl (6.4-8.2)
[2019-02-21] MEDS: LEVALBUTEROL HCL 1.25 MG/3 ML NEB INH SCH ×2 (07:31→19:23)
--- NOTE | 2019-02-21 07:36 | Surgery Progress Note ---
Date of Service February 21, 2019 Assessment & Plan (1) Nausea: Postoperative day #1, status post laparoscopic cholecystectomy Doing well postoperatively Encouraged ambulation Consider advancement to a soft diet Okay for discharge from surgical standpoint Can follow-up in the office in 2 weeks Subjective Postoperative day #1, status post laparoscopic cholecystectomy Incisional pain only Tolerated full liquid diet Difficulty swallowing 1 of his pills last night Had mild nausea last night but resolved after Zofran Physical Exam Constitutional: no acute distress Gastrointestinal (Abdomen): Inspection/Auscultation: normal bowel sounds; abdomen not distended Percussion/Palpation: + abdomen tender (Incisional only) and abdomen soft Results & Data Vital Signs (Past 12 Hours) Vital Signs Temp Pulse Pulse Resp BP Pulse Ox 02/21/19 07:32 66 16 97 02/21/19 07:19 36.7 C 56 L 16 154/84 H 96 02/20/19 23:51 36.8 C 66 18 131/81 97 02/20/19 20:30 36.8 C 67 18 141/79 H 96 Laboratory Results 02/21/19 02/21/19 02/20/19 Range/Units 06:09 06:09 07:00 WBC 5.70 (4.8-10.8) K/uL RBC 3.68 L (4.7-6.1) M/uL Hgb 11.5 L (14.0-18.0) g/dL Hct 34.7 L (42-52) % MCV 94.3 (80-100) fL MCH 31.3 (25-34) pg MCHC 33.1 (32-36) g/dL RDW Std Deviation 45.9 (36.4-46.3) fL RDW Coeff of [place] 13.3 (11.5-14.5) % Plt Count 186 (130-400) K/uL MPV 9.2 (7.4-10.4) fL Immature Gran % (Auto) 0.2 % Neut % (Auto) 71.6 % Lymph % (Auto) 16.5 % Adams % (Auto) 8.8 % Eos % (Auto) 2.5 % Baso % (Auto) 0.4 % Immature Gran # (Auto) 0.01 (0.00-0.02) K/uL Neut # (Auto) 4.09 (1.4-6.5) K/uL Lymph # (Auto) 0.94 L (1.2-3.4) K/uL Adams # (Auto) 0.50 (0.11-0.59) K/uL Eos # (Auto) 0.14 (0-0.5) K/uL Baso # (Auto) 0.02 (0-0.2) K/uL Sodium 140 141 (136-145) mmol/L Potassium 3.9 3.8 (3.5-5.1) mmol/L Chloride 105 107 (98-107) mmol/L Carbon Dioxide 29 29 (21-32) mmol/L Anion Gap 6.0 6.0 (3-11) BUN 5 L 3 L (7-18) mg/dl Creatinine 0.88 0.89 (0.6-1.4) mg/dl Est Cr Clr Drug Dosing 91.2 90.2 ml/min Est GFR ( Amer) 96.7 96.3 Est GFR (Non-Af Amer) 83.4 83.1 BUN/Creatinine Ratio 5.5 L 3.2 L (10-20) Glucose 98 96 (70-99) mg/dl Calcium 8.5 8.8 (8.5-10.1) mg/dl Total Bilirubin 0.5 0.3 (0.2-1) mg/dl AST 69 H 43 H (15-37) U/L ALT 112 H 101 H (12-78) U/L Alkaline Phosphatase 302 H 248 H (45-117) U/L Total Protein 5.9 L 5.8 L (6.4-8.2) gm/dl Albumin 2.5 L 2.4 L (3.4-5.0) gm/dl Globulin 3.4 3.4 (2.5-4.0) gm/dl Albumin/Globulin Ratio 0.7 L 0.7 L (0.9-2)
--- NOTE | 2019-02-21 07:42 | Anesthesiology Progress Note ---
Date of Service February 21, 2019 Anesthesia Post Procedure Vital Signs Vital Signs: Temp Pulse Pulse Pulse Resp BP BP 02/21/19 07:32 66 16 02/21/19 07:19 36.7 C 56 L 16 154/84 H 02/20/19 23:51 36.8 C 66 18 131/81 02/20/19 20:30 36.8 C 67 18 141/79 H 02/20/19 19:30 36.8 C 72 18 135/74 02/20/19 19:01 78 16 02/20/19 18:00 35.7 C L 73 18 133/77 02/20/19 17:30 36.7 C 60 18 153/82 H 02/20/19 17:15 36.6 C 66 20 117/71 02/20/19 17:00 36.9 C 66 14 124/77 02/20/19 16:50 70 21 128/73 02/20/19 16:40 63 17 116/59 L 02/20/19 16:30 59 L 22 121/64 02/20/19 16:24 36.7 C 66 16 114/65 02/20/19 13:31 36.9 C 73 18 120/75 02/20/19 12:02 36.8 C 95 H 20 117/71 Pulse Ox 02/21/19 07:32 97 02/21/19 07:19 96 02/20/19 23:51 97 02/20/19 20:30 96 02/20/19 19:30 95 02/20/19 19:01 93 02/20/19 18:00 97 02/20/19 17:30 94 02/20/19 17:15 95 02/20/19 17:00 94 02/20/19 16:50 92 02/20/19 16:40 98 02/20/19 16:30 97 02/20/19 16:24 95 02/20/19 13:31 96 02/20/19 12:02 98 Pain Intensity Abdomen: Pain Intensity: 6 Notes Mental Status: alert / awake / arousable and participated in evaluation Patient Amnestic to Procedure: Yes Nausea / Vomiting: adequately controlled Pain: adequately controlled Airway Patency, RR, SpO2: stable & adequate BP & HR: stable & adequate Hydration State: stable & adequate Anesthetic Complications: no major complications apparent and Pt Satisfied with anesthetic care
[2019-02-21] MEDS: PIPERACILLIN/TAZOBACTAM 3.375 GM in DEXTROSE 5% 100 ML IV SCH (07:49)
[2019-02-21] MEDS: ACETAMINOPHEN SOL 650 MG/20.3 ML UDC PO PRN (07:56)
[2019-02-21] MEDS: LOSARTAN POTASSIUM 25 MG TAB PO SCH (07:58)
[2019-02-21] MEDS: ROSUVASTATIN CALCIUM 20 MG TAB PO SCH (07:58)
[2019-02-21] MEDS: PANTOprazole 40 MG TAB PO SCH ×2 (07:59→20:56)
[2019-02-21] MEDS: TAMSULOSIN HCL 0.4 MG CAP PO SCH ×2 (07:59→20:55)
[2019-02-21] MEDS: METOPROLOL SUCC 25MG EXT REL TAB PO SCH (08:00)
[2019-02-21] MEDS: POLYETHYLENE (MIRALAX) 17 GM PACK PO SCH (08:01)
[2019-02-21] MEDS: OXYCODONE/ACETAMINOPHEN 5mg/325mg TAB PO PRN (09:26)
[2019-02-21] MEDS: FUROSEMIDE 20 MG in SYRINGE 0 ML IV SCH (09:27)
--- NOTE | 2019-02-21 12:42 | Progress Note ---
DATE: 02/21/2019 Mr. Gilbert was seen today on 02/21/2019. He feels better after his gallbladder was removed and would like to eat a house diet. I discussed this case with Dr. Anushka Jauregui and I think plans are being made to discharge the patient. I will see him back in 2 weeks, but I have liberalized his diet. He is allowed to eat anything he would like and quite pleased with the results of not only his EGD and CT scan, but also with his apparent response to his laparoscopic cholecystectomy.
--- NOTE | 2019-02-21 13:02 | Pulmonology Progress Note ---
Date of Service February 21, 2019 Assessment & Plan (1) Acute cholecystitis without calculus: (2) S/P repair of paraesophageal hernia: (3) Elevated LFTs: (4) Status post Rocio fundoplication: (5) History of airway aspiration: From a pulmonary standpoint patient is doing well. There is some sputum production which is expected but his saturations and clinical exam more excellent and suspect he will be discharged within the next 24 hours. He has a regular follow-up with pulmonary function testing with me as an outpatient scheduled. At this point using his nebulizer treatment with Mucomyst at home has been beneficial and will continue his regimen until I see him. (6) Diastolic dysfunction: Subjective 78-year-old white male status post laparoscopic cholecystectomy on 02/20/2019 with satisfactory postoperative course. He admits to some sputum production that is greenish in nature of both the most part is clear. He feels better and is no longer nauseated. His O2 sats on room air excellent. Review of Systems Constitutional: no problem reported Eyes: no problem reported Ear, Nose, Mouth, Throat: no problem reported Respiratory: no problem reported Cardiovascular: no problem reported Gastrointestinal: no problem reported Genitourinary: no problem reported Musculoskeletal: no problem reported Integumentary: no problem reported Neurologic: no problem reported Psychiatric: no problem reported Endocrine: no problem reported Hematologic / Lymphatic: no problem reported Allergy / Immunological: no problem reported Physical Exam Constitutional: well developed and well nourished; no acute distress Eyes: PERRL, conjunctivae normal, anicteric sclerae ENMT: external ear and nose normal, oropharynx normal Neck: trachea midline, no thyromegaly Respiratory: normal respiratory effort Auscultation: lungs clear to auscultation bilaterally and + diminished lung sounds (Minimal diminished sounds at the left base generally clear) Cardiovascular: RRR, no murmur, no edema Palpation: normal PMI; no thrill Gastrointestinal (Abdomen): normal bowel sounds, soft, nontender, no hepatosplenomegaly Musculoskeletal: no cyanosis or clubbing, extremities motor strength 5/5 Gait: normal gait Skin: no rashes, warm and dry Neurologic: PERRL, EOMI, accommodation nl, no face palsy, no dysarthria Psychiatric: A+Ox3, euthymic affect Lymphatic: no cervical or axillary lymphadenopathy Results & Data Vital Signs (Past 12 Hours) Vital Signs Temp Pulse Pulse Resp BP Pulse Ox 02/21/19 07:32 66 16 97 02/21/19 07:19 36.7 C 56 L 16 154/84 H 96 Laboratory Results Abnormal Labs 02/17/19 02/17/19 02/17/19 12:58 12:58 18:05 WBC RBC 3.98 L Hgb 12.2 L Hct 37.1 L Lymph # (Auto) 0.30 L Sodium 135 L BUN BUN/Creatinine Ratio Glucose 100 H Calcium Phosphorus 2.0 L Direct Bilirubin AST 149 H ALT 222 H Alkaline Phosphatase 210 H Total Protein Albumin 2.9 L Albumin/Globulin Ratio 0.8 L Lipase 60 L Urine Ketones 1+ H 02/18/19 02/18/19 02/18/19 05:57 05:57 05:57 WBC 4.46 L RBC 3.66 L Hgb 11.4 L Hct 34.5 L Lymph # (Auto) Sodium BUN BUN/Creatinine Ratio Glucose Calcium 8.3 L Phosphorus Direct Bilirubin 0.3 H AST 92 H ALT 162 H Alkaline Phosphatase 230 H Total Protein 5.9 L Albumin 2.5 L Albumin/Globulin Ratio Lipase Urine Ketones 02/19/19 02/19/19 02/20/19 05:56 05:56 07:00 WBC 4.69 L RBC 4.08 L Hgb 12.9 L Hct 38.5 L Lymph # (Auto) 0.94 L Sodium BUN 6 L D 3 L BUN/Creatinine Ratio 6.0 L 3.2 L Glucose 108 H Calcium Phosphorus Direct Bilirubin AST 86 H 43 H ALT 146 H 101 H Alkaline Phosphatase 297 H 248 H Total Protein 5.8 L Albumin 2.8 L 2.4 L Albumin/Globulin Ratio 0.8 L 0.7 L Lipase Urine Ketones 02/21/19 02/21/19 06:09 06:09 WBC RBC 3.68 L Hgb 11.5 L Hct 34.7 L Lymph # (Auto) 0.94 L Sodium BUN 5 L BUN/Creatinine Ratio 5.5 L Glucose Calcium Phosphorus Direct Bilirubin AST 69 H ALT 112 H Alkaline Phosphatase 302 H Total Protein 5.9 L Albumin 2.5 L Albumin/Globulin Ratio 0.7 L Lipase Urine Ketones Medications Administered Current Inpatient Medications Acetaminophen (Tylenol) 650 mg PO Q6 PRN PRN Reason: Pain or Fever Stop: 03/19/19 13:44 Last Admin: 02/21/19 07:56 Dose: 650 mg Documented by: Aspirin (Ecotrin Ectab) 81 mg PO QPM [facility] Stop: 03/19/19 20:59 Last Admin: 02/20/19 21:04 Dose: 81 mg Documented by: Piperacillin Sod/Tazobactam (Sod 3.375 gm/ Dextrose) 115 mls @ 28.75 mls/hr IV Q8H [facility]; Protocol Stop: 02/27/19 21:59 Last Infusion: 02/21/19 12:01 Dose: Infused Documented by: Furosemide 20 mg/ Syringe 2 mls @ 4 mls/min IV TODAY@1000 [facility] Stop: 03/22/19 09:59 Last Admin: 02/21/19 09:27 Dose: 4 mls/min Documented by: Levalbuterol HCl (Xopenex 1.25mg/3ml Neb) 1.25 mg INH BIDR [facility] Stop: 03/19/19 18:59 Last Admin: 02/21/19 07:31 Dose: 1.25 mg Documented by: Losartan Potassium (Cozaar) 25 mg PO QAM [facility] Stop: 03/20/19 08:59 Last Admin: 02/21/19 07:58 Dose: 25 mg Documented by: Metoprolol Succinate (Toprol Xl) 12.5 mg PO QAM [facility] Stop: 03/20/19 08:59 Last Admin: 02/21/19 08:00 Dose: 12.5 mg Documented by: Miscellaneous Information (Consult) 1 ea N/A UD PRN PRN Reason: Consult Stop: 03/19/19 14:23 Morphine Sulfate (Morphine Sulfate) 4 mg IV Q2H PRN PRN Reason: Pain Stop: 03/06/19 17:22 Ondansetron HCl (Zofran) 4 mg IV Q6H PRN PRN Reason: Nausea Stop: 03/19/19 13:44 Last Admin: 02/20/19 22:43 Dose: 4 mg Documented by: Oxycodone/Acetaminophen (Percocet 5mg/325mg) 1 tab PO Q4H PRN PRN Reason: Pain Stop: 03/06/19 17:22 Last Admin: 02/21/19 09:26 Dose: 1 tab Documented by: Pantoprazole Sodium (Protonix) 40 mg PO BID [facility] Stop: 03/19/19 20:59 Last Admin: 02/21/19 07:59 Dose: 40 mg Documented by: Polyethylene Glycol (Miralax Powder Packet) 17 gm PO DAILY [facility] Stop: 03/20/19 11:29 Last Admin: 02/21/19 08:01 Dose: 17 gm Documented by: Ranitidine HCl (Zantac) 150 mg PO BID [facility] Stop: 03/19/19 20:59 Last Admin: 02/21/19 08:01 Dose: 150 mg Documented by: Rosuvastatin Calcium (Crestor) 20 mg PO QAM [facility] Stop: 03/20/19 08:59 Last Admin: 02/21/19 07:58 Dose: 20 mg Documented by: Tamsulosin HCl (Flomax) 0.4 mg PO BID [facility] Stop: 03/19/19 20:59 Last Admin: 02/21/19 07:59 Dose: 0.4 mg Documented by: PG Care Time/CCT Total # of Minutes Spent Total Time Spent with Patient: Total time spent is greater than 50% in coordination of care (as documented) at patient's floor/unit and/or counseling patient:
[2019-02-21] MEDS: CLOPIDOGREL BISULFATE 75 MG TAB PO SCH (15:13)
--- NOTE | 2019-02-21 17:12 | Hospitalist Progress Note ---
Date of Service February 21, 2019 Assessment & Plan (1) Acute cholecystitis without calculus: s/p lap marisa, POD#1. Doing well overall. Some lightheadedness and insomnia overnight. OK to use melatonin overnight from home. Keep one more day to ensure he will be optimally functional at home. Stop Zosyn. OK for adding back ASA and Plavix at this point. Advancing diet to what was OK with thoracics prior to arrival. (2) Nausea: not reported today, will cont to monitor this post-operatively (3) Status post Rocio fundoplication: on 01/20. Thoracic surgery is aware of his admission and following case. Cont soft foods diet until further cleared from them. (4) S/P repair of paraesophageal hernia: -S/P paraesophageal hernia repair and fundoplication on 01/20/19 (5) CAD (coronary artery disease): Stable, no reports of chest pain. The patient underwent a drug-eluting stent to the LAD on February 2018. Continue medical management with Cozaar 25 mg daily, Toprol-XL 12.5 mg p.o. every morning, Crestor 20 mg p.o. every morning. Restarted aspirin and plavix today. (6) Diastolic dysfunction: Lasix was held on admission and there were crackles in lung bases yesterday, which is improved since restarting the Lasix. Cont home Lasix in am. (7) Hypertension: Controlled, continue metoprolol and losartan (8) BPH (benign prostatic hyperplasia): -Continue tamsulosin (9) GERD (gastroesophageal reflux disease): -Continue PPI and H2 gretchen (10) DVT prophylaxis: SCDs Full Code Dispo-expect to home in am. Anushka Jauregui DO [facility] Hospitalist Subjective some expected pain post-operatively doing well overall tolerating PO again afebrile denies chest pain or shortness of breath. reports some lightheadedness overnight but states he had significant insomnia. would like to use melatonin which he uses at home. Review of Systems Review of Systems: All systems reviewed & are unremarkable except as noted in HPI & below Physical Exam Physical Exam: CONSTITUTIONAL: obese, vitals as above, generally well- appearing EYES: normal conjunctivae, no scleral icterus ENT: MMM RESPIRATORY: clear to auscultation bilaterally, no crackles, rales or wheezes, normal respiratory effort CARDIOVASCULAR: regular rate and rhythm, S1 and 2 heard without murmurs, gallops or rubs, no JVD, no peripheral edema GASTROINTESTINAL: normal bowel sounds, soft, right upper quadrant tenderness to palpation, nondistended, multiple well-healed laparoscopic incision sites with scabs. MUSCULOSKELETAL: strength 5/5 throughout, head is normocephalic and atraumatic SKIN: warm and dry, incision sites as above NEUROLOGIC: CN 2-12 grossly intact, no sensory deficit, normal cognition, normal speech, no gross focal deficits. PSYCHIATRIC: alert cooperative and oriented to person, place and time. Results & Data Vital Signs (Past 12 Hours) Vital Signs Temp Pulse Pulse Resp BP Pulse Ox 02/21/19 15:29 36.6 C 56 L 18 146/76 H 96 02/21/19 07:32 66 16 97 02/21/19 07:19 36.7 C 56 L 16 154/84 H 96 Laboratory Results Short CBC 02/21/19 Range/Units 06:09 WBC 5.70 (4.8-10.8) K/uL Hgb 11.5 L (14.0-18.0) g/dL Hct 34.7 L (42-52) % Plt Count 186 (130-400) K/uL BMP 02/21/19 06:09 Sodium 140 Potassium 3.9 Chloride 105 Carbon Dioxide 29 BUN 5 L Creatinine 0.88 Glucose 98 Calcium 8.5 Liver Function 02/21/19 Range/Units 06:09 Total Bilirubin 0.5 (0.2-1) mg/dl AST 69 H (15-37) U/L ALT 112 H (12-78) U/L Alkaline Phosphatase 302 H (45-117) U/L Albumin 2.5 L (3.4-5.0) gm/dl Medications Administered Current Inpatient Medications Acetaminophen (Tylenol) 650 mg PO Q6 PRN PRN Reason: Pain or Fever Stop: 03/19/19 13:44 Last Admin: 02/21/19 07:56 Dose: 650 mg Documented by: Aspirin (Ecotrin Ectab) 81 mg PO QPM [facility] Stop: 03/19/19 20:59 Last Admin: 02/20/19 21:04 Dose: 81 mg Documented by: Clopidogrel Bisulfate (Plavix) 75 mg PO QAM [facility] Stop: 03/23/19 14:14 Last Admin: 02/21/19 15:13 Dose: 75 mg Documented by: Furosemide (Lasix) 20 mg PO QAM [facility] Stop: 03/24/19 08:59 Levalbuterol HCl (Xopenex 1.25mg/3ml Neb) 1.25 mg INH BIDR [facility] Stop: 03/19/19 18:59 Last Admin: 02/21/19 07:31 Dose: 1.25 mg Documented by: Losartan Potassium (Cozaar) 25 mg PO QAM [facility] Stop: 03/20/19 08:59 Last Admin: 02/21/19 07:58 Dose: 25 mg Documented by: Metoprolol Succinate (Toprol Xl) 12.5 mg PO QAM [facility] Stop: 03/20/19 08:59 Last Admin: 02/21/19 08:00 Dose: 12.5 mg Documented by: Miscellaneous (Home Med Administration) 1 ea N/A NOW ONE Stop: 02/21/19 17:13 Morphine Sulfate (Morphine Sulfate) 4 mg IV Q2H PRN PRN Reason: Pain Stop: 03/06/19 17:22 Ondansetron HCl (Zofran) 4 mg IV Q6H PRN PRN Reason: Nausea Stop: 03/19/19 13:44 Last Admin: 02/20/19 22:43 Dose: 4 mg Documented by: Oxycodone/Acetaminophen (Percocet 5mg/325mg) 1 tab PO Q4H PRN PRN Reason: Pain Stop: 03/06/19 17:22 Last Admin: 02/21/19 09:26 Dose: 1 tab Documented by: Pantoprazole Sodium (Protonix) 40 mg PO BID [facility] Stop: 03/19/19 20:59 Last Admin: 02/21/19 07:59 Dose: 40 mg Documented by: Polyethylene Glycol (Miralax Powder Packet) 17 gm PO DAILY [facility] Stop: 03/20/19 11:29 Last Admin: 02/21/19 08:01 Dose: 17 gm Documented by: Ranitidine HCl (Zantac) 150 mg PO BID [facility] Stop: 03/19/19 20:59 Last Admin: 02/21/19 08:01 Dose: 150 mg Documented by: Rosuvastatin Calcium (Crestor) 20 mg PO QAM [facility] Stop: 03/20/19 08:59 Last Admin: 02/21/19 07:58 Dose: 20 mg Documented by: Tamsulosin HCl (Flomax) 0.4 mg PO BID [facility] Stop: 03/19/19 20:59 Last Admin: 02/21/19 07:59 Dose: 0.4 mg Documented by:
[2019-02-21] MEDS: ASPIRIN 81 MG ECTAB PO SCH (20:54)
[2019-02-22 06:12] LABS: Hemoglobin 11.6 g/dL (14.0-18.0); Mean Corpuscular Hemoglobin 31.2 pg (25-34); Mean Corpuscular Hgb Conc 33.1 g/dL (32-36); Mean Corpuscular Volume 94.1 fL (80-100); Mean Platelet Volume 9.3 fL (7.4-10.4); Platelet Count 201 K/uL (130-400); RDW Coefficient of Variation 13.4 % (11.5-14.5); RDW Standard Deviation 45.9 fL (36.4-46.3); Red Blood Count 3.72 M/uL (4.7-6.1); White Blood Count 6.79 K/uL (4.8-10.8)
[2019-02-22 06:48] LABS: Albumin Level 2.6 gm/dl (3.4-5.0); BUN Creatinine Ratio 6.2 (10-20); Calcium 8.4 mg/dl (8.5-10.1); Creatinine Clr Calc Pharmacy 94.5 ml/min; Est GFR (African American) 98.1; Est GFR (Non-African American) 84.6; Potassium 3.7 mmol/L (3.5-5.1)
[2019-02-22 06:51] LABS: Albumin Globulin Ratio 0.8 (0.9-2); Bilirubin,Total 0.4 mg/dl (0.2-1); Globulin 3.3 gm/dl (2.5-4.0); Total Protein 5.9 gm/dl (6.4-8.2)
[2019-02-22] MEDS: LEVALBUTEROL HCL 1.25 MG/3 ML NEB INH SCH (07:12)
[2019-02-22 07:17] VITALS: TEMP 98.4; O2SAT 95
[2019-02-22] MEDS: POLYETHYLENE (MIRALAX) 17 GM PACK PO SCH (07:24)
[2019-02-22] MEDS: METOPROLOL SUCC 25MG EXT REL TAB PO SCH (07:24)
[2019-02-22] MEDS: ACETAMINOPHEN SOL 650 MG/20.3 ML UDC PO PRN (07:31)
[2019-02-22] MEDS: ONDANSETRON INJ 2 MG/ML 2 ML VIAL IV PRN (07:31)
[2019-02-22] MEDS: TAMSULOSIN HCL 0.4 MG CAP PO SCH (07:32)
[2019-02-22] MEDS: CLOPIDOGREL BISULFATE 75 MG TAB PO SCH (07:32)
[2019-02-22] MEDS: LOSARTAN POTASSIUM 25 MG TAB PO SCH (07:32)
[2019-02-22] MEDS: PANTOprazole 40 MG TAB PO SCH (07:32)
[2019-02-22] MEDS: ROSUVASTATIN CALCIUM 20 MG TAB PO SCH (07:32)
[2019-02-22] MEDS ORDERED: FUROSEMIDE 20 MG TAB PO SCH (09:00)
[2019-02-22] MEDS ORDERED: LEVALBUTEROL HCL 1.25 MG/3 ML NEB INH PRN (09:10)
--- NOTE | 2019-02-22 11:10 | Pulmonology Progress Note ---
Date of Service February 22, 2019 Assessment & Plan (1) Acute cholecystitis without calculus: (2) Nausea: (3) History of airway aspiration: Cardiopulmonary standpoint patient is well. He will continue his nebulizer regimen at home and be seen back in the office at his regular scheduled visit with pulmonary function testing. (4) Status post Rocio fundoplication: Subjective 78-year-old white male that is post scopic cholecystectomy postoperative day #2 and with a history of chronic asthmatic bronchitis and possible aspiration along with a Rocio fundoplication for severe reflux and paraesophageal hernia repair doing well although has some mild nausea this morning and some incisional pain. He is productive of phlegm but for the most part nonpurulent and exhibiting no signs of respiratory symptoms or distress. Review of Systems Constitutional: no problem reported Eyes: no problem reported Ear, Nose, Mouth, Throat: no problem reported Respiratory: no problem reported Cardiovascular: no problem reported Gastrointestinal: no problem reported Genitourinary: no problem reported Musculoskeletal: no problem reported Integumentary: no problem reported Neurologic: no problem reported Psychiatric: no problem reported Endocrine: no problem reported Hematologic / Lymphatic: no problem reported Allergy / Immunological: no problem reported Physical Exam Constitutional: well developed and well nourished; no acute distress Eyes: PERRL, conjunctivae normal, anicteric sclerae ENMT: external ear and nose normal, oropharynx normal Neck: trachea midline, no thyromegaly Respiratory: normal respiratory effort Auscultation: lungs clear to auscultation bilaterally Cardiovascular: RRR, no murmur, no edema Palpation: normal PMI; no thrill Gastrointestinal (Abdomen): normal bowel sounds, soft, nontender, no hepatosplenomegaly Musculoskeletal: no cyanosis or clubbing, extremities motor strength 5/5 Gait: normal gait Skin: no rashes, warm and dry Neurologic: PERRL, EOMI, accommodation nl, no face palsy, no dysarthria Psychiatric: A+Ox3, euthymic affect Lymphatic: no cervical or axillary lymphadenopathy Results & Data Vital Signs (Past 12 Hours) Vital Signs Temp Pulse Pulse Resp BP Pulse Ox 02/22/19 07:17 36.9 C 56 L 18 123/67 95 02/22/19 07:13 63 18 98 Laboratory Results Abnormal Labs 02/17/19 02/17/19 02/17/19 12:58 12:58 18:05 WBC RBC 3.98 L Hgb 12.2 L Hct 37.1 L Lymph # (Auto) 0.30 L Sodium 135 L BUN BUN/Creatinine Ratio Glucose 100 H Calcium Phosphorus 2.0 L Direct Bilirubin AST 149 H ALT 222 H Alkaline Phosphatase 210 H Total Protein Albumin 2.9 L Albumin/Globulin Ratio 0.8 L Lipase 60 L Urine Ketones 1+ H 02/18/19 02/18/19 02/18/19 05:57 05:57 05:57 WBC 4.46 L RBC 3.66 L Hgb 11.4 L Hct 34.5 L Lymph # (Auto) Sodium BUN BUN/Creatinine Ratio Glucose Calcium 8.3 L Phosphorus Direct Bilirubin 0.3 H AST 92 H ALT 162 H Alkaline Phosphatase 230 H Total Protein 5.9 L Albumin 2.5 L Albumin/Globulin Ratio Lipase Urine Ketones 02/19/19 02/19/19 02/20/19 05:56 05:56 07:00 WBC 4.69 L RBC 4.08 L Hgb 12.9 L Hct 38.5 L Lymph # (Auto) 0.94 L Sodium BUN 6 L D 3 L BUN/Creatinine Ratio 6.0 L 3.2 L Glucose 108 H Calcium Phosphorus Direct Bilirubin AST 86 H 43 H ALT 146 H 101 H Alkaline Phosphatase 297 H 248 H Total Protein 5.8 L Albumin 2.8 L 2.4 L Albumin/Globulin Ratio 0.8 L 0.7 L Lipase Urine Ketones 02/21/19 02/21/19 02/22/19 06:09 06:09 05:50 WBC RBC 3.68 L 3.72 L Hgb 11.5 L 11.6 L Hct 34.7 L 35.0 L Lymph # (Auto) 0.94 L Sodium BUN 5 L BUN/Creatinine Ratio 5.5 L Glucose Calcium Phosphorus Direct Bilirubin AST 69 H ALT 112 H Alkaline Phosphatase 302 H Total Protein 5.9 L Albumin 2.5 L Albumin/Globulin Ratio 0.7 L Lipase Urine Ketones 02/22/19 05:50 WBC RBC Hgb Hct Lymph # (Auto) Sodium BUN 5 L BUN/Creatinine Ratio 6.2 L Glucose Calcium 8.4 L Phosphorus Direct Bilirubin AST 60 H ALT 107 H Alkaline Phosphatase 275 H Total Protein 5.9 L Albumin 2.6 L Albumin/Globulin Ratio 0.8 L Lipase Urine Ketones Medications Administered Current Inpatient Medications Acetaminophen (Tylenol) 650 mg PO Q6 PRN PRN Reason: Pain or Fever Stop: 03/19/19 13:44 Last Admin: 02/22/19 07:31 Dose: 650 mg Documented by: Aspirin (Ecotrin Ectab) 81 mg PO QPM [facility] Stop: 03/19/19 20:59 Last Admin: 02/21/19 20:54 Dose: 81 mg Documented by: [facility]og[facility] ([facility]) [facility] Stop: 03/23/19 14:14 Last Admin: 02/22/19 07:32 Dose: 75 mg Documented by: Furosemide (Lasix) [facility] Stop: 03/24/19 08:59 Last Admin: 02/22/19 07:32 Dose: 20 mg Documented by: Levalbuterol HCl (Xopenex 1.25mg/3ml Neb) 1.25 mg INH BIDR PRN PRN Reason: SOB/wheeizng Stop: 03/19/19 18:59 Losartan Potassium (Cozaar) 25 mg PO [facility] Stop: 03/20/19 08:59 Last Admin: 02/22/19 07:32 Dose: 25 mg Documented by: Metoprolol Succinate (Toprol Xl) 12.[facility] Stop: 03/20/19 08:59 Last Admin: 02/22/19 07:24 Dose: 12.5 mg Documented by: Miscellaneous (Order Awaiting Action) 1 ea N/A QS [facility] Stop: 03/24/19 00:00 Last Admin: 02/22/19 08:53 Dose: Not Given Documented by: Morphine Sulfate (Morphine Sulfate) 4 mg IV Q2H PRN PRN Reason: Pain Stop: 03/06/19 17:22 Ondansetron HCl (Zofran) 4 mg IV Q6H PRN PRN Reason: Nausea Stop: 03/19/19 13:44 Last Admin: 02/22/19 07:31 Dose: 4 mg Documented by: Oxycodone/Acetaminophen (Percocet 5mg/325mg) 1 tab PO Q4H PRN PRN Reason: Pain Stop: 03/06/19 17:22 Last Admin: 02/21/19 09:26 Dose: 1 tab Documented by: Pantoprazole Sodium (Protonix) 40 mg PO BID [facility] Stop: 03/19/19 20:59 Last Admin: 02/22/19 07:32 Dose: 40 mg Documented by: Polyethylene Glycol (Miralax Powder Packet) 17 gm PO DAILY [facility] Stop: 03/20/19 11:29 Last Admin: 02/22/19 07:24 Dose: 17 gm Documented by: Ranitidine HCl (Zantac) 150 mg PO BID [facility] Stop: 03/19/19 20:59 Last Admin: 02/22/19 07:32 Dose: 150 mg Documented by: Rosuvastatin Calcium (Crestor) 20 mg PO QAM [facility] Stop: 03/20/19 08:59 Last Admin: 02/22/19 07:32 Dose: 20 mg Documented by: Tamsulosin HCl (Flomax) 0.4 mg PO BID [facility] Stop: 03/19/19 20:59 Last Admin: 02/22/19 07:32 Dose: 0.4 mg Documented by: PG Care Time/CCT Total # of Minutes Spent Total Time Spent with Patient: Total time spent is greater than 50% in coordination of care (as documented) at patient's floor/unit and/or counseling patient:
--- NOTE | 2019-02-22 11:37 | Discharge Summary ---
Date of Service February 22, 2019 Admission HPI Per Admitting Provider 78-year-old male who was referred for direct admission for evaluation of nausea and poor appetite. Patient was admitted to [facility] 12/25 through 12/29 for severe bronchitis secondary to aspiration. Patient was found to have a very large hiatal hernia that was felt to be contributing to patient's symptoms. He was evaluated by thoracic surgery and patient underwent paraesophageal hernia repair and fundoplication on 01/20. Since surgery, patient reports he has been doing poorly. He reports a very poor appetite and has had almost persistent nausea. He has lost about 25 pounds since his surgery. He has not had any vomiting. He reports some intermittent lower abdominal pain. He describes this discomfort as a fullness and feels as though he has undigested food. He has been on a full liquid diet. He denies chest pain or shortness of breath. No lightheadedness, dizziness, diaphoresis, syncopal events. Denies fevers and chills. No urinary symptoms. Patient was evaluated by his PCP as well as Dr. Price today who referred the patient for direct admission. At the time my exam, patient is resting in bed no acute distress. Admission Exam Per Admitting Provider Constitutional: well developed, well nourished and + ill appearing; no acute distress Vitals as noted Eyes: PERRL, conjunctivae normal, anicteric sclerae ENMT: Ears: no external ear abnormality Nose: no external nose abnormality Mouth: + dry oral mucous membranes Respiratory: normal respiratory effort; no respiratory distress Auscultation: + diminished lung sounds Cardiovascular: Rate/Rhythm: regular rate and regular rhythm Vessels: normal peripheral pulses Extremities: no edema Gastrointestinal (Abdomen): Inspection/Auscultation: + abdomen distended; + abnormal bowel sounds (Hyperactive) Percussion/Palpation: + abdomen tender (Mild, diffuse) and abdomen soft Musculoskeletal: no cyanosis or clubbing, extremities motor strength 5/5 Skin: no rashes, warm and dry Neurologic: PERRL, EOMI, accommodation nl, no face palsy, no dysarthria Psychiatric: A+Ox3, euthymic affect Principal Diagnosis Acute cholecystitis without calculus s/p lap marisa Nausea Status post Rocio fundoplication S/P repair of paraesophageal hernia Discharge Data Allergies Allergy/AdvReac Type Severity Reaction Status Date / Time No Known Allergies Allergy Verified 02/17/19 11:22 Consultations 02/17/19 13:27 Consult Thoracic Surgery Routine 02/17/19 14:20 Consult General Surgery Routine 02/17/19 15:17 Consult Pulmonology Routine 02/18/19 12:44 Consult Gastroenterology Routine Procedures Performed Operation Date: 02/19/19 08:30 Actual Procedures p EGD Biopsy Cytology(Not Applicable) - Elizabeth Núñez Operation Date: 02/20/19 14:00 Actual Procedures p Laparoscopic Cholecystectomy(Not Applicable) - Danial Lozada MD Ordered Studies 02/17/19 13:06 CT abdomen wo con Stat CT chest wo con Stat 02/17/19 14:35 US abdomen limited Routine Hospital Course (1) Acute cholecystitis without calculus: (2) Nausea: (3) Status post Rocio fundoplication: (4) S/P repair of paraesophageal hernia: (5) Diastolic dysfunction: 78-year-old male who is 3 to 4 weeks postoperative paraesophageal hernia repair and Rocio fundoplication performed on 01/20. Since surgery the patient reported doing poorly reporting persistent nausea. He reported weight loss of 25 pounds since his surgery. He has had no overt vomiting. He reported some intermittent abdominal pain, also. Work-up revealed evidence of a possible acute cholecystitis. Work-up included a distended gallbladder with layering sludge noted on an ultrasound of the abdomen. No pericholecystic cystic edema or cholelithiasis was identified. The common bile duct was distended at 9 mm. A follow-up hepatobiliary scan was performed on 02/17 revealing delayed uptake of tracer within the distended gallbladder consistent with evidence of cholecystitis. An abdomen and pelvis CT was also performed in the setting of chronic postoperative nausea. Gallbladder findings were again consistent for cholecystitis. He was placed on Zosyn empirically. Thoracic surgery was consulted and felt he was doing well postoperatively with expected progress. After admission to the hospitalist service the patient underwent an upper endoscopy revealing an intact wrap and a small amount of retained food in the stomach. General surgery was consulted and performed a laparoscopic cholecystectomy on 02/20. Prior to the operation that day, he was noted to have crackles at the bases of his lungs and was given 1 dose of IV Lasix in preparation for lying flat on operating table later that afternoon. Lasix had been held since admission. He subsequently did well without evidence of hypoxia. He resumed his typical daily Lasix to treat chronic diastolic dysfunction and remained compensated. His postoperative recovery was uneventful and he was tolerating regular food prior to discharge. At the time of discharge a [id number] examination was performed revealing hemodynamically stable and afebrile patient with no significant pain. Any postoperative discomfort was controlled with oral pain medications and nausea had resolved. Physical exam was otherwise unremarkable revealing clear lungs to auscultation bilaterally with no respiratory compromise or increased respiratory effort. Cardiac exam revealed a regular rate and rhythm with S1 and S2 heard without evidence of murmurs gallops or rubs and no JVD. No peripheral edema was noted. Postoperative incision sites were healing well. He was alert and cooperative and oriented to person place and time. He was discharged in stable condition with close primary care and one week postoperative follow-up with Surgery recommended. Total Time Total Time Spent Total Time Spent (In Minutes): 60 Total Time Includes: Examination of the Patient, Discharge Planning, Medication Reconciliation and Communication With Other Providers Discharge Plan Discharge Items Patient Disposition: Home - Self-Care Reason For Visit: FAILURE TO THRIVE, NAUSEA Discharge Diagnosis: Acute cholecystitis without calculus s/p lap marisa Nausea Status post Rocio fundoplication S/P repair of paraesophageal hernia Condition on Discharge: Good Activity: As commented below Non-emergency contact: Primary Care Provider and Surgeon Call non-emergency contact if: you have any medication questions, your symptoms worsen, your pain is not controlled, your pain is worsening, your pain is unusual for you, your pain is concerning for you and you have a fever Follow-up/Referrals: Star Cabrera MD [Primary Care Provider] - Diet: Regular Addtl Attending Provider Instructions: Post-Surgical ~Discharge Instructions Activity Recommendations: - lifting limitation: (10 pounds for 2 weeks), - exercise/sex/sports limit: (nonstrenuous for 2 weeks), - driving or machine use limit: (none for 1 week), - Shower/bathe limit: (may shower) Diet: - Resume previous diet SPECIAL CARE INSTRUCTIONS: - May shower. Let water run over area and pat dry. - Leave steri strips on for one week. - The one incision has external stitches that will need to be removed in the office in about 10-14 days. All other incisions have stitches under the skin that will dissolve on their own. - Call the surgeon's office with any questions or concerns - - (ex. temperature higher than 101 degrees F, excessive bleeding or pain). MEDICATIONS: - Resume previous medications unless instructed otherwise by your surgeon. - Ibuprofen 600 mg every 6 hours with food - Percocet 1 every 4 hours, as needed for pain FOLLOW UP VISIT: - If not already scheduled, please call the office to schedule a two week follow-up appointment. Office number Addtl [place] [employer] Provider Instructions: Please take all medications as instructed on discharge list below. Please avoid taking percocet and tramadol within 6 hours of each other to avoid medication interactions. A one week follow-up with your primary care physician and surgeon are recommended to ensure you are still doing well after hospital discharge. It was a pleasure taking care of you! Please call if you have any questions or problems. You can reach a [facility] hospitalist on duty at [facility] 24 hours a day by calling [phone]. Take care of yourself. Anushka Jauregui, [facility] Pending Studies at Discharge: Yes (Gallbladder pathology, will be reviewed at follow up visit) Studies:: pathology pending at discharge Stand-Alone Forms: My [facility] Medications and DC Order Prescriptions: New oxycodone-acetaminophen [Percocet] 5-325 mg tablet 1 tab PO Q4H PRN (Reason: pain) Qty: 5 RF: 0 ondansetron HCl 4 mg tablet 4 mg PO Q8H PRN (Reason: nausea/vomiting) Qty: 15 RF: 0 Continued levalbuterol HCl 1.25 mg/3 mL solution for nebulization 1.25 mg INH BID Qty: 75 RF: 1 metoprolol succinate 25 mg Tablet Extended Release 24 Hr 12.5 mg PO QAM RF: 0 albuterol sulfate 90 mcg/actuation HFA aerosol inhaler 2 puff inhalation Q4H PRN (Reason: Shortness Of Breath Or Wheezing) RF: 0 ranitidine HCl 150 mg capsule 150 mg PO BID Qty: 60 RF: 1 ondansetron 8 mg tablet,disintegrating 8 mg PO Q8H PRN (Reason: Nausea) RF: 0 multivitamin Tablet 1 tab PO QAM RF: 0 nitroglycerin [Nitrostat] 0.3 mg Tablet, Sublingual 1 tab Sublingual DIRECTED PRN (Reason: Chest Pain) RF: 0 sennosides-docusate sodium [Senokot-S] 8.6-50 mg Tablet 1 tab PO HS RF: 0 acetaminophen 500 mg Tablet 1,000 mg PO Q6H PRN (Reason: Pain) RF: 0 aspirin 81 mg Tablet,Delayed Release (Dr/Ec) 81 mg PO QPM RF: 0 cyanocobalamin (vitamin B-12) 500 mcg Tablet 500 mcg PO QAM RF: 0 tamsulosin 0.4 mg Capsule 0.4 mg PO BID RF: 0 pantoprazole 40 mg Tablet,Delayed Release (Dr/Ec) 40 mg PO BID RF: 0 cholecalciferol (vitamin D3) [Vitamin D3] 1,000 unit Capsule 2,000 unit PO QAM RF: 0 Vitron-C 65 mg iron- 125 mg Tablet,Delayed Release (Dr/Ec) 1 tab PO Q2D RF: 0 clopidogrel 75 mg Tablet 75 mg PO QAM Qty: 30 RF: 3 rosuvastatin [Crestor] 20 mg Tablet 20 mg PO QAM RF: 0 furosemide [Lasix] 20 mg Tablet 20 mg PO QAM RF: 0 potassium chloride 10 mEq Tablet Extended Release 10 meq PO QAM RF: 0 losartan 25 mg Tablet 25 mg PO QAM RF: 0 tadalafil 20 mg Tablet 20 mg PO DAILY PRN (Reason: Erectile Dysfunction) RF: 0 tramadol [Ultram] 50 mg tablet 50 mg PO QID PRN (Reason: pain) Qty: 14 RF: 0 Discharge Orders: Discharge Order (Routine); Ordered 02/22/19 Ordered By: Anushka Jauregui Admission Data Admit Date/Time: 02/17/19 12:28 Attending Provider: Anushka Jauregui Admit Provider: Anthony Barry Primary Care Provider: Star Cabrera Other Providers: Aureliano Price ; Danial Lozada ; Ed Gonzalez ; Elizabeth Núñez Other Interventions: Discharge Summary Assessment (RN) Last Done: 02/22/19 12:19 DC Date/Time DO NOT enter until pt leaves facility: 02/22/19 13:37
[2019-02-22 12:24] VITALS: BP 124/77; PULSE 63
== END 2019-02-22 13:37 | disposition home or self-care (01) | DRG 418 ==
LOC: 4W 12:28 → SUATTDRO 12:28 → 4W 17:58